=== PATIENT | male | born 1955 | race Caucasian/White ===

== ENCOUNTER 2016-11-18 19:59 | Inpatient (IN) | payer OTHER ==
[~2016-11-18] VITALS: Ht 193 cm; Wt 141.1 kg
--- NOTE | 2016-11-18 20:39 | PHYS DOC ---
Past Medical History Past Medical History: A-Fib, CHF, Diabetes-Type II, Hypertension, Other Additional Past Medical Histor: FUNGAL RASH-ENTIRE BODY Past Surgical History: Tonsillectomy Additional Information: CHEWS TOBACCO Alcohol Use: None Drug Use: None Adult General Chief Complaint Chief Complaint: MULTIPLE COMPLAINTS HPI HPI Patient is a 60 year old male who presents after a fall. Patient reports he was trying to stand up from a recliner when his socks slipped on the wooden floor and he fell. He then tried to stand up and slipped again. He denies hitting his head or LOC. He presents now with c/o pain in R hip and L foot. He has been ambulate since then, albeit with significant difficulty. He has taken some ibuprofen for pain with insufficient relief. In addition, he reports that today (before falling) he noticed some blood in his urine. No dysuria. No prior similar episodes. Review of Systems Review of Systems Constitutional: Denies fever or chills Eyes: Denies change in visual acuity or eye pain HENT: Denies nasal congestion or sore throat Respiratory: Denies cough or shortness of breath Cardiovascular: Denies chest pain GI: Denies abdominal pain, nausea, vomiting, bloody stools or diarrhea : Hematuria. Denies dysuria Musculoskeletal: R hip and L foot pain Integument: Denies rash or skin lesions Neurologic: Denies headache, focal weakness or sensory changes Current Medications Current Medications Current Medications Medications (Trade) Dose Ordered Sig/Fermin Start Time Stop Time Status Last Admin Dose Admin Acetaminophen (Tylenol) 650 mg PRN Q4HRS PRN 11/18/16 22:15 11/19/16 22:14 UNV Acetaminophen/ Hydrocodone Bitart (Lortab 5/325) 2 tab 1X ONCE 11/18/16 21:00 11/18/16 21:01 DC 11/18/16 21:34 2 TAB Ceftriaxone Sodium (Rocephin 1gm Ivpb For Omni) 50 ml @ 100 mls/hr 1X ONCE 11/18/16 22:15 11/18/16 22:44 UNV 11/18/16 22:06 100 MLS/HR Dextrose 12.5 gm PRN Q15MIN PRN 11/18/16 22:15 UNV Furosemide 40 mg 40 mg 1X ONCE 11/18/16 22:00 11/18/16 22:01 DC 11/18/16 22:03 40 MG Insulin Aspart (Novolog) 0-7 UNITS TIDWMEALS 11/19/16 08:00 UNV Morphine Sulfate 4 mg PRN Q2HR PRN 11/18/16 22:15 11/19/16 22:14 UNV Ondansetron HCl (Zofran) 4 mg PRN Q8HRS PRN 11/18/16 22:15 11/19/16 22:14 UNV Allergies Allergies Allergies Coded Allergies Type Severity Reaction Last Updated Verified No Known Drug Allergies 11/18/16 No Physical Exam Physical Exam Constitutional: Well developed, well nourished, no acute distress, non-toxic appearance HENT: Normocephalic, atraumatic, bilateral external ears normal Eyes: EOMI, conjunctiva normal, no discharge Neck: Normal range of motion, no stridor Cardiovascular: Intermittent tachycardia, irregular rhythm, no murmur Lungs & Thorax: Bilateral breath sounds clear to auscultation Abdomen: Bowel sounds normal, soft, non-distended, no TTP Skin: Warm, dry, no erythema, no rash Back: No midline tenderness, no stepoff Extremities: BLE pitting edema. Scattered small scabs over BLE. R hip with mild TTP over lateral aspect, no visible deformity noted. L foot with mild generalized TTP as well, without deformity. Full motor function and sensation to light touch preserved throughout. Distal pulses intact throughout. Neurologic: Alert and oriented X 3, no gross deficits noted Current Patient Data Vital Signs Vital Signs Date Time Temp Pulse Resp B/P Pulse Ox O2 Delivery O2 Flow Rate FiO2 11/18/16 22:08 105 18 175/97 95 Room Air 11/18/16 20:15 98.7 98.7 Lab Values Laboratory Tests Test 11/18/16 20:29 11/18/16 21:40 White Blood Count 18.9x10^3/uL (4.0-11.0) H Red Blood Count 4.03x10^6/uL (4.30-5.70) L Hemoglobin 11.4g/dL (13.0-17.5) L Hematocrit 34.8% (39.0-53.0) L Mean Corpuscular Volume 86fL (79-100) Mean Corpuscular Hemoglobin 28pg (25-35) Mean Corpuscular Hemoglobin Concent 33g/dL (31-37) Red Cell Distribution Width 15.2% (11.5-14.5) H Platelet Count 199x10^3/uL (140-400) Neutrophils (%) (Auto) 82% (31-73) H Lymphocytes (%) (Auto) 7% (24-48) L Monocytes (%) (Auto) 9% (0-9) Eosinophils (%) (Auto) 2% (0-3) Basophils (%) (Auto) 1% (0-3) Neutrophils # (Auto) 15.5x10^3uL (1.8-7.7) H Lymphocytes # (Auto) 1.3x10^3/uL (1.0-4.8) Monocytes # (Auto) 1.7x10^3/uL (0.0-1.1) H Eosinophils # (Auto) 0.4x10^3/uL (0.0-0.7) Basophils # (Auto) 0.1x10^3/uL (0.0-0.2) Segmented Neutrophils % 77% (35-66) H Band Neutrophils % 11% (0-9) H Lymphocytes % 1% (24-48) L Atypical Lymphocytes % (Manual) 3% (0-0) H Monocytes % 7% (0-10) Eosinophils % 1% (0-5) Toxic Granulation Slight Toxic Vacuolation Slight Platelet Estimate Adequate (ADEQUATE) Ovalocytes Few Sodium Level 135mmol/L (136-145) L Potassium Level 3.8mmol/L (3.5-5.1) Chloride Level 98mmol/L (98-107) Carbon Dioxide Level 31mmol/L (21-32) Anion Gap 6 (6-14) Blood Urea Nitrogen 20mg/dL (8-26) Creatinine 1.9mg/dL (0.7-1.3) H Estimated GFR (Cockcroft-Gault) 36.1 Glucose Level 118mg/dL (70-99) H Calcium Level 8.7mg/dL (8.5-10.1) TA-Rfq-[id number]-Type Natriuretic Peptide 4127pg/mL (0-124) H Urine Collection Type Unknown Urine Color Red Urine Clarity Turbid Urine pH 5.5 Urine Specific [place] 1.020 Urine Protein >=300mg/dL (NEG-TRACE) Urine Glucose (UA) Negativemg/dL (NEG) Urine Ketones (Stick) Tracemg/dL (NEG) Urine Blood Large (NEG) Urine Nitrite Positive (NEG) Urine Bilirubin Moderate (NEG) Urine Urobilinogen Dipstick 0.2mg/dL (0.2 mg/dL) Urine Leukocyte Esterase Moderate (NEG) Urine RBC Tntc/HPF (0-2) Urine WBC 11-20/HPF (0-4) Urine Squamous Epithelial Cells Few/LPF Urine Amorphous Sediment Present/HPF Urine Bacteria 0/HPF (0-FEW) Urine Hyaline Casts Few/HPF Urine Granular Casts Occasional/HPF Laboratory Tests 11/18/16 20:29 Laboratory Tests 11/18/16 20:29 EKG EKG EKG (my read): atrial fibrillation, rate 98, LAD, intervals wnl, single PVC noted, no acute ischemic changes Radiology/Procedures Radiology/Procedures CXR (my read): Cardiomegaly, mild pulmonary edema X-ray L foot (my read): No acute bony abnormality X-ray R hip (my read): Degenerative changes, no acute fracture Course & Med Decision Making Course & Med Decision Making Pertinent Labs and Imaging studies reviewed. (See chart for details) Patient is 60 year old male who presents s/p mechanical fall and with hematuria. No obvious serious injury from fall, will obtain x-rays of R hip and L foot for evaluation. Noted to be in Afib (known history), and appears fluid overloaded (h/o CHF, takes lasix at home). Will obtain EKG, CXR, labs. Oral pain medication ordered for relief of pain. Labs notable for leukocytosis, elevated BNP, elevated creatinine, apparent UTI. Dose of IV lasix and rocephin ordered. Discussed results with patient and family. Discussed with Dr. Jiménez , will admit under his care for further evaluation and treatment. Cardiology consult entered. Dragon Disclaimer Dragon Disclaimer This electronic medical record was generated, in whole or in part, using a voice recognition dictation system. Departure Departure Impression: Primary Impression: CHF exacerbation Additional Impression: UTI (urinary tract infection) Disposition: ADMITTED INPATIENT Admitting Physician: Ventura Jiménez Condition: STABLE Problem Qualifiers TASHA BONNER MD Nov 18, 2016 20:39
[2016-11-18] MEDS ORDERED: HYDROCODONE/APAP 5/325MG TABLET. PO ONE (21:00)
[2016-11-18 21:03] LABS: BASO # 0.1 x10^3/uL (0.0-0.2); BASO % 1 % (0-3); EOS % 2 % (0-3); HEMATOCRIT 34.8 % (39.0-53.0); HEMOGLOBIN 11.4 g/dL (13.0-17.5); LYMPH # 1.3 x10^3/uL (1.0-4.8); LYMPH % 7 % (24-48); MEAN CORPUSCULAR HEMOGLOBIN 28 pg (25-35); MEAN CORPUSCULAR HGB CONC 33 g/dL (31-37); MEAN CORPUSCULAR VOLUME 86 fL (79-100); MONO % 9 % (0-9); NEUT % 82 % (31-73); PLATELET COUNT 199 x10^3/uL (140-400); RED BLOOD COUNT 4.03 x10^6/uL (4.30-5.70); RED CELL DISTRIBUTION WIDTH 15.2 % (11.5-14.5); WHITE BLOOD COUNT 18.9 x10^3/uL (4.0-11.0)
[2016-11-18 21:14] LABS: CALCIUM 8.7 mg/dL (8.5-10.1); CREATININE 1.9 mg/dL (0.7-1.3); GFR 36.1; POTASSIUM 3.8 mmol/L (3.5-5.1)
[2016-11-18 21:28] LABS: % EOS 1 % (0-5); OVALOCYTES FEW; PLT ESTIMATE ADEQUATE (ADEQUATE); TOXIC GRANULATION SLIGHT; TOXIC VACUOLATION SLIGHT
[2016-11-18 21:45] LABS: BILIRUBIN,URINE MODERATE (NEG); GLUCOSE,URINE NEGATIVE (NEG); NITRITE,URINE POSITIVE (NEG); PH,URINE 5.5; PROTEIN,URINE >=300 mg/dL (NEG-TRACE); UROBILINOGEN,URINE 0.2 mg/dL (0.2 mg/dL)
[2016-11-18 21:58] LABS: BACTERIA,URINE 0 /HPF (0-FEW); RBC,URINE TNTC /HPF (0-2); SQUAMOUS EPITHELIAL CELL,UR FEW /LPF
[2016-11-18] MEDS ORDERED: FUROSEMIDE 40 MG/4 ML VIAL IVP ONE (22:00)
[2016-11-18] MEDS ORDERED: DEXTROSE 50% 25 GM / 50ML DISP.SYRIN. IV PRN (22:15)
[2016-11-18] MEDS ORDERED: CEFTRIAXONE 1GM IVPB FOR OMNI 50 ML IV ONE (22:15)
[2016-11-18] MEDS ORDERED: ACETAMINOPHEN 325 MG TABLET. PO PRN (22:15)
[2016-11-18] MEDS ORDERED: ONDANSETRON PF 4 MG/2 ML VIAL. IV PRN (22:15)
[2016-11-18 23:03] VITALS: BP 123/97
[2016-11-18] MEDS ORDERED: LOSA100T6 PO (23:15)
[2016-11-18] MEDS ORDERED: CARV25TA2 PO (23:15)
[2016-11-18] MEDS ORDERED: INFLUENZA VAX SCREEN BY RX. MC ONE (23:15)
[2016-11-18] MEDS ORDERED: RIVA20TA2 PO (23:15)
[2016-11-18] MEDS ORDERED: GLIM2TAB2 PO (23:15)
[2016-11-18] MEDS ORDERED: FURO40TA4 PO (23:15)
[2016-11-18] MEDS ORDERED: PNEUMOCOCCAL VAX SCREEN BY RX. MC ONE (23:15)
[2016-11-18] MEDS ORDERED: AMLO10TA2 PO (23:15)
[2016-11-19] MEDS: MORPHINE SULFATE 4 MG/ML DISP.SYRIN. IV PRN ×3 (00:46→14:58)
[2016-11-19 03:30] VITALS: BP 154/89
[2016-11-19 05:31] LABS: BASO % 0 % (0-3); EOS % 3 % (0-3); HEMATOCRIT 34.8 % (39.0-53.0); HEMOGLOBIN 11.4 g/dL (13.0-17.5); LYMPH # 0.6 x10^3/uL (1.0-4.8); LYMPH % 3 % (24-48); MEAN CORPUSCULAR HEMOGLOBIN 28 pg (25-35); MEAN CORPUSCULAR HGB CONC 33 g/dL (31-37); MEAN CORPUSCULAR VOLUME 85 fL (79-100); MONO % 7 % (0-9); NEUT % 87 % (31-73); PLATELET COUNT 198 x10^3/uL (140-400); RED BLOOD COUNT 4.09 x10^6/uL (4.30-5.70); RED CELL DISTRIBUTION WIDTH 15.3 % (11.5-14.5); WHITE BLOOD COUNT 20.3 x10^3/uL (4.0-11.0)
[2016-11-19 06:05] LABS: CALCIUM 8.4 mg/dL (8.5-10.1); CREATININE 2.3 mg/dL (0.7-1.3); POTASSIUM 3.9 mmol/L (3.5-5.1)
[2016-11-19 07:00] VITALS: BP 150/88
[2016-11-19] MEDS ORDERED: INSULIN ASPART 300 UNITS/3 ML INSULN.PEN SQ SCH (08:00)
--- NOTE | 2016-11-19 08:19 | RAD ---
Exam: AP portable chest. History: Hypertension and atrial fibrillation. Comparison: 03/07/2011. Findings: The heart and mediastinal structures are within normal limits for size. Lungs are without infiltrate. No pneumothorax or pleural effusion is appreciated. Impression: 1. No acute cardiopulmonary process.
--- NOTE | 2016-11-19 08:21 | RAD ---
Left foot radiographs History: Diabetic, swelling and discoloration. Comparison: None. Findings: AP, lateral, and oblique views of the left foot. No acute fracture or dislocation is identified. No acute osseous abnormality to suggest radiographic evidence of osteomyelitis is seen, although radiographic evidence of such would be a late finding. First MTP degeneration is seen. No radiopaque foreign body is identified. Large amount of forefoot and midfoot soft tissue swelling is seen.. Plantar calcaneal and Achilles tendon insertional enthesophytes are present. Impression: 1. No radiographic evidence of osteomyelitis. 2. Soft tissue swelling.
--- NOTE | 2016-11-19 08:25 | RAD ---
Pelvis and right hip radiographs History: Pain, fall. Comparison: None. Findings: AP view of pelvis. AP and frog-leg views of the right hip. No acute fracture 4 dislocation is identified. There is moderate degenerative change involving the right hip. There is also over coverage of the femoral head by the acetabulum, and there is thought to be underlying pincer-type femoral acetabular impingement. Mild left hip degeneration is present, and there may be lesser degree of pincer-type left femoral acetabular impingement as well. Impression: No acute osseous abnormality identified.
--- NOTE | 2016-11-19 08:58 | PDOC1 ---
History and Physical Date of Admission Date of Admission DATE: 11/19/16 TIME: 08:56 Identification/Chief Complaint Chief Complaint ankle pain Source Source: Chart review, Patient History of Present Illness History of Present Illness Mr. Greco, is a 60 year old male admitted after a fall. Just slipped on the wooden floor at his sons house, and he fell, then slipped again. Only ER complaint was pain in R hip and L foot. Left foot swollen and painful and difficulty ambulating . He has taken some ibuprofen for pain with insufficient relief. some dyspnea with exertion, he takes Lasix for CHF, he has no known prior renal dysfunction, Past Medical History Cardiovascular: AFIB, CHF, HTN Pulmonary: No pertinent hx GI: No pertinent hx ENT: No pertinent hx Renal/: No pertinent hx Family History Family History soc: chews tobacco Social History Smoke: No ALCOHOL: none Drugs: None Current Problem List Problem List Problems Medical Problems: (1) CHF exacerbation Status: Acute (2) Fall Status: Acute (3) UTI (urinary tract infection) Status: Acute Problems: Current Medications Current Medications Current Medications Acetaminophen/ Hydrocodone Bitart (Lortab 5/325) 2 tab 1X ONCE PO Last administered on 11/18/16 21:34; Start 11/18/16 at 21:00; Stop 11/18/16 at 21:01 ; Status DC Furosemide 40 mg 40 mg 1X ONCE IVP Last administered on 11/18/16 22:03; Start 11/18/16 at 22:00; Stop 11/18/16 at 22:01; Status DC Ceftriaxone Sodium (Rocephin 1gm Ivpb For Omni) 50 ml @ 100 mls/hr 1X ONCE IV Last administered on 11/18/16 22:06; Start 11/18/16 at 22:15; Stop 11/18/16 at 22:44; Status DC Ondansetron HCl (Zofran) 4 mg PRN Q8HRS PRN IV NAUSEA/VOMITING; Start 11/18/16 at 22:15; Stop 11/19/16 at 22:14 Morphine Sulfate 4 mg PRN Q2HR PRN IV PAIN Last administered on 11/19/16 00:46 ; Start 11/18/16 at 22:15; Stop 11/19/16 at 22:14 Acetaminophen (Tylenol) 650 mg PRN Q4HRS PRN PO FEVER; Start 11/18/16 at 22:15 ; Stop 11/19/16 at 22:14 Insulin Aspart (Novolog) 0-7 UNITS TIDWMEALS SQ ; Start 11/19/16 at 08:00 Dextrose 12.5 gm PRN Q15MIN PRN IV SEE COMMENTS; Start 11/18/16 at 22:15 Info (Do NOT chart on this placeholder) 1 each 1X ONCE MC ; Start 11/18/16 at 23:15; Stop 11/18/16 at 23:16; Status UNV Pneumococcal Polyvalent Vaccine (Do NOT chart on this placeholder) 1 each 1X ONCE MC ; Start 11/18/16 at 23:15; Stop 11/18/16 at 23:16; Status UNV Influenza Virus Vaccine Quadrival (Fluarix Quad [id number] Syringe) 0.5 ml ONCE ONCE VAX IM ; Start 11/19/16 at 09:00; Stop 11/19/16 at 09:01 Pneumococcal Polyvalent Vaccine (Pneumovax 23) 0.5 ml ONCE ONCE VAX IM ; Start 11/19/16 at 09:00; Stop 11/19/16 at 09:01 Active Scripts Active Reported Xarelto (Rivaroxaban) 20 Mg Tablet 20 Mg PO DAILY Carvedilol 25 Mg Tablet 1 Tab PO BID Furosemide 40 Mg Tablet 1 Tab PO DAILY Losartan Potassium 100 Mg Tablet 100 Mg PO DAILY Amlodipine Besylate 10 Mg Tablet 10 Mg PO DAILY Glimepiride 2 Mg Tablet 1 Tab PO DAILY Allergies Allergies: Coded Allergies: No Known Drug Allergies (Unverified , 11/18/16) ROS General: No: Appetite, Chills, Fatigue, Malaise, Night Sweats, Other PSYCHOLOGICAL ROS: No: Anxiety, Behavioral Disorder, Concentration difficultie , Decreased libido, Depression, Disorientation, Hallucinations, Hostility, Irritablity, Memory difficulties, Mood Swings, Obsessive thoughts, Other, Physical abuse, Sexual abuse, Sleep disturbances, Suicidal ideation Eyes: No Blurry vision, No Decreased vision, No Double vision, No Dry eyes, No Excessive tearing, No Eye Pain, No Itchy Eyes, No Loss of vision, No Other, No Photophobia, No Scotomata, No Uses contacts, No Uses glasses HEENT: No: Epistaxis, Heacaches, Hearing change, Nasal congestion, Nasal discharge, Oral lesions, Other, Sinus pain, Sneezing, Snoring, Sore Throat, Tinnitus, Vertigo, Visual Changes, Vocal changes Cardiovascular: No Chest Pain, No Edema, No Lt Headedness, No Orthopnea, No Other, No Palpitations, No Paroxysmal Noc. Dyspnea Gastrointestinal: No Abdominal Pain, No Constipation, No Diarrhea, No Hematochezia, No Melena, No Nausea, No Other, No Vomiting Genitourinary: No , No , No , No , No , No , No , No Discharge, No Dysuria, No Flank Pain, No Frequency, No Hematuria, No Incontinence, No Other, No Pain, No Retention, No Urgency Musculoskeletal: Yes Joint Pain, Yes Joint Stiffness Neurological: No Behavorial Changes, No Bowel/Bladder ControlChng, No Confusion , No Dizziness, No Gait Disturbance, No Headaches, No Impaired Coord/balance, No Memory Loss, No Numbness/Tingling, No Other, No Seizures, No Speech Problems , No Tremors, No Visual Changes, No Weakness Skin: Yes Dry Skin, Yes Rash, No Acne, No Eczema, No Hair Changes, No Lumps, No Mole Changes, No Mottling, No Nail Changes, No Other, No Pruritus, No Skin Lesion Changes Physical Exam General: Alert, Oriented X3, Cooperative HEENT: Atraumatic, PERRLA Lungs: Other (end rales, no crackles, mod volume) Heart: no murmurs Abdomen: Normal bowel sounds, Soft (obese) Rectal Exam: not examined Extremities: Other (left foot 3+ edmea, ) Skin: Other (diffuse fungus with scale both ankles and feet, ) Neuro: Normal tone, Sensation intact Psych/Mental Status: Mental status NL, Mood NL Vitals Vitals Vital Signs Date Time Temp Pulse Resp B/P Pulse Ox O2 Delivery O2 Flow Rate FiO2 11/19/16 07:00 98.5 100 18 150/88 94 98.5 11/19/16 03:30 Room Air Labs Labs Laboratory Tests Test 11/18/16 20:29 11/18/16 21:40 11/19/16 04:25 White Blood Count 18.9x10^3/uL (4.0-11.0) 20.3x10^3/uL (4.0-11.0) Red Blood Count 4.03x10^6/uL (4.30-5.70) 4.09x10^6/uL (4.30-5.70) Hemoglobin 11.4g/dL (13.0-17.5) 11.4g/dL (13.0-17.5) Hematocrit 34.8% (39.0-53.0) 34.8% (39.0-53.0) Mean Corpuscular Volume 86fL (79-100) 85fL (79-100) Mean Corpuscular Hemoglobin 28pg (25-35) 28pg (25-35) Mean Corpuscular Hemoglobin Concent 33g/dL (31-37) 33g/dL (31-37) Red Cell Distribution Width 15.2% (11.5-14.5) 15.3% (11.5-14.5) Platelet Count 199x10^3/uL (140-400) 198x10^3/uL (140-400) Neutrophils (%) (Auto) 82% (31-73) 87% (31-73) Lymphocytes (%) (Auto) 7% (24-48) 3% (24-48) Monocytes (%) (Auto) 9% (0-9) 7% (0-9) Eosinophils (%) (Auto) 2% (0-3) 3% (0-3) Basophils (%) (Auto) 1% (0-3) 0% (0-3) Neutrophils # (Auto) 15.5x10^3uL (1.8-7.7) 17.7x10^3uL (1.8-7.7) Lymphocytes # (Auto) 1.3x10^3/uL (1.0-4.8) 0.6x10^3/uL (1.0-4.8) Monocytes # (Auto) 1.7x10^3/uL (0.0-1.1) 1.4x10^3/uL (0.0-1.1) Eosinophils # (Auto) 0.4x10^3/uL (0.0-0.7) 0.5x10^3/uL (0.0-0.7) Basophils # (Auto) 0.1x10^3/uL (0.0-0.2) 0.0x10^3/uL (0.0-0.2) Segmented Neutrophils % 77% (35-66) Band Neutrophils % 11% (0-9) Lymphocytes % 1% (24-48) Atypical Lymphocytes % (Manual) 3% (0-0) Monocytes % 7% (0-10) Eosinophils % 1% (0-5) Toxic Granulation Slight Toxic Vacuolation Slight Platelet Estimate Adequate (ADEQUATE) Ovalocytes Few Sodium Level 135mmol/L (136-145) 138mmol/L (136-145) Potassium Level 3.8mmol/L (3.5-5.1) 3.9mmol/L (3.5-5.1) Chloride Level 98mmol/L (98-107) 99mmol/L (98-107) Carbon Dioxide Level 31mmol/L (21-32) 34mmol/L (21-32) Anion Gap 6 (6-14) 5 (6-14) Blood Urea Nitrogen 20mg/dL (8-26) 22mg/dL (8-26) Creatinine 1.9mg/dL (0.7-1.3) 2.3mg/dL (0.7-1.3) Estimated GFR (Cockcroft-Gault) 36.1 29.0 Glucose Level 118mg/dL (70-99) 106mg/dL (70-99) Calcium Level 8.7mg/dL (8.5-10.1) 8.4mg/dL (8.5-10.1) SM-Kah-B-Type Natriuretic Peptide 4127pg/mL (0-124) Urine Collection Type Unknown Urine Color Red Urine Clarity Turbid Urine pH 5.5 Urine Specific [place] 1.020 Urine Protein >=300mg/dL (NEG-TRACE) Urine Glucose (UA) Negativemg/dL (NEG) Urine Ketones (Stick) Tracemg/dL (NEG) Urine Blood Large (NEG) Urine Nitrite Positive (NEG) Urine Bilirubin Moderate (NEG) Urine Urobilinogen Dipstick 0.2mg/dL (0.2 mg/dL) Urine Leukocyte Esterase Moderate (NEG) Urine RBC Tntc/HPF (0-2) Urine WBC 11-20/HPF (0-4) Urine Squamous Epithelial Cells Few/LPF Urine Amorphous Sediment Present/HPF Urine Bacteria 0/HPF (0-FEW) Urine Hyaline Casts Few/HPF Urine Granular Casts Occasional/HPF Laboratory Tests Test 11/18/16 20:29 11/18/16 21:40 11/19/16 04:25 White Blood Count 18.9x10^3/uL (4.0-11.0) 20.3x10^3/uL (4.0-11.0) Red Blood Count 4.03x10^6/uL (4.30-5.70) 4.09x10^6/uL (4.30-5.70) Hemoglobin 11.4g/dL (13.0-17.5) 11.4g/dL (13.0-17.5) Hematocrit 34.8% (39.0-53.0) 34.8% (39.0-53.0) Mean Corpuscular Volume 86fL (79-100) 85fL (79-100) Mean Corpuscular Hemoglobin 28pg (25-35) 28pg (25-35) Mean Corpuscular Hemoglobin Concent 33g/dL (31-37) 33g/dL (31-37) Red Cell Distribution Width 15.2% (11.5-14.5) 15.3% (11.5-14.5) Platelet Count 199x10^3/uL (140-400) 198x10^3/uL (140-400) Neutrophils (%) (Auto) 82% (31-73) 87% (31-73) Lymphocytes (%) (Auto) 7% (24-48) 3% (24-48) Monocytes (%) (Auto) 9% (0-9) 7% (0-9) Eosinophils (%) (Auto) 2% (0-3) 3% (0-3) Basophils (%) (Auto) 1% (0-3) 0% (0-3) Neutrophils # (Auto) 15.5x10^3uL (1.8-7.7) 17.7x10^3uL (1.8-7.7) Lymphocytes # (Auto) 1.3x10^3/uL (1.0-4.8) 0.6x10^3/uL (1.0-4.8) Monocytes # (Auto) 1.7x10^3/uL (0.0-1.1) 1.4x10^3/uL (0.0-1.1) Eosinophils # (Auto) 0.4x10^3/uL (0.0-0.7) 0.5x10^3/uL (0.0-0.7) Basophils # (Auto) 0.1x10^3/uL (0.0-0.2) 0.0x10^3/uL (0.0-0.2) Segmented Neutrophils % 77% (35-66) Band Neutrophils % 11% (0-9) Lymphocytes % 1% (24-48) Atypical Lymphocytes % (Manual) 3% (0-0) Monocytes % 7% (0-10) Eosinophils % 1% (0-5) Toxic Granulation Slight Toxic Vacuolation Slight Platelet Estimate Adequate (ADEQUATE) Ovalocytes Few Sodium Level 135mmol/L (136-145) 138mmol/L (136-145) Potassium Level 3.8mmol/L (3.5-5.1) 3.9mmol/L (3.5-5.1) Chloride Level 98mmol/L (98-107) 99mmol/L (98-107) Carbon Dioxide Level 31mmol/L (21-32) 34mmol/L (21-32) Anion Gap 6 (6-14) 5 (6-14) Blood Urea Nitrogen 20mg/dL (8-26) 22mg/dL (8-26) Creatinine 1.9mg/dL (0.7-1.3) 2.3mg/dL (0.7-1.3) Estimated GFR (Cockcroft-Gault) 36.1 29.0 Glucose Level 118mg/dL (70-99) 106mg/dL (70-99) Calcium Level 8.7mg/dL (8.5-10.1) 8.4mg/dL (8.5-10.1) VL-Lxl-U-Type Natriuretic Peptide 4127pg/mL (0-124) Urine Collection Type Unknown Urine Color Red Urine Clarity Turbid Urine pH 5.5 Urine Specific [place] 1.020 Urine Protein >=300mg/dL (NEG-TRACE) Urine Glucose (UA) Negativemg/dL (NEG) Urine Ketones (Stick) Tracemg/dL (NEG) Urine Blood Large (NEG) Urine Nitrite Positive (NEG) Urine Bilirubin Moderate (NEG) Urine Urobilinogen Dipstick 0.2mg/dL (0.2 mg/dL) Urine Leukocyte Esterase Moderate (NEG) Urine RBC Tntc/HPF (0-2) Urine WBC 11-20/HPF (0-4) Urine Squamous Epithelial Cells Few/LPF Urine Amorphous Sediment Present/HPF Urine Bacteria 0/HPF (0-FEW) Urine Hyaline Casts Few/HPF Urine Granular Casts Occasional/HPF VTE Prophylaxis Ordered VTE Prophylaxis Devices: No VTE Pharmacological Prophylaxi: Yes Assessment/Plan Assessment/Plan 60 yo male admitted after a fall x2 at home, injured left ankle and right hip pain in hip is improved, left foot and ankle are swollen, difficult to walk consult Dr. De, pt may benefit from cam boot or support CKD3-4, avoid aggressive NSAID for pain, acute renal w/ Ibuprofen use afib, chronic diastolic failure DM2, PO meds, he is unsure of A1c PCP is Marilee Goodrich LE edema admit obs, try to DC soon AIDEN GORDILLO MD Nov 19, 2016 08:58
[2016-11-19] MEDS ORDERED: FUROSEMIDE 40 MG/4 ML VIAL IVP ONE (09:00)
[2016-11-19] MEDS ORDERED: GUAIFENESIN DM 200MG/20MG 10 ML SYRUP. PO PRN (09:00)
[2016-11-19] MEDS ORDERED: FLU VACC QUAD 2016-17 (36MOS+)/PF 0.5 ML SYRINGE. VAX IM ONE (09:00)
[2016-11-19] MEDS ORDERED: NICOTINE 14MG PATCH. TD PRN (09:15)
[2016-11-19] MEDS ORDERED: NICOTINE POLACRILEX 2MG GUM PACKAGE of 12. BC PRN (09:15)
[2016-11-19] MEDS: CARVEDILOL 12.5 MG TABLET PO SCH ×2 (09:39→17:54)
[2016-11-19] MEDS: GLIMEPIRIDE 2 MG TABLET PO SCH (09:39)
[2016-11-19] MEDS: AMLODIPINE BESYLATE 10 MG TABLET PO SCH (09:39)
--- NOTE | 2016-11-19 09:56 | PDOC2 ---
KUNAL SHIPMAN TRANSPORTATION ENGINEER 11/19/16 0956: CARDIAC CONSULT DATE OF CONSULT Date of Consult DATE: 11/19/16 TIME: 09:49 REASON FOR CONSULT Reason for Consult: CHF HISTORY OF PRESENT ILLNESS HISTORY OF PRESENT ILLNESS Mr Greco is a 60 year old male with history of NICM, atrial fibrillation, CHF , diabetes mellitus. He was a patient of Marco A Hopper MD at [facility] but has not seen cardiology since his care home. He presented to the ED after a slip and fall. He was noted to have an elevated BNP and edema so consult was called for CHF. He denies any chest discomfort, dyspnea, orthopnea or PND. He reports bilateral lower extremity edema over the last month. He denies any change in diet or medications and takes diuretics daily. He denies any palpitations, lightheadedness or syncope. He reports his functional capacity at about 50 yards prior to dyspnea. PAST MEDICAL HISTORY Past Medical History AFIB, CHF, HTN, diabetes, NICM and reports his EF about 30% last check, last cardiac cath about 15 years ago. He is unsure if he has ever had an echo. He reports a stress test about 5 years ago. He is currently being treated for a rash he reports is a fungal infection. PAST SURGICAL HISTORY Past Surgical History: Tonsillectomy FAMILY HISTORY Family History diabetes SOCIAL HISTORY Social History chews tobacco, no significant ETOH, no illicit drugs CURRENT MEDICATIONS CURRENT MEDICATIONS Current Medications Medications (Trade) Dose Ordered Sig/Fermin Route PRN Reason Start Time Stop Time Status Last Admin Dose Admin Acetaminophen/ Hydrocodone Bitart (Lortab 5/325) 2 tab 1X ONCE PO 11/18/16 21:00 11/18/16 21:01 DC 11/18/16 21:34 Furosemide 40 mg 40 mg 1X ONCE IVP 11/18/16 22:00 11/18/16 22:01 DC 11/18/16 22:03 Ceftriaxone Sodium (Rocephin 1gm Ivpb For Omni) 50 ml @ 100 mls/hr 1X ONCE IV 11/18/16 22:15 11/18/16 22:44 DC 11/18/16 22:06 Morphine Sulfate 4 mg PRN Q2HR PRN IV PAIN 11/18/16 22:15 11/19/16 22:14 11/19/16 09:38 Amlodipine Besylate (Norvasc) 10 mg DAILY PO 11/19/16 09:30 11/19/16 09:39 Glimepiride (Amaryl) 2 mg DAILYWBKFT PO 11/19/16 09:30 11/19/16 09:39 Carvedilol (Coreg) 25 mg BIDWMEALS PO 11/19/16 09:30 11/19/16 09:39 Furosemide (Lasix) 40 mg 1X ONCE IVP 11/19/16 09:00 11/19/16 09:04 DC 11/19/16 09:40 ALLERGIES ALLERGIES: Coded Allergies: No Known Drug Allergies (Unverified , 11/18/16) ROS Review of System as per HPI with addition of rash, otherwise negative PHYSICAL EXAM General: Alert, Oriented X3, Cooperative, No acute distress HEENT: Atraumatic, EOMI Lungs: Other (coarse without obvious crackles, rhonchi or wheezing) Heart: Other (irregular rate and rhythm, no gallops) Abdomen: Normal bowel sounds, Soft Extremities: Other (++ bilateral lower extremity edema) Skin: Other (+ rash bilateral lower extremities ) Neuro: Normal speech, Strength at 5/5 X4 ext Psych/Mental Status: Mental status NL, Mood NL VITALS VITALS Vital Signs Date Time Temp Pulse Resp B/P Pulse Ox O2 Delivery O2 Flow Rate FiO2 11/19/16 09:39 100 150/88 11/19/16 07:00 98.5 18 94 98.5 11/19/16 03:30 Room Air LABS Lab: Laboratory Tests Test 11/18/16 20:29 11/18/16 21:40 11/19/16 04:25 White Blood Count 18.9x10^3/uL (4.0-11.0) 20.3x10^3/uL (4.0-11.0) Red Blood Count 4.03x10^6/uL (4.30-5.70) 4.09x10^6/uL (4.30-5.70) Hemoglobin 11.4g/dL (13.0-17.5) 11.4g/dL (13.0-17.5) Hematocrit 34.8% (39.0-53.0) 34.8% (39.0-53.0) Mean Corpuscular Volume 86fL (79-100) 85fL (79-100) Mean Corpuscular Hemoglobin 28pg (25-35) 28pg (25-35) Mean Corpuscular Hemoglobin Concent 33g/dL (31-37) 33g/dL (31-37) Red Cell Distribution Width 15.2% (11.5-14.5) 15.3% (11.5-14.5) Platelet Count 199x10^3/uL (140-400) 198x10^3/uL (140-400) Neutrophils (%) (Auto) 82% (31-73) 87% (31-73) Lymphocytes (%) (Auto) 7% (24-48) 3% (24-48) Monocytes (%) (Auto) 9% (0-9) 7% (0-9) Eosinophils (%) (Auto) 2% (0-3) 3% (0-3) Basophils (%) (Auto) 1% (0-3) 0% (0-3) Neutrophils # (Auto) 15.5x10^3uL (1.8-7.7) 17.7x10^3uL (1.8-7.7) Lymphocytes # (Auto) 1.3x10^3/uL (1.0-4.8) 0.6x10^3/uL (1.0-4.8) Monocytes # (Auto) 1.7x10^3/uL (0.0-1.1) 1.4x10^3/uL (0.0-1.1) Eosinophils # (Auto) 0.4x10^3/uL (0.0-0.7) 0.5x10^3/uL (0.0-0.7) Basophils # (Auto) 0.1x10^3/uL (0.0-0.2) 0.0x10^3/uL (0.0-0.2) Segmented Neutrophils % 77% (35-66) Band Neutrophils % 11% (0-9) Lymphocytes % 1% (24-48) Atypical Lymphocytes % (Manual) 3% (0-0) Monocytes % 7% (0-10) Eosinophils % 1% (0-5) Toxic Granulation Slight Toxic Vacuolation Slight Platelet Estimate Adequate (ADEQUATE) Ovalocytes Few Sodium Level 135mmol/L (136-145) 138mmol/L (136-145) Potassium Level 3.8mmol/L (3.5-5.1) 3.9mmol/L (3.5-5.1) Chloride Level 98mmol/L (98-107) 99mmol/L (98-107) Carbon Dioxide Level 31mmol/L (21-32) 34mmol/L (21-32) Anion Gap 6 (6-14) 5 (6-14) Blood Urea Nitrogen 20mg/dL (8-26) 22mg/dL (8-26) Creatinine 1.9mg/dL (0.7-1.3) 2.3mg/dL (0.7-1.3) Estimated GFR (Cockcroft-Gault) 36.1 29.0 Glucose Level 118mg/dL (70-99) 106mg/dL (70-99) Calcium Level 8.7mg/dL (8.5-10.1) 8.4mg/dL (8.5-10.1) SO-Hcu-N-Type Natriuretic Peptide 4127pg/mL (0-124) Urine Collection Type Unknown Urine Color Red Urine Clarity Turbid Urine pH 5.5 Urine Specific Shawmut 1.020 Urine Protein >=300mg/dL (NEG-TRACE) Urine Glucose (UA) Negativemg/dL (NEG) Urine Ketones (Stick) Tracemg/dL (NEG) Urine Blood Large (NEG) Urine Nitrite Positive (NEG) Urine Bilirubin Moderate (NEG) Urine Urobilinogen Dipstick 0.2mg/dL (0.2 mg/dL) Urine Leukocyte Esterase Moderate (NEG) Urine RBC Tntc/HPF (0-2) Urine WBC 11-20/HPF (0-4) Urine Squamous Epithelial Cells Few/LPF Urine Amorphous Sediment Present/HPF Urine Bacteria 0/HPF (0-FEW) Urine Hyaline Casts Few/HPF Urine Granular Casts Occasional/HPF IMAGES IMAGES CXR - Impression: 1. No acute cardiopulmonary process. hip/pelvis Impression: No acute osseous abnormality identified. foot Impression: 1. No radiographic evidence of osteomyelitis. 2. Soft tissue swelling. EKG EKG unavaliable tele - afib ASSESSMENT/PLAN ASSESSMENT/PLAN 1. chronic, likely systolic heart failure - CXR with out pulmonary congestion. Resume home medications and check echo. 2. reported NICM - check echo. 3. atrial fibrillation - rate control and xarelto for stroke prophylaxis 4. CKD - he reports 25% renal function but denies ever seeing nephrology. Request records and consider renal eval. 5. hypertension - add hydralazine 6. lipid status unknown Problems: SAMIA JONES MD 11/19/16 1309: CARDIAC CONSULT ALLERGIES ALLERGIES: Coded Allergies: No Known Drug Allergies (Unverified , 11/18/16) ASSESSMENT/PLAN ASSESSMENT/PLAN Pt. seen and examined. Agree with above ICE HOCKEY COACH note. 60 y.o male with presumed non-ischemic CMP. Presenting with acute on chronic HF. Severe LE edema and chronic venous stasis changes. Will continue diuresis. Monitor renal function tomorrow. may need to be transferred to [facility] for close cardiac monitoring and consider initiation of milrinone etc if renal function gets worse. Problems: KUNAL SHIPMAN APRN Nov 19, 2016 09:56 SAMIA JONES MD Nov 19, 2016 13:09
[2016-11-19 11:00] VITALS: BP 146/86
[2016-11-19] MEDS: INSULIN ASPART 300 UNITS/3 ML INSULN.PEN SQ SCH ×2 (12:00→17:00)
--- NOTE | 2016-11-19 12:02 | EKG ---
[facility] [address] [place] [address] Test Date: 2016-11-18 Test Time: 20:46:47 Pat Name: SILVIA BLAND Department: Room: [facility] Gender: M Clam Dredger: : 1955 Requested By: TASHA BONNER Order Number: [id number] Reading MD: Oswaldo Everett Measurements Intervals Lester Rate: 98 P: CT: QRS: -45 QRSD: 110 T: 54 QT: 346 QTc: 444 Interpretive Statements ATRIAL FIBRILLATION WITH CONTROLLED VENTRICULAR RESPONSE NON-SPECIFIC ST/T CHANGES Electronically Signed On 11-22-2016 9:28:57 PROVIDER SERVICE REPRESENTATIVE by Oswaldo Everett
[2016-11-19] MEDS: IPRATRPIUM/ALBUTEROL 0.5/2.5MG 3 ML NEBU. NEB SCH ×3 (12:05→20:08)
[2016-11-19] MEDS: HYDRALAZINE 25 MG TABLET PO SCH ×2 (13:19→13:23)
[2016-11-19] MEDS: PNEUMOC CONJ VACC 23-VALENT 0.5 ML VIAL. VAX IM ONE (13:22)
[2016-11-19 14:38] VITALS: BP 108/71
[2016-11-19] MEDS ORDERED: RIVAROXABAN 10 MG TABLET. PO SCH (17:00)
[2016-11-19 17:34] LABS: % SAT IRON 7 % (15-34); IRON,SERUM 11 ug/dL (65-175)
[2016-11-19 19:05] VITALS: BP 108/74
[2016-11-19] MEDS: CEFTRIAXONE SODIUM 1 GM in IV NORMAL SALINE 50ML 50 ML IV SCH (21:28)
--- NOTE | 2016-11-19 21:35 | CONS ---
DATE OF CONSULTATION: 11/19/2016 ATTENDING PHYSICIAN: Dr. Jiménez. The patient was seen at the request of Dr. Jiménez for rehab evaluation. 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 He is babysitting with his at his son's house and he tried to stand up from a recliner when his socks slipped on the wooden floor and he fell and he tried to stand up again and he slipped again. He denies hitting his head or loss of consciousness. He complains of pain in his right hip and left foot with associated swelling. He is having difficulty to walk. He had taken some ibuprofen with insufficient pain relief. Before he fell he apparently also had some blood in the urine without any dysuria, no previous episodes like that. The patient with known atrial fibrillation, congestive heart failure, diabetes mellitus type 2, hypertension, fungal skin rash entire body, status post tonsillectomy. He chews tobacco. He is not known allergic to any medication. The patient denies any previous hip pain. He admits some lower back pain on and off while he is up walking long distance. Patient denies any tingling and numbness sensation in the extremities. Patient had radiological studies done of his hip and pelvis which revealed moderate degree of degenerative changes, right hip, mild degenerative changes in his left hip. X-rays of his left foot failed to reveal any acute abnormality, some degenerative changes of metatarsal phalangeal joint. PHYSICAL EXAMINATION: The patient on physical examination today revealed a middle-aged male. He is alert, oriented to place and person, follows commands appropriately, moves all 4 extremities voluntarily where he had 4+/5 grade muscle strength. He had tenderness to palpation over left mid foot and forefoot with significant edema and he had skin rash with scales over both feet and both legs and also over his thighs to a lesser degree. He had a crepitus on range of motion of both knee joints without any obvious knee joint effusion, no pain on range of motion of his left ankle. No tenderness to palpation around left ankle itself or left leg. He had significant limitation of right hip joint rotational movements. No tenderness to palpation around trochanteric bursa or gluteal muscles or over sacroiliac joint area or over lumbar spine. Straight leg raising test is negative bilaterally. I have not tested his transfers or ambulation skills, but he is independent with bed mobility. ASSESSMENT: Sprain, left foot and also right hip superimposed on degenerative joint disease of right hip. He also had absent ankle and knee jerks probably indicating diabetic peripheral neuropathy. He also had obesity. Patient with known atrial fibrillation, congestive heart failure, hypertension and fungal skin lesions all over his body for which he is being followed by a chemical research engineer. RECOMMENDATIONS: To get him a Cam walker both to support his left foot and to proceed with injecting his right hip joint under fluoroscopy to help ease his hip pain. He might need to be considered for total hip arthroplasty if the hip pain persists. To also obtain followup x-rays of his left foot early next week to make sure there is not any occult bony lesion. Dr. Jiménez, I appreciate asking me to participate in the care of this interesting patient. I will be glad to follow him with you as needed for his rehabilitation. YANICK LAI MD DR: JAVED/irasema JOB#: [id number] / [id number]
[2016-11-19 23:00] VITALS: BP 91/65
[2016-11-20] MEDS ORDERED: MORPHINE SULFATE 4 MG/ML DISP.SYRIN. IV PRN (00:15)
[2016-11-20] MEDS: MORPHINE IR 15 MG TABLET PO PRN ×3 (00:20→20:48)
[2016-11-20 03:09] VITALS: BP 100/61
--- NOTE | 2016-11-20 04:47 | ACF ---
Admission Forms Criteria URINARY COMPLICATIONS Clinical Indications for Inpatient Care (Place 'X' for any and all applicable criteria): Ongoing inpatient care may be indicated for urinary complications with ANY ONE of the following: [X]I. Urinary tract infection requiring inpatient care as indicated by ANY ONE of the following(8)(19)(20): [X]a) Severe symptoms (eg, high fever, severe pain) [ ]b) Vomiting or dehydration requiring ongoing inpatient care [ ]c) IV antibiotic needs that cannot be managed at lower level of care [ ]d) Hemodynamic instability [ ]e) Obstruction of collecting system by stone or tumor [ ]II. Urinary retention requiring drainage or surgery (3)(4)(5)(17)(18) [ ]III. Renal failure (Use Renal Failure Criteria for further information.) [ ]IV. Oliguria(30) [ ]V. Post obstructive diuresis requiring close monitoring of urine output and intravenous compensation for excessive fluid losses(33) Extended stay beyond goal length of stay for primary condition may be needed until ALL of the following are present(3)(4)(5)(8): [ ]a) Renal function (creatinine) at baseline, or daily decreases in creatinine consistent with renal function return [ ]b) Voiding adequately or with urinary catheter or percutaneous suprapubic tube and management regimen in place that is performable at lower level of care. [ ]c) Urine output adequate [ ]d) Fever absent or resolving [ ]e) Infection absent or treatable at next level of care The original [employer] content created by [employer] has been revised. The portions of the content which have been revised are identified through the use of italic text or in bold, and [facility] has neither reviewed nor approved the modified material. All other unmodified content is copyright [employer] Please see references footnoted in the original [facility] edition 2016 Admission Criteria Met?: Yes MARY DAVIS Nov 20, 2016 04:47
[2016-11-20 05:19] LABS: BASO # 0.1 x10^3/uL (0.0-0.2); BASO % 1 % (0-3); EOS % 5 % (0-3); HEMATOCRIT 30.5 % (39.0-53.0); HEMOGLOBIN 10.1 g/dL (13.0-17.5); LYMPH # 1.4 x10^3/uL (1.0-4.8); LYMPH % 8 % (24-48); MEAN CORPUSCULAR HEMOGLOBIN 28 pg (25-35); MEAN CORPUSCULAR HGB CONC 33 g/dL (31-37); MEAN CORPUSCULAR VOLUME 85 fL (79-100); MONO % 7 % (0-9); NEUT % 79 % (31-73); PLATELET COUNT 168 x10^3/uL (140-400); RED BLOOD COUNT 3.58 x10^6/uL (4.30-5.70); WHITE BLOOD COUNT 18.4 x10^3/uL (4.0-11.0)
[2016-11-20 05:37] LABS: ALBUMIN/GLOBULIN RATIO 0.4 (1.0-1.7); CALCIUM 7.7 mg/dL (8.5-10.1); CREATININE 4.4 mg/dL (0.7-1.3); GFR 13.7; POTASSIUM 3.6 mmol/L (3.5-5.1); TOTAL BILIRUBIN 0.6 mg/dL (0.2-1.0); TOTAL PROTEIN 7.4 g/dL (6.4-8.2)
[2016-11-20] MEDS: IPRATRPIUM/ALBUTEROL 0.5/2.5MG 3 ML NEBU. NEB SCH ×4 (07:17→20:02)
[2016-11-20 07:23] VITALS: BP 119/68
[2016-11-20] MEDS: INSULIN ASPART 300 UNITS/3 ML INSULN.PEN SQ SCH ×3 (08:00→17:00)
[2016-11-20] MEDS: GLIMEPIRIDE 2 MG TABLET PO SCH (08:08)
[2016-11-20] MEDS: AMLODIPINE BESYLATE 10 MG TABLET PO SCH (08:08)
[2016-11-20] MEDS: HYDRALAZINE 25 MG TABLET PO SCH ×2 (08:08→20:49)
[2016-11-20] MEDS: CARVEDILOL 12.5 MG TABLET PO SCH ×2 (08:09→17:42)
--- NOTE | 2016-11-20 08:41 | RAD ---
Abdominal ultrasound - limited to the kidneys Indication: Acute kidney injury, hematuria. Comparison: CT abdomen pelvis 03/07/2011. Procedure: Transabdominal ultrasound images are obtained of the kidneys and bladder. Findings: Right kidney measures 10.3 cm in length. Right kidney is without evidence of obstruction or stone. Superior pole of right kidney demonstrates 1.6 cm simple appearing cyst. Left kidney measures 12.5 cm in length. Left kidney is without evidence of obstruction or stone. Parenchymal echogenicity of both kidneys appears appropriate. Urinary bladder is collapsed, limiting evaluation. Impression: 1. Right renal cyst. 2. Otherwise, unremarkable renal ultrasound..
--- NOTE | 2016-11-20 08:53 | CARD ---
APPROVED REPORT EXAM: Two-dimensional and M-mode echocardiogram with Doppler and color Doppler. Other Information Quality : Good INDICATION Congestive Heart Failure LEFT VENTRICLE The Left Ventricle is mildly dilated. There is mild concentric left ventricular hypertrophy. Left angela tricle systolic function is mildly reduced. EF 40-45%. Difficult to estimate EF due to atrial fibrill ation. Septal motion consistent with conduction abnormality and dysynchrony. Mild global hypokinesis. Tissue Doppler imaging reveals moderate left ventricular diastolic dysfunction. RIGHT VENTRICLE The right ventricle is normal size. The right ventricular systolic function is normal. ATRIA The left atrium is moderately dilated. The right atrium is mildly dilated. The interatrial septum is intact with no evidence for an atrial septal defect or patent foramen ovale as noted on 2-D or Dopple r imaging. AORTIC VALVE The aortic valve is normal in structure and function. Doppler and Color Flow revealed no significant aortic regurgitation. There is no significant aortic valvular stenosis. MITRAL VALVE The mitral valve is calcified but opens well. Mitral annular calcification is mild. There is no evide nce of mitral valve prolapse. There is no mitral valve stenosis. Doppler and Color-flow revealed trac e to mild mitral regurgitation. TRICUSPID VALVE The tricuspid valve is normal in structure and function. Doppler and Color Flow revealed trace to mil d tricuspid regurgitation. There is mild pulmonary hypertension. The PA pressure was estimated at 39 mmHg. There is no tricuspid valve stenosis. PULMONIC VALVE Doppler and Color Flow revealed mild pulmonic valvular regurgitation. There is no pulmonic valvular s tenosis. GREAT VESSELS The aortic root is normal in size. The ascending aorta is normal in size. The IVC is dilated and angelito apses >50% with inspiration. PERICARDIAL EFFUSION There is no evidence of significant pericardial effusion. Critical Notification Critical Value: No <Conclusion> Left ventricle systolic function is mildly reduced. EF 40-45%. Difficult to estimate EF due to atrial fibrillation. Septal motion consistent with conduction abnormality and dysynchrony. Mild global hypokinesis. Tissue Doppler imaging reveals moderate left ventricular diastolic dysfunction. Doppler and Color Flow revealed trace to mild tricuspid regurgitation. There is mild pulmonary hypert ension. The PA pressure was estimated at 39 mmHg.
[2016-11-20 10:38] VITALS: BP 110/68
[2016-11-20] MEDS: IV NORMAL SALINE 1000ML BAG 1,000 ML IV SCH ×2 (10:59→23:37)
--- NOTE | 2016-11-20 11:09 | PDOC ---
PROGRESS NOTES Chief Complaint Chief Complaint CHF Systolic acute on chronic Afib CHAY Leucocytosis Fall DM HTN Proteinuria Lower extremity edema with cellulitis. Plan Mild iv hydration due to CHF hx IV ZOSYN Blood cx ordered.unclear source of infection, If not get better, consult Nephrology d/w cardiology, start him on Milrinone Renal consult, Pain control with IV morphine Follow cbc and BMP PT/OT oral AC- NO DVT Prophylaxis. History of Present Illness History of Present Illness DOING BETTER NO FEVER NO CHILLS. Vitals Vitals Vital Signs Date Time Temp Pulse Resp B/P Pulse Ox O2 Delivery O2 Flow Rate FiO2 11/20/16 10:38 97.9 83 20 110/68 94 Room Air 97.9 Physical Exam General: Alert, Oriented X3, Cooperative, No acute distress Heart: Other Lungs: Clear Abdomen: Normal bowel sounds, Soft Extremities: Other (rash in LE) Skin: Other Labs LABS Laboratory Tests Test 11/19/16 11:18 11/19/16 11:50 11/19/16 16:35 11/19/16 17:48 Erythrocyte Sedimentation Rate 97 (0-15) Glucose (Fingerstick) 126mg/dL (70-99) 103mg/dL (70-99) Iron Level 11ug/dL (65-175) Total Iron Binding Capacity 151ug/dL (250-450) Iron Saturation 7% (15-34) Ferritin 302ng/mL (26-388) Test 11/19/16 20:49 11/20/16 04:30 11/20/16 07:51 11/20/16 08:26 Glucose (Fingerstick) 113mg/dL (70-99) 64mg/dL (70-99) 76mg/dL (70-99) White Blood Count 18.4x10^3/uL (4.0-11.0) Red Blood Count 3.58x10^6/uL (4.30-5.70) Hemoglobin 10.1g/dL (13.0-17.5) Hematocrit 30.5% (39.0-53.0) Mean Corpuscular Volume 85fL (79-100) Mean Corpuscular Hemoglobin 28pg (25-35) Mean Corpuscular Hemoglobin Concent 33g/dL (31-37) Red Cell Distribution Width 15.0% (11.5-14.5) Platelet Count 168x10^3/uL (140-400) Neutrophils (%) (Auto) 79% (31-73) Lymphocytes (%) (Auto) 8% (24-48) Monocytes (%) (Auto) 7% (0-9) Eosinophils (%) (Auto) 5% (0-3) Basophils (%) (Auto) 1% (0-3) Neutrophils # (Auto) 14.6x10^3uL (1.8-7.7) Lymphocytes # (Auto) 1.4x10^3/uL (1.0-4.8) Monocytes # (Auto) 1.3x10^3/uL (0.0-1.1) Eosinophils # (Auto) 0.9x10^3/uL (0.0-0.7) Basophils # (Auto) 0.1x10^3/uL (0.0-0.2) Sodium Level 131mmol/L (136-145) Potassium Level 3.6mmol/L (3.5-5.1) Chloride Level 93mmol/L (98-107) Carbon Dioxide Level 30mmol/L (21-32) Anion Gap 8 (6-14) Blood Urea Nitrogen 40mg/dL (8-26) Creatinine 4.4mg/dL (0.7-1.3) Estimated GFR (Cockcroft-Gault) 13.7 BUN/Creatinine Ratio 9 (6-20) Glucose Level 69mg/dL (70-99) Calcium Level 7.7mg/dL (8.5-10.1) Total Bilirubin 0.6mg/dL (0.2-1.0) Aspartate Amino Transf (AST/SGOT) 17U/L (15-37) Alanine Aminotransferase (ALT/SGPT) 14U/L (16-63) Alkaline Phosphatase 62U/L (46-116) Total Protein 7.4g/dL (6.4-8.2) Albumin 2.0g/dL (3.4-5.0) Albumin/Globulin Ratio 0.4 (1.0-1.7) Test 11/20/16 10:37 Glucose (Fingerstick) 119mg/dL (70-99) Assessment and Plan Assessmemt and Plan Problems Medical Problems: (1) CHF exacerbation Status: Acute (2) Fall Status: Acute (3) UTI (urinary tract infection) Status: Acute Problems: Comment Review of Relevant I have reviewed the following items maynor (where applicable) has been applied. Labs Laboratory Tests Test 11/18/16 20:29 11/18/16 21:40 11/19/16 04:25 11/19/16 11:18 White Blood Count 18.9x10^3/uL (4.0-11.0) 20.3x10^3/uL (4.0-11.0) Red Blood Count 4.03x10^6/uL (4.30-5.70) 4.09x10^6/uL (4.30-5.70) Hemoglobin 11.4g/dL (13.0-17.5) 11.4g/dL (13.0-17.5) Hematocrit 34.8% (39.0-53.0) 34.8% (39.0-53.0) Mean Corpuscular Volume 86fL (79-100) 85fL (79-100) Mean Corpuscular Hemoglobin 28pg (25-35) 28pg (25-35) Mean Corpuscular Hemoglobin Concent 33g/dL (31-37) 33g/dL (31-37) Red Cell Distribution Width 15.2% (11.5-14.5) 15.3% (11.5-14.5) Platelet Count 199x10^3/uL (140-400) 198x10^3/uL (140-400) Neutrophils (%) (Auto) 82% (31-73) 87% (31-73) Lymphocytes (%) (Auto) 7% (24-48) 3% (24-48) Monocytes (%) (Auto) 9% (0-9) 7% (0-9) Eosinophils (%) (Auto) 2% (0-3) 3% (0-3) Basophils (%) (Auto) 1% (0-3) 0% (0-3) Neutrophils # (Auto) 15.5x10^3uL (1.8-7.7) 17.7x10^3uL (1.8-7.7) Lymphocytes # (Auto) 1.3x10^3/uL (1.0-4.8) 0.6x10^3/uL (1.0-4.8) Monocytes # (Auto) 1.7x10^3/uL (0.0-1.1) 1.4x10^3/uL (0.0-1.1) Eosinophils # (Auto) 0.4x10^3/uL (0.0-0.7) 0.5x10^3/uL (0.0-0.7) Basophils # (Auto) 0.1x10^3/uL (0.0-0.2) 0.0x10^3/uL (0.0-0.2) Segmented Neutrophils % 77% (35-66) Band Neutrophils % 11% (0-9) Lymphocytes % 1% (24-48) Atypical Lymphocytes % (Manual) 3% (0-0) Monocytes % 7% (0-10) Eosinophils % 1% (0-5) Toxic Granulation Slight Toxic Vacuolation Slight Platelet Estimate Adequate (ADEQUATE) Ovalocytes Few Sodium Level 135mmol/L (136-145) 138mmol/L (136-145) Potassium Level 3.8mmol/L (3.5-5.1) 3.9mmol/L (3.5-5.1) Chloride Level 98mmol/L (98-107) 99mmol/L (98-107) Carbon Dioxide Level 31mmol/L (21-32) 34mmol/L (21-32) Anion Gap 6 (6-14) 5 (6-14) Blood Urea Nitrogen 20mg/dL (8-26) 22mg/dL (8-26) Creatinine 1.9mg/dL (0.7-1.3) 2.3mg/dL (0.7-1.3) Estimated GFR (Cockcroft-Gault) 36.1 29.0 Glucose Level 118mg/dL (70-99) 106mg/dL (70-99) Calcium Level 8.7mg/dL (8.5-10.1) 8.4mg/dL (8.5-10.1) AO-Cnt-O-Type Natriuretic Peptide 4127pg/mL (0-124) Urine Collection Type Unknown Urine Color Red Urine Clarity Turbid Urine pH 5.5 Urine Specific [place] 1.020 Urine Protein >=300mg/dL (NEG-TRACE) Urine Glucose (UA) Negativemg/dL (NEG) Urine Ketones (Stick) Tracemg/dL (NEG) Urine Blood Large (NEG) Urine Nitrite Positive (NEG) Urine Bilirubin Moderate (NEG) Urine Urobilinogen Dipstick 0.2mg/dL (0.2 mg/dL) Urine Leukocyte Esterase Moderate (NEG) Urine RBC Tntc/HPF (0-2) Urine WBC 11-20/HPF (0-4) Urine Squamous Epithelial Cells Few/LPF Urine Amorphous Sediment Present/HPF Urine Bacteria 0/HPF (0-FEW) Urine Hyaline Casts Few/HPF Urine Granular Casts Occasional/HPF Erythrocyte Sedimentation Rate 97 (0-15) Test 11/19/16 11:50 11/19/16 16:35 11/19/16 17:48 11/19/16 20:49 Glucose (Fingerstick) 126mg/dL (70-99) 103mg/dL (70-99) 113mg/dL (70-99) Iron Level 11ug/dL (65-175) Total Iron Binding Capacity 151ug/dL (250-450) Iron Saturation 7% (15-34) Ferritin 302ng/mL (26-388) Test 11/20/16 04:30 11/20/16 07:51 11/20/16 08:26 11/20/16 10:37 White Blood Count 18.4x10^3/uL (4.0-11.0) Red Blood Count 3.58x10^6/uL (4.30-5.70) Hemoglobin 10.1g/dL (13.0-17.5) Hematocrit 30.5% (39.0-53.0) Mean Corpuscular Volume 85fL (79-100) Mean Corpuscular Hemoglobin 28pg (25-35) Mean Corpuscular Hemoglobin Concent 33g/dL (31-37) Red Cell Distribution Width 15.0% (11.5-14.5) Platelet Count 168x10^3/uL (140-400) Neutrophils (%) (Auto) 79% (31-73) Lymphocytes (%) (Auto) 8% (24-48) Monocytes (%) (Auto) 7% (0-9) Eosinophils (%) (Auto) 5% (0-3) Basophils (%) (Auto) 1% (0-3) Neutrophils # (Auto) 14.6x10^3uL (1.8-7.7) Lymphocytes # (Auto) 1.4x10^3/uL (1.0-4.8) Monocytes # (Auto) 1.3x10^3/uL (0.0-1.1) Eosinophils # (Auto) 0.9x10^3/uL (0.0-0.7) Basophils # (Auto) 0.1x10^3/uL (0.0-0.2) Sodium Level 131mmol/L (136-145) Potassium Level 3.6mmol/L (3.5-5.1) Chloride Level 93mmol/L (98-107) Carbon Dioxide Level 30mmol/L (21-32) Anion Gap 8 (6-14) Blood Urea Nitrogen 40mg/dL (8-26) Creatinine 4.4mg/dL (0.7-1.3) Estimated GFR (Cockcroft-Gault) 13.7 BUN/Creatinine Ratio 9 (6-20) Glucose Level 69mg/dL (70-99) Calcium Level 7.7mg/dL (8.5-10.1) Total Bilirubin 0.6mg/dL (0.2-1.0) Aspartate Amino Transf (AST/SGOT) 17U/L (15-37) Alanine Aminotransferase (ALT/SGPT) 14U/L (16-63) Alkaline Phosphatase 62U/L (46-116) Total Protein 7.4g/dL (6.4-8.2) Albumin 2.0g/dL (3.4-5.0) Albumin/Globulin Ratio 0.4 (1.0-1.7) Glucose (Fingerstick) 64mg/dL (70-99) 76mg/dL (70-99) 119mg/dL (70-99) Laboratory Tests Test 11/19/16 11:18 11/19/16 11:50 11/19/16 16:35 11/19/16 17:48 Erythrocyte Sedimentation Rate 97 (0-15) Glucose (Fingerstick) 126mg/dL (70-99) 103mg/dL (70-99) Iron Level 11ug/dL (65-175) Total Iron Binding Capacity 151ug/dL (250-450) Iron Saturation 7% (15-34) Ferritin 302ng/mL (26-388) Test 11/19/16 20:49 11/20/16 04:30 11/20/16 07:51 11/20/16 08:26 Glucose (Fingerstick) 113mg/dL (70-99) 64mg/dL (70-99) 76mg/dL (70-99) White Blood Count 18.4x10^3/uL (4.0-11.0) Red Blood Count 3.58x10^6/uL (4.30-5.70) Hemoglobin 10.1g/dL (13.0-17.5) Hematocrit 30.5% (39.0-53.0) Mean Corpuscular Volume 85fL (79-100) Mean Corpuscular Hemoglobin 28pg (25-35) Mean Corpuscular Hemoglobin Concent 33g/dL (31-37) Red Cell Distribution Width 15.0% (11.5-14.5) Platelet Count 168x10^3/uL (140-400) Neutrophils (%) (Auto) 79% (31-73) Lymphocytes (%) (Auto) 8% (24-48) Monocytes (%) (Auto) 7% (0-9) Eosinophils (%) (Auto) 5% (0-3) Basophils (%) (Auto) 1% (0-3) Neutrophils # (Auto) 14.6x10^3uL (1.8-7.7) Lymphocytes # (Auto) 1.4x10^3/uL (1.0-4.8) Monocytes # (Auto) 1.3x10^3/uL (0.0-1.1) Eosinophils # (Auto) 0.9x10^3/uL (0.0-0.7) Basophils # (Auto) 0.1x10^3/uL (0.0-0.2) Sodium Level 131mmol/L (136-145) Potassium Level 3.6mmol/L (3.5-5.1) Chloride Level 93mmol/L (98-107) Carbon Dioxide Level 30mmol/L (21-32) Anion Gap 8 (6-14) Blood Urea Nitrogen 40mg/dL (8-26) Creatinine 4.4mg/dL (0.7-1.3) Estimated GFR (Cockcroft-Gault) 13.7 BUN/Creatinine Ratio 9 (6-20) Glucose Level 69mg/dL (70-99) Calcium Level 7.7mg/dL (8.5-10.1) Total Bilirubin 0.6mg/dL (0.2-1.0) Aspartate Amino Transf (AST/SGOT) 17U/L (15-37) Alanine Aminotransferase (ALT/SGPT) 14U/L (16-63) Alkaline Phosphatase 62U/L (46-116) Total Protein 7.4g/dL (6.4-8.2) Albumin 2.0g/dL (3.4-5.0) Albumin/Globulin Ratio 0.4 (1.0-1.7) Test 11/20/16 10:37 Glucose (Fingerstick) 119mg/dL (70-99) Medications Current Medications Acetaminophen/ Hydrocodone Bitart (Lortab 5/325) 2 tab 1X ONCE PO Last administered on 11/18/16 21:34; Start 11/18/16 at 21:00; Stop 11/18/16 at 21:01 ; Status DC Furosemide 40 mg 40 mg 1X ONCE IVP Last administered on 11/18/16 22:03; Start 11/18/16 at 22:00; Stop 11/18/16 at 22:01; Status DC Ceftriaxone Sodium (Rocephin 1gm Ivpb For Omni) 50 ml @ 100 mls/hr 1X ONCE IV Last administered on 11/18/16 22:06; Start 11/18/16 at 22:15; Stop 11/18/16 at 22:44; Status DC Ondansetron HCl (Zofran) 4 mg PRN Q8HRS PRN IV NAUSEA/VOMITING; Start 11/18/16 at 22:15; Stop 11/19/16 at 22:14; Status DC Morphine Sulfate 4 mg PRN Q2HR PRN IV PAIN Last administered on 11/19/16 14:58 ; Start 11/18/16 at 22:15; Stop 11/19/16 at 22:14; Status DC Acetaminophen (Tylenol) 650 mg PRN Q4HRS PRN PO FEVER; Start 11/18/16 at 22:15 ; Stop 11/19/16 at 22:14; Status DC Insulin Aspart (Novolog) 0-7 UNITS TIDWMEALS SQ ; Start 11/19/16 at 08:00; Stop 11/19/16 at 09:04; Status DC Dextrose 12.5 gm PRN Q15MIN PRN IV SEE COMMENTS; Start 11/18/16 at 22:15; Stop 11/19/16 at 10:19; Status DC Info (Do NOT chart on this placeholder) 1 each 1X ONCE MC ; Start 11/18/16 at 23:15; Stop 11/18/16 at 23:16; Status UNV Pneumococcal Polyvalent Vaccine (Do NOT chart on this placeholder) 1 each 1X ONCE MC ; Start 11/18/16 at 23:15; Stop 11/18/16 at 23:16; Status UNV Influenza Virus Vaccine Quadrival (Fluarix Quad 6515-3572 Syringe) 0.5 ml ONCE ONCE VAX IM ; Start 11/19/16 at 09:00; Stop 11/19/16 at 09:01; Status DC Pneumococcal Polyvalent Vaccine 0.5 ml 0.5 ml ONCE ONCE VAX IM ; Start 11/19/16 at 09:00; Stop 11/19/16 at 09:01; Status DC Ceftriaxone Sodium/Sodium Chloride (Rocephin/Iv Sodium Chloride 0.9% 50ml) 50 ml @ 100 mls/hr Q24H IV Last administered on 11/19/16 21:28; Start 11/19/16 at 21:00 Amlodipine Besylate (Norvasc) 10 mg DAILY PO Last administered on 11/20/16 08: 08; Start 11/19/16 at 09:30 Glimepiride (Amaryl) 2 mg DAILYWBKFT PO Last administered on 11/20/16 08:08; Start 11/19/16 at 09:30 Carvedilol (Coreg) 25 mg BIDWMEALS PO Last administered on 11/20/16 08:09; Start 11/19/16 at 09:30 Rivaroxaban (Xarelto) 20 mg DAILYWSUP PO Last administered on 11/19/16 17:53; Start 11/19/16 at 17:00; Stop 11/20/16 at 08:53; Status DC Furosemide (Lasix) 40 mg 1X ONCE IVP Last administered on 11/19/16 09:40; Start 11/19/16 at 09:00; Stop 11/19/16 at 09:04; Status DC Insulin Aspart (Novolog) 0-7 UNITS TIDWMEALS SQ ; Start 11/19/16 at 12:00 Dextrose 12.5 gm PRN Q15MIN PRN IV SEE COMMENTS; Start 11/19/16 at 09:00 Guaifenesin (Robitussin Dm) 10 ml PRN Q6HRS PRN PO COUGH; Start 11/19/16 at 09: 00 Nicotine (Nicoderm Cq 14mg) 1 patch PRN DAILY PRN TD SMOKING CESSATION; Start 11/19/16 at 09:15 Nicotine Polacrilex (Nicorette Gum) 1 each PRN Q1HR PRN BC SMOKING CESSATION; Start 11/19/16 at 09:15 Albuterol/ Ipratropium (Duoneb) 3 ml RTQID NEB Last administered on 11/20/16 07:17; Start 11/19/16 at 09:30 Enoxaparin Sodium (Lovenox Per Pharmacy Prophylaxis Dosing) 1 each PRN DAILY PRN MC SEE COMMENTS; Start 11/19/16 at 09:30; Stop 11/19/16 at 09:30; Status DC Hydralazine HCl (Apresoline) 25 mg BID PO Last administered on 11/20/16 08:08 ; Start 11/19/16 at 10:30 Morphine Sulfate (Morphine Ir) 15 mg PRN Q4HRS PRN PO PAIN Last administered on 11/20/16 00:20; Start 11/20/16 at 00:15 Morphine Sulfate 4 mg PRN Q2HR PRN IV PAIN; Start 11/20/16 at 00:15 Rivaroxaban 15 mg 15 mg DAILYWSUP PO ; Start 11/20/16 at 17:00 Sodium Chloride (Iv Sodium Chloride 0.9% 1000ml Bag) 1,000 ml @ 75 mls/hr [id number] IV Last administered on 11/20/16 10:59; Start 11/20/16 at 10:45 Active Scripts Active Reported Xarelto (Rivaroxaban) 20 Mg Tablet 20 Mg PO DAILY Carvedilol 25 Mg Tablet 1 Tab PO BID Furosemide 40 Mg Tablet 1 Tab PO DAILY Losartan Potassium 100 Mg Tablet 100 Mg PO DAILY Amlodipine Besylate 10 Mg Tablet 10 Mg PO DAILY Glimepiride 2 Mg Tablet 1 Tab PO DAILY Vitals/I & O Vital Sign - Last 24 Hours 11/19/16 11/19/16 11/19/16 11/19/16 12:07 13:19 13:23 14:38 Temp 98.9 98.9 Pulse 92 92 94 Resp 20 B/P 146/86 146/86 108/71 Pulse Ox 94 93 O2 Delivery Room Air Room Air 11/19/16 11/19/16 11/19/16 11/19/16 14:58 15:30 16:10 17:54 Pulse 94 Resp 18 B/P 108/71 O2 Delivery Room Air Room Air Room Air 11/19/16 11/19/16 11/19/16 11/19/16 19:05 19:40 20:09 23:00 Temp 99.0 99.0 99.0 99.0 Pulse 88 72 Resp 17 18 B/P 108/74 91/65 Pulse Ox 90 92 93 O2 Delivery Room Air Room Air Room Air Room Air 11/20/16 11/20/16 11/20/16 11/20/16 00:20 01:20 03:09 07:18 Temp 98.1 98.1 Pulse 77 Resp 18 18 18 B/P 100/61 Pulse Ox 93 92 95 93 O2 Delivery Room Air Nasal Cannula Room Air Room Air 11/20/16 11/20/16 11/20/16 11/20/16 07:23 08:00 08:08 08:08 Temp 98.2 98.2 Pulse 85 85 85 Resp 20 B/P 119/68 119/68 119/68 Pulse Ox 98 O2 Delivery Room Air Room Air 11/20/16 11/20/16 08:09 10:38 Temp 97.9 97.9 Pulse 85 83 Resp 20 B/P 119/68 110/68 Pulse Ox 94 O2 Delivery Room Air Intake and Output 11/19/16 11/19/16 11/20/16 15:00 23:00 07:00 Intake Total 240 ml 1200 ml Output Total 400 ml 25 ml Balance -160 ml 1175 ml CHAD GARCIA MD Nov 20, 2016 11:09
--- NOTE | 2016-11-20 11:19 | PDOC ---
CARDIOLOGY PROGRESS NOTE SUBJECTIVE: No acute events overnight. Denies any significant changes. OBJECTIVE: Vital SIgns: Vital Signs Date Time Temp Pulse Resp B/P Pulse Ox O2 Delivery O2 Flow Rate FiO2 11/20/16 10:38 97.9 83 20 110/68 94 Room Air 97.9 I & O Intake and Output 11/20/16 07:00 Intake Total 1440 ml Output Total 425 ml Balance 1015 ml Intake Oral 1440 ml Output Urine Total 425 ml Objective: Gen: A/O x 3. NAD CVS: Irr irr. No m/r/g PULM: Bilateral decreased breath sounds at the bases. ABd: Protrubent, obese, NT/ND EXT: Bilateral chronic venous stasis changes. NEURO: non-focal exam. CURRENT MEDICATIONS: Current Medications Medications (Trade) Dose Ordered Sig/Fermin Start Time Stop Time Status Last Admin Dose Admin Acetaminophen (Tylenol) 650 mg PRN Q4HRS PRN 11/18/16 22:15 11/19/16 22:14 DC Acetaminophen/ Hydrocodone Bitart (Lortab 5/325) 2 tab 1X ONCE 11/18/16 21:00 11/18/16 21:01 DC 11/18/16 21:34 2 TAB Albuterol/ Ipratropium (Duoneb) 3 ml RTQID 11/19/16 09:30 11/20/16 07:17 3 ML Amlodipine Besylate (Norvasc) 10 mg DAILY 11/19/16 09:30 11/20/16 08:08 10 MG Carvedilol (Coreg) 25 mg BIDWMEALS 11/19/16 09:30 11/20/16 08:09 25 MG Ceftriaxone Sodium/Sodium Chloride (Rocephin/Iv Sodium Chloride 0.9% 50ml) 50 ml @ 100 mls/hr Q24H 11/19/16 21:00 11/19/16 21:28 100 MLS/HR Ceftriaxone Sodium (Rocephin 1gm Ivpb For Omni) 50 ml @ 100 mls/hr 1X ONCE 11/18/16 22:15 11/18/16 22:44 DC 11/18/16 22:06 100 MLS/HR Dextrose 12.5 gm PRN Q15MIN PRN 11/19/16 09:00 Enoxaparin Sodium (Lovenox Per Pharmacy Prophylaxis Dosing) 1 each PRN DAILY PRN 11/19/16 09:30 11/19/16 09:30 DC Furosemide (Lasix) 40 mg 1X ONCE 11/19/16 09:00 11/19/16 09:04 DC 11/19/16 09:40 40 MG Furosemide 40 mg 40 mg 1X ONCE 11/18/16 22:00 11/18/16 22:01 DC 11/18/16 22:03 40 MG Glimepiride (Amaryl) 2 mg DAILYWBKFT 11/19/16 09:30 11/20/16 08:08 2 MG Guaifenesin (Robitussin Dm) 10 ml PRN Q6HRS PRN 11/19/16 09:00 Hydralazine HCl (Apresoline) 25 mg BID 11/19/16 10:30 11/20/16 08:08 25 MG Influenza Virus Vaccine Quadrival (Fluarix Quad [id number] Syringe) 0.5 ml ONCE ONCE 11/19/16 09:00 11/19/16 09:01 DC Info (Do NOT chart on this placeholder) 1 each 1X ONCE 11/18/16 23:15 11/18/16 23:16 UNV Insulin Aspart (Novolog) 0-7 UNITS TIDWMEALS 11/19/16 12:00 Morphine Sulfate 4 mg PRN Q2HR PRN 11/20/16 00:15 Morphine Sulfate (Morphine Ir) 15 mg PRN Q4HRS PRN 11/20/16 00:15 11/20/16 00:20 15 MG Nicotine (Nicoderm Cq 14mg) 1 patch PRN DAILY PRN 11/19/16 09:15 Nicotine Polacrilex (Nicorette Gum) 1 each PRN Q1HR PRN 11/19/16 09:15 Ondansetron HCl (Zofran) 4 mg PRN Q8HRS PRN 11/18/16 22:15 11/19/16 22:14 DC Pneumococcal Polyvalent Vaccine 0.5 ml 0.5 ml ONCE ONCE 11/19/16 09:00 11/19/16 09:01 DC Pneumococcal Polyvalent Vaccine (Do NOT chart on this placeholder) 1 each 1X ONCE 11/18/16 23:15 11/18/16 23:16 UNV Rivaroxaban (Xarelto) 20 mg DAILYWSUP 11/19/16 17:00 11/20/16 08:53 DC 11/19/16 17:53 20 MG Rivaroxaban 15 mg 15 mg DAILYWSUP 11/20/16 17:00 Sodium Chloride (Iv Sodium Chloride 0.9% 1000ml Bag) 1,000 ml @ 75 mls/hr [id number] 11/20/16 10:45 11/20/16 10:59 75 MLS/HR DIAGNOSTIC TESTING: Echo with EF 40-45% ASSESSMENT: 1. Acute on chronic systolic and diastolic HF 2. Acute Kidney Injury Problems: PLAN: 1. Despite positive fluid balance, renal function acutely worsened while on lasix. 2. Await nephrology input. 3. Will start low dose milrinone therapy. Plan tenatively for RHC tomorrow. 4. Will hold Xarelto for tomorrow. SAMIA JONES MD Nov 20, 2016 11:19
[2016-11-20] MEDS ORDERED: MAGNESIUM SULFATE 2GM 50 ML IV PRN (11:30)
--- NOTE | 2016-11-20 11:32 | PDOC ---
PROGRESS NOTES Subjective Subjective Unable to see pt due to weather condition. Discussed care with Dr Everett. reviewed e-chart and testing ordered. Unable to setup Kidney Bx despite ^ed ESR and nephritic Urine since pt has been on Xarelto. Serologies have been ordered. Trial of IVF/ ? Albumin and RHC as planned. Anticipate need for HD in am Objective Objective Vital Signs Date Time Temp Pulse Resp B/P Pulse Ox O2 Delivery O2 Flow Rate FiO2 11/20/16 10:38 97.9 83 20 110/68 94 Room Air 97.9 Intake and Output 11/20/16 07:00 Intake Total 1440 ml Output Total 425 ml Balance 1015 ml Intake Oral 1440 ml Output Urine Total 425 ml Assessment Assessment Problems Medical Problems: (1) CHF exacerbation Status: Acute (2) Fall Status: Acute (3) UTI (urinary tract infection) Status: Acute Comment Review of Relevant I have reviewed the following items maynor (where applicable) has been applied. Labs Laboratory Tests Test 11/18/16 20:29 11/18/16 21:40 11/19/16 04:25 11/19/16 11:18 White Blood Count 18.9x10^3/uL (4.0-11.0) 20.3x10^3/uL (4.0-11.0) Red Blood Count 4.03x10^6/uL (4.30-5.70) 4.09x10^6/uL (4.30-5.70) Hemoglobin 11.4g/dL (13.0-17.5) 11.4g/dL (13.0-17.5) Hematocrit 34.8% (39.0-53.0) 34.8% (39.0-53.0) Mean Corpuscular Volume 86fL (79-100) 85fL (79-100) Mean Corpuscular Hemoglobin 28pg (25-35) 28pg (25-35) Mean Corpuscular Hemoglobin Concent 33g/dL (31-37) 33g/dL (31-37) Red Cell Distribution Width 15.2% (11.5-14.5) 15.3% (11.5-14.5) Platelet Count 199x10^3/uL (140-400) 198x10^3/uL (140-400) Neutrophils (%) (Auto) 82% (31-73) 87% (31-73) Lymphocytes (%) (Auto) 7% (24-48) 3% (24-48) Monocytes (%) (Auto) 9% (0-9) 7% (0-9) Eosinophils (%) (Auto) 2% (0-3) 3% (0-3) Basophils (%) (Auto) 1% (0-3) 0% (0-3) Neutrophils # (Auto) 15.5x10^3uL (1.8-7.7) 17.7x10^3uL (1.8-7.7) Lymphocytes # (Auto) 1.3x10^3/uL (1.0-4.8) 0.6x10^3/uL (1.0-4.8) Monocytes # (Auto) 1.7x10^3/uL (0.0-1.1) 1.4x10^3/uL (0.0-1.1) Eosinophils # (Auto) 0.4x10^3/uL (0.0-0.7) 0.5x10^3/uL (0.0-0.7) Basophils # (Auto) 0.1x10^3/uL (0.0-0.2) 0.0x10^3/uL (0.0-0.2) Segmented Neutrophils % 77% (35-66) Band Neutrophils % 11% (0-9) Lymphocytes % 1% (24-48) Atypical Lymphocytes % (Manual) 3% (0-0) Monocytes % 7% (0-10) Eosinophils % 1% (0-5) Toxic Granulation Slight Toxic Vacuolation Slight Platelet Estimate Adequate (ADEQUATE) Ovalocytes Few Sodium Level 135mmol/L (136-145) 138mmol/L (136-145) Potassium Level 3.8mmol/L (3.5-5.1) 3.9mmol/L (3.5-5.1) Chloride Level 98mmol/L (98-107) 99mmol/L (98-107) Carbon Dioxide Level 31mmol/L (21-32) 34mmol/L (21-32) Anion Gap 6 (6-14) 5 (6-14) Blood Urea Nitrogen 20mg/dL (8-26) 22mg/dL (8-26) Creatinine 1.9mg/dL (0.7-1.3) 2.3mg/dL (0.7-1.3) Estimated GFR (Cockcroft-Gault) 36.1 29.0 Glucose Level 118mg/dL (70-99) 106mg/dL (70-99) Calcium Level 8.7mg/dL (8.5-10.1) 8.4mg/dL (8.5-10.1) LB-Kpd-F-Type Natriuretic Peptide 4127pg/mL (0-124) Urine Collection Type Unknown Urine Color Red Urine Clarity Turbid Urine pH 5.5 Urine Specific [place] 1.020 Urine Protein >=300mg/dL (NEG-TRACE) Urine Glucose (UA) Negativemg/dL (NEG) Urine Ketones (Stick) Tracemg/dL (NEG) Urine Blood Large (NEG) Urine Nitrite Positive (NEG) Urine Bilirubin Moderate (NEG) Urine Urobilinogen Dipstick 0.2mg/dL (0.2 mg/dL) Urine Leukocyte Esterase Moderate (NEG) Urine RBC Tntc/HPF (0-2) Urine WBC 11-20/HPF (0-4) Urine Squamous Epithelial Cells Few/LPF Urine Amorphous Sediment Present/HPF Urine Bacteria 0/HPF (0-FEW) Urine Hyaline Casts Few/HPF Urine Granular Casts Occasional/HPF Erythrocyte Sedimentation Rate 97 (0-15) Test 11/19/16 11:50 11/19/16 16:35 11/19/16 17:48 11/19/16 20:49 Glucose (Fingerstick) 126mg/dL (70-99) 103mg/dL (70-99) 113mg/dL (70-99) Iron Level 11ug/dL (65-175) Total Iron Binding Capacity 151ug/dL (250-450) Iron Saturation 7% (15-34) Ferritin 302ng/mL (26-388) Test 11/20/16 04:30 11/20/16 07:51 11/20/16 08:26 11/20/16 10:37 White Blood Count 18.4x10^3/uL (4.0-11.0) Red Blood Count 3.58x10^6/uL (4.30-5.70) Hemoglobin 10.1g/dL (13.0-17.5) Hematocrit 30.5% (39.0-53.0) Mean Corpuscular Volume 85fL (79-100) Mean Corpuscular Hemoglobin 28pg (25-35) Mean Corpuscular Hemoglobin Concent 33g/dL (31-37) Red Cell Distribution Width 15.0% (11.5-14.5) Platelet Count 168x10^3/uL (140-400) Neutrophils (%) (Auto) 79% (31-73) Lymphocytes (%) (Auto) 8% (24-48) Monocytes (%) (Auto) 7% (0-9) Eosinophils (%) (Auto) 5% (0-3) Basophils (%) (Auto) 1% (0-3) Neutrophils # (Auto) 14.6x10^3uL (1.8-7.7) Lymphocytes # (Auto) 1.4x10^3/uL (1.0-4.8) Monocytes # (Auto) 1.3x10^3/uL (0.0-1.1) Eosinophils # (Auto) 0.9x10^3/uL (0.0-0.7) Basophils # (Auto) 0.1x10^3/uL (0.0-0.2) Sodium Level 131mmol/L (136-145) Potassium Level 3.6mmol/L (3.5-5.1) Chloride Level 93mmol/L (98-107) Carbon Dioxide Level 30mmol/L (21-32) Anion Gap 8 (6-14) Blood Urea Nitrogen 40mg/dL (8-26) Creatinine 4.4mg/dL (0.7-1.3) Estimated GFR (Cockcroft-Gault) 13.7 BUN/Creatinine Ratio 9 (6-20) Glucose Level 69mg/dL (70-99) Calcium Level 7.7mg/dL (8.5-10.1) Total Bilirubin 0.6mg/dL (0.2-1.0) Aspartate Amino Transf (AST/SGOT) 17U/L (15-37) Alanine Aminotransferase (ALT/SGPT) 14U/L (16-63) Alkaline Phosphatase 62U/L (46-116) Total Protein 7.4g/dL (6.4-8.2) Albumin 2.0g/dL (3.4-5.0) Albumin/Globulin Ratio 0.4 (1.0-1.7) Glucose (Fingerstick) 64mg/dL (70-99) 76mg/dL (70-99) 119mg/dL (70-99) Laboratory Tests Test 11/19/16 11:50 11/19/16 16:35 11/19/16 17:48 11/19/16 20:49 Glucose (Fingerstick) 126mg/dL (70-99) 103mg/dL (70-99) 113mg/dL (70-99) Iron Level 11ug/dL (65-175) Total Iron Binding Capacity 151ug/dL (250-450) Iron Saturation 7% (15-34) Ferritin 302ng/mL (26-388) Test 11/20/16 04:30 11/20/16 07:51 11/20/16 08:26 11/20/16 10:37 White Blood Count 18.4x10^3/uL (4.0-11.0) Red Blood Count 3.58x10^6/uL (4.30-5.70) Hemoglobin 10.1g/dL (13.0-17.5) Hematocrit 30.5% (39.0-53.0) Mean Corpuscular Volume 85fL (79-100) Mean Corpuscular Hemoglobin 28pg (25-35) Mean Corpuscular Hemoglobin Concent 33g/dL (31-37) Red Cell Distribution Width 15.0% (11.5-14.5) Platelet Count 168x10^3/uL (140-400) Neutrophils (%) (Auto) 79% (31-73) Lymphocytes (%) (Auto) 8% (24-48) Monocytes (%) (Auto) 7% (0-9) Eosinophils (%) (Auto) 5% (0-3) Basophils (%) (Auto) 1% (0-3) Neutrophils # (Auto) 14.6x10^3uL (1.8-7.7) Lymphocytes # (Auto) 1.4x10^3/uL (1.0-4.8) Monocytes # (Auto) 1.3x10^3/uL (0.0-1.1) Eosinophils # (Auto) 0.9x10^3/uL (0.0-0.7) Basophils # (Auto) 0.1x10^3/uL (0.0-0.2) Sodium Level 131mmol/L (136-145) Potassium Level 3.6mmol/L (3.5-5.1) Chloride Level 93mmol/L (98-107) Carbon Dioxide Level 30mmol/L (21-32) Anion Gap 8 (6-14) Blood Urea Nitrogen 40mg/dL (8-26) Creatinine 4.4mg/dL (0.7-1.3) Estimated GFR (Cockcroft-Gault) 13.7 BUN/Creatinine Ratio 9 (6-20) Glucose Level 69mg/dL (70-99) Calcium Level 7.7mg/dL (8.5-10.1) Total Bilirubin 0.6mg/dL (0.2-1.0) Aspartate Amino Transf (AST/SGOT) 17U/L (15-37) Alanine Aminotransferase (ALT/SGPT) 14U/L (16-63) Alkaline Phosphatase 62U/L (46-116) Total Protein 7.4g/dL (6.4-8.2) Albumin 2.0g/dL (3.4-5.0) Albumin/Globulin Ratio 0.4 (1.0-1.7) Glucose (Fingerstick) 64mg/dL (70-99) 76mg/dL (70-99) 119mg/dL (70-99) Medications Current Medications Acetaminophen/ Hydrocodone Bitart (Lortab 5/325) 2 tab 1X ONCE PO Last administered on 11/18/16 21:34; Start 11/18/16 at 21:00; Stop 11/18/16 at 21:01 ; Status DC Furosemide 40 mg 40 mg 1X ONCE IVP Last administered on 11/18/16 22:03; Start 11/18/16 at 22:00; Stop 11/18/16 at 22:01; Status DC Ceftriaxone Sodium (Rocephin 1gm Ivpb For Omni) 50 ml @ 100 mls/hr 1X ONCE IV Last administered on 11/18/16 22:06; Start 11/18/16 at 22:15; Stop 11/18/16 at 22:44; Status DC Ondansetron HCl (Zofran) 4 mg PRN Q8HRS PRN IV NAUSEA/VOMITING; Start 11/18/16 at 22:15; Stop 11/19/16 at 22:14; Status DC Morphine Sulfate 4 mg PRN Q2HR PRN IV PAIN Last administered on 11/19/16 14:58 ; Start 11/18/16 at 22:15; Stop 11/19/16 at 22:14; Status DC Acetaminophen (Tylenol) 650 mg PRN Q4HRS PRN PO FEVER; Start 11/18/16 at 22:15 ; Stop 11/19/16 at 22:14; Status DC Insulin Aspart (Novolog) 0-7 UNITS TIDWMEALS SQ ; Start 11/19/16 at 08:00; Stop 11/19/16 at 09:04; Status DC Dextrose 12.5 gm PRN Q15MIN PRN IV SEE COMMENTS; Start 11/18/16 at 22:15; Stop 11/19/16 at 10:19; Status DC Info (Do NOT chart on this placeholder) 1 each 1X ONCE MC ; Start 11/18/16 at 23:15; Stop 11/18/16 at 23:16; Status UNV Pneumococcal Polyvalent Vaccine (Do NOT chart on this placeholder) 1 each 1X ONCE MC ; Start 11/18/16 at 23:15; Stop 11/18/16 at 23:16; Status UNV Influenza Virus Vaccine Quadrival (Fluarix Quad 3255-2410 Syringe) 0.5 ml ONCE ONCE VAX IM ; Start 11/19/16 at 09:00; Stop 11/19/16 at 09:01; Status DC Pneumococcal Polyvalent Vaccine 0.5 ml 0.5 ml ONCE ONCE VAX IM ; Start 11/19/16 at 09:00; Stop 11/19/16 at 09:01; Status DC Ceftriaxone Sodium/Sodium Chloride (Rocephin/Iv Sodium Chloride 0.9% 50ml) 50 ml @ 100 mls/hr Q24H IV Last administered on 11/19/16 21:28; Start 11/19/16 at 21:00 Amlodipine Besylate (Norvasc) 10 mg DAILY PO Last administered on 11/20/16 08: 08; Start 11/19/16 at 09:30 Glimepiride (Amaryl) 2 mg DAILYWBKFT PO Last administered on 11/20/16 08:08; Start 11/19/16 at 09:30 Carvedilol (Coreg) 25 mg BIDWMEALS PO Last administered on 11/20/16 08:09; Start 11/19/16 at 09:30 Rivaroxaban (Xarelto) 20 mg DAILYWSUP PO Last administered on 11/19/16 17:53; Start 11/19/16 at 17:00; Stop 11/20/16 at 08:53; Status DC Furosemide (Lasix) 40 mg 1X ONCE IVP Last administered on 11/19/16 09:40; Start 11/19/16 at 09:00; Stop 11/19/16 at 09:04; Status DC Insulin Aspart (Novolog) 0-7 UNITS TIDWMEALS SQ ; Start 11/19/16 at 12:00 Dextrose 12.5 gm PRN Q15MIN PRN IV SEE COMMENTS; Start 11/19/16 at 09:00 Guaifenesin (Robitussin Dm) 10 ml PRN Q6HRS PRN PO COUGH; Start 11/19/16 at 09: 00 Nicotine (Nicoderm Cq 14mg) 1 patch PRN DAILY PRN TD SMOKING CESSATION; Start 11/19/16 at 09:15 Nicotine Polacrilex (Nicorette Gum) 1 each PRN Q1HR PRN BC SMOKING CESSATION; Start 11/19/16 at 09:15 Albuterol/ Ipratropium (Duoneb) 3 ml RTQID NEB Last administered on 11/20/16 07:17; Start 11/19/16 at 09:30 Enoxaparin Sodium (Lovenox Per Pharmacy Prophylaxis Dosing) 1 each PRN DAILY PRN MC SEE COMMENTS; Start 11/19/16 at 09:30; Stop 11/19/16 at 09:30; Status DC Hydralazine HCl (Apresoline) 25 mg BID PO Last administered on 11/20/16 08:08 ; Start 11/19/16 at 10:30 Morphine Sulfate (Morphine Ir) 15 mg PRN Q4HRS PRN PO PAIN Last administered on 11/20/16 00:20; Start 11/20/16 at 00:15 Morphine Sulfate 4 mg PRN Q2HR PRN IV PAIN; Start 11/20/16 at 00:15 Rivaroxaban 15 mg 15 mg DAILYWSUP PO ; Start 11/20/16 at 17:00 Sodium Chloride 1,000 ml @ 75 mls/hr [id number] IV Last administered on t 10:59; Start 11/20/16 at 10:45 Milrinone Lactate/ Dextrose 100 ml @ 0 mls/hr CONT PRN IV SEE I/O RECORD; Start 11/20/16 at 11:30 Magnesium Sulfate/ Dextrose (Magnesium Sulfate PREMIX 2GM) 50 ml @ 25 mls/hr PRN DAILY PRN IV for Mag < 1.7 on am labs; Start 11/20/16 at 11:30; Status UNV Active Scripts Active Reported Xarelto (Rivaroxaban) 20 Mg Tablet 20 Mg PO DAILY Carvedilol 25 Mg Tablet 1 Tab PO BID Furosemide 40 Mg Tablet 1 Tab PO DAILY Losartan Potassium 100 Mg Tablet 100 Mg PO DAILY Amlodipine Besylate 10 Mg Tablet 10 Mg PO DAILY Glimepiride 2 Mg Tablet 1 Tab PO DAILY Vitals/I & O Vital Sign - Last 24 Hours 11/19/16 11/19/16 11/19/16 11/19/16 12:07 13:19 13:23 14:38 Temp 98.9 98.9 Pulse 92 92 94 Resp 20 B/P 146/86 146/86 108/71 Pulse Ox 94 93 O2 Delivery Room Air Room Air 11/19/16 11/19/16 11/19/16 11/19/16 14:58 15:30 16:10 17:54 Pulse 94 Resp 18 B/P 108/71 O2 Delivery Room Air Room Air Room Air 11/19/16 11/19/16 11/19/16 11/19/16 19:05 19:40 20:09 23:00 Temp 99.0 99.0 99.0 99.0 Pulse 88 72 Resp 17 18 B/P 108/74 91/65 Pulse Ox 90 92 93 O2 Delivery Room Air Room Air Room Air Room Air 11/20/16 11/20/16 11/20/16 11/20/16 00:20 01:20 03:09 07:18 Temp 98.1 98.1 Pulse 77 Resp 18 18 18 B/P 100/61 Pulse Ox 93 92 95 93 O2 Delivery Room Air Nasal Cannula Room Air Room Air 11/20/16 11/20/16 11/20/16 11/20/16 07:23 08:00 08:08 08:08 Temp 98.2 98.2 Pulse 85 85 85 Resp 20 B/P 119/68 119/68 119/68 Pulse Ox 98 O2 Delivery Room Air Room Air 11/20/16 11/20/16 08:09 10:38 Temp 97.9 97.9 Pulse 85 83 Resp 20 B/P 119/68 110/68 Pulse Ox 94 O2 Delivery Room Air Intake and Output 11/19/16 11/19/16 11/20/16 15:00 23:00 07:00 Intake Total 240 ml 1200 ml Output Total 400 ml 25 ml Balance -160 ml 1175 ml DONNA RICE MD Nov 20, 2016 11:32
[2016-11-20] MEDS: MILRINONE 20MG/100ML PREMIX 100 ML IV PRN (11:59)
[2016-11-20] MEDS: PIPERACILLIN/TAZOBACTAM 3.375 GM in IV NORMAL SALINE 50ML 50 ML IV SCH ×3 (12:18→23:26)
[2016-11-20 14:10] LABS: PTH INTACT 55 pg/mL (15-65)
[2016-11-20 14:30] VITALS: BP 96/57
[2016-11-20] MEDS: RIVAROXABAN 15 MG TABLET. PO SCH (17:00)
[2016-11-20 19:25] VITALS: BP 101/60
[2016-11-20] MEDS: CEFTRIAXONE SODIUM 1 GM in IV NORMAL SALINE 50ML 50 ML IV SCH (20:49)
[2016-11-20 22:09] LABS: PTH INTACT 95 pg/mL (15-65)
[2016-11-20 22:55] VITALS: BP 135/58
[2016-11-21] VITALS (19 sets, daily range): BP systolic 78–133; BP diastolic 41–113
[2016-11-21] MEDS: DEXTROSE 50% 25 GM / 50ML DISP.SYRIN. IV PRN ×5 (03:07→23:32)
[2016-11-21] MEDS: MILRINONE 20MG/100ML PREMIX 100 ML IV PRN ×2 (03:07→22:19)
[2016-11-21 04:08] LABS: ALBUMIN 1.8 g/dL (3.4-5.0); CALCIUM 7.7 mg/dL (8.5-10.1); GFR 9.6; MAGNESIUM 2.4 mg/dL (1.8-2.4); PHOSPHORUS 7.1 mg/dL (2.6-4.7); POTASSIUM 3.7 mmol/L (3.5-5.1)
[2016-11-21] MEDS: PIPERACILLIN/TAZOBACTAM 3.375 GM in IV NORMAL SALINE 50ML 50 ML IV SCH ×4 (06:02→23:32)
[2016-11-21] MEDS: INSULIN ASPART 300 UNITS/3 ML INSULN.PEN SQ SCH ×3 (08:00→17:00)
[2016-11-21] MEDS: GLIMEPIRIDE 2 MG TABLET PO SCH (08:00)
[2016-11-21] MEDS ORDERED: ANTI-COAG MONITOR BY PHARMACY. MC PRN (08:15)
[2016-11-21] MEDS: IPRATRPIUM/ALBUTEROL 0.5/2.5MG 3 ML NEBU. NEB SCH ×4 (08:29→20:07)
--- NOTE | 2016-11-21 09:34 | PDOC2 ---
CONSULT Date of Consult Date of Consult DATE: 11/21/16 TIME: 09:00 Reason for Consult Reason for Consult: CHAY Referring Physician Referring Physician: Dr Butler Identification/Chief Complaint Chief Complaint Fall Problems: Source Source: Chart review, Patient History of Present Illness Reason for Visit: CHAY Past Medical History Cardiovascular: AFIB, CHF, HTN Pulmonary: No pertinent hx GI: No pertinent hx Musculoskeletal: Osteoarthritis ENT: No pertinent hx Renal/: No pertinent hx Endocrine: Diabetes Past Surgical History Past Surgical History: Tonsillectomy Family History Family History: Kidney Disease Social History No ALCOHOL: none Drugs: None Current Problem List Problem List Problems Medical Problems: (1) CHF exacerbation Status: Acute (2) Fall Status: Acute (3) UTI (urinary tract infection) Status: Acute Current Medications Current Medications Current Medications Acetaminophen/ Hydrocodone Bitart (Lortab 5/325) 2 tab 1X ONCE PO Last administered on 11/18/16 21:34; Start 11/18/16 at 21:00; Stop 11/18/16 at 21:01 ; Status DC Furosemide 40 mg 40 mg 1X ONCE IVP Last administered on 11/18/16 22:03; Start 11/18/16 at 22:00; Stop 11/18/16 at 22:01; Status DC Ceftriaxone Sodium (Rocephin 1gm Ivpb For Omni) 50 ml @ 100 mls/hr 1X ONCE IV Last administered on 11/18/16 22:06; Start 11/18/16 at 22:15; Stop 11/18/16 at 22:44; Status DC Ondansetron HCl (Zofran) 4 mg PRN Q8HRS PRN IV NAUSEA/VOMITING; Start 11/18/16 at 22:15; Stop 11/19/16 at 22:14; Status DC Morphine Sulfate 4 mg PRN Q2HR PRN IV PAIN Last administered on 11/19/16 14:58 ; Start 11/18/16 at 22:15; Stop 11/19/16 at 22:14; Status DC Acetaminophen (Tylenol) 650 mg PRN Q4HRS PRN PO FEVER; Start 11/18/16 at 22:15 ; Stop 11/19/16 at 22:14; Status DC Insulin Aspart (Novolog) 0-7 UNITS TIDWMEALS SQ ; Start 11/19/16 at 08:00; Stop 11/19/16 at 09:04; Status DC Dextrose 12.5 gm PRN Q15MIN PRN IV SEE COMMENTS; Start 11/18/16 at 22:15; Stop 11/19/16 at 10:19; Status DC Info (Do NOT chart on this placeholder) 1 each 1X ONCE MC ; Start 11/18/16 at 23:15; Stop 11/18/16 at 23:16; Status UNV Pneumococcal Polyvalent Vaccine (Do NOT chart on this placeholder) 1 each 1X ONCE MC ; Start 11/18/16 at 23:15; Stop 11/18/16 at 23:16; Status UNV Influenza Virus Vaccine Quadrival (Fluarix Quad [id number] Syringe) 0.5 ml ONCE ONCE VAX IM ; Start 11/19/16 at 09:00; Stop 11/19/16 at 09:01; Status DC Pneumococcal Polyvalent Vaccine 0.5 ml 0.5 ml ONCE ONCE VAX IM ; Start 11/19/16 at 09:00; Stop 11/19/16 at 09:01; Status DC Ceftriaxone Sodium/Sodium Chloride (Rocephin/Iv Sodium Chloride 0.9% 50ml) 50 ml @ 100 mls/hr Q24H IV Last administered on 11/20/16 20:49; Start 11/19/16 at 21:00 Amlodipine Besylate (Norvasc) 10 mg DAILY PO Last administered on 11/20/16 08: 08; Start 11/19/16 at 09:30 Glimepiride (Amaryl) 2 mg DAILYWBKFT PO Last administered on 11/20/16 08:08; Start 11/19/16 at 09:30 Carvedilol (Coreg) 25 mg BIDWMEALS PO Last administered on 11/20/16 17:42; Start 11/19/16 at 09:30 Rivaroxaban (Xarelto) 20 mg DAILYWSUP PO Last administered on 11/19/16 17:53; Start 11/19/16 at 17:00; Stop 11/20/16 at 08:53; Status DC Furosemide (Lasix) 40 mg 1X ONCE IVP Last administered on 11/19/16 09:40; Start 11/19/16 at 09:00; Stop 11/19/16 at 09:04; Status DC Insulin Aspart (Novolog) 0-7 UNITS TIDWMEALS SQ ; Start 11/19/16 at 12:00 Dextrose 12.5 gm PRN Q15MIN PRN IV SEE COMMENTS Last administered on 11/21/16 07:44; Start 11/19/16 at 09:00 Guaifenesin (Robitussin Dm) 10 ml PRN Q6HRS PRN PO COUGH; Start 11/19/16 at 09: 00 Nicotine (Nicoderm Cq 14mg) 1 patch PRN DAILY PRN TD SMOKING CESSATION; Start 11/19/16 at 09:15 Nicotine Polacrilex (Nicorette Gum) 1 each PRN Q1HR PRN BC SMOKING CESSATION; Start 11/19/16 at 09:15 Albuterol/ Ipratropium (Duoneb) 3 ml RTQID NEB Last administered on 11/21/16 08:29; Start 11/19/16 at 09:30 Enoxaparin Sodium (Lovenox Per Pharmacy Prophylaxis Dosing) 1 each PRN DAILY PRN MC SEE COMMENTS; Start 11/19/16 at 09:30; Stop 11/19/16 at 09:30; Status DC Hydralazine HCl (Apresoline) 25 mg BID PO Last administered on 11/20/16 20:49 ; Start 11/19/16 at 10:30 Morphine Sulfate (Morphine Ir) 15 mg PRN Q4HRS PRN PO PAIN Last administered on 11/20/16 20:48; Start 11/20/16 at 00:15 Morphine Sulfate 4 mg PRN Q2HR PRN IV PAIN; Start 11/20/16 at 00:15 Rivaroxaban 15 mg 15 mg DAILYWSUP PO ; Start 11/20/16 at 17:00 Sodium Chloride 1,000 ml @ 75 mls/hr [id number] IV Last administered on 23:37; Start 11/20/16 at 10:45 Milrinone Lactate/ Dextrose 100 ml @ 0 mls/hr CONT PRN IV SEE I/O RECORD Last administered on 11/21/16 03:07; Start 11/20/16 at 11:30 Magnesium Sulfate/ Dextrose 50 ml @ 25 mls/hr PRN DAILY PRN IV for Mag < 1.7 on am labs; Start 11/20/16 at 11:30 Piperacillin Sod/ Tazobactam Sod/ Sodium Chloride (Zosyn/Iv Sodium Chloride 0.9 % 50ml) 50 ml @ 100 mls/hr Q6HRS IV Last administered on 11/21/16t 06:02; Start 11/20/16 at 12:00 Info (Anti-Coagulation Monitoring By Pharmacy) 1 each PRN DAILY PRN MC SEE COMMENTS; Start 11/21/16 at 08:15 Active Scripts Active Reported Xarelto (Rivaroxaban) 20 Mg Tablet 20 Mg PO DAILY Carvedilol 25 Mg Tablet 1 Tab PO BID Furosemide 40 Mg Tablet 1 Tab PO DAILY Losartan Potassium 100 Mg Tablet 100 Mg PO DAILY Amlodipine Besylate 10 Mg Tablet 10 Mg PO DAILY Glimepiride 2 Mg Tablet 1 Tab PO DAILY Allergies Allergies: Coded Allergies: No Known Drug Allergies (Unverified , 11/18/16) ROS Review of System GEN: no Fevers no Chills EYES: no new Visual Complaints ENT: no EN Drainage no Hearing deficiets CVS: no Orthopnea no CP RESP: no SOB no GARCIA GI: no Nausea no Vomiting : no Dysuria no Urgency HEME: no easy bruising no Palp Ly Nodes NEURO no Focal Weakness no Sz PSYCH: no Suicidal Ideation no Depression SKIN: no Rashes ENDO: no Polyuria or Polydipsia no Hot/Cold Intolerance MU SK: occ Arthraigia no Myalgia Physical Exam Physical Exam General Appearance: Awake Alert Oriented x 3 In no Distress Eyes: VIsion Unchanged Conjunctiva Normal EN: No EN Drainage Mucous Memb. moist Neck: no JVD min JVP Supple no Thyromegaly; thick neck CVS: S1 S2 sys Murmur No Gallop No Rub +2-3 Edema Resp: no Rales no Rhonchi no Acc. Muscle use GI: BAS +ve NO Bruit Non Tender Non Distended; obese : no CVA tenderness; no Suprapubic Tenderness SKIN: no obvious Rashes Breast Exam deferred Mu.Sk: Adequate ROM no Muscle Atrophy Heme: Unable to palpate Obvious LAD no Splenomegaly NEURO: Good Strength and Tone Cranial Nerves II - XII grossly intact Psych: not Depressed no Active hallucination Vital Signs Vital Signs Date Time Temp Pulse Resp B/P Pulse Ox O2 Delivery O2 Flow Rate FiO2 11/21/16 08:31 95 Room Air 11/21/16 07:00 98.0 99 18 114/74 98.0 Assessment & Plan CHAY - precise etio unclear. Suspect ATn. Cannot R/o Pre-Renal state from Cardiac issues. Ac. GN is a possiblity given ^^ ESR but unable to proceed with Bx due to Xarelto use. NO obvious emergent need for Dialysis. Pt denies s/s of Uremia perse and is hesitant to commit to dialysis (his mom was on dialysis) Will re-evaluate for Dialysis in am - await RHC findings Oliguria - Gentle IVF for now (due to Cmyopahty) - would like to use IV Albumin but will wait for RHC findings (LVEDP etc) Edema - plans as above Nephritic Urine - cannot r/o ATN vs Ac. GN - serologies as ordered Anemia: Fe Def currently so IV Fe. start Epogen Transfuse as needed. HTN: Current BP meds reviewed. See orders for changes. ^ Phos - Start Phoslo Discussed Plan of Care and prognosis etc. at length with family () Labs Labs Laboratory Tests Test 11/19/16 11:18 11/19/16 11:50 11/19/16 16:35 11/19/16 17:48 Erythrocyte Sedimentation Rate 97 (0-15) Glucose (Fingerstick) 126mg/dL (70-99) 103mg/dL (70-99) Estimated GFR (Non- 21 (>59) Iron Level 11ug/dL (65-175) Total Iron Binding Capacity 151ug/dL (250-450) Iron Saturation 7% (15-34) Ferritin 302ng/mL (26-388) EGFR 24 (>59) Vitamin B12 Level 599pg/mL (211-946) PTH (Intact) Specimen Description Comment (.) Parathyroid Hormone (Intact) 55pg/mL (15-65) Calcium (PTH Intact) 7.7mg/dL (8.6-10.2) Creatinine (PTH Intact) 3.07mg/dL (0.76-1.27) Phosphorus (PTH Intact) 4.3mg/dL (2.5-4.5) Test 11/19/16 20:49 11/20/16 04:30 11/20/16 07:51 11/20/16 08:26 Glucose (Fingerstick) 113mg/dL (70-99) 64mg/dL (70-99) 76mg/dL (70-99) White Blood Count 18.4x10^3/uL (4.0-11.0) Red Blood Count 3.58x10^6/uL (4.30-5.70) Hemoglobin 10.1g/dL (13.0-17.5) Hematocrit 30.5% (39.0-53.0) Mean Corpuscular Volume 85fL (79-100) Mean Corpuscular Hemoglobin 28pg (25-35) Mean Corpuscular Hemoglobin Concent 33g/dL (31-37) Red Cell Distribution Width 15.0% (11.5-14.5) Platelet Count 168x10^3/uL (140-400) Neutrophils (%) (Auto) 79% (31-73) Lymphocytes (%) (Auto) 8% (24-48) Monocytes (%) (Auto) 7% (0-9) Eosinophils (%) (Auto) 5% (0-3) Basophils (%) (Auto) 1% (0-3) Neutrophils # (Auto) 14.6x10^3uL (1.8-7.7) Lymphocytes # (Auto) 1.4x10^3/uL (1.0-4.8) Monocytes # (Auto) 1.3x10^3/uL (0.0-1.1) Eosinophils # (Auto) 0.9x10^3/uL (0.0-0.7) Basophils # (Auto) 0.1x10^3/uL (0.0-0.2) Sodium Level 131mmol/L (136-145) Potassium Level 3.6mmol/L (3.5-5.1) Chloride Level 93mmol/L (98-107) Carbon Dioxide Level 30mmol/L (21-32) Anion Gap 8 (6-14) Blood Urea Nitrogen 40mg/dL (8-26) Creatinine 4.4mg/dL (0.7-1.3) Estimated GFR (Cockcroft-Gault) 13.7 BUN/Creatinine Ratio 9 (6-20) Glucose Level 69mg/dL (70-99) Calcium Level 7.7mg/dL (8.5-10.1) Total Bilirubin 0.6mg/dL (0.2-1.0) Aspartate Amino Transf (AST/SGOT) 17U/L (15-37) Alanine Aminotransferase (ALT/SGPT) 14U/L (16-63) Alkaline Phosphatase 62U/L (46-116) Creatine Kinase 50U/L (39-308) Total Protein 7.4g/dL (6.4-8.2) Albumin 2.0g/dL (3.4-5.0) Albumin/Globulin Ratio 0.4 (1.0-1.7) Test 11/20/16 10:37 11/20/16 12:03 11/20/16 17:39 11/20/16 20:45 Glucose (Fingerstick) 119mg/dL (70-99) 73mg/dL (70-99) 77mg/dL (70-99) Estimated GFR (Non- 13 (>59) EGFR 15 (>59) PTH (Intact) Specimen Description Comment (.) Parathyroid Hormone (Intact) 95pg/mL (15-65) Calcium (PTH Intact) 7.3mg/dL (8.6-10.2) Creatinine (PTH Intact) 4.49mg/dL (0.76-1.27) Phosphorus (PTH Intact) 5.5mg/dL (2.5-4.5) Test 11/21/16 02:55 11/21/16 03:05 11/21/16 03:40 11/21/16 07:36 Hemoglobin 9.4g/dL (13.0-17.5) Sodium Level 132mmol/L (136-145) Potassium Level 3.7mmol/L (3.5-5.1) Chloride Level 93mmol/L (98-107) Carbon Dioxide Level 27mmol/L (21-32) Anion Gap 12 (6-14) Blood Urea Nitrogen 54mg/dL (8-26) Creatinine 6.0mg/dL (0.7-1.3) Estimated GFR (Cockcroft-Gault) 9.6 Glucose Level 51mg/dL (70-99) Calcium Level 7.7mg/dL (8.5-10.1) Phosphorus Level 7.0mg/dL (2.6-4.7) Magnesium Level 2.4mg/dL (1.8-2.4) Albumin 1.8g/dL (3.4-5.0) Glucose (Fingerstick) 54mg/dL (70-99) 96mg/dL (70-99) 57mg/dL (70-99) Test 11/21/16 08:05 Glucose (Fingerstick) 84mg/dL (70-99) Laboratory Tests Test 11/20/16 10:37 11/20/16 12:03 11/20/16 17:39 11/20/16 20:45 Glucose (Fingerstick) 119mg/dL (70-99) 73mg/dL (70-99) 77mg/dL (70-99) Estimated GFR (Non- 13 (>59) EGFR 15 (>59) PTH (Intact) Specimen Description Comment (.) Parathyroid Hormone (Intact) 95pg/mL (15-65) Calcium (PTH Intact) 7.3mg/dL (8.6-10.2) Creatinine (PTH Intact) 4.49mg/dL (0.76-1.27) Phosphorus (PTH Intact) 5.5mg/dL (2.5-4.5) Test 11/21/16 02:55 11/21/16 03:05 11/21/16 03:40 11/21/16 07:36 Hemoglobin 9.4g/dL (13.0-17.5) Sodium Level 132mmol/L (136-145) Potassium Level 3.7mmol/L (3.5-5.1) Chloride Level 93mmol/L (98-107) Carbon Dioxide Level 27mmol/L (21-32) Anion Gap 12 (6-14) Blood Urea Nitrogen 54mg/dL (8-26) Creatinine 6.0mg/dL (0.7-1.3) Estimated GFR (Cockcroft-Gault) 9.6 Glucose Level 51mg/dL (70-99) Calcium Level 7.7mg/dL (8.5-10.1) Phosphorus Level 7.0mg/dL (2.6-4.7) Magnesium Level 2.4mg/dL (1.8-2.4) Albumin 1.8g/dL (3.4-5.0) Glucose (Fingerstick) 54mg/dL (70-99) 96mg/dL (70-99) 57mg/dL (70-99) Test 11/21/16 08:05 Glucose (Fingerstick) 84mg/dL (70-99) Images Images Findings: Right kidney measures 10.3 cm in length. Right kidney is without evidence of obstruction or stone. Superior pole of right kidney demonstrates 1.6 cm simple appearing cyst. Left kidney measures 12.5 cm in length. Left kidney is without evidence of obstruction or stone. Parenchymal echogenicity of both kidneys appears appropriate. Urinary bladder is collapsed, limiting evaluation. Impression: 1. Right renal cyst. 2. Otherwise, unremarkable renal ultrasound.. DONNA RICE MD Nov 21, 2016 09:34
[2016-11-21] MEDS: AMLODIPINE BESYLATE 10 MG TABLET PO SCH (10:01)
[2016-11-21] MEDS: CARVEDILOL 12.5 MG TABLET PO SCH ×2 (10:02→18:15)
[2016-11-21] MEDS: HYDRALAZINE 25 MG TABLET PO SCH ×2 (10:02→21:00)
--- NOTE | 2016-11-21 10:04 | RAD ---
Left foot, 3 views, 11/21/2016: History: Foot pain, possible occult fracture There is extensive diffuse soft tissue swelling about the foot. No acute fracture or dislocation is identified. There is a deformity of the proximal phalanx of the great toe compatible with an old healed fracture. There is moderate degenerative change at the first MTP joint. There are other mild scattered degenerative changes. IMPRESSION: No acute bony abnormality is detected.
--- NOTE | 2016-11-21 10:06 | PDOC ---
PROGRESS NOTES Subjective Subjective He still admits pain left foot. Objective Objective Vital Signs Date Time Temp Pulse Resp B/P Pulse Ox O2 Delivery O2 Flow Rate FiO2 11/21/16 08:31 95 Room Air 11/21/16 07:00 98.0 99 18 114/74 98.0 Intake and Output 11/21/16 07:00 Intake Total 700 ml Output Total 0 ml Balance 700 ml Intake Oral 650 ml IV Total 50 ml Output Urine Total 0 ml Physical Exam Physical Exam Patient was trasferred for further evaluation of his atrial fibrillation and he had less edema of left foot and repeat x-ray does not reveal any occult fracture. Assessment Assessment Problems Medical Problems: (1) CHF exacerbation Status: Acute (2) Fall Status: Acute (3) UTI (urinary tract infection) Status: Acute Plan Plan of Care To get him up as tolerated with camwalker boot left to help ease his pain from sprain left foot. Comment Review of Relevant I have reviewed the following items maynor (where applicable) has been applied. Labs Laboratory Tests Test 11/19/16 11:18 11/19/16 11:50 11/19/16 16:35 11/19/16 17:48 Erythrocyte Sedimentation Rate 97 (0-15) Glucose (Fingerstick) 126mg/dL (70-99) 103mg/dL (70-99) Estimated GFR (Non- 21 (>59) Iron Level 11ug/dL (65-175) Total Iron Binding Capacity 151ug/dL (250-450) Iron Saturation 7% (15-34) Ferritin 302ng/mL (26-388) EGFR 24 (>59) Vitamin B12 Level 599pg/mL (211-946) PTH (Intact) Specimen Description Comment (.) Parathyroid Hormone (Intact) 55pg/mL (15-65) Calcium (PTH Intact) 7.7mg/dL (8.6-10.2) Creatinine (PTH Intact) 3.07mg/dL (0.76-1.27) Phosphorus (PTH Intact) 4.3mg/dL (2.5-4.5) Test 11/19/16 20:49 11/20/16 04:30 11/20/16 07:51 11/20/16 08:26 Glucose (Fingerstick) 113mg/dL (70-99) 64mg/dL (70-99) 76mg/dL (70-99) White Blood Count 18.4x10^3/uL (4.0-11.0) Red Blood Count 3.58x10^6/uL (4.30-5.70) Hemoglobin 10.1g/dL (13.0-17.5) Hematocrit 30.5% (39.0-53.0) Mean Corpuscular Volume 85fL (79-100) Mean Corpuscular Hemoglobin 28pg (25-35) Mean Corpuscular Hemoglobin Concent 33g/dL (31-37) Red Cell Distribution Width 15.0% (11.5-14.5) Platelet Count 168x10^3/uL (140-400) Neutrophils (%) (Auto) 79% (31-73) Lymphocytes (%) (Auto) 8% (24-48) Monocytes (%) (Auto) 7% (0-9) Eosinophils (%) (Auto) 5% (0-3) Basophils (%) (Auto) 1% (0-3) Neutrophils # (Auto) 14.6x10^3uL (1.8-7.7) Lymphocytes # (Auto) 1.4x10^3/uL (1.0-4.8) Monocytes # (Auto) 1.3x10^3/uL (0.0-1.1) Eosinophils # (Auto) 0.9x10^3/uL (0.0-0.7) Basophils # (Auto) 0.1x10^3/uL (0.0-0.2) Sodium Level 131mmol/L (136-145) Potassium Level 3.6mmol/L (3.5-5.1) Chloride Level 93mmol/L (98-107) Carbon Dioxide Level 30mmol/L (21-32) Anion Gap 8 (6-14) Blood Urea Nitrogen 40mg/dL (8-26) Creatinine 4.4mg/dL (0.7-1.3) Estimated GFR (Cockcroft-Gault) 13.7 BUN/Creatinine Ratio 9 (6-20) Glucose Level 69mg/dL (70-99) Calcium Level 7.7mg/dL (8.5-10.1) Total Bilirubin 0.6mg/dL (0.2-1.0) Aspartate Amino Transf (AST/SGOT) 17U/L (15-37) Alanine Aminotransferase (ALT/SGPT) 14U/L (16-63) Alkaline Phosphatase 62U/L (46-116) Creatine Kinase 50U/L (39-308) Total Protein 7.4g/dL (6.4-8.2) Albumin 2.0g/dL (3.4-5.0) Albumin/Globulin Ratio 0.4 (1.0-1.7) Test 11/20/16 10:37 11/20/16 11:55 11/20/16 12:03 11/20/16 17:39 Glucose (Fingerstick) 119mg/dL (70-99) 73mg/dL (70-99) 25-Hydroxy Vitamin D Total 15.3ng/mL (30.0-100.0) Estimated GFR (Non- 13 (>59) EGFR 15 (>59) PTH (Intact) Specimen Description Comment (.) Parathyroid Hormone (Intact) 95pg/mL (15-65) Calcium (PTH Intact) 7.3mg/dL (8.6-10.2) Creatinine (PTH Intact) 4.49mg/dL (0.76-1.27) Phosphorus (PTH Intact) 5.5mg/dL (2.5-4.5) Test 11/20/16 20:45 11/21/16 02:55 11/21/16 03:05 11/21/16 03:40 Glucose (Fingerstick) 77mg/dL (70-99) 54mg/dL (70-99) 96mg/dL (70-99) Hemoglobin 9.4g/dL (13.0-17.5) Sodium Level 132mmol/L (136-145) Potassium Level 3.7mmol/L (3.5-5.1) Chloride Level 93mmol/L (98-107) Carbon Dioxide Level 27mmol/L (21-32) Anion Gap 12 (6-14) Blood Urea Nitrogen 54mg/dL (8-26) Creatinine 6.0mg/dL (0.7-1.3) Estimated GFR (Cockcroft-Gault) 9.6 Glucose Level 51mg/dL (70-99) Calcium Level 7.7mg/dL (8.5-10.1) Phosphorus Level 7.0mg/dL (2.6-4.7) Magnesium Level 2.4mg/dL (1.8-2.4) Albumin 1.8g/dL (3.4-5.0) Test 11/21/16 07:36 11/21/16 08:05 Glucose (Fingerstick) 57mg/dL (70-99) 84mg/dL (70-99) Laboratory Tests Test 11/20/16 10:37 11/20/16 11:55 11/20/16 12:03 11/20/16 17:39 Glucose (Fingerstick) 119mg/dL (70-99) 73mg/dL (70-99) 25-Hydroxy Vitamin D Total 15.3ng/mL (30.0-100.0) Estimated GFR (Non- 13 (>59) EGFR 15 (>59) PTH (Intact) Specimen Description Comment (.) Parathyroid Hormone (Intact) 95pg/mL (15-65) Calcium (PTH Intact) 7.3mg/dL (8.6-10.2) Creatinine (PTH Intact) 4.49mg/dL (0.76-1.27) Phosphorus (PTH Intact) 5.5mg/dL (2.5-4.5) Test 11/20/16 20:45 11/21/16 02:55 11/21/16 03:05 11/21/16 03:40 Glucose (Fingerstick) 77mg/dL (70-99) 54mg/dL (70-99) 96mg/dL (70-99) Hemoglobin 9.4g/dL (13.0-17.5) Sodium Level 132mmol/L (136-145) Potassium Level 3.7mmol/L (3.5-5.1) Chloride Level 93mmol/L (98-107) Carbon Dioxide Level 27mmol/L (21-32) Anion Gap 12 (6-14) Blood Urea Nitrogen 54mg/dL (8-26) Creatinine 6.0mg/dL (0.7-1.3) Estimated GFR (Cockcroft-Gault) 9.6 Glucose Level 51mg/dL (70-99) Calcium Level 7.7mg/dL (8.5-10.1) Phosphorus Level 7.0mg/dL (2.6-4.7) Magnesium Level 2.4mg/dL (1.8-2.4) Albumin 1.8g/dL (3.4-5.0) Test 11/21/16 07:36 11/21/16 08:05 Glucose (Fingerstick) 57mg/dL (70-99) 84mg/dL (70-99) Medications Current Medications Acetaminophen/ Hydrocodone Bitart (Lortab 5/325) 2 tab 1X ONCE PO Last administered on 11/18/16 21:34; Start 11/18/16 at 21:00; Stop 11/18/16 at 21:01 ; Status DC Furosemide 40 mg 40 mg 1X ONCE IVP Last administered on 11/18/16 22:03; Start 11/18/16 at 22:00; Stop 11/18/16 at 22:01; Status DC Ceftriaxone Sodium (Rocephin 1gm Ivpb For Omni) 50 ml @ 100 mls/hr 1X ONCE IV Last administered on 11/18/16 22:06; Start 11/18/16 at 22:15; Stop 11/18/16 at 22:44; Status DC Ondansetron HCl (Zofran) 4 mg PRN Q8HRS PRN IV NAUSEA/VOMITING; Start 11/18/16 at 22:15; Stop 11/19/16 at 22:14; Status DC Morphine Sulfate 4 mg PRN Q2HR PRN IV PAIN Last administered on 11/19/16 14:58 ; Start 11/18/16 at 22:15; Stop 11/19/16 at 22:14; Status DC Acetaminophen (Tylenol) 650 mg PRN Q4HRS PRN PO FEVER; Start 11/18/16 at 22:15 ; Stop 11/19/16 at 22:14; Status DC Insulin Aspart (Novolog) 0-7 UNITS TIDWMEALS SQ ; Start 11/19/16 at 08:00; Stop 11/19/16 at 09:04; Status DC Dextrose 12.5 gm PRN Q15MIN PRN IV SEE COMMENTS; Start 11/18/16 at 22:15; Stop 11/19/16 at 10:19; Status DC Info (Do NOT chart on this placeholder) 1 each 1X ONCE MC ; Start 11/18/16 at 23:15; Stop 1/13/17 at 23:16; Status UNV Pneumococcal Polyvalent Vaccine (Do NOT chart on this placeholder) 1 each 1X ONCE MC ; Start 11/18/16 at 23:15; Stop 11/18/16 at 23:16; Status UNV Influenza Virus Vaccine Quadrival (Fluarix Quad [id number] Syringe) 0.5 ml ONCE ONCE VAX IM ; Start 11/19/16 at 09:00; Stop 11/19/16 at 09:01; Status DC Pneumococcal Polyvalent Vaccine 0.5 ml 0.5 ml ONCE ONCE VAX IM ; Start 11/19/16 at 09:00; Stop 11/19/16 at 09:01; Status DC Ceftriaxone Sodium/Sodium Chloride (Rocephin/Iv Sodium Chloride 0.9% 50ml) 50 ml @ 100 mls/hr Q24H IV Last administered on 11/20/16 20:49; Start 11/19/16 at 21:00; Stop 11/21/16 at 09:56; Status DC Amlodipine Besylate (Norvasc) 10 mg DAILY PO Last administered on 11/20/16 08: 08; Start 11/19/16 at 09:30 Glimepiride (Amaryl) 2 mg DAILYWBKFT PO Last administered on 11/20/16 08:08; Start 11/19/16 at 09:30 Carvedilol (Coreg) 25 mg BIDWMEALS PO Last administered on 11/20/16 17:42; Start 11/19/16 at 09:30 Rivaroxaban (Xarelto) 20 mg DAILYWSUP PO Last administered on 11/19/16 17:53; Start 11/19/16 at 17:00; Stop 11/20/16 at 08:53; Status DC Furosemide (Lasix) 40 mg 1X ONCE IVP Last administered on 11/19/16 09:40; Start 11/19/16 at 09:00; Stop 11/19/16 at 09:04; Status DC Insulin Aspart (Novolog) 0-7 UNITS TIDWMEALS SQ ; Start 11/19/16 at 12:00 Dextrose 12.5 gm PRN Q15MIN PRN IV SEE COMMENTS Last administered on 11/21/16 07:44; Start 11/19/16 at 09:00 Guaifenesin (Robitussin Dm) 10 ml PRN Q6HRS PRN PO COUGH; Start 11/19/16 at 09: 00 Nicotine (Nicoderm Cq 14mg) 1 patch PRN DAILY PRN TD SMOKING CESSATION; Start 11/19/16 at 09:15 Nicotine Polacrilex (Nicorette Gum) 1 each PRN Q1HR PRN BC SMOKING CESSATION; Start 11/19/16 at 09:15 Albuterol/ Ipratropium (Duoneb) 3 ml RTQID NEB Last administered on 11/21/16 08:29; Start 11/19/16 at 09:30 Enoxaparin Sodium (Lovenox Per Pharmacy Prophylaxis Dosing) 1 each PRN DAILY PRN MC SEE COMMENTS; Start 11/19/16 at 09:30; Stop 11/19/16 at 09:30; Status DC Hydralazine HCl (Apresoline) 25 mg BID PO Last administered on 11/20/16 20:49 ; Start 11/19/16 at 10:30 Morphine Sulfate (Morphine Ir) 15 mg PRN Q4HRS PRN PO PAIN Last administered on 11/20/16 20:48; Start 11/20/16 at 00:15 Morphine Sulfate 4 mg PRN Q2HR PRN IV PAIN; Start 11/20/16 at 00:15 Rivaroxaban 15 mg 15 mg DAILYWSUP PO ; Start 11/20/16 at 17:00 Sodium Chloride 1,000 ml @ 75 mls/hr [id number] IV Last administered on 23:37; Start 11/20/16 at 10:45 Milrinone Lactate/ Dextrose 100 ml @ 0 mls/hr CONT PRN IV SEE I/O RECORD Last administered on 11/21/16 03:07; Start 11/20/16 at 11:30 Magnesium Sulfate/ Dextrose 50 ml @ 25 mls/hr PRN DAILY PRN IV for Mag < 1.7 on am labs; Start 11/20/16 at 11:30 Piperacillin Sod/ Tazobactam Sod/ Sodium Chloride (Zosyn/Iv Sodium Chloride 0.9 % 50ml) 50 ml @ 100 mls/hr Q6HRS IV Last administered on 11/21/16 06:02; Start 11/20/16 at 12:00 Info 1 each 1 each PRN DAILY PRN MC SEE COMMENTS Last administered on t 09:52; Start 11/21/16 at 08:15 Iron Sucrose/ Sodium Chloride (Venofer/Iv Sodium Chloride 0.9% 100ml) 110 ml @ 55 mls/hr 3X/WEEK IV ; Start 11/21/16 at 10:00; Stop 11/30/16 at 10:59 Darbepoetin Guillermo (Aranesp) 100 mcg WEEKLYHS SQ ; Start 11/21/16 at 21:00 Calcium Acetate (Phoslo) 1,334 mg TIDWMEALS PO ; Start 11/21/16 at 12:00 Active Scripts Active Reported Xarelto (Rivaroxaban) 20 Mg Tablet 20 Mg PO DAILY Carvedilol 25 Mg Tablet 1 Tab PO BID Furosemide 40 Mg Tablet 1 Tab PO DAILY Losartan Potassium 100 Mg Tablet 100 Mg PO DAILY Amlodipine Besylate 10 Mg Tablet 10 Mg PO DAILY Glimepiride 2 Mg Tablet 1 Tab PO DAILY Vitals/I & O Vital Sign - Last 24 Hours 11/20/16 11/20/16 11/20/16 11/20/16 10:38 11:39 14:30 15:44 Temp 97.9 98.2 97.9 98.2 Pulse 83 85 Resp 20 18 B/P 110/68 96/57 Pulse Ox 94 94 O2 Delivery Room Air Room Air Room Air Room Air 11/20/16 11/20/16 11/20/16 11/20/16 15:53 17:42 19:10 19:25 Temp 98.1 98.1 Pulse 75 94 Resp 18 20 B/P 117/65 101/60 Pulse Ox 95 O2 Delivery Room Air Room Air 11/20/16 11/20/16 11/20/16 11/20/16 20:03 20:48 20:49 21:48 Pulse 98 Resp 18 18 B/P 104/54 Pulse Ox 94 93 O2 Delivery Room Air Room Air Room Air 11/20/16 11/21/16 11/21/16 11/21/16 22:55 03:01 07:00 08:31 Temp 98.1 98.4 98.0 98.1 98.4 98.0 Pulse 105 93 99 Resp 18 18 18 B/P 135/58 133/66 114/74 Pulse Ox 92 93 88 95 O2 Delivery Room Air Room Air Room Air Room Air Intake and Output 11/20/16 11/20/16 11/21/16 15:00 23:00 07:00 Intake Total 50 ml 400 ml 250 ml Output Total 0 ml Balance 50 ml 400 ml 250 ml YANICK LAI MD Nov 21, 2016 10:06
[2016-11-21] MEDS ORDERED: LIDOCAINE 2% 20 ML VIAL. ONE (10:13)
[2016-11-21 10:18] LABS: PROTEIN 24 HR UR 196.7 mg/24 hr (30.0-150.0)
[2016-11-21 10:18] LABS: UR PROTEIN RD 602.3 mg/dL (Not Estab.)
[2016-11-21] MEDS ORDERED: FENTANYL PF 100 MCG/2 ML VIAL. ONE (10:52)
[2016-11-21] MEDS ORDERED: MIDAZOLAM HCL 2 MG/2 ML VIAL. ONE (10:52)
[2016-11-21] MEDS ORDERED: MIDAZOLAM HCL 2 MG/2 ML VIAL. IV ONE (11:30)
[2016-11-21] MEDS ORDERED: FENTANYL PF 100 MCG/2 ML VIAL. IV ONE (11:30)
--- NOTE | 2016-11-21 11:58 | PDOC ---
PROGRESS NOTES Chief Complaint Chief Complaint CHF Systolic acute on chronic Afib CHAY Leukocytosis Hyperphosphatemia DM HTN Anemia Proteinuria Lower extremity edema with cellulitis Fungal rash, total body Fall History of Present Illness History of Present Illness 60 year old male seen immediately following right heart cath while still in lab. Patient was drowsy and fell back to sleep in the middle of responding to questions. Discussed case with cardiology, who will also discuss case with nephrology regarding consideration of dialysis. Vitals Vitals Vital Signs Date Time Temp Pulse Resp B/P Pulse Ox O2 Delivery O2 Flow Rate FiO2 11/21/16 11:22 95 14 94 Nasal Cannula 2.0 11/21/16 10:02 134/64 11/21/16 07:00 98.0 98.0 Physical Exam General: Alert, Oriented X3, Cooperative, No acute distress Heart: Other (Mild tachycardia, No rubs) Lungs: Clear Abdomen: Normal bowel sounds, Soft Extremities: No clubbing, No cyanosis, Other (LE edema) Skin: Other (Fungal rash over whole body) Labs LABS Laboratory Tests Test 11/20/16 11:55 11/20/16 12:03 11/20/16 17:39 11/20/16 18:00 25-Hydroxy Vitamin D Total 15.3ng/mL (30.0-100.0) Estimated GFR (Non- 13 (>59) EGFR 15 (>59) PTH (Intact) Specimen Description Comment (.) Parathyroid Hormone (Intact) 95pg/mL (15-65) Calcium (PTH Intact) 7.3mg/dL (8.6-10.2) Creatinine (PTH Intact) 4.49mg/dL (0.76-1.27) Phosphorus (PTH Intact) 5.5mg/dL (2.5-4.5) Glucose (Fingerstick) 73mg/dL (70-99) Urine Protein 245.9mg/dL (Not Estab.) Urine Protein 24 Hr Calculated 196.7mg/24 hr (30.0-150.0) Test 11/20/16 20:45 11/21/16 02:55 11/21/16 03:05 11/21/16 03:40 Glucose (Fingerstick) 77mg/dL (70-99) 54mg/dL (70-99) 96mg/dL (70-99) Hemoglobin 9.4g/dL (13.0-17.5) Sodium Level 132mmol/L (136-145) Potassium Level 3.7mmol/L (3.5-5.1) Chloride Level 93mmol/L (98-107) Carbon Dioxide Level 27mmol/L (21-32) Anion Gap 12 (6-14) Blood Urea Nitrogen 54mg/dL (8-26) Creatinine 6.0mg/dL (0.7-1.3) Estimated GFR (Cockcroft-Gault) 9.6 Glucose Level 51mg/dL (70-99) Calcium Level 7.7mg/dL (8.5-10.1) Phosphorus Level 7.0mg/dL (2.6-4.7) Magnesium Level 2.4mg/dL (1.8-2.4) Albumin 1.8g/dL (3.4-5.0) Test 11/21/16 07:36 11/21/16 08:05 Glucose (Fingerstick) 57mg/dL (70-99) 84mg/dL (70-99) Review of Systems Review of Systems Lower extremity swelling Left foot pain Assessment and Plan Assessmemt and Plan Assessment: - CHF Systolic acute on chronic - Afib - CHAY - Leukocytosis - Hyperphosphatemia - DM - HTN - Anemia - Proteinuria - Lower extremity edema with cellulitis - Fungal rash, total body - Fall Plan: - Discontinued Glimipride due to hypoglycemia, discussed with pharmacy, will continue sliding scale - Discussed case with cardiology. Awaiting further cardiology and nephrology input regarding dialysis consideration - Defer to nephrology regarding hyperphosphatemia, edema, elevated ESR - Continue Zosyn, await blood cultures. WBC 18.4 today - Await further serologies and cultures - Control pain with IV morphine. - Recheck labs - PT/OT as tolerated - Appreciate subspecialty input Problems: Comment Review of Relevant I have reviewed the following items maynor (where applicable) has been applied. Labs Laboratory Tests Test 11/19/16 11:50 11/19/16 16:35 11/19/16 17:48 11/19/16 20:49 Glucose (Fingerstick) 126mg/dL (70-99) 103mg/dL (70-99) 113mg/dL (70-99) Estimated GFR (Non- 21 (>59) Iron Level 11ug/dL (65-175) Total Iron Binding Capacity 151ug/dL (250-450) Iron Saturation 7% (15-34) Ferritin 302ng/mL (26-388) EGFR 24 (>59) Vitamin B12 Level 599pg/mL (211-946) PTH (Intact) Specimen Description Comment (.) Parathyroid Hormone (Intact) 55pg/mL (15-65) Calcium (PTH Intact) 7.7mg/dL (8.6-10.2) Creatinine (PTH Intact) 3.07mg/dL (0.76-1.27) Phosphorus (PTH Intact) 4.3mg/dL (2.5-4.5) Test 11/20/16 04:30 11/20/16 07:51 11/20/16 08:26 11/20/16 10:37 White Blood Count 18.4x10^3/uL (4.0-11.0) Red Blood Count 3.58x10^6/uL (4.30-5.70) Hemoglobin 10.1g/dL (13.0-17.5) Hematocrit 30.5% (39.0-53.0) Mean Corpuscular Volume 85fL (79-100) Mean Corpuscular Hemoglobin 28pg (25-35) Mean Corpuscular Hemoglobin Concent 33g/dL (31-37) Red Cell Distribution Width 15.0% (11.5-14.5) Platelet Count 168x10^3/uL (140-400) Neutrophils (%) (Auto) 79% (31-73) Lymphocytes (%) (Auto) 8% (24-48) Monocytes (%) (Auto) 7% (0-9) Eosinophils (%) (Auto) 5% (0-3) Basophils (%) (Auto) 1% (0-3) Neutrophils # (Auto) 14.6x10^3uL (1.8-7.7) Lymphocytes # (Auto) 1.4x10^3/uL (1.0-4.8) Monocytes # (Auto) 1.3x10^3/uL (0.0-1.1) Eosinophils # (Auto) 0.9x10^3/uL (0.0-0.7) Basophils # (Auto) 0.1x10^3/uL (0.0-0.2) Sodium Level 131mmol/L (136-145) Potassium Level 3.6mmol/L (3.5-5.1) Chloride Level 93mmol/L (98-107) Carbon Dioxide Level 30mmol/L (21-32) Anion Gap 8 (6-14) Blood Urea Nitrogen 40mg/dL (8-26) Creatinine 4.4mg/dL (0.7-1.3) Estimated GFR (Cockcroft-Gault) 13.7 BUN/Creatinine Ratio 9 (6-20) Glucose Level 69mg/dL (70-99) Calcium Level 7.7mg/dL (8.5-10.1) Total Bilirubin 0.6mg/dL (0.2-1.0) Aspartate Amino Transf (AST/SGOT) 17U/L (15-37) Alanine Aminotransferase (ALT/SGPT) 14U/L (16-63) Alkaline Phosphatase 62U/L (46-116) Creatine Kinase 50U/L (39-308) Total Protein 7.4g/dL (6.4-8.2) Albumin 2.0g/dL (3.4-5.0) Albumin/Globulin Ratio 0.4 (1.0-1.7) Glucose (Fingerstick) 64mg/dL (70-99) 76mg/dL (70-99) 119mg/dL (70-99) Test 11/20/16 11:55 11/20/16 12:03 11/20/16 17:39 11/20/16 18:00 25-Hydroxy Vitamin D Total 15.3ng/mL (30.0-100.0) Estimated GFR (Non- 13 (>59) EGFR 15 (>59) PTH (Intact) Specimen Description Comment (.) Parathyroid Hormone (Intact) 95pg/mL (15-65) Calcium (PTH Intact) 7.3mg/dL (8.6-10.2) Creatinine (PTH Intact) 4.49mg/dL (0.76-1.27) Phosphorus (PTH Intact) 5.5mg/dL (2.5-4.5) Glucose (Fingerstick) 73mg/dL (70-99) Urine Protein 245.9mg/dL (Not Estab.) Urine Protein 24 Hr Calculated 196.7mg/24 hr (30.0-150.0) Test 11/20/16 20:45 11/21/16 02:55 11/21/16 03:05 11/21/16 03:40 Glucose (Fingerstick) 77mg/dL (70-99) 54mg/dL (70-99) 96mg/dL (70-99) Hemoglobin 9.4g/dL (13.0-17.5) Sodium Level 132mmol/L (136-145) Potassium Level 3.7mmol/L (3.5-5.1) Chloride Level 93mmol/L (98-107) Carbon Dioxide Level 27mmol/L (21-32) Anion Gap 12 (6-14) Blood Urea Nitrogen 54mg/dL (8-26) Creatinine 6.0mg/dL (0.7-1.3) Estimated GFR (Cockcroft-Gault) 9.6 Glucose Level 51mg/dL (70-99) Calcium Level 7.7mg/dL (8.5-10.1) Phosphorus Level 7.0mg/dL (2.6-4.7) Magnesium Level 2.4mg/dL (1.8-2.4) Albumin 1.8g/dL (3.4-5.0) Test 11/21/16 07:36 11/21/16 08:05 Glucose (Fingerstick) 57mg/dL (70-99) 84mg/dL (70-99) Laboratory Tests Test 11/20/16 11:55 11/20/16 12:03 11/20/16 17:39 11/20/16 18:00 25-Hydroxy Vitamin D Total 15.3ng/mL (30.0-100.0) Estimated GFR (Non- 13 (>59) EGFR 15 (>59) PTH (Intact) Specimen Description Comment (.) Parathyroid Hormone (Intact) 95pg/mL (15-65) Calcium (PTH Intact) 7.3mg/dL (8.6-10.2) Creatinine (PTH Intact) 4.49mg/dL (0.76-1.27) Phosphorus (PTH Intact) 5.5mg/dL (2.5-4.5) Glucose (Fingerstick) 73mg/dL (70-99) Urine Protein 245.9mg/dL (Not Estab.) Urine Protein 24 Hr Calculated 196.7mg/24 hr (30.0-150.0) Test 11/20/16 20:45 11/21/16 02:55 11/21/16 03:05 11/21/16 03:40 Glucose (Fingerstick) 77mg/dL (70-99) 54mg/dL (70-99) 96mg/dL (70-99) Hemoglobin 9.4g/dL (13.0-17.5) Sodium Level 132mmol/L (136-145) Potassium Level 3.7mmol/L (3.5-5.1) Chloride Level 93mmol/L (98-107) Carbon Dioxide Level 27mmol/L (21-32) Anion Gap 12 (6-14) Blood Urea Nitrogen 54mg/dL (8-26) Creatinine 6.0mg/dL (0.7-1.3) Estimated GFR (Cockcroft-Gault) 9.6 Glucose Level 51mg/dL (70-99) Calcium Level 7.7mg/dL (8.5-10.1) Phosphorus Level 7.0mg/dL (2.6-4.7) Magnesium Level 2.4mg/dL (1.8-2.4) Albumin 1.8g/dL (3.4-5.0) Test 11/21/16 07:36 11/21/16 08:05 Glucose (Fingerstick) 57mg/dL (70-99) 84mg/dL (70-99) Microbiology 11/18/16 Urine Culture - Final, Complete 11/18/16 Urine Culture Result 1 (SHILPA) - Final, Complete Medications Current Medications Acetaminophen/ Hydrocodone Bitart (Lortab 5/325) 2 tab 1X ONCE PO Last administered on 11/18/16 21:34; Start 11/18/16 at 21:00; Stop 11/18/16 at 21:01 ; Status DC Furosemide 40 mg 40 mg 1X ONCE IVP Last administered on 11/18/16 22:03; Start 11/18/16 at 22:00; Stop 11/18/16 at 22:01; Status DC Ceftriaxone Sodium (Rocephin 1gm Ivpb For Omni) 50 ml @ 100 mls/hr 1X ONCE IV Last administered on 11/18/16 22:06; Start 11/18/16 at 22:15; Stop 11/18/16 at 22:44; Status DC Ondansetron HCl (Zofran) 4 mg PRN Q8HRS PRN IV NAUSEA/VOMITING; Start 11/18/16 at 22:15; Stop 11/19/16 at 22:14; Status DC Morphine Sulfate 4 mg PRN Q2HR PRN IV PAIN Last administered on 11/19/16 14:58 ; Start 11/18/16 at 22:15; Stop 11/19/16 at 22:14; Status DC Acetaminophen (Tylenol) 650 mg PRN Q4HRS PRN PO FEVER; Start 11/18/16 at 22:15 ; Stop 11/19/16 at 22:14; Status DC Insulin Aspart (Novolog) 0-7 UNITS TIDWMEALS SQ ; Start 11/19/16 at 08:00; Stop 11/19/16 at 09:04; Status DC Dextrose 12.5 gm PRN Q15MIN PRN IV SEE COMMENTS; Start 11/18/16 at 22:15; Stop 11/19/16 at 10:19; Status DC Info (Do NOT chart on this placeholder) 1 each 1X ONCE MC ; Start 11/18/16 at 23:15; Stop 11/18/16 at 23:16; Status UNV Pneumococcal Polyvalent Vaccine (Do NOT chart on this placeholder) 1 each 1X ONCE MC ; Start 11/18/16 at 23:15; Stop 11/18/16 at 23:16; Status UNV Influenza Virus Vaccine Quadrival (Fluarix Quad [id number] Syringe) 0.5 ml ONCE ONCE VAX IM ; Start 11/19/16 at 09:00; Stop 11/19/16 at 09:01; Status DC Pneumococcal Polyvalent Vaccine 0.5 ml 0.5 ml ONCE ONCE VAX IM ; Start 11/19/16 at 09:00; Stop 11/19/16 at 09:01; Status DC Ceftriaxone Sodium/Sodium Chloride (Rocephin/Iv Sodium Chloride 0.9% 50ml) 50 ml @ 100 mls/hr Q24H IV Last administered on 11/20/16 20:49; Start 11/19/16 at 21:00; Stop 11/21/16 at 09:56; Status DC Amlodipine Besylate (Norvasc) 10 mg DAILY PO Last administered on 11/21/16 10: 01; Start 11/19/16 at 09:30 Glimepiride (Amaryl) 2 mg DAILYWBKFT PO Last administered on 11/20/16 08:08; Start 11/19/16 at 09:30; Stop 11/21/16 at 10:20; Status DC Carvedilol (Coreg) 25 mg BIDWMEALS PO Last administered on 11/21/16 10:02; Start 11/19/16 at 09:30 Rivaroxaban (Xarelto) 20 mg DAILYWSUP PO Last administered on 11/19/16 17:53; Start 11/19/16 at 17:00; Stop 11/20/16 at 08:53; Status DC Furosemide (Lasix) 40 mg 1X ONCE IVP Last administered on 11/19/16 09:40; Start 11/19/16 at 09:00; Stop 11/19/16 at 09:04; Status DC Insulin Aspart (Novolog) 0-7 UNITS TIDWMEALS SQ ; Start 11/19/16 at 12:00 Dextrose 12.5 gm PRN Q15MIN PRN IV SEE COMMENTS Last administered on 11/21/16 07:44; Start 11/19/16 at 09:00 Guaifenesin (Robitussin Dm) 10 ml PRN Q6HRS PRN PO COUGH; Start 11/19/16 at 09: 00 Nicotine (Nicoderm Cq 14mg) 1 patch PRN DAILY PRN TD SMOKING CESSATION; Start 11/19/16 at 09:15 Nicotine Polacrilex (Nicorette Gum) 1 each PRN Q1HR PRN BC SMOKING CESSATION; Start 11/19/16 at 09:15 Albuterol/ Ipratropium (Duoneb) 3 ml RTQID NEB Last administered on 11/21/16 08:29; Start 11/19/16 at 09:30 Enoxaparin Sodium (Lovenox Per Pharmacy Prophylaxis Dosing) 1 each PRN DAILY PRN MC SEE COMMENTS; Start 11/19/16 at 09:30; Stop 11/19/16 at 09:30; Status DC Hydralazine HCl (Apresoline) 25 mg BID PO Last administered on 11/21/16 10:02 ; Start 11/19/16 at 10:30 Morphine Sulfate (Morphine Ir) 15 mg PRN Q4HRS PRN PO PAIN Last administered on 11/20/16 20:48; Start 11/20/16 at 00:15 Morphine Sulfate 4 mg PRN Q2HR PRN IV PAIN; Start 11/20/16 at 00:15 Rivaroxaban 15 mg 15 mg DAILYWSUP PO ; Start 11/20/16 at 17:00 Sodium Chloride 1,000 ml @ 75 mls/hr [id number] IV Last administered on 23:37; Start 11/20/16 at 10:45 Milrinone Lactate/ Dextrose 100 ml @ 0 mls/hr CONT PRN IV SEE I/O RECORD Last administered on 11/21/16 03:07; Start 11/20/16 at 11:30 Magnesium Sulfate/ Dextrose 50 ml @ 25 mls/hr PRN DAILY PRN IV for Mag < 1.7 on am labs; Start 11/20/16 at 11:30 Piperacillin Sod/ Tazobactam Sod/ Sodium Chloride (Zosyn/Iv Sodium Chloride 0.9 % 50ml) 50 ml @ 100 mls/hr Q6HRS IV Last administered on 11/21/16 06:02; Start 11/20/16 at 12:00 Info 1 each 1 each PRN DAILY PRN MC SEE COMMENTS Last administered on 09:52; Start 11/21/16 at 08:15 Iron Sucrose/ Sodium Chloride (Venofer/Iv Sodium Chloride 0.9% 100ml) 110 ml @ 55 mls/hr 3X/WEEK IV ; Start 11/21/16 at 10:00; Stop 11/30/16 at 10:59 Darbepoetin Guillermo (Aranesp) 100 mcg WEEKLYHS SQ ; Start 11/21/16 at 21:00 Calcium Acetate 1334 mg 1,334 mg TIDWMEALS PO ; Start 11/21/16 at 12:00 Heparin Sodium/ Sodium Chloride 500 ml @ As Directed STK-MED ONCE .ROUTE ; Start 11/21/16 at 10:13; Stop 11/21/16 at 10:14; Status DC Lidocaine HCl 20 ml STK-MED ONCE .ROUTE ; Start 11/21/16 at 10:13; Stop at 10:14; Status DC Fentanyl Citrate (Fentanyl 2ml Vial) 100 mcg STK-MED ONCE .ROUTE ; Start at 10:52; Stop 11/21/16 at 10:53; Status DC Midazolam HCl (Versed) 2 mg STK-MED ONCE .ROUTE ; Start 11/21/16 at 10:52; Stop 11/21/16 at 10:53; Status DC Midazolam HCl (Versed) 1 mg 1X ONCE IV Last administered on 11/21/16t 11:04; Start 11/21/16 at 11:30; Stop 11/21/16 at 11:31; Status DC Fentanyl Citrate (Fentanyl 2ml Vial) 25 mcg 1X ONCE IV Last administered on t 11:02; Start 11/21/16 at 11:30; Stop 11/21/16 at 11:31; Status DC Active Scripts Active Reported Xarelto (Rivaroxaban) 20 Mg Tablet 20 Mg PO DAILY Carvedilol 25 Mg Tablet 1 Tab PO BID Furosemide 40 Mg Tablet 1 Tab PO DAILY Losartan Potassium 100 Mg Tablet 100 Mg PO DAILY Amlodipine Besylate 10 Mg Tablet 10 Mg PO DAILY Glimepiride 2 Mg Tablet 1 Tab PO DAILY Vitals/I & O Vital Sign - Last 24 Hours 11/20/16 11/20/16 11/20/16 11/20/16 14:30 15:44 15:53 17:42 Temp 98.2 98.2 Pulse 85 75 Resp 18 18 B/P 96/57 117/65 Pulse Ox 94 O2 Delivery Room Air Room Air 11/20/16 11/20/16 11/20/16 11/20/16 19:10 19:25 20:03 20:48 Temp 98.1 98.1 Pulse 94 Resp 20 18 B/P 101/60 Pulse Ox 95 94 O2 Delivery Room Air Room Air Room Air Room Air 11/20/16 11/20/16 11/20/16 11/21/16 20:49 21:48 22:55 03:01 Temp 98.1 98.4 98.1 98.4 Pulse 98 105 93 Resp 18 18 18 B/P 104/54 135/58 133/66 Pulse Ox 93 92 93 O2 Delivery Room Air Room Air Room Air 11/21/16 11/21/16 11/21/16 11/21/16 07:00 08:31 10:01 10:02 Temp 98.0 98.0 Pulse 99 88 88 Resp 18 B/P 114/74 134/64 134/64 Pulse Ox 88 95 O2 Delivery Room Air Room Air 11/21/16 11/21/16 11/21/16 10:02 11:02 11:22 Pulse 88 95 Resp 14 14 B/P 134/64 Pulse Ox 94 94 O2 Delivery Nasal Cannula Nasal Cannula O2 Flow Rate 2.0 2.0 Intake and Output 11/20/16 11/20/16 11/21/16 15:00 23:00 07:00 Intake Total 50 ml 400 ml 250 ml Output Total 0 ml Balance 50 ml 400 ml 250 ml ELIGIO MCKENNA III DO Nov 21, 2016 11:58
[2016-11-21] MEDS: CALCIUM ACETATE 667 MG CAPSULE PO SCH ×2 (12:06→18:14)
[2016-11-21] MEDS: MORPHINE IR 15 MG TABLET PO PRN (12:09)
[2016-11-21 12:12] LABS: C3 COMPLEMENT 49 mg/dL (82-167); C4 COMPLEMENT 21 mg/dL (14-44)
--- NOTE | 2016-11-21 13:21 | CARD ---
APPROVED REPORT Procedure(s) performed: Right heart catheterization. HISTORY The patient is a 60 year-old male with a history of : renal failure without dialysis, previous CHF. INDICATION The indication(s) include : dyspnea. PROCEDURE NARRATIVE After completion of the risks and benefits and informed consent the patient was brought to the cathet erization laboratory for a right heart catheterization. Given the patient's renal failure and signif icant lower extremity edema a right heart catheterization was performed to assess for filling pressur es. After timeout was performed identifying the current patient and procedure the right antecubital fossa was prepped and draped in usual sterile fashion. The previously placed IV was then used to adv ance a micropuncture wire through the antecubital vein to the basilic vein. Next, serial dilation wa s used and then subsequently a J-tipped guidewire was advanced over a short 4 Malian dilator. Next, the dilator was removed and a 5 Malian sheath was inserted. This sheath a 5 Malian pulmonary artery catheter was used to measure the right heart pressures and saturations. Kirt cardiac output was perf ormed. Subsequently, the right heart catheter was removed and the sheath was removed and hemostasis was achieved with manual compression. Hemodynamics: Right Atrium: 21 mmHg Right ventricle 53/30 Pulmonary artery 52/31 Wedge pressure 31 mmHg. Wedge saturation 87% Pulmonary artery saturation 60% Kirt cardiac output estimated to be 9 L/m. Hemoglobin 9.4 Conclusion 1. High cardiac output 2. Severely elevated biventricular filling pressures Recommendations Aggressive Medical Therapy Consideration of hemodialysis.
[2016-11-21] MEDS: IV NORMAL SALINE 1000ML BAG 1,000 ML IV SCH (13:25)
[2016-11-21] MEDS: IRON SUCROSE COMPLEX 200 MG in IV NORMAL SALINE 100ML 100 ML IV SCH (13:37)
[2016-11-21 14:22] LABS: KAPPA LAMBDA RATIO 3.15 (0.26-1.65)
[2016-11-21] MEDS ORDERED: LIDOCAINE 1% / SOD BICARB 8.4% 20 ML VIAL. IJ ONE ×2 (14:59→15:15)
[2016-11-21] MEDS ORDERED: HEPARIN for IV BOLUS 10,000 UNIT/10 ML VIAL. ONE (14:59)
[2016-11-21] MEDS ORDERED: HEPARIN for IV BOLUS 10,000 UNIT/10 ML VIAL. IV ONE (15:15)
[2016-11-21] MEDS: RIVAROXABAN 15 MG TABLET. PO SCH (17:00)
[2016-11-21] MEDS: DARBEPOETIN ALFA 100 MCG/0.5 ML DISP.SYRIN. SQ SCH (21:21)
--- NOTE | 2016-11-21 22:35 | CONS ---
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 He sustained a fall because of wet floor. He presented to the ER for further evaluation. In the ER, his complaints were of his right hip and his left foot. His feet are swollen and have been that way for about 3 weeks. By his reports, he has been taking some ibuprofen for a day occasionally, not on a daily basis. At presentation here, his white count was 18.9 thousand and a creatinine of 1.9. His creatinine has gone up to 6 today. His proBNP was elevated. He is known to have a cardiomyopathy. He is followed by his primary care physician. His CPK on the was only 50. He did have minimal hematuria at presentation per the . He denies the same. His urine did appear significantly nephritic besides greater than 300 protein, large amount of blood. Renal sonogram was reviewed, is negative for kidney stones or hydronephrosis. He denies flank pain and difficulty urinating. Urine output has been minimal, yesterday he only had 425 mL. IV fluids were hence started despite his edema. Chest x-ray shows no acute cardiopulmonary process. In this setting, we were asked to see him for worsening renal failure. It is noted that the patient has been on Xarelto, hence kidney biopsy as discussed with the patient is unable to be performed unless his Xarelto is held for a while currently ____ given his edema and anasarca, right heart cath is being contemplated. We will await assessment of hemodynamics from that standpoint prior to proceeding with further management. The patient has been diabetic for only 1 year by his reports and he takes medications only as needed. I had an extensive discussion with the patient and his regarding the severity of his renal dysfunction and the inability to absolutely figure out what is going on in the absence of a kidney biopsy as well as awaiting serologies at this time. The need for dialysis mostly for solutes was also discussed. The patient denies any uremic symptoms at this time and is hesitant to proceed with dialysis since he has seen his mom go on dialysis. He will, however, discuss this with his in further detail and inform us about his decision. DONNA RICE MD DR: KEVIN/irasema JOB#: [id number] / [id number]
[2016-11-22 03:05] VITALS: BP 118/57
[2016-11-22] MEDS: DEXTROSE 50% 25 GM / 50ML DISP.SYRIN. IV PRN ×4 (03:17→21:18)
[2016-11-22 03:48] LABS: BASO % 0 % (0-3); EOS % 3 % (0-3); HEMATOCRIT 27.8 % (39.0-53.0); LYMPH # 0.9 x10^3/uL (1.0-4.8); LYMPH % 7 % (24-48); MEAN CORPUSCULAR HEMOGLOBIN 28 pg (25-35); MEAN CORPUSCULAR HGB CONC 32 g/dL (31-37); MEAN CORPUSCULAR VOLUME 86 fL (79-100); MONO % 12 % (0-9); NEUT % 78 % (31-73); PLATELET COUNT 170 x10^3/uL (140-400); RED BLOOD COUNT 3.23 x10^6/uL (4.30-5.70); RED CELL DISTRIBUTION WIDTH 14.7 % (11.5-14.5); WHITE BLOOD COUNT 12.1 x10^3/uL (4.0-11.0)
[2016-11-22 04:08] LABS: MAGNESIUM 2.5 mg/dL (1.8-2.4); PHOSPHORUS 8.5 mg/dL (2.6-4.7)
[2016-11-22 04:10] LABS: ALBUMIN 1.7 g/dL (3.4-5.0); CALCIUM 7.4 mg/dL (8.5-10.1); PHOSPHORUS 8.5 mg/dL (2.6-4.7); POTASSIUM 4.2 mmol/L (3.5-5.1)
[2016-11-22] MEDS: MORPHINE IR 15 MG TABLET PO PRN (05:41)
[2016-11-22] MEDS: PIPERACILLIN/TAZOBACTAM 3.375 GM in IV NORMAL SALINE 50ML 50 ML IV SCH (05:41)
[2016-11-22] MEDS: IPRATRPIUM/ALBUTEROL 0.5/2.5MG 3 ML NEBU. NEB SCH ×4 (07:29→19:17)
[2016-11-22] MEDS ORDERED: IV NORMAL SALINE 1000ML BAG 1,000 ML IV PRN ×2 (07:31)
[2016-11-22] MEDS ORDERED: DIALYSIS PATIENT. MC PRN ×2 (07:45)
[2016-11-22] MEDS ORDERED: ALBUMIN HUMAN 25% 200 ML IV PRN (07:45)
--- NOTE | 2016-11-22 07:47 | RAD ---
Bilateral lower extremity venous ultrasound, 11/22/2016: History: Bilateral leg swelling and edema Duplex evaluation of the major deep veins in both lower extremities was attempted including grayscale, color-flow and spectral Doppler analysis. The exam was limited by the patient's large body habitus and leg swelling. The femoral and popliteal veins are patent bilaterally. Patent posterior tibial and peroneal veins are present in both calves. There is subcutaneous edema in both lower legs. Mildly enlarged lymph nodes are present both groin levels. The largest of these lies on the right and measures 5.4 x 2.1 cm. IMPRESSION: 1. No sonographic evidence of deep vein thrombosis in either lower extremity. 2. Mild bilateral inguinal adenopathy.
[2016-11-22] MEDS ORDERED: DIPHENHYDRAMINE 50 MG/ML VIAL IV PRN ×2 (08:45)
--- NOTE | 2016-11-22 09:09 | PDOC ---
Dialysis Progress Note Dialysis Note Dialysis Note Seen on Hemodialysis, tolerating treatment Well Vitals on Hemodialysis: 144/60 98 Afeb General Appearance: Awake: Alert Oriented x 3 Neck: No JVD or JVP Chest: CTA [place] Heart: S1 S2 Abdomen - Soft NTND Extremities - No Edema ARF/ ATN : Dialysis as below F 180 NR 3.0 Hrs 3 K 2.5 Ca 140 Na 35 HC03 Qb 350 + Qd 500+ Heparin 0 Units Uf 2 Kgs or to dry weight as tolerated May give 25-50 gms of 25% Albumin if needed to maintain Hemodynamic stability Treatment plan reviewed and discussed with flame burner Vitals Vital Signs Vital Signs Date Time Temp Pulse Resp B/P Pulse Ox O2 Delivery O2 Flow Rate FiO2 11/22/16 07:29 93 Room Air 11/22/16 06:41 20 2.0 11/22/16 03:05 98.1 97 118/57 98.1 Labs Last Labs Laboratory Tests Test 11/20/16 10:37 11/20/16 11:55 11/20/16 12:03 11/20/16 17:39 Glucose (Fingerstick) 119mg/dL (70-99) 73mg/dL (70-99) 25-Hydroxy Vitamin D Total 15.3ng/mL (30.0-100.0) Estimated GFR (Non- 13 (>59) EGFR 15 (>59) PTH (Intact) Specimen Description Comment (.) Parathyroid Hormone (Intact) 95pg/mL (15-65) Calcium (PTH Intact) 7.3mg/dL (8.6-10.2) Creatinine (PTH Intact) 4.49mg/dL (0.76-1.27) Phosphorus (PTH Intact) 5.5mg/dL (2.5-4.5) Immunoglobulin [place]/Lambda Ratio 3.15 (0.26-1.65) Free [place] Light Chains 463.51mg/L (3.30-19.40) Free [place] Light Chains 147.10mg/L (5.71-26.30) Test 11/20/16 18:00 11/20/16 20:45 11/21/16 02:55 11/21/16 03:05 Urine Protein 245.9mg/dL (Not Estab.) Urine Protein 24 Hr Calculated 196.7mg/24 hr (30.0-150.0) Glucose (Fingerstick) 77mg/dL (70-99) 54mg/dL (70-99) Hemoglobin 9.4g/dL (13.0-17.5) Sodium Level 132mmol/L (136-145) Potassium Level 3.7mmol/L (3.5-5.1) Chloride Level 93mmol/L (98-107) Carbon Dioxide Level 27mmol/L (21-32) Anion Gap 12 (6-14) Blood Urea Nitrogen 54mg/dL (8-26) Creatinine 6.0mg/dL (0.7-1.3) Estimated GFR (Cockcroft-Gault) 9.6 Glucose Level 51mg/dL (70-99) Calcium Level 7.7mg/dL (8.5-10.1) Phosphorus Level 7.0mg/dL (2.6-4.7) Magnesium Level 2.4mg/dL (1.8-2.4) Albumin 1.8g/dL (3.4-5.0) Test 11/21/16 03:40 11/21/16 07:36 11/21/16 08:05 11/21/16 12:10 Glucose (Fingerstick) 96mg/dL (70-99) 57mg/dL (70-99) 84mg/dL (70-99) 50mg/dL (70-99) Test 11/21/16 12:41 11/21/16 14:09 11/21/16 16:18 11/21/16 18:10 Glucose (Fingerstick) 73mg/dL (70-99) 81mg/dL (70-99) 60mg/dL (70-99) 57mg/dL (70-99) Test 11/21/16 18:45 11/21/16 20:42 11/21/16 21:22 11/21/16 23:27 Glucose (Fingerstick) 90mg/dL (70-99) 54mg/dL (70-99) 124mg/dL (70-99) 62mg/dL (70-99) Test 11/22/16 00:05 11/22/16 03:09 11/22/16 03:27 11/22/16 03:45 Glucose (Fingerstick) 129mg/dL (70-99) 39mg/dL (70-99) 117mg/dL (70-99) White Blood Count 12.1x10^3/uL (4.0-11.0) Red Blood Count 3.23x10^6/uL (4.30-5.70) Hemoglobin 9.0g/dL (13.0-17.5) Hematocrit 27.8% (39.0-53.0) Mean Corpuscular Volume 86fL (79-100) Mean Corpuscular Hemoglobin 28pg (25-35) Mean Corpuscular Hemoglobin Concent 32g/dL (31-37) Red Cell Distribution Width 14.7% (11.5-14.5) Platelet Count 170x10^3/uL (140-400) Neutrophils (%) (Auto) 78% (31-73) Lymphocytes (%) (Auto) 7% (24-48) Monocytes (%) (Auto) 12% (0-9) Eosinophils (%) (Auto) 3% (0-3) Basophils (%) (Auto) 0% (0-3) Neutrophils # (Auto) 9.4x10^3uL (1.8-7.7) Lymphocytes # (Auto) 0.9x10^3/uL (1.0-4.8) Monocytes # (Auto) 1.4x10^3/uL (0.0-1.1) Eosinophils # (Auto) 0.4x10^3/uL (0.0-0.7) Basophils # (Auto) 0.0x10^3/uL (0.0-0.2) Sodium Level 132mmol/L (136-145) Potassium Level 4.2mmol/L (3.5-5.1) Chloride Level 93mmol/L (98-107) Carbon Dioxide Level 28mmol/L (21-32) Anion Gap 11 (6-14) Blood Urea Nitrogen 63mg/dL (8-26) Creatinine 7.0mg/dL (0.7-1.3) Estimated GFR (Cockcroft-Gault) 8.0 Glucose Level 125mg/dL (70-99) Calcium Level 7.4mg/dL (8.5-10.1) Phosphorus Level 8.5mg/dL (2.6-4.7) Magnesium Level 2.5mg/dL (1.8-2.4) Albumin 1.7g/dL (3.4-5.0) Laboratory Tests Test 11/21/16 12:10 11/21/16 12:41 11/21/16 14:09 11/21/16 16:18 Glucose (Fingerstick) 50mg/dL (70-99) 73mg/dL (70-99) 81mg/dL (70-99) 60mg/dL (70-99) Test 11/21/16 18:10 11/21/16 18:45 11/21/16 20:42 11/21/16 21:22 Glucose (Fingerstick) 57mg/dL (70-99) 90mg/dL (70-99) 54mg/dL (70-99) 124mg/dL (70-99) Test 11/21/16 23:27 11/22/16 00:05 11/22/16 03:09 11/22/16 03:27 Glucose (Fingerstick) 62mg/dL (70-99) 129mg/dL (70-99) 39mg/dL (70-99) White Blood Count 12.1x10^3/uL (4.0-11.0) Red Blood Count 3.23x10^6/uL (4.30-5.70) Hemoglobin 9.0g/dL (13.0-17.5) Hematocrit 27.8% (39.0-53.0) Mean Corpuscular Volume 86fL (79-100) Mean Corpuscular Hemoglobin 28pg (25-35) Mean Corpuscular Hemoglobin Concent 32g/dL (31-37) Red Cell Distribution Width 14.7% (11.5-14.5) Platelet Count 170x10^3/uL (140-400) Neutrophils (%) (Auto) 78% (31-73) Lymphocytes (%) (Auto) 7% (24-48) Monocytes (%) (Auto) 12% (0-9) Eosinophils (%) (Auto) 3% (0-3) Basophils (%) (Auto) 0% (0-3) Neutrophils # (Auto) 9.4x10^3uL (1.8-7.7) Lymphocytes # (Auto) 0.9x10^3/uL (1.0-4.8) Monocytes # (Auto) 1.4x10^3/uL (0.0-1.1) Eosinophils # (Auto) 0.4x10^3/uL (0.0-0.7) Basophils # (Auto) 0.0x10^3/uL (0.0-0.2) Sodium Level 132mmol/L (136-145) Potassium Level 4.2mmol/L (3.5-5.1) Chloride Level 93mmol/L (98-107) Carbon Dioxide Level 28mmol/L (21-32) Anion Gap 11 (6-14) Blood Urea Nitrogen 63mg/dL (8-26) Creatinine 7.0mg/dL (0.7-1.3) Estimated GFR (Cockcroft-Gault) 8.0 Glucose Level 125mg/dL (70-99) Calcium Level 7.4mg/dL (8.5-10.1) Phosphorus Level 8.5mg/dL (2.6-4.7) Magnesium Level 2.5mg/dL (1.8-2.4) Albumin 1.7g/dL (3.4-5.0) Test 11/22/16 03:45 Glucose (Fingerstick) 117mg/dL (70-99) Assessment Assessment Problems Medical Problems: (1) CHF exacerbation Status: Acute (2) Fall Status: Acute (3) UTI (urinary tract infection) Status: Acute Problems: Plan Plan of Care Problems Medical Problems: (1) CHF exacerbation Status: Acute (2) Fall Status: Acute (3) UTI (urinary tract infection) Status: Acute DONNA RICE MD Nov 22, 2016 09:09
--- NOTE | 2016-11-22 10:08 | PDOC ---
PROGRESS NOTES Subjective Subjective He continues with left foot swelling and pain. Objective Objective Vital Signs Date Time Temp Pulse Resp B/P Pulse Ox O2 Delivery O2 Flow Rate FiO2 11/22/16 07:29 93 Room Air 11/22/16 06:41 20 2.0 11/22/16 03:05 98.1 97 118/57 98.1 Intake and Output 11/22/16 07:00 Intake Total 600 ml Output Total 425 ml Balance 175 ml Intake Oral 600 ml Output Urine Total 425 ml Physical Exam Physical Exam He is supine on dialysis bed. Assessment Assessment Problems Medical Problems: (1) CHF exacerbation Status: Acute (2) Fall Status: Acute (3) UTI (urinary tract infection) Status: Acute Plan Plan of Care To get him up when medically ready. Comment Review of Relevant I have reviewed the following items maynor (where applicable) has been applied. Labs Laboratory Tests Test 11/20/16 10:37 11/20/16 11:55 11/20/16 12:03 11/20/16 17:39 Glucose (Fingerstick) 119mg/dL (70-99) 73mg/dL (70-99) 25-Hydroxy Vitamin D Total 15.3ng/mL (30.0-100.0) Estimated GFR (Non- 13 (>59) EGFR 15 (>59) PTH (Intact) Specimen Description Comment (.) Parathyroid Hormone (Intact) 95pg/mL (15-65) Calcium (PTH Intact) 7.3mg/dL (8.6-10.2) Creatinine (PTH Intact) 4.49mg/dL (0.76-1.27) Phosphorus (PTH Intact) 5.5mg/dL (2.5-4.5) Immunoglobulin [place]/Lambda Ratio 3.15 (0.26-1.65) Free [place] Light Chains 463.51mg/L (3.30-19.40) Free [place] Light Chains 147.10mg/L (5.71-26.30) Test 11/20/16 18:00 11/20/16 20:45 11/21/16 02:55 11/21/16 03:05 Urine Protein 245.9mg/dL (Not Estab.) Urine Protein 24 Hr Calculated 196.7mg/24 hr (30.0-150.0) Glucose (Fingerstick) 77mg/dL (70-99) 54mg/dL (70-99) Hemoglobin 9.4g/dL (13.0-17.5) Sodium Level 132mmol/L (136-145) Potassium Level 3.7mmol/L (3.5-5.1) Chloride Level 93mmol/L (98-107) Carbon Dioxide Level 27mmol/L (21-32) Anion Gap 12 (6-14) Blood Urea Nitrogen 54mg/dL (8-26) Creatinine 6.0mg/dL (0.7-1.3) Estimated GFR (Cockcroft-Gault) 9.6 Glucose Level 51mg/dL (70-99) Calcium Level 7.7mg/dL (8.5-10.1) Phosphorus Level 7.0mg/dL (2.6-4.7) Magnesium Level 2.4mg/dL (1.8-2.4) Albumin 1.8g/dL (3.4-5.0) Test 11/21/16 03:40 11/21/16 07:36 11/21/16 08:05 11/21/16 12:10 Glucose (Fingerstick) 96mg/dL (70-99) 57mg/dL (70-99) 84mg/dL (70-99) 50mg/dL (70-99) Test 11/21/16 12:41 11/21/16 14:09 11/21/16 16:18 11/21/16 18:10 Glucose (Fingerstick) 73mg/dL (70-99) 81mg/dL (70-99) 60mg/dL (70-99) 57mg/dL (70-99) Test 11/21/16 18:45 11/21/16 20:42 11/21/16 21:22 11/21/16 23:27 Glucose (Fingerstick) 90mg/dL (70-99) 54mg/dL (70-99) 124mg/dL (70-99) 62mg/dL (70-99) Test 11/22/16 00:05 11/22/16 03:09 11/22/16 03:27 11/22/16 03:45 Glucose (Fingerstick) 129mg/dL (70-99) 39mg/dL (70-99) 117mg/dL (70-99) White Blood Count 12.1x10^3/uL (4.0-11.0) Red Blood Count 3.23x10^6/uL (4.30-5.70) Hemoglobin 9.0g/dL (13.0-17.5) Hematocrit 27.8% (39.0-53.0) Mean Corpuscular Volume 86fL (79-100) Mean Corpuscular Hemoglobin 28pg (25-35) Mean Corpuscular Hemoglobin Concent 32g/dL (31-37) Red Cell Distribution Width 14.7% (11.5-14.5) Platelet Count 170x10^3/uL (140-400) Neutrophils (%) (Auto) 78% (31-73) Lymphocytes (%) (Auto) 7% (24-48) Monocytes (%) (Auto) 12% (0-9) Eosinophils (%) (Auto) 3% (0-3) Basophils (%) (Auto) 0% (0-3) Neutrophils # (Auto) 9.4x10^3uL (1.8-7.7) Lymphocytes # (Auto) 0.9x10^3/uL (1.0-4.8) Monocytes # (Auto) 1.4x10^3/uL (0.0-1.1) Eosinophils # (Auto) 0.4x10^3/uL (0.0-0.7) Basophils # (Auto) 0.0x10^3/uL (0.0-0.2) Sodium Level 132mmol/L (136-145) Potassium Level 4.2mmol/L (3.5-5.1) Chloride Level 93mmol/L (98-107) Carbon Dioxide Level 28mmol/L (21-32) Anion Gap 11 (6-14) Blood Urea Nitrogen 63mg/dL (8-26) Creatinine 7.0mg/dL (0.7-1.3) Estimated GFR (Cockcroft-Gault) 8.0 Glucose Level 125mg/dL (70-99) Calcium Level 7.4mg/dL (8.5-10.1) Phosphorus Level 8.5mg/dL (2.6-4.7) Magnesium Level 2.5mg/dL (1.8-2.4) Albumin 1.7g/dL (3.4-5.0) Laboratory Tests Test 11/21/16 12:10 11/21/16 12:41 11/21/16 14:09 11/21/16 16:18 Glucose (Fingerstick) 50mg/dL (70-99) 73mg/dL (70-99) 81mg/dL (70-99) 60mg/dL (70-99) Test 11/21/16 18:10 11/21/16 18:45 11/21/16 20:42 11/21/16 21:22 Glucose (Fingerstick) 57mg/dL (70-99) 90mg/dL (70-99) 54mg/dL (70-99) 124mg/dL (70-99) Test 11/21/16 23:27 11/22/16 00:05 11/22/16 03:09 11/22/16 03:27 Glucose (Fingerstick) 62mg/dL (70-99) 129mg/dL (70-99) 39mg/dL (70-99) White Blood Count 12.1x10^3/uL (4.0-11.0) Red Blood Count 3.23x10^6/uL (4.30-5.70) Hemoglobin 9.0g/dL (13.0-17.5) Hematocrit 27.8% (39.0-53.0) Mean Corpuscular Volume 86fL (79-100) Mean Corpuscular Hemoglobin 28pg (25-35) Mean Corpuscular Hemoglobin Concent 32g/dL (31-37) Red Cell Distribution Width 14.7% (11.5-14.5) Platelet Count 170x10^3/uL (140-400) Neutrophils (%) (Auto) 78% (31-73) Lymphocytes (%) (Auto) 7% (24-48) Monocytes (%) (Auto) 12% (0-9) Eosinophils (%) (Auto) 3% (0-3) Basophils (%) (Auto) 0% (0-3) Neutrophils # (Auto) 9.4x10^3uL (1.8-7.7) Lymphocytes # (Auto) 0.9x10^3/uL (1.0-4.8) Monocytes # (Auto) 1.4x10^3/uL (0.0-1.1) Eosinophils # (Auto) 0.4x10^3/uL (0.0-0.7) Basophils # (Auto) 0.0x10^3/uL (0.0-0.2) Sodium Level 132mmol/L (136-145) Potassium Level 4.2mmol/L (3.5-5.1) Chloride Level 93mmol/L (98-107) Carbon Dioxide Level 28mmol/L (21-32) Anion Gap 11 (6-14) Blood Urea Nitrogen 63mg/dL (8-26) Creatinine 7.0mg/dL (0.7-1.3) Estimated GFR (Cockcroft-Gault) 8.0 Glucose Level 125mg/dL (70-99) Calcium Level 7.4mg/dL (8.5-10.1) Phosphorus Level 8.5mg/dL (2.6-4.7) Magnesium Level 2.5mg/dL (1.8-2.4) Albumin 1.7g/dL (3.4-5.0) Test 11/22/16 03:45 Glucose (Fingerstick) 117mg/dL (70-99) Microbiology 11/20/16 Blood Culture - Preliminary, Resulted NO GROWTH AFTER 1 DAY 11/18/16 Urine Culture - Final, Complete 11/18/16 Urine Culture Result 1 (SHILPA) - Final, Complete Medications Current Medications Acetaminophen/ Hydrocodone Bitart (Lortab 5/325) 2 tab 1X ONCE PO Last administered on 11/18/16 21:34; Start 11/18/16 at 21:00; Stop 11/18/16 at 21:01 ; Status DC Furosemide 40 mg 40 mg 1X ONCE IVP Last administered on 11/18/16 22:03; Start 11/18/16 at 22:00; Stop 11/18/16 at 22:01; Status DC Ceftriaxone Sodium (Rocephin 1gm Ivpb For Omni) 50 ml @ 100 mls/hr 1X ONCE IV Last administered on 11/18/16 22:06; Start 11/18/16 at 22:15; Stop 11/18/16 at 22:44; Status DC Ondansetron HCl (Zofran) 4 mg PRN Q8HRS PRN IV NAUSEA/VOMITING; Start 11/18/16 at 22:15; Stop 11/19/16 at 22:14; Status DC Morphine Sulfate 4 mg PRN Q2HR PRN IV PAIN Last administered on 11/19/16 14:58 ; Start 11/18/16 at 22:15; Stop 11/19/16 at 22:14; Status DC Acetaminophen (Tylenol) 650 mg PRN Q4HRS PRN PO FEVER; Start 11/18/16 at 22:15 ; Stop 11/19/16 at 22:14; Status DC Insulin Aspart (Novolog) 0-7 UNITS TIDWMEALS SQ ; Start 11/19/16 at 08:00; Stop 11/19/16 at 09:04; Status DC Dextrose 12.5 gm PRN Q15MIN PRN IV SEE COMMENTS; Start 11/18/16 at 22:15; Stop 11/19/16 at 10:19; Status DC Info (Do NOT chart on this placeholder) 1 each 1X ONCE MC ; Start 11/18/16 at 23:15; Stop 11/18/16 at 23:16; Status UNV Pneumococcal Polyvalent Vaccine (Do NOT chart on this placeholder) 1 each 1X ONCE MC ; Start 11/18/16 at 23:15; Stop 11/18/16 at 23:16; Status UNV Influenza Virus Vaccine Quadrival (Fluarix Quad [id number] Syringe) 0.5 ml ONCE ONCE VAX IM ; Start 11/19/16 at 09:00; Stop 11/19/16 at 09:01; Status DC Pneumococcal Polyvalent Vaccine 0.5 ml 0.5 ml ONCE ONCE VAX IM ; Start 11/19/16 at 09:00; Stop 11/19/16 at 09:01; Status DC Ceftriaxone Sodium/Sodium Chloride (Rocephin/Iv Sodium Chloride 0.9% 50ml) 50 ml @ 100 mls/hr Q24H IV Last administered on 11/20/16 20:49; Start 11/19/16 at 21:00; Stop 11/21/16 at 09:56; Status DC Amlodipine Besylate (Norvasc) 10 mg DAILY PO Last administered on 11/21/16 10: 01; Start 11/19/16 at 09:30 Glimepiride (Amaryl) 2 mg DAILYWBKFT PO Last administered on 11/20/16 08:08; Start 11/19/16 at 09:30; Stop 11/21/16 at 10:20; Status DC Carvedilol (Coreg) 25 mg BIDWMEALS PO Last administered on 11/21/16 18:15; Start 11/19/16 at 09:30 Rivaroxaban (Xarelto) 20 mg DAILYWSUP PO Last administered on 11/19/16 17:53; Start 11/19/16 at 17:00; Stop 11/20/16 at 08:53; Status DC Furosemide (Lasix) 40 mg 1X ONCE IVP Last administered on 11/19/16 09:40; Start 11/19/16 at 09:00; Stop 11/19/16 at 09:04; Status DC Insulin Aspart (Novolog) 0-7 UNITS TIDWMEALS SQ ; Start 11/19/16 at 12:00; Stop 11/21/16 at 21:16; Status DC Dextrose 12.5 gm PRN Q15MIN PRN IV SEE COMMENTS Last administered on 11/22/16 08:24; Start 11/19/16 at 09:00 Guaifenesin (Robitussin Dm) 10 ml PRN Q6HRS PRN PO COUGH; Start 11/19/16 at 09: 00 Nicotine (Nicoderm Cq 14mg) 1 patch PRN DAILY PRN TD SMOKING CESSATION; Start 11/19/16 at 09:15 Nicotine Polacrilex (Nicorette Gum) 1 each PRN Q1HR PRN BC SMOKING CESSATION; Start 11/19/16 at 09:15 Albuterol/ Ipratropium (Duoneb) 3 ml RTQID NEB Last administered on 11/22/16 07:29; Start 11/19/16 at 09:30 Enoxaparin Sodium (Lovenox Per Pharmacy Prophylaxis Dosing) 1 each PRN DAILY PRN MC SEE COMMENTS; Start 11/19/16 at 09:30; Stop 11/19/16 at 09:30; Status DC Hydralazine HCl (Apresoline) 25 mg BID PO Last administered on 11/21/16 10:02 ; Start 11/19/16 at 10:30 Morphine Sulfate (Morphine Ir) 15 mg PRN Q4HRS PRN PO PAIN Last administered on 11/22/16 05:41; Start 11/20/16 at 00:15 Morphine Sulfate 4 mg PRN Q2HR PRN IV PAIN Last administered on 11/21/16 13:36 ; Start 11/20/16 at 00:15 Rivaroxaban 15 mg 15 mg DAILYWSUP PO ; Start 11/20/16 at 17:00 Sodium Chloride 1,000 ml @ 75 mls/hr [id number] IV Last administered on 23:37; Start 11/20/16 at 10:45; Stop 11/21/16 at 14:42; Status DC Milrinone Lactate/ Dextrose 100 ml @ 0 mls/hr CONT PRN IV SEE I/O RECORD Last administered on 11/21/16 22:19; Start 11/20/16 at 11:30 Magnesium Sulfate/ Dextrose 50 ml @ 25 mls/hr PRN DAILY PRN IV for Mag < 1.7 on am labs; Start 11/20/16 at 11:30 Piperacillin Sod/ Tazobactam Sod/ Sodium Chloride (Zosyn/Iv Sodium Chloride 0.9 % 50ml) 50 ml @ 100 mls/hr Q6HRS IV Last administered on 11/22/16 05:41; Start 11/20/16 at 12:00 Info 1 each 1 each PRN DAILY PRN MC SEE COMMENTS Last administered on 09:52; Start 11/21/16 at 08:15 Iron Sucrose/ Sodium Chloride (Venofer/Iv Sodium Chloride 0.9% 100ml) 110 ml @ 55 mls/hr 3X/WEEK IV Last administered on 11/21/16 13:37; Start 11/21/16 at 10 :00; Stop 11/30/16 at 10:59 Darbepoetin [place] (Aranesp) 100 mcg WEEKLYHS SQ Last administered on 11/21/16 21:21; Start 11/21/16 at 21:00 Calcium Acetate 1334 mg 1,334 mg TIDWMEALS PO Last administered on 11/21/16 18 :14; Start 11/21/16 at 12:00 Heparin Sodium/ Sodium Chloride 500 ml @ As Directed STK-MED ONCE .ROUTE ; Start 11/21/16 at 10:13; Stop 11/21/16 at 10:14; Status DC Lidocaine HCl 20 ml STK-MED ONCE .ROUTE ; Start 11/21/16 at 10:13; Stop at 10:14; Status DC Fentanyl Citrate (Fentanyl 2ml Vial) 100 mcg STK-MED ONCE .ROUTE ; Start at 10:52; Stop 11/21/16 at 10:53; Status DC Midazolam HCl (Versed) 2 mg STK-MED ONCE .ROUTE ; Start 11/21/16 at 10:52; Stop 11/21/16 at 10:53; Status DC Midazolam HCl (Versed) 1 mg 1X ONCE IV Last administered on 11/21/16 11:04; Start 11/21/16 at 11:30; Stop 11/21/16 at 11:31; Status DC Fentanyl Citrate (Fentanyl 2ml Vial) 25 mcg 1X ONCE IV Last administered on 11:02; Start 11/21/16 at 11:30; Stop 11/21/16 at 11:31; Status DC Lidocaine/Sodium Bicarbonate (Buffered Lidocaine 1%) 20 ml STK-MED ONCE IJ ; Start 11/21/16 at 14:59; Stop 11/21/16 at 15:00; Status DC Heparin Sodium (Porcine) 09572 unit 10,000 unit STK-MED ONCE .ROUTE ; Start at 14:59; Stop 11/21/16 at 15:00; Status DC Heparin Sodium/ Sodium Chloride 500 ml @ As Directed STK-MED ONCE .ROUTE ; Start 11/21/16 at 14:59; Stop 11/21/16 at 15:00; Status DC Heparin Sodium/ Sodium Chloride 1,000 unit 1X ONCE IART Last administered on 15:18; Start 11/21/16 at 15:15; Stop 11/21/16 at 15:26; Status DC Lidocaine/Sodium Bicarbonate (Buffered Lidocaine 1%) 20 ml 1X ONCE IJ Last administered on 11/21/16 15:17; Start 11/21/16 at 15:15; Stop 11/21/16 at 15:26 ; Status DC Heparin Sodium (Porcine) 4300 unit 4,300 unit 1X ONCE IV Last administered on 11/21/16 15:17; Start 11/21/16 at 15:15; Stop 11/21/16 at 15:26; Status DC Sodium Chloride 1,000 ml @ 1,000 mls/hr Q1H PRN IV hypotension; Start 11/22/16 at 07:31; Stop 11/22/16 at 13:30 Albumin Human 200 ml @ 200 mls/hr 1X PRN PRN IV Hypotension; Start 11/22/16 at 07:45; Stop 11/22/16 at 13:44 Sodium Chloride (Iv Sodium Chloride 0.9% 1000ml Bag) 1,000 ml @ 400 mls/hr Q2H30M PRN IV PATENCY; Start 11/22/16 at 07:31; Stop 11/22/16 at 19:30 Info (PHARMACY MONITORING -- do not chart) 1 each PRN DAILY PRN MC SEE COMMENTS ; Start 11/22/16 at 07:45 Info (PHARMACY MONITORING -- do not chart) 1 each PRN DAILY PRN MC SEE COMMENTS ; Start 11/22/16 at 07:45; Status UNV Diphenhydramine HCl (Benadryl) 25 mg 1X PRN PRN IV ITCHING Last administered on 11/22/16t 08:53; Start 11/22/16 at 08:45; Stop 11/23/16 at 08:44 Diphenhydramine HCl (Benadryl) 25 mg 1X PRN PRN IV ITCHING; Start 11/22/16 at 08:45; Stop 11/23/16 at 08:44 Ergocalciferol (Vitamin D2) 50,000 unit WEEKLY PO ; Start 11/22/16 at 10:00 Active Scripts Active Reported Xarelto (Rivaroxaban) 20 Mg Tablet 20 Mg PO DAILY Carvedilol 25 Mg Tablet 1 Tab PO BID Furosemide 40 Mg Tablet 1 Tab PO DAILY Losartan Potassium 100 Mg Tablet 100 Mg PO DAILY Amlodipine Besylate 10 Mg Tablet 10 Mg PO DAILY Glimepiride 2 Mg Tablet 1 Tab PO DAILY Vitals/I & O Vital Sign - Last 24 Hours 11/21/16 11/21/16 11/21/16 11/21/16 11:00 11:02 11:22 11:30 Temp 98.0 98.0 Pulse 88 95 104 Resp 18 14 14 B/P 111/62 104/66 Pulse Ox 94 94 94 O2 Delivery Room Air Nasal Cannula Nasal Cannula O2 Flow Rate 2.0 2.0 11/21/16 11/21/16 11/21/16 11/21/16 11:45 11:56 12:00 12:09 Pulse 96 96 B/P 121/65 119/62 Pulse Ox 93 100 O2 Delivery Room Air Nasal Cannula O2 Flow Rate 2.0 11/21/16 11/21/16 11/21/16 11/21/16 12:15 12:30 12:45 13:00 Pulse 92 86 98 96 B/P 111/62 128/113 104/51 96/41 Pulse Ox 96 94 95 92 11/21/16 11/21/16 11/21/16 11/21/16 13:15 13:30 13:36 13:45 Pulse 92 94 94 B/P 78/55 109/53 104/54 Pulse Ox 95 95 93 O2 Delivery Nasal Cannula 11/21/16 11/21/16 11/21/16 11/21/16 14:00 14:06 14:15 14:30 Pulse 92 88 96 B/P 101/64 101/57 92/61 Pulse Ox 94 88 93 O2 Delivery Room Air 11/21/16 11/21/16 11/21/16 11/21/16 16:21 18:15 19:30 19:35 Temp 98.0 98.0 Pulse 104 104 Resp 22 B/P 110/58 Pulse Ox 96 O2 Delivery Room Air Nasal Cannula Room Air O2 Flow Rate 2.0 11/21/16 11/21/16 11/21/16 11/22/16 20:07 21:00 23:00 03:05 Temp 97.3 98.1 97.3 98.1 Pulse 104 93 97 Resp 22 22 B/P 110/58 96/61 118/57 Pulse Ox 93 96 91 O2 Delivery Room Air Nasal Cannula Room Air O2 Flow Rate 2.0 11/22/16 11/22/16 11/22/16 05:41 06:41 07:29 Resp 20 20 Pulse Ox 96 93 O2 Delivery Nasal Cannula Nasal Cannula Room Air O2 Flow Rate 2.0 2.0 Intake and Output 11/21/16 11/21/16 11/22/16 15:00 23:00 07:00 Intake Total 600 ml Output Total 50 ml 250 ml 125 ml Balance -50 ml -250 ml 475 ml YANICK LAI MD Nov 22, 2016 10:08
--- NOTE | 2016-11-22 11:41 | PDOC ---
PROGRESS NOTES Chief Complaint Chief Complaint CHF Systolic acute on chronic Afib CHAY Leukocytosis Hyperphosphatemia DM HTN Anemia Proteinuria Lower extremity edema with cellulitis Fungal rash, total body Fall History of Present Illness History of Present Illness Patient evaluated while sitting up in dialysis bed. Pt aware of process for getting set up for continued dialysis. Tolerating dialysis well so far. Discussed case with family in pt's room earlier this AM. (?) informed us that outpatient dialysis arrangements are in progress. Pt continues to complain of L foot swelling and pain. Vitals Vitals Vital Signs Date Time Temp Pulse Resp B/P Pulse Ox O2 Delivery O2 Flow Rate FiO2 11/22/16 08:00 Room Air 11/22/16 07:29 93 11/22/16 06:41 20 2.0 11/22/16 03:05 98.1 97 118/57 98.1 Physical Exam General: Alert, Oriented X3, Cooperative, No acute distress Heart: Other (Mild tachycardia, No rubs) Lungs: Clear Abdomen: Normal bowel sounds, Soft Extremities: No clubbing, No cyanosis, Other (LE edema) Skin: Other (Fungal rash over whole body) Labs LABS Laboratory Tests Test 11/21/16 12:10 11/21/16 12:41 11/21/16 14:09 11/21/16 16:18 Glucose (Fingerstick) 50mg/dL (70-99) 73mg/dL (70-99) 81mg/dL (70-99) 60mg/dL (70-99) Test 11/21/16 18:10 11/21/16 18:45 11/21/16 20:42 11/21/16 21:22 Glucose (Fingerstick) 57mg/dL (70-99) 90mg/dL (70-99) 54mg/dL (70-99) 124mg/dL (70-99) Test 11/21/16 23:27 11/22/16 00:05 11/22/16 03:09 11/22/16 03:27 Glucose (Fingerstick) 62mg/dL (70-99) 129mg/dL (70-99) 39mg/dL (70-99) White Blood Count 12.1x10^3/uL (4.0-11.0) Red Blood Count 3.23x10^6/uL (4.30-5.70) Hemoglobin 9.0g/dL (13.0-17.5) Hematocrit 27.8% (39.0-53.0) Mean Corpuscular Volume 86fL (79-100) Mean Corpuscular Hemoglobin 28pg (25-35) Mean Corpuscular Hemoglobin Concent 32g/dL (31-37) Red Cell Distribution Width 14.7% (11.5-14.5) Platelet Count 170x10^3/uL (140-400) Neutrophils (%) (Auto) 78% (31-73) Lymphocytes (%) (Auto) 7% (24-48) Monocytes (%) (Auto) 12% (0-9) Eosinophils (%) (Auto) 3% (0-3) Basophils (%) (Auto) 0% (0-3) Neutrophils # (Auto) 9.4x10^3uL (1.8-7.7) Lymphocytes # (Auto) 0.9x10^3/uL (1.0-4.8) Monocytes # (Auto) 1.4x10^3/uL (0.0-1.1) Eosinophils # (Auto) 0.4x10^3/uL (0.0-0.7) Basophils # (Auto) 0.0x10^3/uL (0.0-0.2) Sodium Level 132mmol/L (136-145) Potassium Level 4.2mmol/L (3.5-5.1) Chloride Level 93mmol/L (98-107) Carbon Dioxide Level 28mmol/L (21-32) Anion Gap 11 (6-14) Blood Urea Nitrogen 63mg/dL (8-26) Creatinine 7.0mg/dL (0.7-1.3) Estimated GFR (Cockcroft-Gault) 8.0 Glucose Level 125mg/dL (70-99) Calcium Level 7.4mg/dL (8.5-10.1) Phosphorus Level 8.5mg/dL (2.6-4.7) Magnesium Level 2.5mg/dL (1.8-2.4) Albumin 1.7g/dL (3.4-5.0) Test 11/22/16 03:45 11/22/16 08:08 11/22/16 08:43 Glucose (Fingerstick) 117mg/dL (70-99) 40mg/dL (70-99) 82mg/dL (70-99) Review of Systems Review of Systems + L foot swelling and pain denies fever/chills denies SOA, chest pain Assessment and Plan Assessmemt and Plan Assessment: - CHF Systolic acute on chronic - Afib - CHAY - Leukocytosis - Hyperphosphatemia - DM - HTN - Anemia - Proteinuria - Lower extremity edema with cellulitis - Fungal rash, total body - Fall Plan: - dialysis initiated; outpatient arrangements in progress. - discussed case with (?) - will continue to monitor blood glucose - appreciate any further cardiology and nephrology input - defer to nephrology regarding hyperphosphatemia, edema, elevated ESR - Continue Zosyn, await blood cultures. WBC improved to 12.2 today - Await further serologies and cultures - Cont IV morphine for pain. - Recheck labs - PT/OT as tolerated Problems: Comment Review of Relevant I have reviewed the following items maynor (where applicable) has been applied. Labs Laboratory Tests Test 11/20/16 11:55 11/20/16 12:03 11/20/16 17:39 11/20/16 18:00 25-Hydroxy Vitamin D Total 15.3ng/mL (30.0-100.0) Estimated GFR (Non- 13 (>59) EGFR 15 (>59) PTH (Intact) Specimen Description Comment (.) Parathyroid Hormone (Intact) 95pg/mL (15-65) Calcium (PTH Intact) 7.3mg/dL (8.6-10.2) Creatinine (PTH Intact) 4.49mg/dL (0.76-1.27) Phosphorus (PTH Intact) 5.5mg/dL (2.5-4.5) Immunoglobulin Garwood/Lambda Ratio 3.15 (0.26-1.65) Free Garwood Light Chains 463.51mg/L (3.30-19.40) Free Lambda Light Chains 147.10mg/L (5.71-26.30) Glucose (Fingerstick) 73mg/dL (70-99) Urine Protein 245.9mg/dL (Not Estab.) Urine Protein 24 Hr Calculated 196.7mg/24 hr (30.0-150.0) Test 11/20/16 20:45 11/21/16 02:55 11/21/16 03:05 11/21/16 03:40 Glucose (Fingerstick) 77mg/dL (70-99) 54mg/dL (70-99) 96mg/dL (70-99) Hemoglobin 9.4g/dL (13.0-17.5) Sodium Level 132mmol/L (136-145) Potassium Level 3.7mmol/L (3.5-5.1) Chloride Level 93mmol/L (98-107) Carbon Dioxide Level 27mmol/L (21-32) Anion Gap 12 (6-14) Blood Urea Nitrogen 54mg/dL (8-26) Creatinine 6.0mg/dL (0.7-1.3) Estimated GFR (Cockcroft-Gault) 9.6 Glucose Level 51mg/dL (70-99) Calcium Level 7.7mg/dL (8.5-10.1) Phosphorus Level 7.0mg/dL (2.6-4.7) Magnesium Level 2.4mg/dL (1.8-2.4) Albumin 1.8g/dL (3.4-5.0) Test 11/21/16 07:36 11/21/16 08:05 11/21/16 12:10 11/21/16 12:41 Glucose (Fingerstick) 57mg/dL (70-99) 84mg/dL (70-99) 50mg/dL (70-99) 73mg/dL (70-99) Test 11/21/16 14:09 11/21/16 16:18 11/21/16 18:10 11/21/16 18:45 Glucose (Fingerstick) 81mg/dL (70-99) 60mg/dL (70-99) 57mg/dL (70-99) 90mg/dL (70-99) Test 11/21/16 20:42 11/21/16 21:22 11/21/16 23:27 11/22/16 00:05 Glucose (Fingerstick) 54mg/dL (70-99) 124mg/dL (70-99) 62mg/dL (70-99) 129mg/dL (70-99) Test 11/22/16 03:09 11/22/16 03:27 11/22/16 03:45 11/22/16 08:08 Glucose (Fingerstick) 39mg/dL (70-99) 117mg/dL (70-99) 40mg/dL (70-99) White Blood Count 12.1x10^3/uL (4.0-11.0) Red Blood Count 3.23x10^6/uL (4.30-5.70) Hemoglobin 9.0g/dL (13.0-17.5) Hematocrit 27.8% (39.0-53.0) Mean Corpuscular Volume 86fL (79-100) Mean Corpuscular Hemoglobin 28pg (25-35) Mean Corpuscular Hemoglobin Concent 32g/dL (31-37) Red Cell Distribution Width 14.7% (11.5-14.5) Platelet Count 170x10^3/uL (140-400) Neutrophils (%) (Auto) 78% (31-73) Lymphocytes (%) (Auto) 7% (24-48) Monocytes (%) (Auto) 12% (0-9) Eosinophils (%) (Auto) 3% (0-3) Basophils (%) (Auto) 0% (0-3) Neutrophils # (Auto) 9.4x10^3uL (1.8-7.7) Lymphocytes # (Auto) 0.9x10^3/uL (1.0-4.8) Monocytes # (Auto) 1.4x10^3/uL (0.0-1.1) Eosinophils # (Auto) 0.4x10^3/uL (0.0-0.7) Basophils # (Auto) 0.0x10^3/uL (0.0-0.2) Sodium Level 132mmol/L (136-145) Potassium Level 4.2mmol/L (3.5-5.1) Chloride Level 93mmol/L (98-107) Carbon Dioxide Level 28mmol/L (21-32) Anion Gap 11 (6-14) Blood Urea Nitrogen 63mg/dL (8-26) Creatinine 7.0mg/dL (0.7-1.3) Estimated GFR (Cockcroft-Gault) 8.0 Glucose Level 125mg/dL (70-99) Calcium Level 7.4mg/dL (8.5-10.1) Phosphorus Level 8.5mg/dL (2.6-4.7) Magnesium Level 2.5mg/dL (1.8-2.4) Albumin 1.7g/dL (3.4-5.0) Test 11/22/16 08:43 Glucose (Fingerstick) 82mg/dL (70-99) Laboratory Tests Test 11/21/16 12:10 11/21/16 12:41 11/21/16 14:09 11/21/16 16:18 Glucose (Fingerstick) 50mg/dL (70-99) 73mg/dL (70-99) 81mg/dL (70-99) 60mg/dL (70-99) Test 11/21/16 18:10 11/21/16 18:45 11/21/16 20:42 11/21/16 21:22 Glucose (Fingerstick) 57mg/dL (70-99) 90mg/dL (70-99) 54mg/dL (70-99) 124mg/dL (70-99) Test 11/21/16 23:27 11/22/16 00:05 11/22/16 03:09 11/22/16 03:27 Glucose (Fingerstick) 62mg/dL (70-99) 129mg/dL (70-99) 39mg/dL (70-99) White Blood Count 12.1x10^3/uL (4.0-11.0) Red Blood Count 3.23x10^6/uL (4.30-5.70) Hemoglobin 9.0g/dL (13.0-17.5) Hematocrit 27.8% (39.0-53.0) Mean Corpuscular Volume 86fL (79-100) Mean Corpuscular Hemoglobin 28pg (25-35) Mean Corpuscular Hemoglobin Concent 32g/dL (31-37) Red Cell Distribution Width 14.7% (11.5-14.5) Platelet Count 170x10^3/uL (140-400) Neutrophils (%) (Auto) 78% (31-73) Lymphocytes (%) (Auto) 7% (24-48) Monocytes (%) (Auto) 12% (0-9) Eosinophils (%) (Auto) 3% (0-3) Basophils (%) (Auto) 0% (0-3) Neutrophils # (Auto) 9.4x10^3uL (1.8-7.7) Lymphocytes # (Auto) 0.9x10^3/uL (1.0-4.8) Monocytes # (Auto) 1.4x10^3/uL (0.0-1.1) Eosinophils # (Auto) 0.4x10^3/uL (0.0-0.7) Basophils # (Auto) 0.0x10^3/uL (0.0-0.2) Sodium Level 132mmol/L (136-145) Potassium Level 4.2mmol/L (3.5-5.1) Chloride Level 93mmol/L (98-107) Carbon Dioxide Level 28mmol/L (21-32) Anion Gap 11 (6-14) Blood Urea Nitrogen 63mg/dL (8-26) Creatinine 7.0mg/dL (0.7-1.3) Estimated GFR (Cockcroft-Gault) 8.0 Glucose Level 125mg/dL (70-99) Calcium Level 7.4mg/dL (8.5-10.1) Phosphorus Level 8.5mg/dL (2.6-4.7) Magnesium Level 2.5mg/dL (1.8-2.4) Albumin 1.7g/dL (3.4-5.0) Test 11/22/16 03:45 11/22/16 08:08 11/22/16 08:43 Glucose (Fingerstick) 117mg/dL (70-99) 40mg/dL (70-99) 82mg/dL (70-99) Microbiology 11/20/16 Blood Culture - Preliminary, Resulted NO GROWTH AFTER 1 DAY 11/18/16 Urine Culture - Final, Complete 11/18/16 Urine Culture Result 1 (SHILPA) - Final, Complete Medications Current Medications Acetaminophen/ Hydrocodone Bitart (Lortab 5/325) 2 tab 1X ONCE PO Last administered on 11/18/16 21:34; Start 11/18/16 at 21:00; Stop 11/18/16 at 21:01 ; Status DC Furosemide 40 mg 40 mg 1X ONCE IVP Last administered on 11/18/16 22:03; Start 11/18/16 at 22:00; Stop 11/18/16 at 22:01; Status DC Ceftriaxone Sodium (Rocephin 1gm Ivpb For Omni) 50 ml @ 100 mls/hr 1X ONCE IV Last administered on 11/18/16t 22:06; Start 11/18/16 at 22:15; Stop 11/18/16 at 22:44; Status DC Ondansetron HCl (Zofran) 4 mg PRN Q8HRS PRN IV NAUSEA/VOMITING; Start 11/18/16 at 22:15; Stop 11/19/16 at 22:14; Status DC Morphine Sulfate 4 mg PRN Q2HR PRN IV PAIN Last administered on 11/19/16t 14:58 ; Start 11/18/16 at 22:15; Stop 11/19/16 at 22:14; Status DC Acetaminophen (Tylenol) 650 mg PRN Q4HRS PRN PO FEVER; Start 11/18/16 at 22:15 ; Stop 11/19/16 at 22:14; Status DC Insulin Aspart (Novolog) 0-7 UNITS TIDWMEALS SQ ; Start 11/19/16 at 08:00; Stop 11/19/16 at 09:04; Status DC Dextrose 12.5 gm PRN Q15MIN PRN IV SEE COMMENTS; Start 11/18/16 at 22:15; Stop 11/19/16 at 10:19; Status DC Info (Do NOT chart on this placeholder) 1 each 1X ONCE MC ; Start 11/18/16 at 23:15; Stop 11/18/16 at 23:16; Status UNV Pneumococcal Polyvalent Vaccine (Do NOT chart on this placeholder) 1 each 1X ONCE MC ; Start 11/18/16 at 23:15; Stop 11/18/16 at 23:16; Status UNV Influenza Virus Vaccine Quadrival (Fluarix Quad [id number] Syringe) 0.5 ml ONCE ONCE VAX IM ; Start 11/19/16 at 09:00; Stop 11/19/16 at 09:01; Status DC Pneumococcal Polyvalent Vaccine 0.5 ml 0.5 ml ONCE ONCE VAX IM ; Start 11/19/16 at 09:00; Stop 11/19/16 at 09:01; Status DC Ceftriaxone Sodium/Sodium Chloride (Rocephin/Iv Sodium Chloride 0.9% 50ml) 50 ml @ 100 mls/hr Q24H IV Last administered on 11/20/16 20:49; Start 11/19/16 at 21:00; Stop 11/21/16 at 09:56; Status DC Amlodipine Besylate (Norvasc) 10 mg DAILY PO Last administered on 11/21/16 10: 01; Start 11/19/16 at 09:30 Glimepiride (Amaryl) 2 mg DAILYWBKFT PO Last administered on 11/20/16 08:08; Start 11/19/16 at 09:30; Stop 11/21/16 at 10:20; Status DC Carvedilol (Coreg) 25 mg BIDWMEALS PO Last administered on 11/21/16 18:15; Start 11/19/16 at 09:30 Rivaroxaban (Xarelto) 20 mg DAILYWSUP PO Last administered on 11/19/16 17:53; Start 11/19/16 at 17:00; Stop 11/20/16 at 08:53; Status DC Furosemide (Lasix) 40 mg 1X ONCE IVP Last administered on 11/19/16 09:40; Start 11/19/16 at 09:00; Stop 11/19/16 at 09:04; Status DC Insulin Aspart (Novolog) 0-7 UNITS TIDWMEALS SQ ; Start 11/19/16 at 12:00; Stop 11/21/16 at 21:16; Status DC Dextrose 12.5 gm PRN Q15MIN PRN IV SEE COMMENTS Last administered on 11/22/16 08:24; Start 11/19/16 at 09:00 Guaifenesin (Robitussin Dm) 10 ml PRN Q6HRS PRN PO COUGH; Start 11/19/16 at 09: 00 Nicotine (Nicoderm Cq 14mg) 1 patch PRN DAILY PRN TD SMOKING CESSATION; Start 11/19/16 at 09:15 Nicotine Polacrilex (Nicorette Gum) 1 each PRN Q1HR PRN BC SMOKING CESSATION; Start 11/19/16 at 09:15 Albuterol/ Ipratropium (Duoneb) 3 ml RTQID NEB Last administered on 11/22/16 07:29; Start 11/19/16 at 09:30 Enoxaparin Sodium (Lovenox Per Pharmacy Prophylaxis Dosing) 1 each PRN DAILY PRN MC SEE COMMENTS; Start 11/19/16 at 09:30; Stop 11/19/16 at 09:30; Status DC Hydralazine HCl (Apresoline) 25 mg BID PO Last administered on 11/21/16 10:02 ; Start 11/19/16 at 10:30 Morphine Sulfate (Morphine Ir) 15 mg PRN Q4HRS PRN PO PAIN Last administered on 11/22/16 05:41; Start 11/20/16 at 00:15 Morphine Sulfate 4 mg PRN Q2HR PRN IV PAIN Last administered on 11/21/16 13:36 ; Start 11/20/16 at 00:15 Rivaroxaban 15 mg 15 mg DAILYWSUP PO ; Start 11/20/16 at 17:00 Sodium Chloride 1,000 ml @ 75 mls/hr [id number] IV Last administered on 23:37; Start 11/20/16 at 10:45; Stop 11/21/16 at 14:42; Status DC Milrinone Lactate/ Dextrose 100 ml @ 0 mls/hr CONT PRN IV SEE I/O RECORD Last administered on 11/21/16 22:19; Start 11/20/16 at 11:30 Magnesium Sulfate/ Dextrose 50 ml @ 25 mls/hr PRN DAILY PRN IV for Mag < 1.7 on am labs; Start 11/20/16 at 11:30 Piperacillin Sod/ Tazobactam Sod/ Sodium Chloride (Zosyn/Iv Sodium Chloride 0.9 % 50ml) 50 ml @ 100 mls/hr Q6HRS IV Last administered on 11/22/16 05:41; Start 11/20/16 at 12:00; Stop 11/22/16 at 10:39; Status DC Info 1 each 1 each PRN DAILY PRN MC SEE COMMENTS Last administered on 09:52; Start 11/21/16 at 08:15 Iron Sucrose/ Sodium Chloride (Venofer/Iv Sodium Chloride 0.9% 100ml) 110 ml @ 55 mls/hr 3X/WEEK IV Last administered on 11/21/16 13:37; Start 11/21/16 at 10 :00; Stop 11/30/16 at 10:59 Darbepoetin Guillermo (Aranesp) 100 mcg WEEKLYHS SQ Last administered on 11/21/16 21:21; Start 11/21/16 at 21:00 Calcium Acetate 1334 mg 1,334 mg TIDWMEALS PO Last administered on 11/21/16 18 :14; Start 11/21/16 at 12:00 Heparin Sodium/ Sodium Chloride 500 ml @ As Directed STK-MED ONCE .ROUTE ; Start 11/21/16 at 10:13; Stop 11/21/16 at 10:14; Status DC Lidocaine HCl 20 ml STK-MED ONCE .ROUTE ; Start 11/21/16 at 10:13; Stop at 10:14; Status DC Fentanyl Citrate (Fentanyl 2ml Vial) 100 mcg STK-MED ONCE .ROUTE ; Start at 10:52; Stop 11/21/16 at 10:53; Status DC Midazolam HCl (Versed) 2 mg STK-MED ONCE .ROUTE ; Start 11/21/16 at 10:52; Stop 11/21/16 at 10:53; Status DC Midazolam HCl (Versed) 1 mg 1X ONCE IV Last administered on 11/21/16 11:04; Start 11/21/16 at 11:30; Stop 11/21/16 at 11:31; Status DC Fentanyl Citrate (Fentanyl 2ml Vial) 25 mcg 1X ONCE IV Last administered on 11:02; Start 11/21/16 at 11:30; Stop 11/21/16 at 11:31; Status DC Lidocaine/Sodium Bicarbonate (Buffered Lidocaine 1%) 20 ml STK-MED ONCE IJ ; Start 11/21/16 at 14:59; Stop 11/21/16 at 15:00; Status DC Heparin Sodium (Porcine) 05220 unit 10,000 unit STK-MED ONCE .ROUTE ; Start at 14:59; Stop 11/21/16 at 15:00; Status DC Heparin Sodium/ Sodium Chloride 500 ml @ As Directed STK-MED ONCE .ROUTE ; Start 11/21/16 at 14:59; Stop 11/21/16 at 15:00; Status DC Heparin Sodium/ Sodium Chloride 1,000 unit 1X ONCE IART Last administered on 15:18; Start 11/21/16 at 15:15; Stop 11/21/16 at 15:26; Status DC Lidocaine/Sodium Bicarbonate (Buffered Lidocaine 1%) 20 ml 1X ONCE IJ Last administered on 11/21/16t 15:17; Start 11/21/16 at 15:15; Stop 11/21/16 at 15:26 ; Status DC Heparin Sodium (Porcine) 4300 unit 4,300 unit 1X ONCE IV Last administered on 11/21/16t 15:17; Start 11/21/16 at 15:15; Stop 11/21/16 at 15:26; Status DC Sodium Chloride 1,000 ml @ 1,000 mls/hr Q1H PRN IV hypotension; Start 11/22/16 at 07:31; Stop 11/22/16 at 13:30 Albumin Human 200 ml @ 200 mls/hr 1X PRN PRN IV Hypotension; Start 11/22/16 at 07:45; Stop 11/22/16 at 13:44 Sodium Chloride (Iv Sodium Chloride 0.9% 1000ml Bag) 1,000 ml @ 400 mls/hr Q2H30M PRN IV PATENCY; Start 11/22/16 at 07:31; Stop 11/22/16 at 19:30 Info (PHARMACY MONITORING -- do not chart) 1 each PRN DAILY PRN MC SEE COMMENTS ; Start 11/22/16 at 07:45 Info (PHARMACY MONITORING -- do not chart) 1 each PRN DAILY PRN MC SEE COMMENTS ; Start 11/22/16 at 07:45; Status UNV Diphenhydramine HCl (Benadryl) 25 mg 1X PRN PRN IV ITCHING Last administered on 11/22/16t 08:53; Start 11/22/16 at 08:45; Stop 11/23/16 at 08:44 Diphenhydramine HCl (Benadryl) 25 mg 1X PRN PRN IV ITCHING; Start 11/22/16 at 08:45; Stop 11/23/16 at 08:44 Ergocalciferol 28448 unit 50,000 unit WEEKLY PO ; Start 11/22/16 at 10:00 Piperacillin Sod/ Tazobactam Sod/ Sodium Chloride (Zosyn/Iv Sodium Chloride 0.9 % 50ml) 50 ml @ 100 mls/hr Q6HRS IV ; Start 11/22/16 at 12:00 Active Scripts Active Reported Xarelto (Rivaroxaban) 20 Mg Tablet 20 Mg PO DAILY Carvedilol 25 Mg Tablet 1 Tab PO BID Furosemide 40 Mg Tablet 1 Tab PO DAILY Losartan Potassium 100 Mg Tablet 100 Mg PO DAILY Amlodipine Besylate 10 Mg Tablet 10 Mg PO DAILY Glimepiride 2 Mg Tablet 1 Tab PO DAILY Vitals/I & O Vital Sign - Last 24 Hours 11/21/16 11/21/16 11/21/16 11/21/16 11:45 11:56 12:00 12:09 Pulse 96 96 B/P 121/65 119/62 Pulse Ox 93 100 O2 Delivery Room Air Nasal Cannula O2 Flow Rate 2.0 11/21/16 11/21/16 11/21/16 11/21/16 12:15 12:30 12:45 13:00 Pulse 92 86 98 96 B/P 111/62 128/113 104/51 96/41 Pulse Ox 96 94 95 92 11/21/16 11/21/16 11/21/16 11/21/16 13:15 13:30 13:36 13:45 Pulse 92 94 94 B/P 78/55 109/53 104/54 Pulse Ox 95 95 93 O2 Delivery Nasal Cannula 11/21/16 11/21/16 11/21/16 11/21/16 14:00 14:06 14:15 14:30 Pulse 92 88 96 B/P 101/64 101/57 92/61 Pulse Ox 94 88 93 O2 Delivery Room Air 11/21/16 11/21/16 11/21/16 11/21/16 16:21 18:15 19:30 19:35 Temp 98.0 98.0 Pulse 104 104 Resp 22 B/P 110/58 Pulse Ox 96 O2 Delivery Room Air Nasal Cannula Room Air O2 Flow Rate 2.0 11/21/16 11/21/16 11/21/16 11/22/16 20:07 21:00 23:00 03:05 Temp 97.3 98.1 97.3 98.1 Pulse 104 93 97 Resp 22 22 B/P 110/58 96/61 118/57 Pulse Ox 93 96 91 O2 Delivery Room Air Nasal Cannula Room Air O2 Flow Rate 2.0 11/22/16 11/22/16 11/22/16 11/22/16 05:41 06:41 07:29 08:00 Resp 20 20 Pulse Ox 96 93 O2 Delivery Nasal Cannula Nasal Cannula Room Air Room Air O2 Flow Rate 2.0 2.0 Intake and Output 11/21/16 11/21/16 11/22/16 15:00 23:00 07:00 Intake Total 600 ml Output Total 50 ml 250 ml 125 ml Balance -50 ml -250 ml 475 ml ELIGIO MCKENNA III DO Nov 22, 2016 11:41
[2016-11-22] MEDS: CALCIUM ACETATE 667 MG CAPSULE PO SCH ×3 (11:48→17:33)
[2016-11-22] MEDS: CARVEDILOL 12.5 MG TABLET PO SCH ×2 (11:48→17:34)
[2016-11-22] MEDS: AMLODIPINE BESYLATE 10 MG TABLET PO SCH (11:49)
[2016-11-22] MEDS: HYDRALAZINE 25 MG TABLET PO SCH ×2 (11:49→21:15)
--- NOTE | 2016-11-22 11:53 | PDOC ---
RISHABH J[facility]MAN [employer] 11/22/16 1153: CARDIO Progress Notes Date and Time Date of Service 11/22/16 Time of Evaluation 1145 Subjective Subjective: No Chest Pain, Other (no acute event overnight. c/o right hip pain) Vitals Vitals Vital Signs Date Time Temp Pulse Resp B/P Pulse Ox O2 Delivery O2 Flow Rate FiO2 11/22/16 08:00 Room Air 11/22/16 07:29 93 11/22/16 06:41 20 2.0 11/22/16 03:05 98.1 97 118/57 98.1 Weight Weight [ ] Input and Output Intake and Output Intake and Output 11/22/16 07:00 Intake Total 600 ml Output Total 425 ml Balance 175 ml Intake Oral 600 ml Output Urine Total 425 ml Laboratory Labs Laboratory Tests Test 11/21/16 12:10 11/21/16 12:41 11/21/16 14:09 11/21/16 16:18 Glucose (Fingerstick) 50mg/dL (70-99) 73mg/dL (70-99) 81mg/dL (70-99) 60mg/dL (70-99) Test 11/21/16 18:10 11/21/16 18:45 11/21/16 20:42 11/21/16 21:22 Glucose (Fingerstick) 57mg/dL (70-99) 90mg/dL (70-99) 54mg/dL (70-99) 124mg/dL (70-99) Test 11/21/16 23:27 11/22/16 00:05 11/22/16 03:09 11/22/16 03:27 Glucose (Fingerstick) 62mg/dL (70-99) 129mg/dL (70-99) 39mg/dL (70-99) White Blood Count 12.1x10^3/uL (4.0-11.0) Red Blood Count 3.23x10^6/uL (4.30-5.70) Hemoglobin 9.0g/dL (13.0-17.5) Hematocrit 27.8% (39.0-53.0) Mean Corpuscular Volume 86fL (79-100) Mean Corpuscular Hemoglobin 28pg (25-35) Mean Corpuscular Hemoglobin Concent 32g/dL (31-37) Red Cell Distribution Width 14.7% (11.5-14.5) Platelet Count 170x10^3/uL (140-400) Neutrophils (%) (Auto) 78% (31-73) Lymphocytes (%) (Auto) 7% (24-48) Monocytes (%) (Auto) 12% (0-9) Eosinophils (%) (Auto) 3% (0-3) Basophils (%) (Auto) 0% (0-3) Neutrophils # (Auto) 9.4x10^3uL (1.8-7.7) Lymphocytes # (Auto) 0.9x10^3/uL (1.0-4.8) Monocytes # (Auto) 1.4x10^3/uL (0.0-1.1) Eosinophils # (Auto) 0.4x10^3/uL (0.0-0.7) Basophils # (Auto) 0.0x10^3/uL (0.0-0.2) Sodium Level 132mmol/L (136-145) Potassium Level 4.2mmol/L (3.5-5.1) Chloride Level 93mmol/L (98-107) Carbon Dioxide Level 28mmol/L (21-32) Anion Gap 11 (6-14) Blood Urea Nitrogen 63mg/dL (8-26) Creatinine 7.0mg/dL (0.7-1.3) Estimated GFR (Cockcroft-Gault) 8.0 Glucose Level 125mg/dL (70-99) Calcium Level 7.4mg/dL (8.5-10.1) Phosphorus Level 8.5mg/dL (2.6-4.7) Magnesium Level 2.5mg/dL (1.8-2.4) Albumin 1.7g/dL (3.4-5.0) Test 11/22/16 03:45 11/22/16 08:08 11/22/16 08:43 Glucose (Fingerstick) 117mg/dL (70-99) 40mg/dL (70-99) 82mg/dL (70-99) Microbiology Micro Microbiology 11/20/16 Blood Culture - Preliminary, Resulted NO GROWTH AFTER 1 DAY 11/18/16 Urine Culture - Final, Complete 11/18/16 Urine Culture Result 1 (SHILPA) - Final, Complete Physical Exam HEENT: Neck Supple W Full Motion Chest: Symmetric LUNGS: Other (diminished bases ) Heart: S1S2, no murmurs, irregularly irregular (tele AFIB) Abdomen: Soft N/T Extremities: Other (2-3+ LE edema with erythema. Chronic venous stasis changes bi LE) Neurology: alert, oriented, follow commands Assessment Assessment 1. Acute on chronic systolic and diastolic HF 2. NICM 3. chronic AFIB 4. CHAY with CKD; HD initiated 5. HTN Recommendations Discontinue Milrinone therapy Hold Xarelto for renal biopsy. No bridge therapy necessary Fluid offloading in HD per nephrology Continue optimization therapy Initiate ANDREA/ARB if deemed ESRD with ongoing HD. Will follow. SAMIA JONES MD 11/22/16 6419: CARDIO Progress Notes Plan Plan Pt. seen and examined after returning from HD. Agree with above [employer] note. Denies any chest pain. Having hypoglycemic episodes. On exam he has rales. Persistent 3+ pitting edema. Morbidly obese with s/s consistent with sleep apnea. Will likely need overnight oximetry study while inpt. Less likely to be cardiac etiology for the renal failure given good cardiac output on RHC. Await renal biopsy. Supportive care for now. Will avoid further nephrotoxic agents for now such as adnrea-inh until stabilized. Will follow. RISHABH JACKMAN APRN Nov 22, 2016 11:53 SAMIA JONES MD Nov 22, 2016 22:49
[2016-11-22] MEDS: PIPERACILLIN/TAZOBACTAM 2.25 GM in IV NORMAL SALINE 50ML 50 ML IV SCH ×3 (12:12→23:55)
[2016-11-22] MEDS: ERGOCALCIFEROL (VITAMIN D2) 50,000 UNIT CAPSULE PO SCH (12:12)
[2016-11-22 13:22] LABS: HEP A IGM ABDY Negative (Negative); HEP B SURFACE ABDY Non Reactive (.)
[2016-11-22] MEDS ORDERED: ENOXAPARIN ** NOTE DOSE ** SYRINGE SQ SCH (14:00)
[2016-11-22 15:23] VITALS: BP 97/66
[2016-11-22 15:23] LABS: TOTAL SERUM CREATININE 5.61 mg/dL (0.76-1.27); TOTAL URINE CREATININE 480.7 mg/dL (Not Estab.)
[2016-11-22 15:23] LABS: ALPHA 1 0.4 g/dL (0.0-0.4); ALPHA 2 0.8 g/dL (0.4-1.0); BETA 1.1 g/dL (0.7-1.3); GAMMA 2.1 g/dL (0.4-1.8); M-SPIKE Not Observed g/dL (Not Observed); PROTEIN TOTAL 6.8 g/dL (6.0-8.5)
[2016-11-22 16:18] LABS: IMMUNOGLOBULIN A 930 mg/dL (61-437); IMMUNOGLOBULIN G 2060 mg/dL (700-1600); IMMUNOGLOBULIN M 52 mg/dL (20-172)
[2016-11-22 16:18] LABS: C ANCA <1:20 titer (Neg:<1:20)
[2016-11-22] MEDS: IV DEXTROSE 10% 1,000 ML IV SCH (16:19)
[2016-11-22 19:40] VITALS: BP 140/68
[2016-11-22 21:14] VITALS: BP 127/58
[2016-11-22 22:53] VITALS: BP 121/60
[2016-11-23] MEDS: DEXTROSE 50% 25 GM / 50ML DISP.SYRIN. IV PRN ×2 (00:59→04:10)
[2016-11-23 03:00] VITALS: BP 125/69
[2016-11-23] MEDS: MORPHINE IR 15 MG TABLET PO PRN ×2 (04:18→12:59)
[2016-11-23 04:41] LABS: BASO # 0.1 x10^3/uL (0.0-0.2); BASO % 1 % (0-3); EOS % 4 % (0-3); HEMATOCRIT 26.3 % (39.0-53.0); HEMOGLOBIN 8.8 g/dL (13.0-17.5); LYMPH # 1.1 x10^3/uL (1.0-4.8); LYMPH % 10 % (24-48); MEAN CORPUSCULAR HEMOGLOBIN 28 pg (25-35); MEAN CORPUSCULAR HGB CONC 33 g/dL (31-37); MEAN CORPUSCULAR VOLUME 85 fL (79-100); MONO % 13 % (0-9); NEUT % 73 % (31-73); PLATELET COUNT 182 x10^3/uL (140-400); RED BLOOD COUNT 3.11 x10^6/uL (4.30-5.70); RED CELL DISTRIBUTION WIDTH 14.9 % (11.5-14.5); WHITE BLOOD COUNT 11.8 x10^3/uL (4.0-11.0)
[2016-11-23 05:00] LABS: ALBUMIN 1.7 g/dL (3.4-5.0); CALCIUM 7.8 mg/dL (8.5-10.1); CREATININE 6.3 mg/dL (0.7-1.3); GFR 9.1; PHOSPHORUS 7.5 mg/dL (2.6-4.7); POTASSIUM 4.6 mmol/L (3.5-5.1)
[2016-11-23 05:01] LABS: MAGNESIUM 2.2 mg/dL (1.8-2.4); PHOSPHORUS 7.6 mg/dL (2.6-4.7)
[2016-11-23] MEDS: PIPERACILLIN/TAZOBACTAM 2.25 GM in IV NORMAL SALINE 50ML 50 ML IV SCH ×3 (05:32→19:17)
[2016-11-23 07:10] VITALS: BP 132/68
[2016-11-23] MEDS: IPRATRPIUM/ALBUTEROL 0.5/2.5MG 3 ML NEBU. NEB SCH ×4 (07:50→19:25)
--- NOTE | 2016-11-23 07:54 | PDOC ---
PROGRESS NOTES Chief Complaint Chief Complaint CHF Systolic acute on chronic Afib CHAY Leukocytosis Hyperphosphatemia DM HTN Anemia Proteinuria Lower extremity edema with cellulitis Fungal rash, total body Fall History of Present Illness History of Present Illness Patient evaluated while sitting up in bed this AM. Nursing has conveyed a difficulty in keeping the pt's glucose levels up. Presumably from the lingering action of pt's home diabetes medications. Pt continues to complain of L foot swelling and pain. Otherwise pt reports feeling relatively well. Pt agreeable to plan, expecting renal biopsy on Monday. Vitals Vitals Vital Signs Date Time Temp Pulse Resp B/P Pulse Ox O2 Delivery O2 Flow Rate FiO2 11/23/16 07:10 98.0 84 20 132/68 97 Room Air 98.0 11/23/16 04:18 2.0 Physical Exam General: Alert, Oriented X3, Cooperative, No acute distress Heart: Other (Mild tachycardia, No rubs) Lungs: Clear Abdomen: Normal bowel sounds, Soft Extremities: No clubbing, No cyanosis, Other (LE edema) Skin: Other (Fungal rash over whole body; dry and flaking LE) Labs LABS Laboratory Tests Test 11/22/16 08:08 11/22/16 08:43 11/22/16 11:29 11/22/16 11:54 Glucose (Fingerstick) 40mg/dL (70-99) 82mg/dL (70-99) 41mg/dL (70-99) 125mg/dL (70-99) Test 11/22/16 14:08 11/22/16 15:04 11/22/16 15:58 11/22/16 17:29 Glucose (Fingerstick) 68mg/dL (70-99) 55mg/dL (70-99) 47mg/dL (70-99) 57mg/dL (70-99) Test 11/22/16 18:40 11/22/16 19:43 11/22/16 21:13 11/22/16 22:36 Glucose (Fingerstick) 66mg/dL (70-99) 64mg/dL (70-99) 52mg/dL (70-99) 69mg/dL (70-99) Test 11/23/16 00:48 11/23/16 01:38 11/23/16 03:05 11/23/16 04:02 Glucose (Fingerstick) 54mg/dL (70-99) 107mg/dL (70-99) 50mg/dL (70-99) White Blood Count 11.8x10^3/uL (4.0-11.0) Red Blood Count 3.11x10^6/uL (4.30-5.70) Hemoglobin 8.8g/dL (13.0-17.5) Hematocrit 26.3% (39.0-53.0) Mean Corpuscular Volume 85fL (79-100) Mean Corpuscular Hemoglobin 28pg (25-35) Mean Corpuscular Hemoglobin Concent 33g/dL (31-37) Red Cell Distribution Width 14.9% (11.5-14.5) Platelet Count 182x10^3/uL (140-400) Neutrophils (%) (Auto) 73% (31-73) Lymphocytes (%) (Auto) 10% (24-48) Monocytes (%) (Auto) 13% (0-9) Eosinophils (%) (Auto) 4% (0-3) Basophils (%) (Auto) 1% (0-3) Neutrophils # (Auto) 8.6x10^3uL (1.8-7.7) Lymphocytes # (Auto) 1.1x10^3/uL (1.0-4.8) Monocytes # (Auto) 1.6x10^3/uL (0.0-1.1) Eosinophils # (Auto) 0.4x10^3/uL (0.0-0.7) Basophils # (Auto) 0.1x10^3/uL (0.0-0.2) Sodium Level 134mmol/L (136-145) Potassium Level 4.6mmol/L (3.5-5.1) Chloride Level 96mmol/L (98-107) Carbon Dioxide Level 28mmol/L (21-32) Anion Gap 10 (6-14) Blood Urea Nitrogen 45mg/dL (8-26) Creatinine 6.3mg/dL (0.7-1.3) Estimated GFR (Cockcroft-Gault) 9.1 Glucose Level 61mg/dL (70-99) Calcium Level 7.8mg/dL (8.5-10.1) Phosphorus Level 7.5mg/dL (2.6-4.7) Magnesium Level 2.2mg/dL (1.8-2.4) Albumin 1.7g/dL (3.4-5.0) Test 11/23/16 05:33 Glucose (Fingerstick) 81mg/dL (70-99) Review of Systems Review of Systems + L foot swelling/pain denies fever/chills denies chest pain, SOA Assessment and Plan Assessmemt and Plan Assessment: - CHF Systolic acute on chronic - CHAY - Afib - Leukocytosis - Hyperphosphatemia - DM - HTN - Anemia - Proteinuria - Lower extremity edema with cellulitis - Fungal rash, total body - Fall Plan: - persistent hypoglycemia - cont D10 drip to until blood glucose normalized; will continue to monitor - renal biopsy scheduled for Monday; xarelto held per cardiology - dialysis initiated; outpatient arrangements in progress. - appreciate any further cardiology and nephrology input - defer to nephrology regarding hyperphosphatemia, edema, elevated ESR - Continue Zosyn, await blood cultures. WBC improved to 11.8 today - Await further serologies and cultures - Cont IV morphine for pain. - Recheck labs - PT/OT as tolerated Problems: Comment Review of Relevant I have reviewed the following items maynor (where applicable) has been applied. Labs Laboratory Tests Test 11/21/16 08:05 11/21/16 12:10 11/21/16 12:41 11/21/16 14:09 Glucose (Fingerstick) 84mg/dL (70-99) 50mg/dL (70-99) 73mg/dL (70-99) 81mg/dL (70-99) Test 11/21/16 16:18 11/21/16 18:10 11/21/16 18:45 11/21/16 20:42 Glucose (Fingerstick) 60mg/dL (70-99) 57mg/dL (70-99) 90mg/dL (70-99) 54mg/dL (70-99) Test 11/21/16 21:22 11/21/16 23:27 11/22/16 00:05 11/22/16 03:09 Glucose (Fingerstick) 124mg/dL (70-99) 62mg/dL (70-99) 129mg/dL (70-99) 39mg/dL (70-99) Test 11/22/16 03:27 11/22/16 03:45 11/22/16 08:08 11/22/16 08:43 White Blood Count 12.1x10^3/uL (4.0-11.0) Red Blood Count 3.23x10^6/uL (4.30-5.70) Hemoglobin 9.0g/dL (13.0-17.5) Hematocrit 27.8% (39.0-53.0) Mean Corpuscular Volume 86fL (79-100) Mean Corpuscular Hemoglobin 28pg (25-35) Mean Corpuscular Hemoglobin Concent 32g/dL (31-37) Red Cell Distribution Width 14.7% (11.5-14.5) Platelet Count 170x10^3/uL (140-400) Neutrophils (%) (Auto) 78% (31-73) Lymphocytes (%) (Auto) 7% (24-48) Monocytes (%) (Auto) 12% (0-9) Eosinophils (%) (Auto) 3% (0-3) Basophils (%) (Auto) 0% (0-3) Neutrophils # (Auto) 9.4x10^3uL (1.8-7.7) Lymphocytes # (Auto) 0.9x10^3/uL (1.0-4.8) Monocytes # (Auto) 1.4x10^3/uL (0.0-1.1) Eosinophils # (Auto) 0.4x10^3/uL (0.0-0.7) Basophils # (Auto) 0.0x10^3/uL (0.0-0.2) Sodium Level 132mmol/L (136-145) Potassium Level 4.2mmol/L (3.5-5.1) Chloride Level 93mmol/L (98-107) Carbon Dioxide Level 28mmol/L (21-32) Anion Gap 11 (6-14) Blood Urea Nitrogen 63mg/dL (8-26) Creatinine 7.0mg/dL (0.7-1.3) Estimated GFR (Cockcroft-Gault) 8.0 Glucose Level 125mg/dL (70-99) Calcium Level 7.4mg/dL (8.5-10.1) Phosphorus Level 8.5mg/dL (2.6-4.7) Magnesium Level 2.5mg/dL (1.8-2.4) Albumin 1.7g/dL (3.4-5.0) Glucose (Fingerstick) 117mg/dL (70-99) 40mg/dL (70-99) 82mg/dL (70-99) Test 11/22/16 11:29 11/22/16 11:54 11/22/16 14:08 11/22/16 15:04 Glucose (Fingerstick) 41mg/dL (70-99) 125mg/dL (70-99) 68mg/dL (70-99) 55mg/dL (70-99) Test 11/22/16 15:58 11/22/16 17:29 11/22/16 18:40 11/22/16 19:43 Glucose (Fingerstick) 47mg/dL (70-99) 57mg/dL (70-99) 66mg/dL (70-99) 64mg/dL (70-99) Test 11/22/16 21:13 11/22/16 22:36 11/23/16 00:48 11/23/16 01:38 Glucose (Fingerstick) 52mg/dL (70-99) 69mg/dL (70-99) 54mg/dL (70-99) 107mg/dL (70-99) Test 11/23/16 03:05 11/23/16 04:02 11/23/16 05:33 White Blood Count 11.8x10^3/uL (4.0-11.0) Red Blood Count 3.11x10^6/uL (4.30-5.70) Hemoglobin 8.8g/dL (13.0-17.5) Hematocrit 26.3% (39.0-53.0) Mean Corpuscular Volume 85fL (79-100) Mean Corpuscular Hemoglobin 28pg (25-35) Mean Corpuscular Hemoglobin Concent 33g/dL (31-37) Red Cell Distribution Width 14.9% (11.5-14.5) Platelet Count 182x10^3/uL (140-400) Neutrophils (%) (Auto) 73% (31-73) Lymphocytes (%) (Auto) 10% (24-48) Monocytes (%) (Auto) 13% (0-9) Eosinophils (%) (Auto) 4% (0-3) Basophils (%) (Auto) 1% (0-3) Neutrophils # (Auto) 8.6x10^3uL (1.8-7.7) Lymphocytes # (Auto) 1.1x10^3/uL (1.0-4.8) Monocytes # (Auto) 1.6x10^3/uL (0.0-1.1) Eosinophils # (Auto) 0.4x10^3/uL (0.0-0.7) Basophils # (Auto) 0.1x10^3/uL (0.0-0.2) Sodium Level 134mmol/L (136-145) Potassium Level 4.6mmol/L (3.5-5.1) Chloride Level 96mmol/L (98-107) Carbon Dioxide Level 28mmol/L (21-32) Anion Gap 10 (6-14) Blood Urea Nitrogen 45mg/dL (8-26) Creatinine 6.3mg/dL (0.7-1.3) Estimated GFR (Cockcroft-Gault) 9.1 Glucose Level 61mg/dL (70-99) Calcium Level 7.8mg/dL (8.5-10.1) Phosphorus Level 7.5mg/dL (2.6-4.7) Magnesium Level 2.2mg/dL (1.8-2.4) Albumin 1.7g/dL (3.4-5.0) Glucose (Fingerstick) 50mg/dL (70-99) 81mg/dL (70-99) Laboratory Tests Test 11/22/16 08:08 11/22/16 08:43 11/22/16 11:29 11/22/16 11:54 Glucose (Fingerstick) 40mg/dL (70-99) 82mg/dL (70-99) 41mg/dL (70-99) 125mg/dL (70-99) Test 11/22/16 14:08 11/22/16 15:04 11/22/16 15:58 11/22/16 17:29 Glucose (Fingerstick) 68mg/dL (70-99) 55mg/dL (70-99) 47mg/dL (70-99) 57mg/dL (70-99) Test 11/22/16 18:40 11/22/16 19:43 11/22/16 21:13 11/22/16 22:36 Glucose (Fingerstick) 66mg/dL (70-99) 64mg/dL (70-99) 52mg/dL (70-99) 69mg/dL (70-99) Test 11/23/16 00:48 11/23/16 01:38 11/23/16 03:05 11/23/16 04:02 Glucose (Fingerstick) 54mg/dL (70-99) 107mg/dL (70-99) 50mg/dL (70-99) White Blood Count 11.8x10^3/uL (4.0-11.0) Red Blood Count 3.11x10^6/uL (4.30-5.70) Hemoglobin 8.8g/dL (13.0-17.5) Hematocrit 26.3% (39.0-53.0) Mean Corpuscular Volume 85fL (79-100) Mean Corpuscular Hemoglobin 28pg (25-35) Mean Corpuscular Hemoglobin Concent 33g/dL (31-37) Red Cell Distribution Width 14.9% (11.5-14.5) Platelet Count 182x10^3/uL (140-400) Neutrophils (%) (Auto) 73% (31-73) Lymphocytes (%) (Auto) 10% (24-48) Monocytes (%) (Auto) 13% (0-9) Eosinophils (%) (Auto) 4% (0-3) Basophils (%) (Auto) 1% (0-3) Neutrophils # (Auto) 8.6x10^3uL (1.8-7.7) Lymphocytes # (Auto) 1.1x10^3/uL (1.0-4.8) Monocytes # (Auto) 1.6x10^3/uL (0.0-1.1) Eosinophils # (Auto) 0.4x10^3/uL (0.0-0.7) Basophils # (Auto) 0.1x10^3/uL (0.0-0.2) Sodium Level 134mmol/L (136-145) Potassium Level 4.6mmol/L (3.5-5.1) Chloride Level 96mmol/L (98-107) Carbon Dioxide Level 28mmol/L (21-32) Anion Gap 10 (6-14) Blood Urea Nitrogen 45mg/dL (8-26) Creatinine 6.3mg/dL (0.7-1.3) Estimated GFR (Cockcroft-Gault) 9.1 Glucose Level 61mg/dL (70-99) Calcium Level 7.8mg/dL (8.5-10.1) Phosphorus Level 7.5mg/dL (2.6-4.7) Magnesium Level 2.2mg/dL (1.8-2.4) Albumin 1.7g/dL (3.4-5.0) Test 11/23/16 05:33 Glucose (Fingerstick) 81mg/dL (70-99) Microbiology 11/20/16 Blood Culture - Preliminary, Resulted NO GROWTH AFTER 2 DAYS 11/18/16 Urine Culture - Final, Complete 11/18/16 Urine Culture Result 1 (SHILPA) - Final, Complete Medications Current Medications Acetaminophen/ Hydrocodone Bitart (Lortab 5/325) 2 tab 1X ONCE PO Last administered on 11/18/16 21:34; Start 11/18/16 at 21:00; Stop 11/18/16 at 21:01 ; Status DC Furosemide 40 mg 40 mg 1X ONCE IVP Last administered on 11/18/16 22:03; Start 11/18/16 at 22:00; Stop 11/18/16 at 22:01; Status DC Ceftriaxone Sodium (Rocephin 1gm Ivpb For Omni) 50 ml @ 100 mls/hr 1X ONCE IV Last administered on 11/18/16 22:06; Start 11/18/16 at 22:15; Stop 11/18/16 at 22:44; Status DC Ondansetron HCl (Zofran) 4 mg PRN Q8HRS PRN IV NAUSEA/VOMITING; Start 11/18/16 at 22:15; Stop 11/19/16 at 22:14; Status DC Morphine Sulfate 4 mg PRN Q2HR PRN IV PAIN Last administered on 11/19/16 14:58 ; Start 11/18/16 at 22:15; Stop 11/19/16 at 22:14; Status DC Acetaminophen (Tylenol) 650 mg PRN Q4HRS PRN PO FEVER; Start 11/18/16 at 22:15 ; Stop 11/19/16 at 22:14; Status DC Insulin Aspart (Novolog) 0-7 UNITS TIDWMEALS SQ ; Start 11/19/16 at 08:00; Stop 11/19/16 at 09:04; Status DC Dextrose 12.5 gm PRN Q15MIN PRN IV SEE COMMENTS; Start 11/18/16 at 22:15; Stop 11/19/16 at 10:19; Status DC Info (Do NOT chart on this placeholder) 1 each 1X ONCE MC ; Start 11/18/16 at 23:15; Stop 11/18/16 at 23:16; Status UNV Pneumococcal Polyvalent Vaccine (Do NOT chart on this placeholder) 1 each 1X ONCE MC ; Start 11/18/16 at 23:15; Stop 11/18/16 at 23:16; Status UNV Influenza Virus Vaccine Quadrival (Fluarix Quad 8546-1315 Syringe) 0.5 ml ONCE ONCE VAX IM ; Start 11/19/16 at 09:00; Stop 11/19/16 at 09:01; Status DC Pneumococcal Polyvalent Vaccine 0.5 ml 0.5 ml ONCE ONCE VAX IM ; Start 11/19/16 at 09:00; Stop 11/19/16 at 09:01; Status DC Ceftriaxone Sodium/Sodium Chloride (Rocephin/Iv Sodium Chloride 0.9% 50ml) 50 ml @ 100 mls/hr Q24H IV Last administered on 11/20/16 20:49; Start 11/19/16 at 21:00; Stop 11/21/16 at 09:56; Status DC Amlodipine Besylate (Norvasc) 10 mg DAILY PO Last administered on 11/22/16 11: 49; Start 11/19/16 at 09:30 Glimepiride (Amaryl) 2 mg DAILYWBKFT PO Last administered on 11/20/16 08:08; Start 11/19/16 at 09:30; Stop 11/21/16 at 10:20; Status DC Carvedilol (Coreg) 25 mg BIDWMEALS PO Last administered on 11/22/16 17:34; Start 11/19/16 at 09:30 Rivaroxaban (Xarelto) 20 mg DAILYWSUP PO Last administered on 11/19/16 17:53; Start 11/19/16 at 17:00; Stop 11/20/16 at 08:53; Status DC Furosemide (Lasix) 40 mg 1X ONCE IVP Last administered on 11/19/16 09:40; Start 11/19/16 at 09:00; Stop 11/19/16 at 09:04; Status DC Insulin Aspart (Novolog) 0-7 UNITS TIDWMEALS SQ ; Start 11/19/16 at 12:00; Stop 11/21/16 at 21:16; Status DC Dextrose 12.5 gm PRN Q15MIN PRN IV SEE COMMENTS Last administered on 11/23/16 04:10; Start 11/19/16 at 09:00 Guaifenesin (Robitussin Dm) 10 ml PRN Q6HRS PRN PO COUGH; Start 11/19/16 at 09: 00 Nicotine (Nicoderm Cq 14mg) 1 patch PRN DAILY PRN TD SMOKING CESSATION; Start 11/19/16 at 09:15 Nicotine Polacrilex (Nicorette Gum) 1 each PRN Q1HR PRN BC SMOKING CESSATION; Start 11/19/16 at 09:15 Albuterol/ Ipratropium (Duoneb) 3 ml RTQID NEB Last administered on 11/22/16 19:17; Start 11/19/16 at 09:30 Enoxaparin Sodium (Lovenox Per Pharmacy Prophylaxis Dosing) 1 each PRN DAILY PRN MC SEE COMMENTS; Start 11/19/16 at 09:30; Stop 11/19/16 at 09:30; Status DC Hydralazine HCl (Apresoline) 25 mg BID PO Last administered on 11/22/16 21:15 ; Start 11/19/16 at 10:30 Morphine Sulfate (Morphine Ir) 15 mg PRN Q4HRS PRN PO PAIN Last administered on 11/23/16 04:18; Start 11/20/16 at 00:15 Morphine Sulfate 4 mg PRN Q2HR PRN IV PAIN Last administered on 11/21/16 13:36 ; Start 11/20/16 at 00:15 Rivaroxaban 15 mg 15 mg DAILYWSUP PO ; Start 11/20/16 at 17:00; Stop 11/22/16 at 12:56; Status DC Sodium Chloride 1,000 ml @ 75 mls/hr [id number] IV Last administered on 23:37; Start 11/20/16 at 10:45; Stop 11/21/16 at 14:42; Status DC Milrinone Lactate/ Dextrose 100 ml @ 0 mls/hr CONT PRN IV SEE I/O RECORD Last administered on 11/21/16 22:19; Start 11/20/16 at 11:30; Stop 11/22/16 at 14:17 ; Status DC Magnesium Sulfate/ Dextrose 50 ml @ 25 mls/hr PRN DAILY PRN IV for Mag < 1.7 on am labs; Start 11/20/16 at 11:30 Piperacillin Sod/ Tazobactam Sod/ Sodium Chloride (Zosyn/Iv Sodium Chloride 0.9 % 50ml) 50 ml @ 100 mls/hr Q6HRS IV Last administered on 11/22/16 05:41; Start 11/20/16 at 12:00; Stop 11/22/16 at 10:39; Status DC Info 1 each 1 each PRN DAILY PRN MC SEE COMMENTS Last administered on 09:52; Start 11/21/16 at 08:15; Stop 11/22/16 at 14:15; Status DC Iron Sucrose/ Sodium Chloride (Venofer/Iv Sodium Chloride 0.9% 100ml) 110 ml @ 55 mls/hr 3X/WEEK IV Last administered on 11/21/16 13:37; Start 11/21/16 at 10 :00; Stop 11/30/16 at 10:59 Darbepoetin Guillermo (Aranesp) 100 mcg WEEKLYHS SQ Last administered on 11/21/16 21:21; Start 11/21/16 at 21:00 Calcium Acetate 1334 mg 1,334 mg TIDWMEALS PO Last administered on 11/22/16 17 :33; Start 11/21/16 at 12:00 Heparin Sodium/ Sodium Chloride 500 ml @ As Directed STK-MED ONCE .ROUTE ; Start 11/21/16 at 10:13; Stop 11/21/16 at 10:14; Status DC Lidocaine HCl 20 ml STK-MED ONCE .ROUTE ; Start 11/21/16 at 10:13; Stop at 10:14; Status DC Fentanyl Citrate (Fentanyl 2ml Vial) 100 mcg STK-MED ONCE .ROUTE ; Start at 10:52; Stop 11/21/16 at 10:53; Status DC Midazolam HCl (Versed) 2 mg STK-MED ONCE .ROUTE ; Start 11/21/16 at 10:52; Stop 11/21/16 at 10:53; Status DC Midazolam HCl (Versed) 1 mg 1X ONCE IV Last administered on 11/21/16 11:04; Start 11/21/16 at 11:30; Stop 11/21/16 at 11:31; Status DC Fentanyl Citrate (Fentanyl 2ml Vial) 25 mcg 1X ONCE IV Last administered on 11:02; Start 11/21/16 at 11:30; Stop 11/21/16 at 11:31; Status DC Lidocaine/Sodium Bicarbonate (Buffered Lidocaine 1%) 20 ml STK-MED ONCE IJ ; Start 11/21/16 at 14:59; Stop 11/21/16 at 15:00; Status DC Heparin Sodium (Porcine) 96243 unit 10,000 unit STK-MED ONCE .ROUTE ; Start at 14:59; Stop 11/21/16 at 15:00; Status DC Heparin Sodium/ Sodium Chloride 500 ml @ As Directed STK-MED ONCE .ROUTE ; Start 11/21/16 at 14:59; Stop 11/21/16 at 15:00; Status DC Heparin Sodium/ Sodium Chloride 1,000 unit 1X ONCE IART Last administered on 15:18; Start 11/21/16 at 15:15; Stop 11/21/16 at 15:26; Status DC Lidocaine/Sodium Bicarbonate (Buffered Lidocaine 1%) 20 ml 1X ONCE IJ Last administered on 11/21/16 15:17; Start 11/21/16 at 15:15; Stop 11/21/16 at 15:26 ; Status DC Heparin Sodium (Porcine) 4300 unit 4,300 unit 1X ONCE IV Last administered on 11/21/16 15:17; Start 11/21/16 at 15:15; Stop 11/21/16 at 15:26; Status DC Sodium Chloride 1,000 ml @ 1,000 mls/hr Q1H PRN IV hypotension; Start 11/22/16 at 07:31; Stop 11/22/16 at 13:30; Status DC Albumin Human 200 ml @ 200 mls/hr 1X PRN PRN IV Hypotension; Start 11/22/16 at 07:45; Stop 11/22/16 at 13:44; Status DC Sodium Chloride (Iv Sodium Chloride 0.9% 1000ml Bag) 1,000 ml @ 400 mls/hr Q2H30M PRN IV PATENCY; Start 11/22/16 at 07:31; Stop 11/22/16 at 19:30; Status DC Info (PHARMACY MONITORING -- do not chart) 1 each PRN DAILY PRN MC SEE COMMENTS ; Start 11/22/16 at 07:45 Info (PHARMACY MONITORING -- do not chart) 1 each PRN DAILY PRN MC SEE COMMENTS ; Start 11/22/16 at 07:45; Status UNV Diphenhydramine HCl (Benadryl) 25 mg 1X PRN PRN IV ITCHING Last administered on 11/22/16 08:53; Start 11/22/16 at 08:45; Stop 11/23/16 at 08:44 Diphenhydramine HCl (Benadryl) 25 mg 1X PRN PRN IV ITCHING; Start 11/22/16 at 08:45; Stop 11/23/16 at 08:44 Ergocalciferol 82454 unit 50,000 unit WEEKLY PO Last administered on 11/22/16t 12:12; Start 11/22/16 at 10:00 Piperacillin Sod/ Tazobactam Sod/ Sodium Chloride (Zosyn/Iv Sodium Chloride 0.9 % 50ml) 50 ml @ 100 mls/hr Q6HRS IV Last administered on 11/23/16 05:32; Start 11/22/16 at 12:00 Enoxaparin Sodium (Lovenox Per Pharmacy Treatment Dosing) 1 each PRN DAILY PRN MC SEE COMMENTS; Start 11/22/16 at 13:00; Stop 11/22/16 at 14:15; Status DC Enoxaparin Sodium 150 mg 150 mg Q24H SQ ; Start 11/22/16 at 14:00; Stop at 14:15; Status DC Dextrose 1,000 ml @ 50 mls/hr Q20H IV Last administered on 11/22/16t 16:19; Start 11/22/16 at 16:15 Active Scripts Active Reported Xarelto (Rivaroxaban) 20 Mg Tablet 20 Mg PO DAILY Carvedilol 25 Mg Tablet 1 Tab PO BID Furosemide 40 Mg Tablet 1 Tab PO DAILY Losartan Potassium 100 Mg Tablet 100 Mg PO DAILY Amlodipine Besylate 10 Mg Tablet 10 Mg PO DAILY Glimepiride 2 Mg Tablet 1 Tab PO DAILY Vitals/I & O Vital Sign - Last 24 Hours 11/22/16 11/22/16 11/22/16 11/22/16 08:00 11:48 11:49 11:49 Pulse 85 B/P 133/67 133/67 O2 Delivery Room Air 11/22/16 11/22/16 11/22/16 11/22/16 12:09 15:12 15:23 17:34 Temp 98.6 98.6 Pulse 103 93 Resp 18 B/P 97/66 115/66 Pulse Ox 96 96 93 O2 Delivery Nasal Cannula Nasal Cannula Room Air O2 Flow Rate 2.0 2.0 11/22/16 11/22/16 11/22/16 11/22/16 19:19 19:40 19:40 21:14 Temp 99.0 99.0 Pulse 94 92 Resp 18 B/P 140/68 127/58 Pulse Ox 94 95 O2 Delivery Room Air Nasal Cannula Room Air O2 Flow Rate 2.0 11/22/16 11/22/16 11/23/16 11/23/16 21:15 22:53 03:00 04:18 Temp 98.5 97.3 98.5 97.3 Pulse 92 89 94 Resp 18 18 18 B/P 127/58 121/60 125/69 Pulse Ox 95 93 94 O2 Delivery Nasal Cannula Room Air Nasal Cannula O2 Flow Rate 2.0 2.0 11/23/16 11/23/16 05:20 07:10 Temp 98.0 98.0 Pulse 84 Resp 18 20 B/P 132/68 Pulse Ox 94 97 O2 Delivery Nasal Cannula Room Air Intake and Output 11/22/16 11/22/16 11/23/16 15:00 23:00 07:00 Intake Total 240 ml 240 ml Output Total 200 ml Balance 240 ml 40 ml BALANIAL K III DO Nov 23, 2016 07:54
[2016-11-23] MEDS ORDERED: IV NORMAL SALINE 1000ML BAG 1,000 ML IV PRN ×2 (07:58)
[2016-11-23] MEDS: CALCIUM ACETATE 667 MG CAPSULE PO SCH ×3 (08:00→18:24)
[2016-11-23] MEDS ORDERED: DIPHENHYDRAMINE 50 MG/ML VIAL IV PRN (08:00)
[2016-11-23] MEDS ORDERED: DIALYSIS PATIENT. MC PRN (08:00)
[2016-11-23] MEDS ORDERED: ALBUMIN HUMAN 25% 200 ML IV PRN (08:00)
[2016-11-23] MEDS ORDERED: 0.9 % SODIUM CHLORIDE 10 ML DISP.SYRIN. IV PRN ×2 (08:00)
--- NOTE | 2016-11-23 08:52 | RAD ---
Procedure: Temporary hemodialysis catheter placement under fluoroscopy Clinical Indication: 60-year-old requiring hemodialysis Sedation: Local anesthesia only Antibiotics: None Fluoro Time: 0.2 minutes. Images: 1 Contrast: None Sterility: All elements of maximal sterile barrier technique including the use of a cap, mask, sterile gown, sterile gloves, large sterile sheet, appropriate hand hygiene, and 2% chlorhexidine for cutaneous antisepsis (or acceptable alternative antiseptic per current guidelines) were followed for this procedure. Consent: The procedure was explained in its entirety to the patient or the patients designated public service representative by a member of the treatment team, including a discussion of the risks, benefits and commonly accepted alternatives to the procedure, as well as the expected consequences of no therapy whatsoever. Discussion of the risks included, but was not limited to, those that are most frequent and those that are rare but possibly severe or life-threatening, as well as the possibility of unforeseen complications. Technique and Findings: Following informed consent, the patient was prepped and draped in the usual sterile fashion. Ultrasound interrogation of the right neck revealed patency and compressibility of the right internal jugular vein. A 21-gauge micropuncture needle was used to gain access to this vein after 1% Lidocaine was used to achieve local anesthesia. A hardcopy ultrasound image was recorded. The needle was exchanged over a wire for serial dilators followed by a 20 cm Schon temporary hemodialysis catheter which was deployed under fluoroscopic guidance such that the distal tip resided in the mid right atrium. The catheter flow rates were assessed manually and found to be excellent. The catheter was then flushed, packed with Heparin, capped, and sutured to the skin. Complications: No immediate Impression: 1. Ultrasound and fluoroscopic guided placement of a temporary hemodialysis catheter which exhibits excellent manual flow rates as described.
--- NOTE | 2016-11-23 09:13 | PDOC ---
Dialysis Progress Note Dialysis Note Dialysis Note Seen on Hemodialysis, tolerating treatment Well Vitals on Hemodialysis: 119/61 88 Afeb General Appearance: Awake: Alert Oriented x 3 Neck: No JVD or JVP Chest: CTA Guille Heart: S1 S2 Abdomen - Soft NTND Extremities - + Edema ARF/ ATN : Dialysis as below F 180 NR 3.5 Hrs 3 K 2.5 Ca 140 Na 35 HC03 Qb 350 + Qd 500+ Heparin 0 Units Uf 2-3 Kgs or to dry weight as tolerated May give 25-50 gms of 25% Albumin if needed to maintain Hemodynamic stability Treatment plan reviewed and discussed with sap ppm consultant Vitals Vital Signs Vital Signs Date Time Temp Pulse Resp B/P Pulse Ox O2 Delivery O2 Flow Rate FiO2 11/23/16 08:00 Nasal Cannula 2.0 11/23/16 07:10 98.0 84 20 132/68 97 98.0 Labs Last Labs Laboratory Tests Test 11/21/16 12:10 11/21/16 12:41 11/21/16 14:09 11/21/16 16:18 Glucose (Fingerstick) 50mg/dL (70-99) 73mg/dL (70-99) 81mg/dL (70-99) 60mg/dL (70-99) Test 11/21/16 18:10 11/21/16 18:45 11/21/16 20:42 11/21/16 21:22 Glucose (Fingerstick) 57mg/dL (70-99) 90mg/dL (70-99) 54mg/dL (70-99) 124mg/dL (70-99) Test 11/21/16 23:27 11/22/16 00:05 11/22/16 03:09 11/22/16 03:27 Glucose (Fingerstick) 62mg/dL (70-99) 129mg/dL (70-99) 39mg/dL (70-99) White Blood Count 12.1x10^3/uL (4.0-11.0) Red Blood Count 3.23x10^6/uL (4.30-5.70) Hemoglobin 9.0g/dL (13.0-17.5) Hematocrit 27.8% (39.0-53.0) Mean Corpuscular Volume 86fL (79-100) Mean Corpuscular Hemoglobin 28pg (25-35) Mean Corpuscular Hemoglobin Concent 32g/dL (31-37) Red Cell Distribution Width 14.7% (11.5-14.5) Platelet Count 170x10^3/uL (140-400) Neutrophils (%) (Auto) 78% (31-73) Lymphocytes (%) (Auto) 7% (24-48) Monocytes (%) (Auto) 12% (0-9) Eosinophils (%) (Auto) 3% (0-3) Basophils (%) (Auto) 0% (0-3) Neutrophils # (Auto) 9.4x10^3uL (1.8-7.7) Lymphocytes # (Auto) 0.9x10^3/uL (1.0-4.8) Monocytes # (Auto) 1.4x10^3/uL (0.0-1.1) Eosinophils # (Auto) 0.4x10^3/uL (0.0-0.7) Basophils # (Auto) 0.0x10^3/uL (0.0-0.2) Sodium Level 132mmol/L (136-145) Potassium Level 4.2mmol/L (3.5-5.1) Chloride Level 93mmol/L (98-107) Carbon Dioxide Level 28mmol/L (21-32) Anion Gap 11 (6-14) Blood Urea Nitrogen 63mg/dL (8-26) Creatinine 7.0mg/dL (0.7-1.3) Estimated GFR (Cockcroft-Gault) 8.0 Glucose Level 125mg/dL (70-99) Calcium Level 7.4mg/dL (8.5-10.1) Phosphorus Level 8.5mg/dL (2.6-4.7) Magnesium Level 2.5mg/dL (1.8-2.4) Albumin 1.7g/dL (3.4-5.0) Test 11/22/16 03:45 11/22/16 08:08 11/22/16 08:43 11/22/16 11:29 Glucose (Fingerstick) 117mg/dL (70-99) 40mg/dL (70-99) 82mg/dL (70-99) 41mg/dL (70-99) Test 11/22/16 11:54 11/22/16 14:08 11/22/16 15:04 11/22/16 15:58 Glucose (Fingerstick) 125mg/dL (70-99) 68mg/dL (70-99) 55mg/dL (70-99) 47mg/dL (70-99) Test 11/22/16 17:29 11/22/16 18:40 11/22/16 19:43 11/22/16 21:13 Glucose (Fingerstick) 57mg/dL (70-99) 66mg/dL (70-99) 64mg/dL (70-99) 52mg/dL (70-99) Test 11/22/16 22:36 11/23/16 00:48 11/23/16 01:38 11/23/16 03:05 Glucose (Fingerstick) 69mg/dL (70-99) 54mg/dL (70-99) 107mg/dL (70-99) White Blood Count 11.8x10^3/uL (4.0-11.0) Red Blood Count 3.11x10^6/uL (4.30-5.70) Hemoglobin 8.8g/dL (13.0-17.5) Hematocrit 26.3% (39.0-53.0) Mean Corpuscular Volume 85fL (79-100) Mean Corpuscular Hemoglobin 28pg (25-35) Mean Corpuscular Hemoglobin Concent 33g/dL (31-37) Red Cell Distribution Width 14.9% (11.5-14.5) Platelet Count 182x10^3/uL (140-400) Neutrophils (%) (Auto) 73% (31-73) Lymphocytes (%) (Auto) 10% (24-48) Monocytes (%) (Auto) 13% (0-9) Eosinophils (%) (Auto) 4% (0-3) Basophils (%) (Auto) 1% (0-3) Neutrophils # (Auto) 8.6x10^3uL (1.8-7.7) Lymphocytes # (Auto) 1.1x10^3/uL (1.0-4.8) Monocytes # (Auto) 1.6x10^3/uL (0.0-1.1) Eosinophils # (Auto) 0.4x10^3/uL (0.0-0.7) Basophils # (Auto) 0.1x10^3/uL (0.0-0.2) Sodium Level 134mmol/L (136-145) Potassium Level 4.6mmol/L (3.5-5.1) Chloride Level 96mmol/L (98-107) Carbon Dioxide Level 28mmol/L (21-32) Anion Gap 10 (6-14) Blood Urea Nitrogen 45mg/dL (8-26) Creatinine 6.3mg/dL (0.7-1.3) Estimated GFR (Cockcroft-Gault) 9.1 Glucose Level 61mg/dL (70-99) Calcium Level 7.8mg/dL (8.5-10.1) Phosphorus Level 7.5mg/dL (2.6-4.7) Magnesium Level 2.2mg/dL (1.8-2.4) Albumin 1.7g/dL (3.4-5.0) Test 11/23/16 04:02 11/23/16 05:33 11/23/16 07:03 Glucose (Fingerstick) 50mg/dL (70-99) 81mg/dL (70-99) 80mg/dL (70-99) Laboratory Tests Test 11/22/16 11:29 11/22/16 11:54 11/22/16 14:08 11/22/16 15:04 Glucose (Fingerstick) 41mg/dL (70-99) 125mg/dL (70-99) 68mg/dL (70-99) 55mg/dL (70-99) Test 11/22/16 15:58 11/22/16 17:29 11/22/16 18:40 11/22/16 19:43 Glucose (Fingerstick) 47mg/dL (70-99) 57mg/dL (70-99) 66mg/dL (70-99) 64mg/dL (70-99) Test 11/22/16 21:13 11/22/16 22:36 11/23/16 00:48 11/23/16 01:38 Glucose (Fingerstick) 52mg/dL (70-99) 69mg/dL (70-99) 54mg/dL (70-99) 107mg/dL (70-99) Test 11/23/16 03:05 11/23/16 04:02 11/23/16 05:33 11/23/16 07:03 White Blood Count 11.8x10^3/uL (4.0-11.0) Red Blood Count 3.11x10^6/uL (4.30-5.70) Hemoglobin 8.8g/dL (13.0-17.5) Hematocrit 26.3% (39.0-53.0) Mean Corpuscular Volume 85fL (79-100) Mean Corpuscular Hemoglobin 28pg (25-35) Mean Corpuscular Hemoglobin Concent 33g/dL (31-37) Red Cell Distribution Width 14.9% (11.5-14.5) Platelet Count 182x10^3/uL (140-400) Neutrophils (%) (Auto) 73% (31-73) Lymphocytes (%) (Auto) 10% (24-48) Monocytes (%) (Auto) 13% (0-9) Eosinophils (%) (Auto) 4% (0-3) Basophils (%) (Auto) 1% (0-3) Neutrophils # (Auto) 8.6x10^3uL (1.8-7.7) Lymphocytes # (Auto) 1.1x10^3/uL (1.0-4.8) Monocytes # (Auto) 1.6x10^3/uL (0.0-1.1) Eosinophils # (Auto) 0.4x10^3/uL (0.0-0.7) Basophils # (Auto) 0.1x10^3/uL (0.0-0.2) Sodium Level 134mmol/L (136-145) Potassium Level 4.6mmol/L (3.5-5.1) Chloride Level 96mmol/L (98-107) Carbon Dioxide Level 28mmol/L (21-32) Anion Gap 10 (6-14) Blood Urea Nitrogen 45mg/dL (8-26) Creatinine 6.3mg/dL (0.7-1.3) Estimated GFR (Cockcroft-Gault) 9.1 Glucose Level 61mg/dL (70-99) Calcium Level 7.8mg/dL (8.5-10.1) Phosphorus Level 7.5mg/dL (2.6-4.7) Magnesium Level 2.2mg/dL (1.8-2.4) Albumin 1.7g/dL (3.4-5.0) Glucose (Fingerstick) 50mg/dL (70-99) 81mg/dL (70-99) 80mg/dL (70-99) Assessment Assessment Problems Medical Problems: (1) CHF exacerbation Status: Acute (2) Fall Status: Acute (3) UTI (urinary tract infection) Status: Acute Problems: Plan Plan of Care Problems Medical Problems: (1) CHF exacerbation Status: Acute (2) Fall Status: Acute (3) UTI (urinary tract infection) Status: Acute DONNA RICE MD Nov 23, 2016 09:13
--- NOTE | 2016-11-23 09:46 | PDOC ---
PROGRESS NOTES Subjective Subjective He c/o itching left foot. Objective Objective Vital Signs Date Time Temp Pulse Resp B/P Pulse Ox O2 Delivery O2 Flow Rate FiO2 11/23/16 08:00 Nasal Cannula 2.0 11/23/16 07:10 98.0 84 20 132/68 97 98.0 Intake and Output 11/23/16 07:00 Intake Total 480 ml Output Total 200 ml Balance 280 ml Intake Oral 480 ml Output Urine Total 200 ml Physical Exam Physical Exam He is receiving hemodialysis and he continues with edema of left foot. Assessment Assessment Problems Medical Problems: (1) CHF exacerbation Status: Acute (2) Fall Status: Acute (3) UTI (urinary tract infection) Status: Acute Plan Plan of Care To get him up as tolerated with cam walker boot left foot. Comment Review of Relevant I have reviewed the following items maynor (where applicable) has been applied. Labs Laboratory Tests Test 11/21/16 12:10 11/21/16 12:41 11/21/16 14:09 11/21/16 16:18 Glucose (Fingerstick) 50mg/dL (70-99) 73mg/dL (70-99) 81mg/dL (70-99) 60mg/dL (70-99) Test 11/21/16 18:10 11/21/16 18:45 11/21/16 20:42 11/21/16 21:22 Glucose (Fingerstick) 57mg/dL (70-99) 90mg/dL (70-99) 54mg/dL (70-99) 124mg/dL (70-99) Test 11/21/16 23:27 11/22/16 00:05 11/22/16 03:09 11/22/16 03:27 Glucose (Fingerstick) 62mg/dL (70-99) 129mg/dL (70-99) 39mg/dL (70-99) White Blood Count 12.1x10^3/uL (4.0-11.0) Red Blood Count 3.23x10^6/uL (4.30-5.70) Hemoglobin 9.0g/dL (13.0-17.5) Hematocrit 27.8% (39.0-53.0) Mean Corpuscular Volume 86fL (79-100) Mean Corpuscular Hemoglobin 28pg (25-35) Mean Corpuscular Hemoglobin Concent 32g/dL (31-37) Red Cell Distribution Width 14.7% (11.5-14.5) Platelet Count 170x10^3/uL (140-400) Neutrophils (%) (Auto) 78% (31-73) Lymphocytes (%) (Auto) 7% (24-48) Monocytes (%) (Auto) 12% (0-9) Eosinophils (%) (Auto) 3% (0-3) Basophils (%) (Auto) 0% (0-3) Neutrophils # (Auto) 9.4x10^3uL (1.8-7.7) Lymphocytes # (Auto) 0.9x10^3/uL (1.0-4.8) Monocytes # (Auto) 1.4x10^3/uL (0.0-1.1) Eosinophils # (Auto) 0.4x10^3/uL (0.0-0.7) Basophils # (Auto) 0.0x10^3/uL (0.0-0.2) Sodium Level 132mmol/L (136-145) Potassium Level 4.2mmol/L (3.5-5.1) Chloride Level 93mmol/L (98-107) Carbon Dioxide Level 28mmol/L (21-32) Anion Gap 11 (6-14) Blood Urea Nitrogen 63mg/dL (8-26) Creatinine 7.0mg/dL (0.7-1.3) Estimated GFR (Cockcroft-Gault) 8.0 Glucose Level 125mg/dL (70-99) Calcium Level 7.4mg/dL (8.5-10.1) Phosphorus Level 8.5mg/dL (2.6-4.7) Magnesium Level 2.5mg/dL (1.8-2.4) Albumin 1.7g/dL (3.4-5.0) Test 11/22/16 03:45 11/22/16 08:08 11/22/16 08:43 11/22/16 11:29 Glucose (Fingerstick) 117mg/dL (70-99) 40mg/dL (70-99) 82mg/dL (70-99) 41mg/dL (70-99) Test 11/22/16 11:54 11/22/16 14:08 11/22/16 15:04 11/22/16 15:58 Glucose (Fingerstick) 125mg/dL (70-99) 68mg/dL (70-99) 55mg/dL (70-99) 47mg/dL (70-99) Test 11/22/16 17:29 11/22/16 18:40 11/22/16 19:43 11/22/16 21:13 Glucose (Fingerstick) 57mg/dL (70-99) 66mg/dL (70-99) 64mg/dL (70-99) 52mg/dL (70-99) Test 11/22/16 22:36 11/23/16 00:48 11/23/16 01:38 11/23/16 03:05 Glucose (Fingerstick) 69mg/dL (70-99) 54mg/dL (70-99) 107mg/dL (70-99) White Blood Count 11.8x10^3/uL (4.0-11.0) Red Blood Count 3.11x10^6/uL (4.30-5.70) Hemoglobin 8.8g/dL (13.0-17.5) Hematocrit 26.3% (39.0-53.0) Mean Corpuscular Volume 85fL (79-100) Mean Corpuscular Hemoglobin 28pg (25-35) Mean Corpuscular Hemoglobin Concent 33g/dL (31-37) Red Cell Distribution Width 14.9% (11.5-14.5) Platelet Count 182x10^3/uL (140-400) Neutrophils (%) (Auto) 73% (31-73) Lymphocytes (%) (Auto) 10% (24-48) Monocytes (%) (Auto) 13% (0-9) Eosinophils (%) (Auto) 4% (0-3) Basophils (%) (Auto) 1% (0-3) Neutrophils # (Auto) 8.6x10^3uL (1.8-7.7) Lymphocytes # (Auto) 1.1x10^3/uL (1.0-4.8) Monocytes # (Auto) 1.6x10^3/uL (0.0-1.1) Eosinophils # (Auto) 0.4x10^3/uL (0.0-0.7) Basophils # (Auto) 0.1x10^3/uL (0.0-0.2) Sodium Level 134mmol/L (136-145) Potassium Level 4.6mmol/L (3.5-5.1) Chloride Level 96mmol/L (98-107) Carbon Dioxide Level 28mmol/L (21-32) Anion Gap 10 (6-14) Blood Urea Nitrogen 45mg/dL (8-26) Creatinine 6.3mg/dL (0.7-1.3) Estimated GFR (Cockcroft-Gault) 9.1 Glucose Level 61mg/dL (70-99) Calcium Level 7.8mg/dL (8.5-10.1) Phosphorus Level 7.5mg/dL (2.6-4.7) Magnesium Level 2.2mg/dL (1.8-2.4) Albumin 1.7g/dL (3.4-5.0) Test 11/23/16 04:02 11/23/16 05:33 11/23/16 07:03 Glucose (Fingerstick) 50mg/dL (70-99) 81mg/dL (70-99) 80mg/dL (70-99) Laboratory Tests Test 11/22/16 11:29 11/22/16 11:54 11/22/16 14:08 11/22/16 15:04 Glucose (Fingerstick) 41mg/dL (70-99) 125mg/dL (70-99) 68mg/dL (70-99) 55mg/dL (70-99) Test 11/22/16 15:58 11/22/16 17:29 11/22/16 18:40 11/22/16 19:43 Glucose (Fingerstick) 47mg/dL (70-99) 57mg/dL (70-99) 66mg/dL (70-99) 64mg/dL (70-99) Test 11/22/16 21:13 11/22/16 22:36 11/23/16 00:48 11/23/16 01:38 Glucose (Fingerstick) 52mg/dL (70-99) 69mg/dL (70-99) 54mg/dL (70-99) 107mg/dL (70-99) Test 11/23/16 03:05 11/23/16 04:02 11/23/16 05:33 11/23/16 07:03 White Blood Count 11.8x10^3/uL (4.0-11.0) Red Blood Count 3.11x10^6/uL (4.30-5.70) Hemoglobin 8.8g/dL (13.0-17.5) Hematocrit 26.3% (39.0-53.0) Mean Corpuscular Volume 85fL (79-100) Mean Corpuscular Hemoglobin 28pg (25-35) Mean Corpuscular Hemoglobin Concent 33g/dL (31-37) Red Cell Distribution Width 14.9% (11.5-14.5) Platelet Count 182x10^3/uL (140-400) Neutrophils (%) (Auto) 73% (31-73) Lymphocytes (%) (Auto) 10% (24-48) Monocytes (%) (Auto) 13% (0-9) Eosinophils (%) (Auto) 4% (0-3) Basophils (%) (Auto) 1% (0-3) Neutrophils # (Auto) 8.6x10^3uL (1.8-7.7) Lymphocytes # (Auto) 1.1x10^3/uL (1.0-4.8) Monocytes # (Auto) 1.6x10^3/uL (0.0-1.1) Eosinophils # (Auto) 0.4x10^3/uL (0.0-0.7) Basophils # (Auto) 0.1x10^3/uL (0.0-0.2) Sodium Level 134mmol/L (136-145) Potassium Level 4.6mmol/L (3.5-5.1) Chloride Level 96mmol/L (98-107) Carbon Dioxide Level 28mmol/L (21-32) Anion Gap 10 (6-14) Blood Urea Nitrogen 45mg/dL (8-26) Creatinine 6.3mg/dL (0.7-1.3) Estimated GFR (Cockcroft-Gault) 9.1 Glucose Level 61mg/dL (70-99) Calcium Level 7.8mg/dL (8.5-10.1) Phosphorus Level 7.5mg/dL (2.6-4.7) Magnesium Level 2.2mg/dL (1.8-2.4) Albumin 1.7g/dL (3.4-5.0) Glucose (Fingerstick) 50mg/dL (70-99) 81mg/dL (70-99) 80mg/dL (70-99) Microbiology 11/20/16 Blood Culture - Preliminary, Resulted NO GROWTH AFTER 2 DAYS 11/18/16 Urine Culture - Final, Complete 11/18/16 Urine Culture Result 1 (SHILPA) - Final, Complete Medications Current Medications Acetaminophen/ Hydrocodone Bitart (Lortab 5/325) 2 tab 1X ONCE PO Last administered on 11/18/16 21:34; Start 11/18/16 at 21:00; Stop 11/18/16 at 21:01 ; Status DC Furosemide 40 mg 40 mg 1X ONCE IVP Last administered on 11/18/16 22:03; Start 11/18/16 at 22:00; Stop 11/18/16 at 22:01; Status DC Ceftriaxone Sodium (Rocephin 1gm Ivpb For Omni) 50 ml @ 100 mls/hr 1X ONCE IV Last administered on 11/18/16 22:06; Start 11/18/16 at 22:15; Stop 11/18/16 at 22:44; Status DC Ondansetron HCl (Zofran) 4 mg PRN Q8HRS PRN IV NAUSEA/VOMITING; Start 11/18/16 at 22:15; Stop 11/19/16 at 22:14; Status DC Morphine Sulfate 4 mg PRN Q2HR PRN IV PAIN Last administered on 11/19/16 14:58 ; Start 11/18/16 at 22:15; Stop 11/19/16 at 22:14; Status DC Acetaminophen (Tylenol) 650 mg PRN Q4HRS PRN PO FEVER; Start 11/18/16 at 22:15 ; Stop 11/19/16 at 22:14; Status DC Insulin Aspart (Novolog) 0-7 UNITS TIDWMEALS SQ ; Start 11/19/16 at 08:00; Stop 11/19/16 at 09:04; Status DC Dextrose 12.5 gm PRN Q15MIN PRN IV SEE COMMENTS; Start 11/18/16 at 22:15; Stop 11/19/16 at 10:19; Status DC Info (Do NOT chart on this placeholder) 1 each 1X ONCE MC ; Start 11/18/16 at 23:15; Stop 11/18/16 at 23:16; Status UNV Pneumococcal Polyvalent Vaccine (Do NOT chart on this placeholder) 1 each 1X ONCE MC ; Start 11/18/16 at 23:15; Stop 11/18/16 at 23:16; Status UNV Influenza Virus Vaccine Quadrival (Fluarix Quad [id number] Syringe) 0.5 ml ONCE ONCE VAX IM ; Start 11/19/16 at 09:00; Stop 11/19/16 at 09:01; Status DC Pneumococcal Polyvalent Vaccine 0.5 ml 0.5 ml ONCE ONCE VAX IM ; Start 11/19/16 at 09:00; Stop 11/19/16 at 09:01; Status DC Ceftriaxone Sodium/Sodium Chloride (Rocephin/Iv Sodium Chloride 0.9% 50ml) 50 ml @ 100 mls/hr Q24H IV Last administered on 11/20/16 20:49; Start 11/19/16 at 21:00; Stop 11/21/16 at 09:56; Status DC Amlodipine Besylate (Norvasc) 10 mg DAILY PO Last administered on 11/22/16 11: 49; Start 11/19/16 at 09:30 Glimepiride (Amaryl) 2 mg DAILYWBKFT PO Last administered on 11/20/16 08:08; Start 11/19/16 at 09:30; Stop 11/21/16 at 10:20; Status DC Carvedilol (Coreg) 25 mg BIDWMEALS PO Last administered on 11/22/16 17:34; Start 11/19/16 at 09:30 Rivaroxaban (Xarelto) 20 mg DAILYWSUP PO Last administered on 11/19/16 17:53; Start 11/19/16 at 17:00; Stop 11/20/16 at 08:53; Status DC Furosemide (Lasix) 40 mg 1X ONCE IVP Last administered on 11/19/16 09:40; Start 11/19/16 at 09:00; Stop 11/19/16 at 09:04; Status DC Insulin Aspart (Novolog) 0-7 UNITS TIDWMEALS SQ ; Start 11/19/16 at 12:00; Stop 11/21/16 at 21:16; Status DC Dextrose 12.5 gm PRN Q15MIN PRN IV SEE COMMENTS Last administered on 11/23/16 04:10; Start 11/19/16 at 09:00 Guaifenesin (Robitussin Dm) 10 ml PRN Q6HRS PRN PO COUGH; Start 11/19/16 at 09: 00 Nicotine (Nicoderm Cq 14mg) 1 patch PRN DAILY PRN TD SMOKING CESSATION; Start 11/19/16 at 09:15 Nicotine Polacrilex (Nicorette Gum) 1 each PRN Q1HR PRN BC SMOKING CESSATION; Start 11/19/16 at 09:15 Albuterol/ Ipratropium (Duoneb) 3 ml RTQID NEB Last administered on 11/22/16 19:17; Start 11/19/16 at 09:30 Enoxaparin Sodium (Lovenox Per Pharmacy Prophylaxis Dosing) 1 each PRN DAILY PRN MC SEE COMMENTS; Start 11/19/16 at 09:30; Stop 11/19/16 at 09:30; Status DC Hydralazine HCl (Apresoline) 25 mg BID PO Last administered on 11/22/16 21:15 ; Start 11/19/16 at 10:30 Morphine Sulfate (Morphine Ir) 15 mg PRN Q4HRS PRN PO PAIN Last administered on 11/23/16 04:18; Start 11/20/16 at 00:15 Morphine Sulfate 4 mg PRN Q2HR PRN IV PAIN Last administered on 11/21/16 13:36 ; Start 11/20/16 at 00:15 Rivaroxaban 15 mg 15 mg DAILYWSUP PO ; Start 11/20/16 at 17:00; Stop 11/22/16 at 12:56; Status DC Sodium Chloride 1,000 ml @ 75 mls/hr [id number] IV Last administered on 23:37; Start 11/20/16 at 10:45; Stop 11/21/16 at 14:42; Status DC Milrinone Lactate/ Dextrose 100 ml @ 0 mls/hr CONT PRN IV SEE I/O RECORD Last administered on 11/21/16 22:19; Start 11/20/16 at 11:30; Stop 11/22/16 at 14:17 ; Status DC Magnesium Sulfate/ Dextrose 50 ml @ 25 mls/hr PRN DAILY PRN IV for Mag < 1.7 on am labs; Start 11/20/16 at 11:30 Piperacillin Sod/ Tazobactam Sod/ Sodium Chloride (Zosyn/Iv Sodium Chloride 0.9 % 50ml) 50 ml @ 100 mls/hr Q6HRS IV Last administered on 11/22/16 05:41; Start 11/20/16 at 12:00; Stop 11/22/16 at 10:39; Status DC Info 1 each 1 each PRN DAILY PRN MC SEE COMMENTS Last administered on 09:52; Start 11/21/16 at 08:15; Stop 11/22/16 at 14:15; Status DC Iron Sucrose/ Sodium Chloride (Venofer/Iv Sodium Chloride 0.9% 100ml) 110 ml @ 55 mls/hr 3X/WEEK IV Last administered on 11/21/16 13:37; Start 11/21/16 at 10 :00; Stop 11/30/16 at 10:59 Darbepoetin Guillermo (Aranesp) 100 mcg WEEKLYHS SQ Last administered on 11/21/16 21:21; Start 11/21/16 at 21:00 Calcium Acetate 1334 mg 1,334 mg TIDWMEALS PO Last administered on 11/22/16 17 :33; Start 11/21/16 at 12:00 Heparin Sodium/ Sodium Chloride 500 ml @ As Directed STK-MED ONCE .ROUTE ; Start 11/21/16 at 10:13; Stop 11/21/16 at 10:14; Status DC Lidocaine HCl 20 ml STK-MED ONCE .ROUTE ; Start 11/21/16 at 10:13; Stop at 10:14; Status DC Fentanyl Citrate (Fentanyl 2ml Vial) 100 mcg STK-MED ONCE .ROUTE ; Start at 10:52; Stop 11/21/16 at 10:53; Status DC Midazolam HCl (Versed) 2 mg STK-MED ONCE .ROUTE ; Start 11/21/16 at 10:52; Stop 11/21/16 at 10:53; Status DC Midazolam HCl (Versed) 1 mg 1X ONCE IV Last administered on 11/21/16 11:04; Start 11/21/16 at 11:30; Stop 11/21/16 at 11:31; Status DC Fentanyl Citrate (Fentanyl 2ml Vial) 25 mcg 1X ONCE IV Last administered on t 11:02; Start 11/21/16 at 11:30; Stop 11/21/16 at 11:31; Status DC Lidocaine/Sodium Bicarbonate (Buffered Lidocaine 1%) 20 ml STK-MED ONCE IJ ; Start 11/21/16 at 14:59; Stop 11/21/16 at 15:00; Status DC Heparin Sodium (Porcine) 06189 unit 10,000 unit STK-MED ONCE .ROUTE ; Start at 14:59; Stop 11/21/16 at 15:00; Status DC Heparin Sodium/ Sodium Chloride 500 ml @ As Directed STK-MED ONCE .ROUTE ; Start 11/21/16 at 14:59; Stop 11/21/16 at 15:00; Status DC Heparin Sodium/ Sodium Chloride 1,000 unit 1X ONCE IART Last administered on 15:18; Start 11/21/16 at 15:15; Stop 11/21/16 at 15:26; Status DC Lidocaine/Sodium Bicarbonate (Buffered Lidocaine 1%) 20 ml 1X ONCE IJ Last administered on 11/21/16 15:17; Start 11/21/16 at 15:15; Stop 11/21/16 at 15:26 ; Status DC Heparin Sodium (Porcine) 4300 unit 4,300 unit 1X ONCE IV Last administered on 11/21/16 15:17; Start 11/21/16 at 15:15; Stop 11/21/16 at 15:26; Status DC Sodium Chloride 1,000 ml @ 1,000 mls/hr Q1H PRN IV hypotension; Start 11/22/16 at 07:31; Stop 11/22/16 at 13:30; Status DC Albumin Human 200 ml @ 200 mls/hr 1X PRN PRN IV Hypotension; Start 11/22/16 at 07:45; Stop 11/22/16 at 13:44; Status DC Sodium Chloride (Iv Sodium Chloride 0.9% 1000ml Bag) 1,000 ml @ 400 mls/hr Q2H30M PRN IV PATENCY; Start 11/22/16 at 07:31; Stop 11/22/16 at 19:30; Status DC Info (PHARMACY MONITORING -- do not chart) 1 each PRN DAILY PRN MC SEE COMMENTS ; Start 11/22/16 at 07:45 Info (PHARMACY MONITORING -- do not chart) 1 each PRN DAILY PRN MC SEE COMMENTS ; Start 11/22/16 at 07:45; Status UNV Diphenhydramine HCl (Benadryl) 25 mg 1X PRN PRN IV ITCHING Last administered on 11/22/16 08:53; Start 11/22/16 at 08:45; Stop 11/23/16 at 08:44; Status DC Diphenhydramine HCl (Benadryl) 25 mg 1X PRN PRN IV ITCHING; Start 11/22/16 at 08:45; Stop 11/23/16 at 08:44; Status DC Ergocalciferol 73864 unit 50,000 unit WEEKLY PO Last administered on 11/22/16 12:12; Start 11/22/16 at 10:00 Piperacillin Sod/ Tazobactam Sod/ Sodium Chloride (Zosyn/Iv Sodium Chloride 0.9 % 50ml) 50 ml @ 100 mls/hr Q6HRS IV Last administered on 11/23/16 05:32; Start 11/22/16 at 12:00 Enoxaparin Sodium (Lovenox Per Pharmacy Treatment Dosing) 1 each PRN DAILY PRN MC SEE COMMENTS; Start 11/22/16 at 13:00; Stop 11/22/16 at 14:15; Status DC Enoxaparin Sodium 150 mg 150 mg Q24H SQ ; Start 11/22/16 at 14:00; Stop at 14:15; Status DC Dextrose 1,000 ml @ 50 mls/hr Q20H IV Last administered on 11/22/16t 16:19; Start 11/22/16 at 16:15 Sodium Chloride 1,000 ml @ 1,000 mls/hr Q1H PRN IV hypotension; Start 11/23/16 at 07:58; Stop 11/23/16 at 13:57 Albumin Human (Albuminar) 200 ml @ 200 mls/hr 1X PRN PRN IV Hypotension; Start 11/23/16 at 08:00; Stop 11/23/16 at 13:59 Diphenhydramine HCl (Benadryl) 25 mg 1X PRN PRN IV ITCHING; Start 11/23/16 at 08:00; Stop 11/24/16 at 07:59 Sodium Chloride (Normal Saline Flush) 10 ml 1X PRN PRN IV AP 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; Start 11/23/16 at 08:00; Stop 11/24/16 at 07:59 Sodium Chloride 10 ml 10 ml 1X PRN PRN IV LOCK TECHNICIAN 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; Start 11/23/16 at 08:00; Stop 11/24/16 at 07:59 Sodium Chloride (Iv Sodium Chloride 0.9% 1000ml Bag) 1,000 ml @ 400 mls/hr Q2H30M PRN IV PATENCY; Start 11/23/16 at 07:58; Stop 11/23/16 at 19:57 Info (PHARMACY MONITORING -- do not chart) 1 each PRN DAILY PRN MC SEE COMMENTS ; Start 11/23/16 at 08:00; Status UNV Active Scripts Active Reported Xarelto (Rivaroxaban) 20 Mg Tablet 20 Mg PO DAILY Carvedilol 25 Mg Tablet 1 Tab PO BID Furosemide 40 Mg Tablet 1 Tab PO DAILY Losartan Potassium 100 Mg Tablet 100 Mg PO DAILY Amlodipine Besylate 10 Mg Tablet 10 Mg PO DAILY Glimepiride 2 Mg Tablet 1 Tab PO DAILY Vitals/I & O Vital Sign - Last 24 Hours 11/22/16 11/22/16 11/22/16 11/22/16 11:48 11:49 11:49 12:09 Pulse 85 B/P 133/67 133/67 Pulse Ox 96 O2 Delivery Nasal Cannula O2 Flow Rate 2.0 11/22/16 11/22/16 11/22/16 11/22/16 15:12 15:23 17:34 19:19 Temp 98.6 98.6 Pulse 103 93 Resp 18 B/P 97/66 115/66 Pulse Ox 96 93 94 O2 Delivery Nasal Cannula Room Air Room Air O2 Flow Rate 2.0 11/22/16 11/22/16 11/22/16 11/22/16 19:40 19:40 21:14 21:15 Temp 99.0 99.0 Pulse 94 92 92 Resp 18 B/P 140/68 127/58 127/58 Pulse Ox 95 O2 Delivery Nasal Cannula Room Air O2 Flow Rate 2.0 11/22/16 11/23/16 11/23/16 11/23/16 22:53 03:00 04:18 05:20 Temp 98.5 97.3 98.5 97.3 Pulse 89 94 Resp 18 B/P 121/60 125/69 Pulse Ox 95 93 94 94 O2 Delivery Nasal Cannula Room Air Nasal Cannula Nasal Cannula O2 Flow Rate 2.0 2.0 11/23/16 11/23/16 07:10 08:00 Temp 98.0 98.0 Pulse 84 Resp 20 B/P 132/68 Pulse Ox 97 O2 Delivery Room Air Nasal Cannula O2 Flow Rate 2.0 Intake and Output 11/22/16 11/22/16 11/23/16 15:00 23:00 07:00 Intake Total 240 ml 240 ml Output Total 200 ml Balance 240 ml 40 ml YANICK LAI MD Nov 23, 2016 09:46
[2016-11-23] MEDS: IRON SUCROSE COMPLEX 200 MG in IV NORMAL SALINE 100ML 100 ML IV SCH (10:08)
[2016-11-23 10:21] LABS: GLOMERULAR BASEMENT ABDY 8 units (0-20)
--- NOTE | 2016-11-23 11:28 | PDOC ---
CARDIO Progress Notes Date and Time Date of Service 11/23/16 Time of Evaluation 1130 Subjective Subjective: No Chest Pain, Other (no acute event overnight. no complaints ) Vitals Vitals Vital Signs Date Time Temp Pulse Resp B/P Pulse Ox O2 Delivery O2 Flow Rate FiO2 11/23/16 08:00 Nasal Cannula 2.0 11/23/16 07:10 98.0 84 20 132/68 97 98.0 Weight Weight [ ] Input and Output Intake and Output Intake and Output 11/23/16 07:00 Intake Total 480 ml Output Total 200 ml Balance 280 ml Intake Oral 480 ml Output Urine Total 200 ml Laboratory Labs Laboratory Tests Test 11/22/16 11:29 11/22/16 11:54 11/22/16 14:08 11/22/16 15:04 Glucose (Fingerstick) 41mg/dL (70-99) 125mg/dL (70-99) 68mg/dL (70-99) 55mg/dL (70-99) Test 11/22/16 15:58 11/22/16 17:29 11/22/16 18:40 11/22/16 19:43 Glucose (Fingerstick) 47mg/dL (70-99) 57mg/dL (70-99) 66mg/dL (70-99) 64mg/dL (70-99) Test 11/22/16 21:13 11/22/16 22:36 11/23/16 00:48 11/23/16 01:38 Glucose (Fingerstick) 52mg/dL (70-99) 69mg/dL (70-99) 54mg/dL (70-99) 107mg/dL (70-99) Test 11/23/16 03:05 11/23/16 04:02 11/23/16 05:33 11/23/16 07:03 White Blood Count 11.8x10^3/uL (4.0-11.0) Red Blood Count 3.11x10^6/uL (4.30-5.70) Hemoglobin 8.8g/dL (13.0-17.5) Hematocrit 26.3% (39.0-53.0) Mean Corpuscular Volume 85fL (79-100) Mean Corpuscular Hemoglobin 28pg (25-35) Mean Corpuscular Hemoglobin Concent 33g/dL (31-37) Red Cell Distribution Width 14.9% (11.5-14.5) Platelet Count 182x10^3/uL (140-400) Neutrophils (%) (Auto) 73% (31-73) Lymphocytes (%) (Auto) 10% (24-48) Monocytes (%) (Auto) 13% (0-9) Eosinophils (%) (Auto) 4% (0-3) Basophils (%) (Auto) 1% (0-3) Neutrophils # (Auto) 8.6x10^3uL (1.8-7.7) Lymphocytes # (Auto) 1.1x10^3/uL (1.0-4.8) Monocytes # (Auto) 1.6x10^3/uL (0.0-1.1) Eosinophils # (Auto) 0.4x10^3/uL (0.0-0.7) Basophils # (Auto) 0.1x10^3/uL (0.0-0.2) Sodium Level 134mmol/L (136-145) Potassium Level 4.6mmol/L (3.5-5.1) Chloride Level 96mmol/L (98-107) Carbon Dioxide Level 28mmol/L (21-32) Anion Gap 10 (6-14) Blood Urea Nitrogen 45mg/dL (8-26) Creatinine 6.3mg/dL (0.7-1.3) Estimated GFR (Cockcroft-Gault) 9.1 Glucose Level 61mg/dL (70-99) Calcium Level 7.8mg/dL (8.5-10.1) Phosphorus Level 7.5mg/dL (2.6-4.7) Magnesium Level 2.2mg/dL (1.8-2.4) Albumin 1.7g/dL (3.4-5.0) Glucose (Fingerstick) 50mg/dL (70-99) 81mg/dL (70-99) 80mg/dL (70-99) Microbiology Micro Microbiology 11/20/16 Blood Culture - Preliminary, Resulted NO GROWTH AFTER 2 DAYS 11/18/16 Urine Culture - Final, Complete 11/18/16 Urine Culture Result 1 (SHILPA) - Final, Complete Physical Exam HEENT: Neck Supple W Full Motion Chest: Symmetric LUNGS: Other (diminished bases ) Heart: S1S2, no murmurs, irregularly irregular (tele AFIB) Abdomen: Soft N/T Extremities: Other (3+ LE edema with erythema. Chronic venous stasis changes to bi LE) Neurology: alert, oriented, follow commands Assessment Assessment 1. Acute on chronic systolic and diastolic HF 2. NICM 3. chronic AFIB 4. CHAY with CKD; HD initiated 5. HTN 6. Diabetes with episodes of hypoglycemia 7. DORA? Recommendations Renal Bx planned for Monday; resume Xarelto following Fluid offloading in HD per nephrology Continue optimization therapy; no ANDREA with CHAY. Supportive care Management of hypoglycemia per PCP RISHABH JACKMAN APRN Nov 23, 2016 11:28
[2016-11-23] MEDS: CARVEDILOL 12.5 MG TABLET PO SCH ×2 (13:00→18:25)
[2016-11-23] MEDS: AMLODIPINE BESYLATE 10 MG TABLET PO SCH (14:56)
[2016-11-23] MEDS: HYDRALAZINE 25 MG TABLET PO SCH ×2 (14:57→20:45)
[2016-11-23 15:00] VITALS: BP 136/69
[2016-11-23] MEDS: IV DEXTROSE 10% 1,000 ML IV SCH (17:00)
[2016-11-23 19:17] VITALS: BP 115/85
[2016-11-23 22:43] VITALS: BP 117/71
[2016-11-24] MEDS: PIPERACILLIN/TAZOBACTAM 2.25 GM in IV NORMAL SALINE 50ML 50 ML IV SCH ×4 (00:37→20:20)
[2016-11-24 03:06] VITALS: BP 120/68
[2016-11-24] MEDS: IPRATRPIUM/ALBUTEROL 0.5/2.5MG 3 ML NEBU. NEB SCH ×4 (06:51→20:58)
[2016-11-24 07:00] VITALS: BP 144/78
[2016-11-24 07:19] LABS: BASO # 0.1 x10^3/uL (0.0-0.2); BASO % 1 % (0-3); EOS % 5 % (0-3); HEMATOCRIT 26.2 % (39.0-53.0); HEMOGLOBIN 8.5 g/dL (13.0-17.5); LYMPH % 8 % (24-48); MEAN CORPUSCULAR HEMOGLOBIN 28 pg (25-35); MEAN CORPUSCULAR HGB CONC 33 g/dL (31-37); MEAN CORPUSCULAR VOLUME 86 fL (79-100); MONO % 10 % (0-9); NEUT % 77 % (31-73); PLATELET COUNT 179 x10^3/uL (140-400); RED BLOOD COUNT 3.04 x10^6/uL (4.30-5.70); RED CELL DISTRIBUTION WIDTH 14.8 % (11.5-14.5); WHITE BLOOD COUNT 12.7 x10^3/uL (4.0-11.0)
[2016-11-24 07:29] LABS: ALBUMIN 1.7 g/dL (3.4-5.0); CALCIUM 8.2 mg/dL (8.5-10.1); CREATININE 5.9 mg/dL (0.7-1.3); GFR 9.8; PHOSPHORUS 6.2 mg/dL (2.6-4.7)
[2016-11-24] MEDS: MORPHINE IR 15 MG TABLET PO PRN ×2 (07:39→20:21)
[2016-11-24] MEDS: CALCIUM ACETATE 667 MG CAPSULE PO SCH ×3 (08:37→17:00)
[2016-11-24] MEDS: AMLODIPINE BESYLATE 10 MG TABLET PO SCH (08:38)
[2016-11-24] MEDS: HYDRALAZINE 25 MG TABLET PO SCH ×2 (08:39→20:21)
[2016-11-24] MEDS: CARVEDILOL 12.5 MG TABLET PO SCH ×2 (08:40→17:44)
[2016-11-24] MEDS ORDERED: IV NORMAL SALINE 1000ML BAG 1,000 ML IV PRN (09:00)
[2016-11-24] MEDS ORDERED: 0.9 % SODIUM CHLORIDE 10 ML DISP.SYRIN. IV PRN ×2 (09:00)
--- NOTE | 2016-11-24 09:42 | PDOC ---
Dialysis Progress Note Dialysis Note Dialysis Note Seen on Hemodialysis, tolerating treatment Well Vitals on Hemodialysis: 156/86 89 Afeb General Appearance: Awake: Alert Oriented x 3 Neck: No JVD or JVP Chest: CTA Guille Heart: S1 S2 Abdomen - Soft NTND Extremities - + Edema ARF/ ATN : Dialysis as below F 180 NR 3.5 Hrs 2 K 2.5 Ca 140 Na 35 HC03 Qb 350 + Qd 500+ Heparin 0 Units Uf 2-3 Kgs or to dry weight as tolerated May give 25-50 gms of 25% Albumin if needed to maintain Hemodynamic stability Treatment plan reviewed and discussed with service parts driver Vitals Vital Signs Vital Signs Date Time Temp Pulse Resp B/P Pulse Ox O2 Delivery O2 Flow Rate FiO2 11/24/16 08:50 Room Air 11/24/16 08:40 91 144/78 11/24/16 08:00 2.0 11/24/16 07:00 97.6 20 97.6 11/24/16 03:06 94 Labs Last Labs Laboratory Tests Test 11/22/16 11:29 11/22/16 11:54 11/22/16 14:08 11/22/16 15:04 Glucose (Fingerstick) 41mg/dL (70-99) 125mg/dL (70-99) 68mg/dL (70-99) 55mg/dL (70-99) Test 11/22/16 15:58 11/22/16 17:29 11/22/16 18:40 11/22/16 19:43 Glucose (Fingerstick) 47mg/dL (70-99) 57mg/dL (70-99) 66mg/dL (70-99) 64mg/dL (70-99) Test 11/22/16 21:13 11/22/16 22:36 11/23/16 00:48 11/23/16 01:38 Glucose (Fingerstick) 52mg/dL (70-99) 69mg/dL (70-99) 54mg/dL (70-99) 107mg/dL (70-99) Test 11/23/16 03:05 11/23/16 04:02 11/23/16 05:33 11/23/16 07:03 White Blood Count 11.8x10^3/uL (4.0-11.0) Red Blood Count 3.11x10^6/uL (4.30-5.70) Hemoglobin 8.8g/dL (13.0-17.5) Hematocrit 26.3% (39.0-53.0) Mean Corpuscular Volume 85fL (79-100) Mean Corpuscular Hemoglobin 28pg (25-35) Mean Corpuscular Hemoglobin Concent 33g/dL (31-37) Red Cell Distribution Width 14.9% (11.5-14.5) Platelet Count 182x10^3/uL (140-400) Neutrophils (%) (Auto) 73% (31-73) Lymphocytes (%) (Auto) 10% (24-48) Monocytes (%) (Auto) 13% (0-9) Eosinophils (%) (Auto) 4% (0-3) Basophils (%) (Auto) 1% (0-3) Neutrophils # (Auto) 8.6x10^3uL (1.8-7.7) Lymphocytes # (Auto) 1.1x10^3/uL (1.0-4.8) Monocytes # (Auto) 1.6x10^3/uL (0.0-1.1) Eosinophils # (Auto) 0.4x10^3/uL (0.0-0.7) Basophils # (Auto) 0.1x10^3/uL (0.0-0.2) Sodium Level 134mmol/L (136-145) Potassium Level 4.6mmol/L (3.5-5.1) Chloride Level 96mmol/L (98-107) Carbon Dioxide Level 28mmol/L (21-32) Anion Gap 10 (6-14) Blood Urea Nitrogen 45mg/dL (8-26) Creatinine 6.3mg/dL (0.7-1.3) Estimated GFR (Cockcroft-Gault) 9.1 Glucose Level 61mg/dL (70-99) Calcium Level 7.8mg/dL (8.5-10.1) Phosphorus Level 7.5mg/dL (2.6-4.7) Magnesium Level 2.2mg/dL (1.8-2.4) Albumin 1.7g/dL (3.4-5.0) Glucose (Fingerstick) 50mg/dL (70-99) 81mg/dL (70-99) 80mg/dL (70-99) Test 11/23/16 11:24 11/23/16 11:44 11/23/16 12:17 11/23/16 14:16 Glucose (Fingerstick) 58mg/dL (70-99) 68mg/dL (70-99) 91mg/dL (70-99) 80mg/dL (70-99) Test 11/23/16 17:32 11/23/16 20:45 11/24/16 03:10 11/24/16 06:17 Glucose (Fingerstick) 95mg/dL (70-99) 104mg/dL (70-99) 84mg/dL (70-99) White Blood Count 12.7x10^3/uL (4.0-11.0) Red Blood Count 3.04x10^6/uL (4.30-5.70) Hemoglobin 8.5g/dL (13.0-17.5) Hematocrit 26.2% (39.0-53.0) Mean Corpuscular Volume 86fL (79-100) Mean Corpuscular Hemoglobin 28pg (25-35) Mean Corpuscular Hemoglobin Concent 33g/dL (31-37) Red Cell Distribution Width 14.8% (11.5-14.5) Platelet Count 179x10^3/uL (140-400) Neutrophils (%) (Auto) 77% (31-73) Lymphocytes (%) (Auto) 8% (24-48) Monocytes (%) (Auto) 10% (0-9) Eosinophils (%) (Auto) 5% (0-3) Basophils (%) (Auto) 1% (0-3) Neutrophils # (Auto) 9.7x10^3uL (1.8-7.7) Lymphocytes # (Auto) 1.0x10^3/uL (1.0-4.8) Monocytes # (Auto) 1.2x10^3/uL (0.0-1.1) Eosinophils # (Auto) 0.6x10^3/uL (0.0-0.7) Basophils # (Auto) 0.1x10^3/uL (0.0-0.2) Sodium Level 133mmol/L (136-145) Potassium Level 5.0mmol/L (3.5-5.1) Chloride Level 96mmol/L (98-107) Carbon Dioxide Level 29mmol/L (21-32) Anion Gap 8 (6-14) Blood Urea Nitrogen 33mg/dL (8-26) Creatinine 5.9mg/dL (0.7-1.3) Estimated GFR (Cockcroft-Gault) 9.8 Glucose Level 95mg/dL (70-99) Calcium Level 8.2mg/dL (8.5-10.1) Phosphorus Level 6.2mg/dL (2.6-4.7) Magnesium Level 1.9mg/dL (1.8-2.4) Albumin 1.7g/dL (3.4-5.0) Test 11/24/16 07:16 Glucose (Fingerstick) 83mg/dL (70-99) Laboratory Tests Test 11/23/16 11:24 11/23/16 11:44 11/23/16 12:17 11/23/16 14:16 Glucose (Fingerstick) 58mg/dL (70-99) 68mg/dL (70-99) 91mg/dL (70-99) 80mg/dL (70-99) Test 11/23/16 17:32 11/23/16 20:45 11/24/16 03:10 11/24/16 06:17 Glucose (Fingerstick) 95mg/dL (70-99) 104mg/dL (70-99) 84mg/dL (70-99) White Blood Count 12.7x10^3/uL (4.0-11.0) Red Blood Count 3.04x10^6/uL (4.30-5.70) Hemoglobin 8.5g/dL (13.0-17.5) Hematocrit 26.2% (39.0-53.0) Mean Corpuscular Volume 86fL (79-100) Mean Corpuscular Hemoglobin 28pg (25-35) Mean Corpuscular Hemoglobin Concent 33g/dL (31-37) Red Cell Distribution Width 14.8% (11.5-14.5) Platelet Count 179x10^3/uL (140-400) Neutrophils (%) (Auto) 77% (31-73) Lymphocytes (%) (Auto) 8% (24-48) Monocytes (%) (Auto) 10% (0-9) Eosinophils (%) (Auto) 5% (0-3) Basophils (%) (Auto) 1% (0-3) Neutrophils # (Auto) 9.7x10^3uL (1.8-7.7) Lymphocytes # (Auto) 1.0x10^3/uL (1.0-4.8) Monocytes # (Auto) 1.2x10^3/uL (0.0-1.1) Eosinophils # (Auto) 0.6x10^3/uL (0.0-0.7) Basophils # (Auto) 0.1x10^3/uL (0.0-0.2) Sodium Level 133mmol/L (136-145) Potassium Level 5.0mmol/L (3.5-5.1) Chloride Level 96mmol/L (98-107) Carbon Dioxide Level 29mmol/L (21-32) Anion Gap 8 (6-14) Blood Urea Nitrogen 33mg/dL (8-26) Creatinine 5.9mg/dL (0.7-1.3) Estimated GFR (Cockcroft-Gault) 9.8 Glucose Level 95mg/dL (70-99) Calcium Level 8.2mg/dL (8.5-10.1) Phosphorus Level 6.2mg/dL (2.6-4.7) Magnesium Level 1.9mg/dL (1.8-2.4) Albumin 1.7g/dL (3.4-5.0) Test 11/24/16 07:16 Glucose (Fingerstick) 83mg/dL (70-99) Assessment Assessment Problems Medical Problems: (1) CHF exacerbation Status: Acute (2) Fall Status: Acute (3) UTI (urinary tract infection) Status: Acute Problems: Plan Plan of Care Problems Medical Problems: (1) CHF exacerbation Status: Acute (2) Fall Status: Acute (3) UTI (urinary tract infection) Status: Acute DONNA RICE MD Nov 24, 2016 09:42
--- NOTE | 2016-11-24 11:50 | PDOC ---
CARDIO Progress Notes Date and Time Date of Service 11/24/16 Time of Evaluation 1145 Subjective Subjective: No Chest Pain, No shortness of breath, No Palpitations, Other ( doing well; no acute events overnight. Seen on HD) Vitals Vitals Vital Signs Date Time Temp Pulse Resp B/P Pulse Ox O2 Delivery O2 Flow Rate FiO2 11/24/16 08:50 Room Air 11/24/16 08:40 91 144/78 11/24/16 08:00 2.0 11/24/16 07:00 97.6 20 97.6 11/24/16 03:06 94 Weight Weight [ ] Input and Output Intake and Output Intake and Output 11/24/16 07:00 Intake Total 1100 ml Balance 1100 ml Intake Oral 1100 ml # Voids 1 Laboratory Labs Laboratory Tests Test 11/23/16 11:44 11/23/16 12:17 11/23/16 14:16 11/23/16 17:32 Glucose (Fingerstick) 68mg/dL (70-99) 91mg/dL (70-99) 80mg/dL (70-99) 95mg/dL (70-99) Test 11/23/16 20:45 11/24/16 03:10 11/24/16 06:17 11/24/16 07:16 Glucose (Fingerstick) 104mg/dL (70-99) 84mg/dL (70-99) 83mg/dL (70-99) White Blood Count 12.7x10^3/uL (4.0-11.0) Red Blood Count 3.04x10^6/uL (4.30-5.70) Hemoglobin 8.5g/dL (13.0-17.5) Hematocrit 26.2% (39.0-53.0) Mean Corpuscular Volume 86fL (79-100) Mean Corpuscular Hemoglobin 28pg (25-35) Mean Corpuscular Hemoglobin Concent 33g/dL (31-37) Red Cell Distribution Width 14.8% (11.5-14.5) Platelet Count 179x10^3/uL (140-400) Neutrophils (%) (Auto) 77% (31-73) Lymphocytes (%) (Auto) 8% (24-48) Monocytes (%) (Auto) 10% (0-9) Eosinophils (%) (Auto) 5% (0-3) Basophils (%) (Auto) 1% (0-3) Neutrophils # (Auto) 9.7x10^3uL (1.8-7.7) Lymphocytes # (Auto) 1.0x10^3/uL (1.0-4.8) Monocytes # (Auto) 1.2x10^3/uL (0.0-1.1) Eosinophils # (Auto) 0.6x10^3/uL (0.0-0.7) Basophils # (Auto) 0.1x10^3/uL (0.0-0.2) Sodium Level 133mmol/L (136-145) Potassium Level 5.0mmol/L (3.5-5.1) Chloride Level 96mmol/L (98-107) Carbon Dioxide Level 29mmol/L (21-32) Anion Gap 8 (6-14) Blood Urea Nitrogen 33mg/dL (8-26) Creatinine 5.9mg/dL (0.7-1.3) Estimated GFR (Cockcroft-Gault) 9.8 Glucose Level 95mg/dL (70-99) Calcium Level 8.2mg/dL (8.5-10.1) Phosphorus Level 6.2mg/dL (2.6-4.7) Magnesium Level 1.9mg/dL (1.8-2.4) Albumin 1.7g/dL (3.4-5.0) Test 11/24/16 11:13 Glucose (Fingerstick) 92mg/dL (70-99) Microbiology Micro Microbiology 11/20/16 Blood Culture - Preliminary, Resulted NO GROWTH AFTER 3 DAYS 11/18/16 Urine Culture - Final, Complete 11/18/16 Urine Culture Result 1 (SHILPA) - Final, Complete Physical Exam HEENT: Neck Supple W Full Motion Chest: Symmetric LUNGS: Other (diminished bases ) Heart: S1S2, no murmurs, irregularly irregular (tele AFIB) Abdomen: Soft N/T Extremities: Other (3+ LE edema with erythema. Chronic venous stasis changes to bi LE) Neurology: alert, oriented, follow commands Assessment Assessment 1. Acute on chronic systolic and diastolic HF 2. NICM 3. chronic AFIB 4. CHAY with CKD; HD initiated 5. HTN 6. Diabetes 7. DORA? 8. Anemia Recommendations Renal Bx tomorrow. Fluid offloading in HD ongoing. Tunneled HD catheter to be placed. Continue supportive care/optimization therapy. Increase activity as tolerated Consider converting OAC to Eliquis for stroke prophylaxis given CHAY/ ?ATN on RISHABH Delatorre APRN Nov 24, 2016 11:50
[2016-11-24] MEDS ORDERED: DIALYSIS PATIENT. MC PRN ×2 (12:45)
--- NOTE | 2016-11-24 13:04 | PDOC ---
PROGRESS NOTES Chief Complaint Chief Complaint - CHF Systolic acute on chronic - Afib - CHAY - Leukocytosis - Hyperphosphatemia - DM - HTN - Anemia - Proteinuria - Lower extremity edema with cellulitis - Fungal rash, total body - Fall History of Present Illness History of Present Illness 60 year old male examined while receiving hemodialysis this morning. Discussed upcoming expected renal biopsy. Patient complains of left foot swelling and pain persisting today. Vitals Vitals Vital Signs Date Time Temp Pulse Resp B/P Pulse Ox O2 Delivery O2 Flow Rate FiO2 11/24/16 08:50 Room Air 11/24/16 08:40 91 144/78 11/24/16 08:00 2.0 11/24/16 07:00 97.6 20 97.6 11/24/16 03:06 94 Physical Exam General: Alert, Oriented X3, Cooperative, No acute distress Heart: Other (Mild tachycardia, No rubs) Lungs: Clear, Other (No wheezes/crackles) Abdomen: Normal bowel sounds, Soft Extremities: No clubbing, No cyanosis, Other (LE edema) Skin: Other (Fungal rash over whole body; dry and flaking LE; chronic venous stasis) Labs LABS Laboratory Tests Test 11/23/16 14:16 11/23/16 17:32 11/23/16 20:45 11/24/16 03:10 Glucose (Fingerstick) 80mg/dL (70-99) 95mg/dL (70-99) 104mg/dL (70-99) 84mg/dL (70-99) Test 11/24/16 06:17 11/24/16 07:16 11/24/16 11:13 White Blood Count 12.7x10^3/uL (4.0-11.0) Red Blood Count 3.04x10^6/uL (4.30-5.70) Hemoglobin 8.5g/dL (13.0-17.5) Hematocrit 26.2% (39.0-53.0) Mean Corpuscular Volume 86fL (79-100) Mean Corpuscular Hemoglobin 28pg (25-35) Mean Corpuscular Hemoglobin Concent 33g/dL (31-37) Red Cell Distribution Width 14.8% (11.5-14.5) Platelet Count 179x10^3/uL (140-400) Neutrophils (%) (Auto) 77% (31-73) Lymphocytes (%) (Auto) 8% (24-48) Monocytes (%) (Auto) 10% (0-9) Eosinophils (%) (Auto) 5% (0-3) Basophils (%) (Auto) 1% (0-3) Neutrophils # (Auto) 9.7x10^3uL (1.8-7.7) Lymphocytes # (Auto) 1.0x10^3/uL (1.0-4.8) Monocytes # (Auto) 1.2x10^3/uL (0.0-1.1) Eosinophils # (Auto) 0.6x10^3/uL (0.0-0.7) Basophils # (Auto) 0.1x10^3/uL (0.0-0.2) Sodium Level 133mmol/L (136-145) Potassium Level 5.0mmol/L (3.5-5.1) Chloride Level 96mmol/L (98-107) Carbon Dioxide Level 29mmol/L (21-32) Anion Gap 8 (6-14) Blood Urea Nitrogen 33mg/dL (8-26) Creatinine 5.9mg/dL (0.7-1.3) Estimated GFR (Cockcroft-Gault) 9.8 Glucose Level 95mg/dL (70-99) Calcium Level 8.2mg/dL (8.5-10.1) Phosphorus Level 6.2mg/dL (2.6-4.7) Magnesium Level 1.9mg/dL (1.8-2.4) Albumin 1.7g/dL (3.4-5.0) Glucose (Fingerstick) 83mg/dL (70-99) 92mg/dL (70-99) Review of Systems Review of Systems Left foot pain and swelling Denies SOA or chest pain Denies dysuria Tolerating dialysis well Assessment and Plan Assessmemt and Plan Assessment: - CHF Systolic acute on chronic - CHAY - Afib - Urinary tract infection - Leukocytosis - Hyperphosphatemia - DM - HTN - Anemia - Proteinuria - Lower extremity edema with cellulitis - Fungal rash, total body - Fall Plan: - Continue monitoring for hypoglycemia closely. - Renal biopsy scheduled for Monday; xaphillto held per cardiology - Dialysis initiated, patient tolerating well; outpatient arrangements in progress. - Appreciate cardiology and nephrology input - Defer to nephrology regarding hyperphosphatemia, edema, elevated ESR - Continue Zosyn, await blood cultures. - Await further serologies and cultures. Cultures negative to date. - Cont IV morphine for pain. - Recheck labs in a.m. - PT/OT as tolerated Problems: Comment Review of Relevant I have reviewed the following items maynor (where applicable) has been applied. Labs Laboratory Tests Test 11/22/16 14:08 11/22/16 15:04 11/22/16 15:58 11/22/16 17:29 Glucose (Fingerstick) 68mg/dL (70-99) 55mg/dL (70-99) 47mg/dL (70-99) 57mg/dL (70-99) Test 11/22/16 18:40 11/22/16 19:43 11/22/16 21:13 11/22/16 22:36 Glucose (Fingerstick) 66mg/dL (70-99) 64mg/dL (70-99) 52mg/dL (70-99) 69mg/dL (70-99) Test 11/23/16 00:48 11/23/16 01:38 11/23/16 03:05 11/23/16 04:02 Glucose (Fingerstick) 54mg/dL (70-99) 107mg/dL (70-99) 50mg/dL (70-99) White Blood Count 11.8x10^3/uL (4.0-11.0) Red Blood Count 3.11x10^6/uL (4.30-5.70) Hemoglobin 8.8g/dL (13.0-17.5) Hematocrit 26.3% (39.0-53.0) Mean Corpuscular Volume 85fL (79-100) Mean Corpuscular Hemoglobin 28pg (25-35) Mean Corpuscular Hemoglobin Concent 33g/dL (31-37) Red Cell Distribution Width 14.9% (11.5-14.5) Platelet Count 182x10^3/uL (140-400) Neutrophils (%) (Auto) 73% (31-73) Lymphocytes (%) (Auto) 10% (24-48) Monocytes (%) (Auto) 13% (0-9) Eosinophils (%) (Auto) 4% (0-3) Basophils (%) (Auto) 1% (0-3) Neutrophils # (Auto) 8.6x10^3uL (1.8-7.7) Lymphocytes # (Auto) 1.1x10^3/uL (1.0-4.8) Monocytes # (Auto) 1.6x10^3/uL (0.0-1.1) Eosinophils # (Auto) 0.4x10^3/uL (0.0-0.7) Basophils # (Auto) 0.1x10^3/uL (0.0-0.2) Sodium Level 134mmol/L (136-145) Potassium Level 4.6mmol/L (3.5-5.1) Chloride Level 96mmol/L (98-107) Carbon Dioxide Level 28mmol/L (21-32) Anion Gap 10 (6-14) Blood Urea Nitrogen 45mg/dL (8-26) Creatinine 6.3mg/dL (0.7-1.3) Estimated GFR (Cockcroft-Gault) 9.1 Glucose Level 61mg/dL (70-99) Calcium Level 7.8mg/dL (8.5-10.1) Phosphorus Level 7.5mg/dL (2.6-4.7) Magnesium Level 2.2mg/dL (1.8-2.4) Albumin 1.7g/dL (3.4-5.0) Test 11/23/16 05:33 11/23/16 07:03 11/23/16 11:24 11/23/16 11:44 Glucose (Fingerstick) 81mg/dL (70-99) 80mg/dL (70-99) 58mg/dL (70-99) 68mg/dL (70-99) Test 11/23/16 12:17 11/23/16 14:16 11/23/16 17:32 11/23/16 20:45 Glucose (Fingerstick) 91mg/dL (70-99) 80mg/dL (70-99) 95mg/dL (70-99) 104mg/dL (70-99) Test 11/24/16 03:10 11/24/16 06:17 11/24/16 07:16 11/24/16 11:13 Glucose (Fingerstick) 84mg/dL (70-99) 83mg/dL (70-99) 92mg/dL (70-99) White Blood Count 12.7x10^3/uL (4.0-11.0) Red Blood Count 3.04x10^6/uL (4.30-5.70) Hemoglobin 8.5g/dL (13.0-17.5) Hematocrit 26.2% (39.0-53.0) Mean Corpuscular Volume 86fL (79-100) Mean Corpuscular Hemoglobin 28pg (25-35) Mean Corpuscular Hemoglobin Concent 33g/dL (31-37) Red Cell Distribution Width 14.8% (11.5-14.5) Platelet Count 179x10^3/uL (140-400) Neutrophils (%) (Auto) 77% (31-73) Lymphocytes (%) (Auto) 8% (24-48) Monocytes (%) (Auto) 10% (0-9) Eosinophils (%) (Auto) 5% (0-3) Basophils (%) (Auto) 1% (0-3) Neutrophils # (Auto) 9.7x10^3uL (1.8-7.7) Lymphocytes # (Auto) 1.0x10^3/uL (1.0-4.8) Monocytes # (Auto) 1.2x10^3/uL (0.0-1.1) Eosinophils # (Auto) 0.6x10^3/uL (0.0-0.7) Basophils # (Auto) 0.1x10^3/uL (0.0-0.2) Sodium Level 133mmol/L (136-145) Potassium Level 5.0mmol/L (3.5-5.1) Chloride Level 96mmol/L (98-107) Carbon Dioxide Level 29mmol/L (21-32) Anion Gap 8 (6-14) Blood Urea Nitrogen 33mg/dL (8-26) Creatinine 5.9mg/dL (0.7-1.3) Estimated GFR (Cockcroft-Gault) 9.8 Glucose Level 95mg/dL (70-99) Calcium Level 8.2mg/dL (8.5-10.1) Phosphorus Level 6.2mg/dL (2.6-4.7) Magnesium Level 1.9mg/dL (1.8-2.4) Albumin 1.7g/dL (3.4-5.0) Laboratory Tests Test 11/23/16 14:16 11/23/16 17:32 11/23/16 20:45 11/24/16 03:10 Glucose (Fingerstick) 80mg/dL (70-99) 95mg/dL (70-99) 104mg/dL (70-99) 84mg/dL (70-99) Test 11/24/16 06:17 11/24/16 07:16 11/24/16 11:13 White Blood Count 12.7x10^3/uL (4.0-11.0) Red Blood Count 3.04x10^6/uL (4.30-5.70) Hemoglobin 8.5g/dL (13.0-17.5) Hematocrit 26.2% (39.0-53.0) Mean Corpuscular Volume 86fL (79-100) Mean Corpuscular Hemoglobin 28pg (25-35) Mean Corpuscular Hemoglobin Concent 33g/dL (31-37) Red Cell Distribution Width 14.8% (11.5-14.5) Platelet Count 179x10^3/uL (140-400) Neutrophils (%) (Auto) 77% (31-73) Lymphocytes (%) (Auto) 8% (24-48) Monocytes (%) (Auto) 10% (0-9) Eosinophils (%) (Auto) 5% (0-3) Basophils (%) (Auto) 1% (0-3) Neutrophils # (Auto) 9.7x10^3uL (1.8-7.7) Lymphocytes # (Auto) 1.0x10^3/uL (1.0-4.8) Monocytes # (Auto) 1.2x10^3/uL (0.0-1.1) Eosinophils # (Auto) 0.6x10^3/uL (0.0-0.7) Basophils # (Auto) 0.1x10^3/uL (0.0-0.2) Sodium Level 133mmol/L (136-145) Potassium Level 5.0mmol/L (3.5-5.1) Chloride Level 96mmol/L (98-107) Carbon Dioxide Level 29mmol/L (21-32) Anion Gap 8 (6-14) Blood Urea Nitrogen 33mg/dL (8-26) Creatinine 5.9mg/dL (0.7-1.3) Estimated GFR (Cockcroft-Gault) 9.8 Glucose Level 95mg/dL (70-99) Calcium Level 8.2mg/dL (8.5-10.1) Phosphorus Level 6.2mg/dL (2.6-4.7) Magnesium Level 1.9mg/dL (1.8-2.4) Albumin 1.7g/dL (3.4-5.0) Glucose (Fingerstick) 83mg/dL (70-99) 92mg/dL (70-99) Microbiology 11/20/16 Blood Culture - Preliminary, Resulted NO GROWTH AFTER 4 DAYS 11/18/16 Urine Culture - Final, Complete 11/18/16 Urine Culture Result 1 (SHILPA) - Final, Complete Medications Current Medications Acetaminophen/ Hydrocodone Bitart (Lortab 5/325) 2 tab 1X ONCE PO Last administered on 11/18/16 21:34; Start 11/18/16 at 21:00; Stop 11/18/16 at 21:01 ; Status DC Furosemide 40 mg 40 mg 1X ONCE IVP Last administered on 11/18/16 22:03; Start 11/18/16 at 22:00; Stop 11/18/16 at 22:01; Status DC Ceftriaxone Sodium (Rocephin 1gm Ivpb For Omni) 50 ml @ 100 mls/hr 1X ONCE IV Last administered on 11/18/16 22:06; Start 11/18/16 at 22:15; Stop 11/18/16 at 22:44; Status DC Ondansetron HCl (Zofran) 4 mg PRN Q8HRS PRN IV NAUSEA/VOMITING; Start 11/18/16 at 22:15; Stop 11/19/16 at 22:14; Status DC Morphine Sulfate 4 mg PRN Q2HR PRN IV PAIN Last administered on 11/19/16 14:58 ; Start 11/18/16 at 22:15; Stop 11/19/16 at 22:14; Status DC Acetaminophen (Tylenol) 650 mg PRN Q4HRS PRN PO FEVER; Start 11/18/16 at 22:15 ; Stop 11/19/16 at 22:14; Status DC Insulin Aspart (Novolog) 0-7 UNITS TIDWMEALS SQ ; Start 11/19/16 at 08:00; Stop 11/19/16 at 09:04; Status DC Dextrose 12.5 gm PRN Q15MIN PRN IV SEE COMMENTS; Start 11/18/16 at 22:15; Stop 11/19/16 at 10:19; Status DC Info (Do NOT chart on this placeholder) 1 each 1X ONCE MC ; Start 11/18/16 at 23:15; Stop 11/18/16 at 23:16; Status UNV Pneumococcal Polyvalent Vaccine (Do NOT chart on this placeholder) 1 each 1X ONCE MC ; Start 11/18/16 at 23:15; Stop 11/18/16 at 23:16; Status UNV Influenza Virus Vaccine Quadrival (Fluarix Quad 6897-3030 Syringe) 0.5 ml ONCE ONCE VAX IM ; Start 11/19/16 at 09:00; Stop 11/19/16 at 09:01; Status DC Pneumococcal Polyvalent Vaccine 0.5 ml 0.5 ml ONCE ONCE VAX IM ; Start 11/19/16 at 09:00; Stop 11/19/16 at 09:01; Status DC Ceftriaxone Sodium/Sodium Chloride (Rocephin/Iv Sodium Chloride 0.9% 50ml) 50 ml @ 100 mls/hr Q24H IV Last administered on 11/20/16 20:49; Start 11/19/16 at 21:00; Stop 11/21/16 at 09:56; Status DC Amlodipine Besylate (Norvasc) 10 mg DAILY PO Last administered on 11/24/16 08: 38; Start 11/19/16 at 09:30 Glimepiride (Amaryl) 2 mg DAILYWBKFT PO Last administered on 11/20/16 08:08; Start 11/19/16 at 09:30; Stop 11/21/16 at 10:20; Status DC Carvedilol (Coreg) 25 mg BIDWMEALS PO Last administered on 11/24/16 08:40; Start 11/19/16 at 09:30 Rivaroxaban (Xarelto) 20 mg DAILYWSUP PO Last administered on 11/19/16 17:53; Start 11/19/16 at 17:00; Stop 11/20/16 at 08:53; Status DC Furosemide (Lasix) 40 mg 1X ONCE IVP Last administered on 11/19/16 09:40; Start 11/19/16 at 09:00; Stop 11/19/16 at 09:04; Status DC Insulin Aspart (Novolog) 0-7 UNITS TIDWMEALS SQ ; Start 11/19/16 at 12:00; Stop 11/21/16 at 21:16; Status DC Dextrose 12.5 gm PRN Q15MIN PRN IV SEE COMMENTS Last administered on 11/23/16 04:10; Start 11/19/16 at 09:00 Guaifenesin (Robitussin Dm) 10 ml PRN Q6HRS PRN PO COUGH; Start 11/19/16 at 09: 00 Nicotine (Nicoderm Cq 14mg) 1 patch PRN DAILY PRN TD SMOKING CESSATION; Start 11/19/16 at 09:15 Nicotine Polacrilex (Nicorette Gum) 1 each PRN Q1HR PRN BC BREAKTHROUGH CRAVINGS; Start 11/19/16 at 09:15 Albuterol/ Ipratropium (Duoneb) 3 ml RTQID NEB Last administered on 11/24/16 06:51; Start 11/19/16 at 09:30 Enoxaparin Sodium (Lovenox Per Pharmacy Prophylaxis Dosing) 1 each PRN DAILY PRN MC SEE COMMENTS; Start 11/19/16 at 09:30; Stop 11/19/16 at 09:30; Status DC Hydralazine HCl (Apresoline) 25 mg BID PO Last administered on 11/24/16 08:39 ; Start 11/19/16 at 10:30 Morphine Sulfate (Morphine Ir) 15 mg PRN Q4HRS PRN PO PAIN Last administered on 11/24/16 07:39; Start 11/20/16 at 00:15 Morphine Sulfate 4 mg PRN Q2HR PRN IV PAIN Last administered on 11/21/16 13:36 ; Start 11/20/16 at 00:15 Rivaroxaban 15 mg 15 mg DAILYWSUP PO ; Start 11/20/16 at 17:00; Stop 11/22/16 at 12:56; Status DC Sodium Chloride 1,000 ml @ 75 mls/hr [id number] IV Last administered on 23:37; Start 11/20/16 at 10:45; Stop 11/21/16 at 14:42; Status DC Milrinone Lactate/ Dextrose 100 ml @ 0 mls/hr CONT PRN IV SEE I/O RECORD Last administered on 11/21/16 22:19; Start 11/20/16 at 11:30; Stop 11/22/16 at 14:17 ; Status DC Magnesium Sulfate/ Dextrose 50 ml @ 25 mls/hr PRN DAILY PRN IV for Mag < 1.7 on am labs; Start 11/20/16 at 11:30 Piperacillin Sod/ Tazobactam Sod/ Sodium Chloride (Zosyn/Iv Sodium Chloride 0.9 % 50ml) 50 ml @ 100 mls/hr Q6HRS IV Last administered on 11/22/16 05:41; Start 11/20/16 at 12:00; Stop 11/22/16 at 10:39; Status DC Info 1 each 1 each PRN DAILY PRN MC SEE COMMENTS Last administered on 09:52; Start 11/21/16 at 08:15; Stop 11/22/16 at 14:15; Status DC Iron Sucrose/ Sodium Chloride (Venofer/Iv Sodium Chloride 0.9% 100ml) 110 ml @ 55 mls/hr 3X/WEEK IV Last administered on 11/23/16 10:08; Start 11/21/16 at 10 :00; Stop 11/30/16 at 10:59 Darbepoetin Guillermo (Aranesp) 100 mcg WEEKLYHS SQ Last administered on 11/21/16 21:21; Start 11/21/16 at 21:00 Calcium Acetate 1334 mg 1,334 mg TIDWMEALS PO Last administered on 11/24/16 08 :37; Start 11/21/16 at 12:00 Heparin Sodium/ Sodium Chloride 500 ml @ As Directed STK-MED ONCE .ROUTE ; Start 11/21/16 at 10:13; Stop 11/21/16 at 10:14; Status DC Lidocaine HCl 20 ml STK-MED ONCE .ROUTE ; Start 11/21/16 at 10:13; Stop at 10:14; Status DC Fentanyl Citrate (Fentanyl 2ml Vial) 100 mcg STK-MED ONCE .ROUTE ; Start at 10:52; Stop 11/21/16 at 10:53; Status DC Midazolam HCl (Versed) 2 mg STK-MED ONCE .ROUTE ; Start 11/21/16 at 10:52; Stop 11/21/16 at 10:53; Status DC Midazolam HCl (Versed) 1 mg 1X ONCE IV Last administered on 11/21/16 11:04; Start 11/21/16 at 11:30; Stop 11/21/16 at 11:31; Status DC Fentanyl Citrate (Fentanyl 2ml Vial) 25 mcg 1X ONCE IV Last administered on 11:02; Start 11/21/16 at 11:30; Stop 11/21/16 at 11:31; Status DC Lidocaine/Sodium Bicarbonate (Buffered Lidocaine 1%) 20 ml STK-MED ONCE IJ ; Start 11/21/16 at 14:59; Stop 11/21/16 at 15:00; Status DC Heparin Sodium (Porcine) 30186 unit 10,000 unit STK-MED ONCE .ROUTE ; Start at 14:59; Stop 11/21/16 at 15:00; Status DC Heparin Sodium/ Sodium Chloride 500 ml @ As Directed STK-MED ONCE .ROUTE ; Start 11/21/16 at 14:59; Stop 11/21/16 at 15:00; Status DC Heparin Sodium/ Sodium Chloride 1,000 unit 1X ONCE IART Last administered on 15:18; Start 11/21/16 at 15:15; Stop 11/21/16 at 15:26; Status DC Lidocaine/Sodium Bicarbonate (Buffered Lidocaine 1%) 20 ml 1X ONCE IJ Last administered on 11/21/16 15:17; Start 11/21/16 at 15:15; Stop 11/21/16 at 15:26 ; Status DC Heparin Sodium (Porcine) 4300 unit 4,300 unit 1X ONCE IV Last administered on 11/21/16 15:17; Start 11/21/16 at 15:15; Stop 11/21/16 at 15:26; Status DC Sodium Chloride 1,000 ml @ 1,000 mls/hr Q1H PRN IV hypotension; Start 11/22/16 at 07:31; Stop 11/22/16 at 13:30; Status DC Albumin Human 200 ml @ 200 mls/hr 1X PRN PRN IV Hypotension; Start 11/22/16 at 07:45; Stop 11/22/16 at 13:44; Status DC Sodium Chloride (Iv Sodium Chloride 0.9% 1000ml Bag) 1,000 ml @ 400 mls/hr Q2H30M PRN IV PATENCY; Start 11/22/16 at 07:31; Stop 11/22/16 at 19:30; Status DC Info (PHARMACY MONITORING -- do not chart) 1 each PRN DAILY PRN MC SEE COMMENTS ; Start 11/22/16 at 07:45 Info (PHARMACY MONITORING -- do not chart) 1 each PRN DAILY PRN MC SEE COMMENTS ; Start 11/22/16 at 07:45; Status UNV Diphenhydramine HCl (Benadryl) 25 mg 1X PRN PRN IV ITCHING Last administered on 11/22/16 08:53; Start 11/22/16 at 08:45; Stop 11/23/16 at 08:44; Status DC Diphenhydramine HCl (Benadryl) 25 mg 1X PRN PRN IV ITCHING; Start 11/22/16 at 08:45; Stop 11/23/16 at 08:44; Status DC Ergocalciferol 90026 unit 50,000 unit WEEKLY PO Last administered on 11/22/16 12:12; Start 11/22/16 at 10:00 Piperacillin Sod/ Tazobactam Sod/ Sodium Chloride (Zosyn/Iv Sodium Chloride 0.9 % 50ml) 50 ml @ 100 mls/hr Q6HRS IV Last administered on 11/24/16 06:06; Start 11/22/16 at 12:00; Stop 11/24/16 at 08:05; Status DC Enoxaparin Sodium (Lovenox Per Pharmacy Treatment Dosing) 1 each PRN DAILY PRN MC SEE COMMENTS; Start 11/22/16 at 13:00; Stop 11/22/16 at 14:15; Status DC Enoxaparin Sodium 150 mg 150 mg Q24H SQ ; Start 11/22/16 at 14:00; Stop at 14:15; Status DC Dextrose 1,000 ml @ 50 mls/hr Q20H IV Last administered on 11/22/16t 16:19; Start 11/22/16 at 16:15; Stop 11/23/16 at 20:48; Status DC Sodium Chloride 1,000 ml @ 1,000 mls/hr Q1H PRN IV hypotension; Start 11/23/16 at 07:58; Stop 11/23/16 at 13:57; Status DC Albumin Human (Albuminar) 200 ml @ 200 mls/hr 1X PRN PRN IV Hypotension; Start 11/23/16 at 08:00; Stop 11/23/16 at 13:59; Status DC Diphenhydramine HCl (Benadryl) 25 mg 1X PRN PRN IV ITCHING; Start 11/23/16 at 08:00; Stop 11/24/16 at 07:59; Status DC Sodium Chloride (Normal Saline Flush) 10 ml 1X PRN PRN IV AP 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; Start 11/23/16 at 08:00; Stop 11/24/16 at 07:59; Status DC Sodium Chloride 10 ml 10 ml 1X PRN PRN IV PROBATE JUDGE 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; Start 11/23/16 at 08:00; Stop 11/24/16 at 07:59; Status DC Sodium Chloride (Iv Sodium Chloride 0.9% 1000ml Bag) 1,000 ml @ 400 mls/hr Q2H30M PRN IV PATENCY; Start 11/23/16 at 07:58; Stop 11/23/16 at 19:57; Status DC Info 1 each 1 each PRN DAILY PRN MC SEE COMMENTS; Start 11/23/16 at 08:00; Status UNV Piperacillin Sod/ Tazobactam Sod 2.25 gm/Sodium Chloride 50 ml @ 100 mls/hr Q8HRS IV ; Start 11/24/16 at 14:00 Sodium Chloride (Iv Sodium Chloride 0.9% 1000ml Bag) 1,000 ml @ 1,000 mls/hr Q1H PRN IV hypotension; Start 11/24/16 at 09:00; Stop 11/24/16 at 14:59 Sodium Chloride (Normal Saline Flush) 10 ml 1X PRN PRN IV AP 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; Start 11/24/16 at 09:00; Stop 11/24/16 at 18:00 Sodium Chloride (Normal Saline Flush) 10 ml 1X PRN PRN IV PROBATE JUDGE 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; Start 11/24/16 at 09:00; Stop 11/24/16 at 18:00 Info (PHARMACY MONITORING -- do not chart) 1 each PRN DAILY PRN MC SEE COMMENTS ; Start 11/24/16 at 12:45; Status UNV Info (PHARMACY MONITORING -- do not chart) 1 each PRN DAILY PRN MC SEE COMMENTS ; Start 11/24/16 at 12:45; Status UNV Active Scripts Active Reported Xarelto (Rivaroxaban) 20 Mg Tablet 20 Mg PO DAILY Carvedilol 25 Mg Tablet 1 Tab PO BID Furosemide 40 Mg Tablet 1 Tab PO DAILY Losartan Potassium 100 Mg Tablet 100 Mg PO DAILY Amlodipine Besylate 10 Mg Tablet 10 Mg PO DAILY Glimepiride 2 Mg Tablet 1 Tab PO DAILY Vitals/I & O Vital Sign - Last 24 Hours 11/23/16 11/23/16 11/23/16 11/23/16 12:59 13:00 13:14 13:59 Pulse 91 Resp 22 20 B/P 118/65 Pulse Ox 94 O2 Delivery Nasal Cannula Nasal Cannula O2 Flow Rate 2.0 2.0 11/23/16 11/23/16 11/23/16 11/23/16 14:56 14:57 15:00 16:40 Temp 98.0 98.0 Pulse 91 91 80 Resp 20 B/P 136/69 136/69 136/69 Pulse Ox 93 90 O2 Delivery Room Air Room Air 11/23/16 11/23/16 11/23/16 11/23/16 18:25 19:15 19:17 19:26 Temp 98.2 98.2 Pulse 90 85 Resp 18 B/P 119/68 115/85 Pulse Ox 96 90 O2 Delivery Nasal Cannula Room Air Room Air O2 Flow Rate 2.0 11/23/16 11/23/16 11/24/16 11/24/16 20:45 22:43 03:06 06:53 Temp 98.2 98.9 98.2 98.9 Pulse 85 83 89 Resp 18 18 B/P 115/85 117/71 120/68 Pulse Ox 94 94 O2 Delivery Room Air Nasal Cannula Nasal Cannula O2 Flow Rate 2.0 2.0 11/24/16 11/24/16 11/24/16 11/24/16 07:00 07:39 08:00 08:38 Temp 97.6 97.6 Pulse 91 91 Resp 20 B/P 144/78 144/78 O2 Delivery Room Air Room Air Nasal Cannula O2 Flow Rate 2.0 11/24/16 11/24/16 11/24/16 08:39 08:40 08:50 Pulse 91 91 B/P 144/78 144/78 O2 Delivery Room Air Intake and Output 11/23/16 11/23/16 11/24/16 15:00 23:00 07:00 Intake Total 700 ml 400 ml Balance 700 ml 400 ml ELIGIO MCKENNA III DO Nov 24, 2016 13:03
[2016-11-24 15:00] VITALS: BP 122/94
--- NOTE | 2016-11-24 16:50 | PDOC ---
PROGRESS NOTES Subjective Subjective He admits less pain and swelling in his left foot but continues with itching in his feet. Objective Objective Vital Signs Date Time Temp Pulse Resp B/P Pulse Ox O2 Delivery O2 Flow Rate FiO2 11/24/16 15:59 96 Room Air 11/24/16 15:00 98.3 100 12 122/94 98.3 11/24/16 08:00 2.0 Intake and Output 11/24/16 07:00 Intake Total 1100 ml Balance 1100 ml Intake Oral 1100 ml # Voids 1 Physical Exam Physical Exam He is alert and comfortable,sitting up in chair and less edema of his left foot. Assessment Assessment Problems Medical Problems: (1) CHF exacerbation Status: Acute (2) Fall Status: Acute (3) UTI (urinary tract infection) Status: Acute Plan Plan of Care To ask PT and OT to see him. Comment Review of Relevant I have reviewed the following items maynor (where applicable) has been applied. Labs Laboratory Tests Test 11/22/16 17:29 11/22/16 18:40 11/22/16 19:43 11/22/16 21:13 Glucose (Fingerstick) 57mg/dL (70-99) 66mg/dL (70-99) 64mg/dL (70-99) 52mg/dL (70-99) Test 11/22/16 22:36 11/23/16 00:48 11/23/16 01:38 11/23/16 03:05 Glucose (Fingerstick) 69mg/dL (70-99) 54mg/dL (70-99) 107mg/dL (70-99) White Blood Count 11.8x10^3/uL (4.0-11.0) Red Blood Count 3.11x10^6/uL (4.30-5.70) Hemoglobin 8.8g/dL (13.0-17.5) Hematocrit 26.3% (39.0-53.0) Mean Corpuscular Volume 85fL (79-100) Mean Corpuscular Hemoglobin 28pg (25-35) Mean Corpuscular Hemoglobin Concent 33g/dL (31-37) Red Cell Distribution Width 14.9% (11.5-14.5) Platelet Count 182x10^3/uL (140-400) Neutrophils (%) (Auto) 73% (31-73) Lymphocytes (%) (Auto) 10% (24-48) Monocytes (%) (Auto) 13% (0-9) Eosinophils (%) (Auto) 4% (0-3) Basophils (%) (Auto) 1% (0-3) Neutrophils # (Auto) 8.6x10^3uL (1.8-7.7) Lymphocytes # (Auto) 1.1x10^3/uL (1.0-4.8) Monocytes # (Auto) 1.6x10^3/uL (0.0-1.1) Eosinophils # (Auto) 0.4x10^3/uL (0.0-0.7) Basophils # (Auto) 0.1x10^3/uL (0.0-0.2) Sodium Level 134mmol/L (136-145) Potassium Level 4.6mmol/L (3.5-5.1) Chloride Level 96mmol/L (98-107) Carbon Dioxide Level 28mmol/L (21-32) Anion Gap 10 (6-14) Blood Urea Nitrogen 45mg/dL (8-26) Creatinine 6.3mg/dL (0.7-1.3) Estimated GFR (Cockcroft-Gault) 9.1 Glucose Level 61mg/dL (70-99) Calcium Level 7.8mg/dL (8.5-10.1) Phosphorus Level 7.5mg/dL (2.6-4.7) Magnesium Level 2.2mg/dL (1.8-2.4) Albumin 1.7g/dL (3.4-5.0) Test 11/23/16 04:02 11/23/16 05:33 11/23/16 07:03 11/23/16 11:24 Glucose (Fingerstick) 50mg/dL (70-99) 81mg/dL (70-99) 80mg/dL (70-99) 58mg/dL (70-99) Test 11/23/16 11:44 11/23/16 12:17 11/23/16 14:16 11/23/16 17:32 Glucose (Fingerstick) 68mg/dL (70-99) 91mg/dL (70-99) 80mg/dL (70-99) 95mg/dL (70-99) Test 11/23/16 20:45 11/24/16 03:10 11/24/16 06:17 11/24/16 07:16 Glucose (Fingerstick) 104mg/dL (70-99) 84mg/dL (70-99) 83mg/dL (70-99) White Blood Count 12.7x10^3/uL (4.0-11.0) Red Blood Count 3.04x10^6/uL (4.30-5.70) Hemoglobin 8.5g/dL (13.0-17.5) Hematocrit 26.2% (39.0-53.0) Mean Corpuscular Volume 86fL (79-100) Mean Corpuscular Hemoglobin 28pg (25-35) Mean Corpuscular Hemoglobin Concent 33g/dL (31-37) Red Cell Distribution Width 14.8% (11.5-14.5) Platelet Count 179x10^3/uL (140-400) Neutrophils (%) (Auto) 77% (31-73) Lymphocytes (%) (Auto) 8% (24-48) Monocytes (%) (Auto) 10% (0-9) Eosinophils (%) (Auto) 5% (0-3) Basophils (%) (Auto) 1% (0-3) Neutrophils # (Auto) 9.7x10^3uL (1.8-7.7) Lymphocytes # (Auto) 1.0x10^3/uL (1.0-4.8) Monocytes # (Auto) 1.2x10^3/uL (0.0-1.1) Eosinophils # (Auto) 0.6x10^3/uL (0.0-0.7) Basophils # (Auto) 0.1x10^3/uL (0.0-0.2) Sodium Level 133mmol/L (136-145) Potassium Level 5.0mmol/L (3.5-5.1) Chloride Level 96mmol/L (98-107) Carbon Dioxide Level 29mmol/L (21-32) Anion Gap 8 (6-14) Blood Urea Nitrogen 33mg/dL (8-26) Creatinine 5.9mg/dL (0.7-1.3) Estimated GFR (Cockcroft-Gault) 9.8 Glucose Level 95mg/dL (70-99) Calcium Level 8.2mg/dL (8.5-10.1) Phosphorus Level 6.2mg/dL (2.6-4.7) Magnesium Level 1.9mg/dL (1.8-2.4) Albumin 1.7g/dL (3.4-5.0) Test 11/24/16 11:13 Glucose (Fingerstick) 92mg/dL (70-99) Laboratory Tests Test 11/23/16 17:32 11/23/16 20:45 11/24/16 03:10 11/24/16 06:17 Glucose (Fingerstick) 95mg/dL (70-99) 104mg/dL (70-99) 84mg/dL (70-99) White Blood Count 12.7x10^3/uL (4.0-11.0) Red Blood Count 3.04x10^6/uL (4.30-5.70) Hemoglobin 8.5g/dL (13.0-17.5) Hematocrit 26.2% (39.0-53.0) Mean Corpuscular Volume 86fL (79-100) Mean Corpuscular Hemoglobin 28pg (25-35) Mean Corpuscular Hemoglobin Concent 33g/dL (31-37) Red Cell Distribution Width 14.8% (11.5-14.5) Platelet Count 179x10^3/uL (140-400) Neutrophils (%) (Auto) 77% (31-73) Lymphocytes (%) (Auto) 8% (24-48) Monocytes (%) (Auto) 10% (0-9) Eosinophils (%) (Auto) 5% (0-3) Basophils (%) (Auto) 1% (0-3) Neutrophils # (Auto) 9.7x10^3uL (1.8-7.7) Lymphocytes # (Auto) 1.0x10^3/uL (1.0-4.8) Monocytes # (Auto) 1.2x10^3/uL (0.0-1.1) Eosinophils # (Auto) 0.6x10^3/uL (0.0-0.7) Basophils # (Auto) 0.1x10^3/uL (0.0-0.2) Sodium Level 133mmol/L (136-145) Potassium Level 5.0mmol/L (3.5-5.1) Chloride Level 96mmol/L (98-107) Carbon Dioxide Level 29mmol/L (21-32) Anion Gap 8 (6-14) Blood Urea Nitrogen 33mg/dL (8-26) Creatinine 5.9mg/dL (0.7-1.3) Estimated GFR (Cockcroft-Gault) 9.8 Glucose Level 95mg/dL (70-99) Calcium Level 8.2mg/dL (8.5-10.1) Phosphorus Level 6.2mg/dL (2.6-4.7) Magnesium Level 1.9mg/dL (1.8-2.4) Albumin 1.7g/dL (3.4-5.0) Test 11/24/16 07:16 11/24/16 11:13 Glucose (Fingerstick) 83mg/dL (70-99) 92mg/dL (70-99) Microbiology 11/20/16 Blood Culture - Preliminary, Resulted NO GROWTH AFTER 4 DAYS 11/18/16 Urine Culture - Final, Complete 11/18/16 Urine Culture Result 1 (SHILPA) - Final, Complete Medications Current Medications Acetaminophen/ Hydrocodone Bitart (Lortab 5/325) 2 tab 1X ONCE PO Last administered on 11/18/16 21:34; Start 11/18/16 at 21:00; Stop 11/18/16 at 21:01 ; Status DC Furosemide 40 mg 40 mg 1X ONCE IVP Last administered on 11/18/16 22:03; Start 11/18/16 at 22:00; Stop 11/18/16 at 22:01; Status DC Ceftriaxone Sodium (Rocephin 1gm Ivpb For Omni) 50 ml @ 100 mls/hr 1X ONCE IV Last administered on 11/18/16 22:06; Start 11/18/16 at 22:15; Stop 11/18/16 at 22:44; Status DC Ondansetron HCl (Zofran) 4 mg PRN Q8HRS PRN IV NAUSEA/VOMITING; Start 11/18/16 at 22:15; Stop 11/19/16 at 22:14; Status DC Morphine Sulfate 4 mg PRN Q2HR PRN IV PAIN Last administered on 11/19/16 14:58 ; Start 11/18/16 at 22:15; Stop 11/19/16 at 22:14; Status DC Acetaminophen (Tylenol) 650 mg PRN Q4HRS PRN PO FEVER; Start 11/18/16 at 22:15 ; Stop 11/19/16 at 22:14; Status DC Insulin Aspart (Novolog) 0-7 UNITS TIDWMEALS SQ ; Start 11/19/16 at 08:00; Stop 11/19/16 at 09:04; Status DC Dextrose 12.5 gm PRN Q15MIN PRN IV SEE COMMENTS; Start 11/18/16 at 22:15; Stop 11/19/16 at 10:19; Status DC Info (Do NOT chart on this placeholder) 1 each 1X ONCE MC ; Start 11/18/16 at 23:15; Stop 11/18/16 at 23:16; Status UNV Pneumococcal Polyvalent Vaccine (Do NOT chart on this placeholder) 1 each 1X ONCE MC ; Start 11/18/16 at 23:15; Stop 11/18/16 at 23:16; Status UNV Influenza Virus Vaccine Quadrival (Fluarix Quad [id number] Syringe) 0.5 ml ONCE ONCE VAX IM ; Start 11/19/16 at 09:00; Stop 11/19/16 at 09:01; Status DC Pneumococcal Polyvalent Vaccine 0.5 ml 0.5 ml ONCE ONCE VAX IM ; Start 11/19/16 at 09:00; Stop 11/19/16 at 09:01; Status DC Ceftriaxone Sodium/Sodium Chloride (Rocephin/Iv Sodium Chloride 0.9% 50ml) 50 ml @ 100 mls/hr Q24H IV Last administered on 11/20/16 20:49; Start 11/19/16 at 21:00; Stop 11/21/16 at 09:56; Status DC Amlodipine Besylate (Norvasc) 10 mg DAILY PO Last administered on 11/24/16 08: 38; Start 11/19/16 at 09:30 Glimepiride (Amaryl) 2 mg DAILYWBKFT PO Last administered on 11/20/16 08:08; Start 11/19/16 at 09:30; Stop 11/21/16 at 10:20; Status DC Carvedilol (Coreg) 25 mg BIDWMEALS PO Last administered on 11/24/16 08:40; Start 11/19/16 at 09:30 Rivaroxaban (Xarelto) 20 mg DAILYWSUP PO Last administered on 11/19/16 17:53; Start 11/19/16 at 17:00; Stop 11/20/16 at 08:53; Status DC Furosemide (Lasix) 40 mg 1X ONCE IVP Last administered on 11/19/16 09:40; Start 11/19/16 at 09:00; Stop 11/19/16 at 09:04; Status DC Insulin Aspart (Novolog) 0-7 UNITS TIDWMEALS SQ ; Start 11/19/16 at 12:00; Stop 11/21/16 at 21:16; Status DC Dextrose 12.5 gm PRN Q15MIN PRN IV SEE COMMENTS Last administered on 11/23/16 04:10; Start 11/19/16 at 09:00 Guaifenesin (Robitussin Dm) 10 ml PRN Q6HRS PRN PO COUGH; Start 11/19/16 at 09: 00 Nicotine (Nicoderm Cq 14mg) 1 patch PRN DAILY PRN TD SMOKING CESSATION; Start 11/19/16 at 09:15 Nicotine Polacrilex (Nicorette Gum) 1 each PRN Q1HR PRN BC BREAKTHROUGH CRAVINGS; Start 11/19/16 at 09:15 Albuterol/ Ipratropium (Duoneb) 3 ml RTQID NEB Last administered on 11/24/16 15:58; Start 11/19/16 at 09:30 Enoxaparin Sodium (Lovenox Per Pharmacy Prophylaxis Dosing) 1 each PRN DAILY PRN MC SEE COMMENTS; Start 11/19/16 at 09:30; Stop 11/19/16 at 09:30; Status DC Hydralazine HCl (Apresoline) 25 mg BID PO Last administered on 11/24/16 08:39 ; Start 11/19/16 at 10:30 Morphine Sulfate (Morphine Ir) 15 mg PRN Q4HRS PRN PO PAIN Last administered on 11/24/16 07:39; Start 11/20/16 at 00:15 Morphine Sulfate 4 mg PRN Q2HR PRN IV PAIN Last administered on 11/21/16 13:36 ; Start 11/20/16 at 00:15 Rivaroxaban 15 mg 15 mg DAILYWSUP PO ; Start 11/20/16 at 17:00; Stop 11/22/16 at 12:56; Status DC Sodium Chloride 1,000 ml @ 75 mls/hr [id number] IV Last administered on 23:37; Start 11/20/16 at 10:45; Stop 11/21/16 at 14:42; Status DC Milrinone Lactate/ Dextrose 100 ml @ 0 mls/hr CONT PRN IV SEE I/O RECORD Last administered on 11/21/16 22:19; Start 11/20/16 at 11:30; Stop 11/22/16 at 14:17 ; Status DC Magnesium Sulfate/ Dextrose 50 ml @ 25 mls/hr PRN DAILY PRN IV for Mag < 1.7 on am labs; Start 11/20/16 at 11:30 Piperacillin Sod/ Tazobactam Sod/ Sodium Chloride (Zosyn/Iv Sodium Chloride 0.9 % 50ml) 50 ml @ 100 mls/hr Q6HRS IV Last administered on 11/22/16 05:41; Start 11/20/16 at 12:00; Stop 11/22/16 at 10:39; Status DC Info 1 each 1 each PRN DAILY PRN MC SEE COMMENTS Last administered on 09:52; Start 11/21/16 at 08:15; Stop 11/22/16 at 14:15; Status DC Iron Sucrose/ Sodium Chloride (Venofer/Iv Sodium Chloride 0.9% 100ml) 110 ml @ 55 mls/hr 3X/WEEK IV Last administered on 11/23/16 10:08; Start 11/21/16 at 10 :00; Stop 11/30/16 at 10:59 Darbepoetin Guillermo (Aranesp) 100 mcg WEEKLYHS SQ Last administered on 11/21/16 21:21; Start 11/21/16 at 21:00 Calcium Acetate 1334 mg 1,334 mg TIDWMEALS PO Last administered on 11/24/16 14 :19; Start 11/21/16 at 12:00 Heparin Sodium/ Sodium Chloride 500 ml @ As Directed STK-MED ONCE .ROUTE ; Start 11/21/16 at 10:13; Stop 11/21/16 at 10:14; Status DC Lidocaine HCl 20 ml STK-MED ONCE .ROUTE ; Start 11/21/16 at 10:13; Stop at 10:14; Status DC Fentanyl Citrate (Fentanyl 2ml Vial) 100 mcg STK-MED ONCE .ROUTE ; Start at 10:52; Stop 11/21/16 at 10:53; Status DC Midazolam HCl (Versed) 2 mg STK-MED ONCE .ROUTE ; Start 11/21/16 at 10:52; Stop 11/21/16 at 10:53; Status DC Midazolam HCl (Versed) 1 mg 1X ONCE IV Last administered on 11/21/16 11:04; Start 11/21/16 at 11:30; Stop 11/21/16 at 11:31; Status DC Fentanyl Citrate (Fentanyl 2ml Vial) 25 mcg 1X ONCE IV Last administered on 11:02; Start 11/21/16 at 11:30; Stop 11/21/16 at 11:31; Status DC Lidocaine/Sodium Bicarbonate (Buffered Lidocaine 1%) 20 ml STK-MED ONCE IJ ; Start 11/21/16 at 14:59; Stop 11/21/16 at 15:00; Status DC Heparin Sodium (Porcine) 21519 unit 10,000 unit STK-MED ONCE .ROUTE ; Start at 14:59; Stop 11/21/16 at 15:00; Status DC Heparin Sodium/ Sodium Chloride 500 ml @ As Directed STK-MED ONCE .ROUTE ; Start 11/21/16 at 14:59; Stop 11/21/16 at 15:00; Status DC Heparin Sodium/ Sodium Chloride 1,000 unit 1X ONCE IART Last administered on 15:18; Start 11/21/16 at 15:15; Stop 11/21/16 at 15:26; Status DC Lidocaine/Sodium Bicarbonate (Buffered Lidocaine 1%) 20 ml 1X ONCE IJ Last administered on 11/21/16 15:17; Start 11/21/16 at 15:15; Stop 11/21/16 at 15:26 ; Status DC Heparin Sodium (Porcine) 4300 unit 4,300 unit 1X ONCE IV Last administered on 11/21/16 15:17; Start 11/21/16 at 15:15; Stop 11/21/16 at 15:26; Status DC Sodium Chloride 1,000 ml @ 1,000 mls/hr Q1H PRN IV hypotension; Start 11/22/16 at 07:31; Stop 11/22/16 at 13:30; Status DC Albumin Human 200 ml @ 200 mls/hr 1X PRN PRN IV Hypotension; Start 11/22/16 at 07:45; Stop 11/22/16 at 13:44; Status DC Sodium Chloride (Iv Sodium Chloride 0.9% 1000ml Bag) 1,000 ml @ 400 mls/hr Q2H30M PRN IV PATENCY; Start 11/22/16 at 07:31; Stop 11/22/16 at 19:30; Status DC Info (PHARMACY MONITORING -- do not chart) 1 each PRN DAILY PRN MC SEE COMMENTS ; Start 11/22/16 at 07:45 Info (PHARMACY MONITORING -- do not chart) 1 each PRN DAILY PRN MC SEE COMMENTS ; Start 11/22/16 at 07:45; Status UNV Diphenhydramine HCl (Benadryl) 25 mg 1X PRN PRN IV ITCHING Last administered on 11/22/16t 08:53; Start 11/22/16 at 08:45; Stop 11/23/16 at 08:44; Status DC Diphenhydramine HCl (Benadryl) 25 mg 1X PRN PRN IV ITCHING; Start 11/22/16 at 08:45; Stop 11/23/16 at 08:44; Status DC Ergocalciferol 61688 unit 50,000 unit WEEKLY PO Last administered on 11/22/16t 12:12; Start 11/22/16 at 10:00 Piperacillin Sod/ Tazobactam Sod/ Sodium Chloride (Zosyn/Iv Sodium Chloride 0.9 % 50ml) 50 ml @ 100 mls/hr Q6HRS IV Last administered on 11/24/16t 06:06; Start 11/22/16 at 12:00; Stop 11/24/16 at 08:05; Status DC Enoxaparin Sodium (Lovenox Per Pharmacy Treatment Dosing) 1 each PRN DAILY PRN MC SEE COMMENTS; Start 11/22/16 at 13:00; Stop 11/22/16 at 14:15; Status DC Enoxaparin Sodium 150 mg 150 mg Q24H SQ ; Start 11/22/16 at 14:00; Stop at 14:15; Status DC Dextrose 1,000 ml @ 50 mls/hr Q20H IV Last administered on 11/22/16t 16:19; Start 11/22/16 at 16:15; Stop 11/23/16 at 20:48; Status DC Sodium Chloride 1,000 ml @ 1,000 mls/hr Q1H PRN IV hypotension; Start 11/23/16 at 07:58; Stop 11/23/16 at 13:57; Status DC Albumin Human (Albuminar) 200 ml @ 200 mls/hr 1X PRN PRN IV Hypotension; Start 11/23/16 at 08:00; Stop 11/23/16 at 13:59; Status DC Diphenhydramine HCl (Benadryl) 25 mg 1X PRN PRN IV ITCHING; Start 11/23/16 at 08:00; Stop 11/24/16 at 07:59; Status DC Sodium Chloride (Normal Saline Flush) 10 ml 1X PRN PRN IV AP 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; Start 11/23/16 at 08:00; Stop 11/24/16 at 07:59; Status DC Sodium Chloride 10 ml 10 ml 1X PRN PRN IV STOCK HANGER 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; Start 11/23/16 at 08:00; Stop 11/24/16 at 07:59; Status DC Sodium Chloride (Iv Sodium Chloride 0.9% 1000ml Bag) 1,000 ml @ 400 mls/hr Q2H30M PRN IV PATENCY; Start 11/23/16 at 07:58; Stop 11/23/16 at 19:57; Status DC Info 1 each 1 each PRN DAILY PRN MC SEE COMMENTS; Start 11/23/16 at 08:00; Status UNV Piperacillin Sod/ Tazobactam Sod 2.25 gm/Sodium Chloride 50 ml @ 100 mls/hr Q8HRS IV Last administered on 11/24/16t 14:19; Start 11/24/16 at 14:00 Sodium Chloride (Iv Sodium Chloride 0.9% 1000ml Bag) 1,000 ml @ 1,000 mls/hr Q1H PRN IV hypotension; Start 11/24/16 at 09:00; Stop 11/24/16 at 14:59; Status DC Sodium Chloride (Normal Saline Flush) 10 ml 1X PRN PRN IV AP 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; Start 11/24/16 at 09:00; Stop 11/24/16 at 18:00 Sodium Chloride (Normal Saline Flush) 10 ml 1X PRN PRN IV STOCK HANGER 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; Start 11/24/16 at 09:00; Stop 11/24/16 at 18:00 Info (PHARMACY MONITORING -- do not chart) 1 each PRN DAILY PRN MC SEE COMMENTS ; Start 11/24/16 at 12:45; Status UNV Info (PHARMACY MONITORING -- do not chart) 1 each PRN DAILY PRN MC SEE COMMENTS ; Start 11/24/16 at 12:45; Status UNV Active Scripts Active Reported Xarelto (Rivaroxaban) 20 Mg Tablet 20 Mg PO DAILY Carvedilol 25 Mg Tablet 1 Tab PO BID Furosemide 40 Mg Tablet 1 Tab PO DAILY Losartan Potassium 100 Mg Tablet 100 Mg PO DAILY Amlodipine Besylate 10 Mg Tablet 10 Mg PO DAILY Glimepiride 2 Mg Tablet 1 Tab PO DAILY Vitals/I & O Vital Sign - Last 24 Hours 11/23/16 11/23/16 11/23/16 11/23/16 18:25 19:15 19:17 19:26 Temp 98.2 98.2 Pulse 90 85 Resp 18 B/P 119/68 115/85 Pulse Ox 96 90 O2 Delivery Nasal Cannula Room Air Room Air O2 Flow Rate 2.0 11/23/16 11/23/16 11/24/16 11/24/16 20:45 22:43 03:06 06:53 Temp 98.2 98.9 98.2 98.9 Pulse 85 83 89 Resp 18 18 B/P 115/85 117/71 120/68 Pulse Ox 94 94 O2 Delivery Room Air Nasal Cannula Nasal Cannula O2 Flow Rate 2.0 2.0 11/24/16 11/24/16 11/24/16 11/24/16 07:00 07:39 08:00 08:38 Temp 97.6 97.6 Pulse 91 91 Resp 20 B/P 144/78 144/78 O2 Delivery Room Air Room Air Nasal Cannula O2 Flow Rate 2.0 11/24/16 11/24/16 11/24/16 11/24/16 08:39 08:40 08:50 15:00 Temp 98.3 98.3 Pulse 91 91 100 Resp 12 B/P 144/78 144/78 122/94 O2 Delivery Room Air Room Air 11/24/16 15:59 Pulse Ox 96 O2 Delivery Room Air Intake and Output 11/23/16 11/23/16 11/24/16 15:00 23:00 07:00 Intake Total 700 ml 400 ml Balance 700 ml 400 ml YANICK LAI MD Nov 24, 2016 16:50
[2016-11-24 19:00] VITALS: BP 119/74
[2016-11-24 23:00] VITALS: BP 124/70
[2016-11-25] VITALS (14 sets, daily range): BP systolic 114–177; BP diastolic 67–100
[2016-11-25 04:54] LABS: BASO # 0.1 x10^3/uL (0.0-0.2); BASO % 1 % (0-3); EOS % 6 % (0-3); HEMATOCRIT 28.3 % (39.0-53.0); HEMOGLOBIN 9.2 g/dL (13.0-17.5); LYMPH # 1.1 x10^3/uL (1.0-4.8); LYMPH % 8 % (24-48); MEAN CORPUSCULAR HEMOGLOBIN 28 pg (25-35); MEAN CORPUSCULAR HGB CONC 33 g/dL (31-37); MEAN CORPUSCULAR VOLUME 86 fL (79-100); MONO % 8 % (0-9); NEUT % 77 % (31-73); PLATELET COUNT 229 x10^3/uL (140-400); WHITE BLOOD COUNT 13.8 x10^3/uL (4.0-11.0)
[2016-11-25 05:07] LABS: ALBUMIN 2.1 g/dL (3.4-5.0); CALCIUM 8.7 mg/dL (8.5-10.1); CREATININE 5.6 mg/dL (0.7-1.3); GFR 10.4; PHOSPHORUS 4.9 mg/dL (2.6-4.7); POTASSIUM 4.8 mmol/L (3.5-5.1)
[2016-11-25] MEDS: PIPERACILLIN/TAZOBACTAM 2.25 GM in IV NORMAL SALINE 50ML 50 ML IV SCH ×3 (06:00→21:03)
[2016-11-25] MEDS: IPRATRPIUM/ALBUTEROL 0.5/2.5MG 3 ML NEBU. NEB SCH ×4 (07:32→18:10)
[2016-11-25] MEDS: IRON SUCROSE COMPLEX 200 MG in IV NORMAL SALINE 100ML 100 ML IV SCH (07:44)
[2016-11-25] MEDS: HYDRALAZINE 25 MG TABLET PO SCH ×2 (07:45→21:01)
[2016-11-25] MEDS: CARVEDILOL 12.5 MG TABLET PO SCH ×2 (07:45→16:34)
[2016-11-25] MEDS: AMLODIPINE BESYLATE 10 MG TABLET PO SCH (07:46)
[2016-11-25] MEDS: CALCIUM ACETATE 667 MG CAPSULE PO SCH ×3 (07:47→16:34)
[2016-11-25 08:47] LABS: INR 1.6 (0.8-1.1)
--- NOTE | 2016-11-25 10:58 | PDOC ---
RISHABH JACKMAN ARCHITECTURE MANAGER 11/25/16 1058: CARDIO Progress Notes Date and Time Date of Service 11/25/16 Time of Evaluation 1005 Subjective Subjective: No Chest Pain, No shortness of breath, No Palpitations, Other (no acute events overnight. Having intermittent confusion) Vitals Vitals Vital Signs Date Time Temp Pulse Resp B/P Pulse Ox O2 Delivery O2 Flow Rate FiO2 11/25/16 07:46 94 125/67 11/25/16 07:32 93 Room Air 11/25/16 07:23 97.9 22 97.9 11/24/16 21:21 2.0 Weight Weight [ ] Input and Output Intake and Output Intake and Output 11/25/16 07:00 Intake Total 1515 ml Output Total 100 ml Balance 1415 ml Intake Oral 1400 ml IV Total 115 ml Output Urine Total 100 ml # Voids 1 Laboratory Labs Laboratory Tests Test 11/24/16 11:13 11/24/16 16:50 11/24/16 21:01 11/25/16 04:17 Glucose (Fingerstick) 92mg/dL (70-99) 145mg/dL (70-99) 191mg/dL (70-99) White Blood Count 13.8x10^3/uL (4.0-11.0) Red Blood Count 3.30x10^6/uL (4.30-5.70) Hemoglobin 9.2g/dL (13.0-17.5) Hematocrit 28.3% (39.0-53.0) Mean Corpuscular Volume 86fL (79-100) Mean Corpuscular Hemoglobin 28pg (25-35) Mean Corpuscular Hemoglobin Concent 33g/dL (31-37) Red Cell Distribution Width 15.0% (11.5-14.5) Platelet Count 229x10^3/uL (140-400) Neutrophils (%) (Auto) 77% (31-73) Lymphocytes (%) (Auto) 8% (24-48) Monocytes (%) (Auto) 8% (0-9) Eosinophils (%) (Auto) 6% (0-3) Basophils (%) (Auto) 1% (0-3) Neutrophils # (Auto) 10.6x10^3uL (1.8-7.7) Lymphocytes # (Auto) 1.1x10^3/uL (1.0-4.8) Monocytes # (Auto) 1.2x10^3/uL (0.0-1.1) Eosinophils # (Auto) 0.8x10^3/uL (0.0-0.7) Basophils # (Auto) 0.1x10^3/uL (0.0-0.2) Sodium Level 137mmol/L (136-145) Potassium Level 4.8mmol/L (3.5-5.1) Chloride Level 98mmol/L (98-107) Carbon Dioxide Level 28mmol/L (21-32) Anion Gap 11 (6-14) Blood Urea Nitrogen 31mg/dL (8-26) Creatinine 5.6mg/dL (0.7-1.3) Estimated GFR (Cockcroft-Gault) 10.4 Glucose Level 133mg/dL (70-99) Calcium Level 8.7mg/dL (8.5-10.1) Phosphorus Level 4.9mg/dL (2.6-4.7) Magnesium Level 2.1mg/dL (1.8-2.4) Albumin 2.1g/dL (3.4-5.0) Test 11/25/16 07:12 11/25/16 08:22 Glucose (Fingerstick) 127mg/dL (70-99) Prothrombin Time 18.0SEC (11.7-14.0) Prothromb Time International Ratio 1.6 (0.8-1.1) Microbiology Micro Microbiology 11/20/16 Blood Culture - Preliminary, Resulted NO GROWTH AFTER 4 DAYS 11/18/16 Urine Culture - Final, Complete 11/18/16 Urine Culture Result 1 (SHILPA) - Final, Complete Physical Exam HEENT: Neck Supple W Full Motion Chest: Symmetric LUNGS: Clear to Auscultation, Other (diminished bases ) Heart: S1S2, no murmurs, irregularly irregular (tele AFIB) Abdomen: Soft N/T Extremities: Other (3+ LE edema with erythema. Chronic venous stasis changes to bi LE, bilateral LE severely dry with erythema) Neurology: alert, oriented, follow commands Assessment Assessment 1. Acute on chronic systolic and diastolic HF 2. NICM 3. chronic AFIB 4. CHAY with CKD; HD initiated 5. HTN 6. Diabetes 7. DORA? 8. Anemia Recommendations Renal Bx and tunneled catheter placement today. Resume OAC, Eliquis in 2 days for stroke prophylaxis. Continue fluid offloading in HD Plan for rehab post discharge. No ANDREA with CHAY. Okay for discharge from a cardiac standpoint. To f/u in our office in [place]. [place] in 2-4 weeks. SAMIA EVERETT MD 11/26/16 0929: CARDIO Progress Notes Plan Plan Pt. seen and examined on 11/25/2016. 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 No acute events overnight. Bx today. Doing well. Continue hD. Will follow up in 4 weeks in clinic. RISHABH JACKMNA APRN Nov 25, 2016 10:58 SAMIA EVERETT MD Nov 26, 2016 09:29
--- NOTE | 2016-11-25 12:28 | PDOC ---
SUBJECTIVE ROS CHAY/ ATN +/- CKD underlying Feeling [facility] better, appears to be more alert and awakt too CVS: no Orthopnea, no CP RESP: no SOB, no GARCIA GI: no Nausea, no Vomiting : no Dysuria, no Urgency OBJECTIVE Vital Signs Vital Signs Date Time Temp Pulse Resp B/P Pulse Ox O2 Delivery O2 Flow Rate FiO2 11/25/16 12:03 94 Room Air 11/25/16 11:30 98.2 84 22 117/70 98.2 11/24/16 21:21 2.0 I & 0 Intake and Output 11/25/16 07:00 Intake Total 1515 ml Output Total 100 ml Balance 1415 ml Intake Oral 1400 ml IV Total 115 ml Output Urine Total 100 ml # Voids 1 PHYSICAL EXAM Physical Exam General Appearance: Awake Alert Oriented x 3 In no Distress Eyes: VIsion Unchanged Conjunctiva Normal EN: No EN Drainage Mucous Memb. moist Neck: no JVD min JVP Supple no Thyromegaly; thick neck CVS: S1 S2 sys Murmur No Gallop No Rub +2-3 Edema Resp: no Rales no Rhonchi no Acc. Muscle use GI: BAS +ve NO Bruit Non Tender Non Distended; obese : no CVA tenderness; no Suprapubic Tenderness SKIN: no obvious Rashes Breast Exam deferred Mu.Sk: Adequate ROM no Muscle Atrophy Heme: Unable to palpate Obvious LAD no Splenomegaly NEURO: Good Strength and Tone Cranial Nerves II - XII grossly intact Psych: not Depressed no Active hallucination Assessment & Plan CHAY - precise etio unclear. Suspect ATn. Ac. GN is a possiblity given ^^ ESR . will proceed with Bx sicne he has been off of Xarelto for 4-5 days. NO obvious emergent need for Dialysis today after 3 previous HD. Pt denies s/s of Uremia perse. Will re-evaluate for Dialysis in am - await [facility] findings Oliguria - Suspect ATN - ? due to NSAIDs (Doubt ^ ESR would be due to thit then ) Edema - plans as above; Uf with HD as Jalen Nephritic Urine - cannot r/o ATN vs Ac. GN - serologies as ordered are all -ve. PEPs are -ve Anemia: Fe Def currently so IV Fe. ct Epogen Transfuse as needed. HTN: Current BP meds reviewed. See orders for changes. ^ Phos - better after Starting Phoslo low Alb - anticipate imrpovement in PO intake after initial HD Discussed Plan of Care and prognosis etc. at length with family (), Cardio SUPPORT SERVICE TECH and Check Examiner COMMENT/RELEVANT DATA Meds Current Medications Medications (Trade) Dose Ordered Sig/Fermin Start Time Stop Time Status Last Admin Dose Admin Acetaminophen (Tylenol) 650 mg PRN Q4HRS PRN 11/18/16 22:15 11/19/16 22:14 DC Acetaminophen/ Hydrocodone Bitart (Lortab 5/325) 2 tab 1X ONCE 11/18/16 21:00 11/18/16 21:01 DC 11/18/16 21:34 2 TAB Albumin Human (Albuminar) 200 ml @ 200 mls/hr 1X PRN PRN 11/23/16 08:00 11/23/16 13:59 DC Albuterol/ Ipratropium (Duoneb) 3 ml RTQID 11/19/16 09:30 11/25/16 12:02 3 ML Amlodipine Besylate (Norvasc) 10 mg DAILY 11/19/16 09:30 11/25/16 07:46 10 MG Calcium Acetate (Phoslo) 1,334 mg TIDWMEALS 11/21/16 12:00 11/24/16 14:19 1,334 MG Carvedilol (Coreg) 25 mg BIDWMEALS 11/19/16 09:30 11/25/16 07:45 25 MG Ceftriaxone Sodium/Sodium Chloride (Rocephin/Iv Sodium Chloride 0.9% 50ml) 50 ml @ 100 mls/hr Q24H 11/19/16 21:00 11/21/16 09:56 DC 11/20/16 20:49 100 MLS/HR Ceftriaxone Sodium (Rocephin 1gm Ivpb For Omni) 50 ml @ 100 mls/hr 1X ONCE 11/18/16 22:15 11/18/16 22:44 DC 11/18/16 22:06 100 MLS/HR Darbepoetin Guillermo (Aranesp) 100 mcg WEEKLYHS 11/21/16 21:00 11/21/16 21:21 100 MCG Dextrose 1,000 ml @ 50 mls/hr Q20H 11/22/16 16:15 11/23/16 20:48 DC 11/22/16 16:19 50 MLS/HR Diphenhydramine HCl (Benadryl) 25 mg 1X PRN PRN 11/23/16 08:00 11/24/16 07:59 DC Enoxaparin Sodium (Lovenox Per Pharmacy Prophylaxis Dosing) 1 each PRN DAILY PRN 11/19/16 09:30 11/19/16 09:30 DC Enoxaparin Sodium (Lovenox Per Pharmacy Treatment Dosing) 1 each PRN DAILY PRN 11/22/16 13:00 11/22/16 14:15 DC Enoxaparin Sodium 150 mg 150 mg Q24H 11/22/16 14:00 11/22/16 14:15 DC Ergocalciferol 39465 unit 50,000 unit WEEKLY 11/22/16 10:00 11/22/16 12:12 50,000 UNIT Fentanyl Citrate (Fentanyl 2ml Vial) 25 mcg 1X ONCE 11/21/16 11:30 11/21/16 11:31 DC 11/21/16 11:02 25 MCG Furosemide (Lasix) 40 mg 1X ONCE 11/19/16 09:00 11/19/16 09:04 DC 11/19/16 09:40 40 MG Furosemide 40 mg 40 mg 1X ONCE 11/18/16 22:00 11/18/16 22:01 DC 11/18/16 22:03 40 MG Glimepiride (Amaryl) 2 mg DAILYWBKFT 11/19/16 09:30 11/21/16 10:20 DC 11/20/16 08:08 2 MG Guaifenesin (Robitussin Dm) 10 ml PRN Q6HRS PRN 11/19/16 09:00 Heparin Sodium (Porcine) 4,300 unit 1X ONCE 11/21/16 15:15 11/21/16 15:26 DC 11/21/16 15:17 2,500 UNIT Heparin Sodium/ Sodium Chloride 1,000 unit 1X ONCE 11/21/16 15:15 11/21/16 15:26 DC 11/21/16 15:18 1,000 UNIT Hydralazine HCl (Apresoline) 25 mg BID 11/19/16 10:30 11/25/16 07:45 25 MG Influenza Virus Vaccine Quadrival (Fluarix Quad [id number] Syringe) 0.5 ml ONCE ONCE 11/19/16 09:00 1/14/17 09:01 DC Info (Do NOT chart on this placeholder) 1 each 1X ONCE 11/18/16 23:15 11/18/16 23:16 UNV Info (PHARMACY MONITORING -- do not chart) 1 each PRN DAILY PRN 11/24/16 12:45 UNV Info 1 each 1 each PRN DAILY PRN 11/23/16 08:00 UNV Insulin Aspart (Novolog) 0-7 UNITS TIDWMEALS 11/19/16 12:00 11/21/16 21:16 DC Iron Sucrose/ Sodium Chloride (Venofer/Iv Sodium Chloride 0.9% 100ml) 110 ml @ 55 mls/hr 3X/WEEK 11/21/16 10:00 11/30/16 10:59 11/25/16 07:44 55 MLS/HR Lidocaine HCl 20 ml STK-MED ONCE 11/21/16 10:13 11/21/16 10:14 DC Lidocaine/Sodium Bicarbonate (Buffered Lidocaine 1%) 20 ml 1X ONCE 11/21/16 15:15 11/21/16 15:26 DC 11/21/16 15:17 3 ML Magnesium Sulfate/ Dextrose 50 ml @ 25 mls/hr PRN DAILY PRN 11/20/16 11:30 Midazolam HCl (Versed) 1 mg 1X ONCE 11/21/16 11:30 11/21/16 11:31 DC 11/21/16 11:04 1 MG Milrinone Lactate/ Dextrose 100 ml @ 0 mls/hr CONT PRN 11/20/16 11:30 11/22/16 14:17 DC 11/21/16 22:19 5.5 MLS/HR Morphine Sulfate 4 mg PRN Q2HR PRN 11/20/16 00:15 11/21/16 13:36 4 MG Morphine Sulfate (Morphine Ir) 15 mg PRN Q4HRS PRN 11/20/16 00:15 11/24/16 20:21 15 MG Nicotine (Nicoderm Cq 14mg) 1 patch PRN DAILY PRN 11/19/16 09:15 Nicotine Polacrilex (Nicorette Gum) 1 each PRN Q1HR PRN 11/19/16 09:15 Ondansetron HCl (Zofran) 4 mg PRN Q8HRS PRN 11/18/16 22:15 11/19/16 22:14 DC Piperacillin Sod/ Tazobactam Sod 2.25 gm/Sodium Chloride 50 ml @ 100 mls/hr Q8HRS 11/24/16 14:00 11/25/16 06:00 100 MLS/HR Piperacillin Sod/ Tazobactam Sod 3.375 gm/Sodium Chloride 50 ml @ 100 mls/hr Q6HRS 11/20/16 12:00 11/22/16 10:39 DC 11/22/16 05:41 100 MLS/HR Piperacillin Sod/ Tazobactam Sod/ Sodium Chloride (Zosyn/Iv Sodium Chloride 0.9% 50ml) 50 ml @ 100 mls/hr Q6HRS 11/22/16 12:00 11/24/16 08:05 DC 11/24/16 06:06 100 MLS/HR Pneumococcal Polyvalent Vaccine 0.5 ml 0.5 ml ONCE ONCE 11/19/16 09:00 11/19/16 09:01 DC Pneumococcal Polyvalent Vaccine (Do NOT chart on this placeholder) 1 each 1X ONCE 11/18/16 23:15 11/18/16 23:16 UNV Rivaroxaban (Xarelto) 20 mg DAILYWSUP 11/19/16 17:00 11/20/16 08:53 DC 11/19/16 17:53 20 MG Rivaroxaban 15 mg 15 mg DAILYWSUP 11/20/16 17:00 11/22/16 12:56 DC Sodium Chloride (Iv Sodium Chloride 0.9% 1000ml Bag) 1,000 ml @ 1,000 mls/hr Q1H PRN 11/24/16 09:00 11/24/16 14:59 DC Sodium Chloride (Normal Saline Flush) 10 ml 1X PRN PRN 11/24/16 09:00 11/24/16 18:00 DC Lab Laboratory Tests Test 11/24/16 16:50 11/24/16 21:01 11/25/16 04:17 11/25/16 07:12 Glucose (Fingerstick) 145mg/dL (70-99) 191mg/dL (70-99) 127mg/dL (70-99) White Blood Count 13.8x10^3/uL (4.0-11.0) Red Blood Count 3.30x10^6/uL (4.30-5.70) Hemoglobin 9.2g/dL (13.0-17.5) Hematocrit 28.3% (39.0-53.0) Mean Corpuscular Volume 86fL (79-100) Mean Corpuscular Hemoglobin 28pg (25-35) Mean Corpuscular Hemoglobin Concent 33g/dL (31-37) Red Cell Distribution Width 15.0% (11.5-14.5) Platelet Count 229x10^3/uL (140-400) Neutrophils (%) (Auto) 77% (31-73) Lymphocytes (%) (Auto) 8% (24-48) Monocytes (%) (Auto) 8% (0-9) Eosinophils (%) (Auto) 6% (0-3) Basophils (%) (Auto) 1% (0-3) Neutrophils # (Auto) 10.6x10^3uL (1.8-7.7) Lymphocytes # (Auto) 1.1x10^3/uL (1.0-4.8) Monocytes # (Auto) 1.2x10^3/uL (0.0-1.1) Eosinophils # (Auto) 0.8x10^3/uL (0.0-0.7) Basophils # (Auto) 0.1x10^3/uL (0.0-0.2) Sodium Level 137mmol/L (136-145) Potassium Level 4.8mmol/L (3.5-5.1) Chloride Level 98mmol/L (98-107) Carbon Dioxide Level 28mmol/L (21-32) Anion Gap 11 (6-14) Blood Urea Nitrogen 31mg/dL (8-26) Creatinine 5.6mg/dL (0.7-1.3) Estimated GFR (Cockcroft-Gault) 10.4 Glucose Level 133mg/dL (70-99) Calcium Level 8.7mg/dL (8.5-10.1) Phosphorus Level 4.9mg/dL (2.6-4.7) Magnesium Level 2.1mg/dL (1.8-2.4) Albumin 2.1g/dL (3.4-5.0) Test 11/25/16 08:22 11/25/16 11:28 Prothrombin Time 18.0SEC (11.7-14.0) Prothromb Time International Ratio 1.6 (0.8-1.1) Glucose (Fingerstick) 135mg/dL (70-99) DONNA RICE MD Nov 25, 2016 12:28
--- NOTE | 2016-11-25 12:33 | PDOC ---
PROGRESS NOTES Chief Complaint Chief Complaint - CHF Systolic acute on chronic - Afib - CHAY - Leukocytosis - Urinary tract infection - Hyperphosphatemia - DM - HTN - Anemia - Proteinuria - Lower extremity edema with cellulitis - Fungal rash, total body - Fall History of Present Illness History of Present Illness 60 year old male examined while seated in bedside chair with present. Patient was responsive but would occasionally lose focus and drift off during today's evaluation. When questioned if he was feeling drowsy, he states he is just tired of being talked to and told the same things over and over. He and his relate they would like to consider Edyn after discharge. Lower extremity swelling and pain continue. Vitals Vitals Vital Signs Date Time Temp Pulse Resp B/P Pulse Ox O2 Delivery O2 Flow Rate FiO2 11/25/16 12:03 94 Room Air 11/25/16 11:30 98.2 84 22 117/70 98.2 11/24/16 21:21 2.0 Physical Exam General: Alert, Oriented X3, Cooperative, No acute distress, Other (Drowsy) Heart: Regular rate, Other (No rubs) Lungs: Clear, Other (No wheezes/crackles) Abdomen: Normal bowel sounds, Soft Extremities: No clubbing, No cyanosis, Other (LE edema) Skin: Other (Fungal rash over whole body; dry and flaking LE; chronic venous stasis b/l; weepy LE patches ) Labs LABS Laboratory Tests Test 11/24/16 16:50 11/24/16 21:01 11/25/16 04:17 11/25/16 07:12 Glucose (Fingerstick) 145mg/dL (70-99) 191mg/dL (70-99) 127mg/dL (70-99) White Blood Count 13.8x10^3/uL (4.0-11.0) Red Blood Count 3.30x10^6/uL (4.30-5.70) Hemoglobin 9.2g/dL (13.0-17.5) Hematocrit 28.3% (39.0-53.0) Mean Corpuscular Volume 86fL (79-100) Mean Corpuscular Hemoglobin 28pg (25-35) Mean Corpuscular Hemoglobin Concent 33g/dL (31-37) Red Cell Distribution Width 15.0% (11.5-14.5) Platelet Count 229x10^3/uL (140-400) Neutrophils (%) (Auto) 77% (31-73) Lymphocytes (%) (Auto) 8% (24-48) Monocytes (%) (Auto) 8% (0-9) Eosinophils (%) (Auto) 6% (0-3) Basophils (%) (Auto) 1% (0-3) Neutrophils # (Auto) 10.6x10^3uL (1.8-7.7) Lymphocytes # (Auto) 1.1x10^3/uL (1.0-4.8) Monocytes # (Auto) 1.2x10^3/uL (0.0-1.1) Eosinophils # (Auto) 0.8x10^3/uL (0.0-0.7) Basophils # (Auto) 0.1x10^3/uL (0.0-0.2) Sodium Level 137mmol/L (136-145) Potassium Level 4.8mmol/L (3.5-5.1) Chloride Level 98mmol/L (98-107) Carbon Dioxide Level 28mmol/L (21-32) Anion Gap 11 (6-14) Blood Urea Nitrogen 31mg/dL (8-26) Creatinine 5.6mg/dL (0.7-1.3) Estimated GFR (Cockcroft-Gault) 10.4 Glucose Level 133mg/dL (70-99) Calcium Level 8.7mg/dL (8.5-10.1) Phosphorus Level 4.9mg/dL (2.6-4.7) Magnesium Level 2.1mg/dL (1.8-2.4) Albumin 2.1g/dL (3.4-5.0) Test 11/25/16 08:22 11/25/16 11:28 Prothrombin Time 18.0SEC (11.7-14.0) Prothromb Time International Ratio 1.6 (0.8-1.1) Glucose (Fingerstick) 135mg/dL (70-99) Review of Systems Review of Systems Denies tenderness around port site Itchiness/pain in LE b/l Assessment and Plan Assessmemt and Plan Assessment: - CHF Systolic acute on chronic - CHAY - Afib - Urinary tract infection - Leukocytosis - Hyperphosphatemia - DM - HTN - Anemia - Proteinuria - Lower extremity edema with cellulitis - Fungal rash, total body - Fall Plan: - SNU eval in progress for placement at [facility]. Possible discharge on Monday if arrangements can be made. - Tunneled cath placement and renal biopsy today. Holding Xarelto for 2 days. - Dialysis initiated, patient tolerating well; outpatient arrangements have been made by SW - Defer to nephrology regarding hyperphosphatemia, edema, elevated ESR. On hemodialysis. - Continue Zosyn, await blood cultures. - Await further serologies and cultures. Cultures negative to date. - Cont IV morphine for pain. - Recheck labs in a.m. - PT/OT as tolerated - Appreciate subspecialty input Problems: Comment Review of Relevant I have reviewed the following items maynor (where applicable) has been applied. Labs Laboratory Tests Test 11/23/16 14:16 11/23/16 17:32 11/23/16 20:45 11/24/16 03:10 Glucose (Fingerstick) 80mg/dL (70-99) 95mg/dL (70-99) 104mg/dL (70-99) 84mg/dL (70-99) Test 11/24/16 06:17 11/24/16 07:16 11/24/16 11:13 11/24/16 16:50 White Blood Count 12.7x10^3/uL (4.0-11.0) Red Blood Count 3.04x10^6/uL (4.30-5.70) Hemoglobin 8.5g/dL (13.0-17.5) Hematocrit 26.2% (39.0-53.0) Mean Corpuscular Volume 86fL (79-100) Mean Corpuscular Hemoglobin 28pg (25-35) Mean Corpuscular Hemoglobin Concent 33g/dL (31-37) Red Cell Distribution Width 14.8% (11.5-14.5) Platelet Count 179x10^3/uL (140-400) Neutrophils (%) (Auto) 77% (31-73) Lymphocytes (%) (Auto) 8% (24-48) Monocytes (%) (Auto) 10% (0-9) Eosinophils (%) (Auto) 5% (0-3) Basophils (%) (Auto) 1% (0-3) Neutrophils # (Auto) 9.7x10^3uL (1.8-7.7) Lymphocytes # (Auto) 1.0x10^3/uL (1.0-4.8) Monocytes # (Auto) 1.2x10^3/uL (0.0-1.1) Eosinophils # (Auto) 0.6x10^3/uL (0.0-0.7) Basophils # (Auto) 0.1x10^3/uL (0.0-0.2) Sodium Level 133mmol/L (136-145) Potassium Level 5.0mmol/L (3.5-5.1) Chloride Level 96mmol/L (98-107) Carbon Dioxide Level 29mmol/L (21-32) Anion Gap 8 (6-14) Blood Urea Nitrogen 33mg/dL (8-26) Creatinine 5.9mg/dL (0.7-1.3) Estimated GFR (Cockcroft-Gault) 9.8 Glucose Level 95mg/dL (70-99) Calcium Level 8.2mg/dL (8.5-10.1) Phosphorus Level 6.2mg/dL (2.6-4.7) Magnesium Level 1.9mg/dL (1.8-2.4) Albumin 1.7g/dL (3.4-5.0) Glucose (Fingerstick) 83mg/dL (70-99) 92mg/dL (70-99) 145mg/dL (70-99) Test 11/24/16 21:01 11/25/16 04:17 11/25/16 07:12 11/25/16 08:22 Glucose (Fingerstick) 191mg/dL (70-99) 127mg/dL (70-99) White Blood Count 13.8x10^3/uL (4.0-11.0) Red Blood Count 3.30x10^6/uL (4.30-5.70) Hemoglobin 9.2g/dL (13.0-17.5) Hematocrit 28.3% (39.0-53.0) Mean Corpuscular Volume 86fL (79-100) Mean Corpuscular Hemoglobin 28pg (25-35) Mean Corpuscular Hemoglobin Concent 33g/dL (31-37) Red Cell Distribution Width 15.0% (11.5-14.5) Platelet Count 229x10^3/uL (140-400) Neutrophils (%) (Auto) 77% (31-73) Lymphocytes (%) (Auto) 8% (24-48) Monocytes (%) (Auto) 8% (0-9) Eosinophils (%) (Auto) 6% (0-3) Basophils (%) (Auto) 1% (0-3) Neutrophils # (Auto) 10.6x10^3uL (1.8-7.7) Lymphocytes # (Auto) 1.1x10^3/uL (1.0-4.8) Monocytes # (Auto) 1.2x10^3/uL (0.0-1.1) Eosinophils # (Auto) 0.8x10^3/uL (0.0-0.7) Basophils # (Auto) 0.1x10^3/uL (0.0-0.2) Sodium Level 137mmol/L (136-145) Potassium Level 4.8mmol/L (3.5-5.1) Chloride Level 98mmol/L (98-107) Carbon Dioxide Level 28mmol/L (21-32) Anion Gap 11 (6-14) Blood Urea Nitrogen 31mg/dL (8-26) Creatinine 5.6mg/dL (0.7-1.3) Estimated GFR (Cockcroft-Gault) 10.4 Glucose Level 133mg/dL (70-99) Calcium Level 8.7mg/dL (8.5-10.1) Phosphorus Level 4.9mg/dL (2.6-4.7) Magnesium Level 2.1mg/dL (1.8-2.4) Albumin 2.1g/dL (3.4-5.0) Prothrombin Time 18.0SEC (11.7-14.0) Prothromb Time International Ratio 1.6 (0.8-1.1) Test 11/25/16 11:28 Glucose (Fingerstick) 135mg/dL (70-99) Laboratory Tests Test 11/24/16 16:50 11/24/16 21:01 11/25/16 04:17 11/25/16 07:12 Glucose (Fingerstick) 145mg/dL (70-99) 191mg/dL (70-99) 127mg/dL (70-99) White Blood Count 13.8x10^3/uL (4.0-11.0) Red Blood Count 3.30x10^6/uL (4.30-5.70) Hemoglobin 9.2g/dL (13.0-17.5) Hematocrit 28.3% (39.0-53.0) Mean Corpuscular Volume 86fL (79-100) Mean Corpuscular Hemoglobin 28pg (25-35) Mean Corpuscular Hemoglobin Concent 33g/dL (31-37) Red Cell Distribution Width 15.0% (11.5-14.5) Platelet Count 229x10^3/uL (140-400) Neutrophils (%) (Auto) 77% (31-73) Lymphocytes (%) (Auto) 8% (24-48) Monocytes (%) (Auto) 8% (0-9) Eosinophils (%) (Auto) 6% (0-3) Basophils (%) (Auto) 1% (0-3) Neutrophils # (Auto) 10.6x10^3uL (1.8-7.7) Lymphocytes # (Auto) 1.1x10^3/uL (1.0-4.8) Monocytes # (Auto) 1.2x10^3/uL (0.0-1.1) Eosinophils # (Auto) 0.8x10^3/uL (0.0-0.7) Basophils # (Auto) 0.1x10^3/uL (0.0-0.2) Sodium Level 137mmol/L (136-145) Potassium Level 4.8mmol/L (3.5-5.1) Chloride Level 98mmol/L (98-107) Carbon Dioxide Level 28mmol/L (21-32) Anion Gap 11 (6-14) Blood Urea Nitrogen 31mg/dL (8-26) Creatinine 5.6mg/dL (0.7-1.3) Estimated GFR (Cockcroft-Gault) 10.4 Glucose Level 133mg/dL (70-99) Calcium Level 8.7mg/dL (8.5-10.1) Phosphorus Level 4.9mg/dL (2.6-4.7) Magnesium Level 2.1mg/dL (1.8-2.4) Albumin 2.1g/dL (3.4-5.0) Test 11/25/16 08:22 11/25/16 11:28 Prothrombin Time 18.0SEC (11.7-14.0) Prothromb Time International Ratio 1.6 (0.8-1.1) Glucose (Fingerstick) 135mg/dL (70-99) Microbiology 11/20/16 Blood Culture - Final, Complete NO GROWTH AFTER 5 DAYS 11/18/16 Urine Culture - Final, Complete 11/18/16 Urine Culture Result 1 (SHILPA) - Final, Complete Medications Current Medications Acetaminophen/ Hydrocodone Bitart (Lortab 5/325) 2 tab 1X ONCE PO Last administered on 11/18/16 21:34; Start 11/18/16 at 21:00; Stop 11/18/16 at 21:01 ; Status DC Furosemide 40 mg 40 mg 1X ONCE IVP Last administered on 11/18/16 22:03; Start 11/18/16 at 22:00; Stop 11/18/16 at 22:01; Status DC Ceftriaxone Sodium (Rocephin 1gm Ivpb For Omni) 50 ml @ 100 mls/hr 1X ONCE IV Last administered on 11/18/16 22:06; Start 11/18/16 at 22:15; Stop 11/18/16 at 22:44; Status DC Ondansetron HCl (Zofran) 4 mg PRN Q8HRS PRN IV NAUSEA/VOMITING; Start 11/18/16 at 22:15; Stop 11/19/16 at 22:14; Status DC Morphine Sulfate 4 mg PRN Q2HR PRN IV PAIN Last administered on 11/19/16 14:58 ; Start 11/18/16 at 22:15; Stop 11/19/16 at 22:14; Status DC Acetaminophen (Tylenol) 650 mg PRN Q4HRS PRN PO FEVER; Start 11/18/16 at 22:15 ; Stop 11/19/16 at 22:14; Status DC Insulin Aspart (Novolog) 0-7 UNITS TIDWMEALS SQ ; Start 11/19/16 at 08:00; Stop 11/19/16 at 09:04; Status DC Dextrose 12.5 gm PRN Q15MIN PRN IV SEE COMMENTS; Start 11/18/16 at 22:15; Stop 11/19/16 at 10:19; Status DC Info (Do NOT chart on this placeholder) 1 each 1X ONCE MC ; Start 11/18/16 at 23:15; Stop 11/18/16 at 23:16; Status UNV Pneumococcal Polyvalent Vaccine (Do NOT chart on this placeholder) 1 each 1X ONCE MC ; Start 11/18/16 at 23:15; Stop 11/18/16 at 23:16; Status UNV Influenza Virus Vaccine Quadrival (Fluarix Quad [id number] Syringe) 0.5 ml ONCE ONCE VAX IM ; Start 11/19/16 at 09:00; Stop 11/19/16 at 09:01; Status DC Pneumococcal Polyvalent Vaccine 0.5 ml 0.5 ml ONCE ONCE VAX IM ; Start 11/19/16 at 09:00; Stop 11/19/16 at 09:01; Status DC Ceftriaxone Sodium/Sodium Chloride (Rocephin/Iv Sodium Chloride 0.9% 50ml) 50 ml @ 100 mls/hr Q24H IV Last administered on 11/20/16 20:49; Start 11/19/16 at 21:00; Stop 11/21/16 at 09:56; Status DC Amlodipine Besylate (Norvasc) 10 mg DAILY PO Last administered on 11/25/16 07: 46; Start 11/19/16 at 09:30 Glimepiride (Amaryl) 2 mg DAILYWBKFT PO Last administered on 11/20/16 08:08; Start 11/19/16 at 09:30; Stop 11/21/16 at 10:20; Status DC Carvedilol (Coreg) 25 mg BIDWMEALS PO Last administered on 11/25/16 07:45; Start 11/19/16 at 09:30 Rivaroxaban (Xarelto) 20 mg DAILYWSUP PO Last administered on 11/19/16 17:53; Start 11/19/16 at 17:00; Stop 11/20/16 at 08:53; Status DC Furosemide (Lasix) 40 mg 1X ONCE IVP Last administered on 11/19/16 09:40; Start 11/19/16 at 09:00; Stop 11/19/16 at 09:04; Status DC Insulin Aspart (Novolog) 0-7 UNITS TIDWMEALS SQ ; Start 11/19/16 at 12:00; Stop 11/21/16 at 21:16; Status DC Dextrose 12.5 gm PRN Q15MIN PRN IV SEE COMMENTS Last administered on 11/23/16 04:10; Start 11/19/16 at 09:00 Guaifenesin (Robitussin Dm) 10 ml PRN Q6HRS PRN PO COUGH; Start 11/19/16 at 09: 00 Nicotine (Nicoderm Cq 14mg) 1 patch PRN DAILY PRN TD SMOKING CESSATION; Start 11/19/16 at 09:15 Nicotine Polacrilex (Nicorette Gum) 1 each PRN Q1HR PRN BC BREAKTHROUGH CRAVINGS; Start 11/19/16 at 09:15 Albuterol/ Ipratropium (Duoneb) 3 ml RTQID NEB Last administered on 11/25/16 12:02; Start 11/19/16 at 09:30 Enoxaparin Sodium (Lovenox Per Pharmacy Prophylaxis Dosing) 1 each PRN DAILY PRN MC SEE COMMENTS; Start 11/19/16 at 09:30; Stop 11/19/16 at 09:30; Status DC Hydralazine HCl (Apresoline) 25 mg BID PO Last administered on 11/25/16 07:45 ; Start 11/19/16 at 10:30 Morphine Sulfate (Morphine Ir) 15 mg PRN Q4HRS PRN PO PAIN Last administered on 11/24/16 20:21; Start 11/20/16 at 00:15 Morphine Sulfate 4 mg PRN Q2HR PRN IV PAIN Last administered on 11/21/16 13:36 ; Start 11/20/16 at 00:15 Rivaroxaban 15 mg 15 mg DAILYWSUP PO ; Start 11/20/16 at 17:00; Stop 11/22/16 at 12:56; Status DC Sodium Chloride 1,000 ml @ 75 mls/hr [id number] IV Last administered on 23:37; Start 11/20/16 at 10:45; Stop 11/21/16 at 14:42; Status DC Milrinone Lactate/ Dextrose 100 ml @ 0 mls/hr CONT PRN IV SEE I/O RECORD Last administered on 11/21/16 22:19; Start 11/20/16 at 11:30; Stop 11/22/16 at 14:17 ; Status DC Magnesium Sulfate/ Dextrose 50 ml @ 25 mls/hr PRN DAILY PRN IV for Mag < 1.7 on am labs; Start 11/20/16 at 11:30 Piperacillin Sod/ Tazobactam Sod/ Sodium Chloride (Zosyn/Iv Sodium Chloride 0.9 % 50ml) 50 ml @ 100 mls/hr Q6HRS IV Last administered on 11/22/16 05:41; Start 11/20/16 at 12:00; Stop 11/22/16 at 10:39; Status DC Info 1 each 1 each PRN DAILY PRN MC SEE COMMENTS Last administered on 09:52; Start 11/21/16 at 08:15; Stop 11/22/16 at 14:15; Status DC Iron Sucrose/ Sodium Chloride (Venofer/Iv Sodium Chloride 0.9% 100ml) 110 ml @ 55 mls/hr 3X/WEEK IV Last administered on 11/25/16 07:44; Start 11/21/16 at 10 :00; Stop 11/30/16 at 10:59 Darbepoetin Guillermo (Aranesp) 100 mcg WEEKLYHS SQ Last administered on 11/21/16 21:21; Start 11/21/16 at 21:00 Calcium Acetate 1334 mg 1,334 mg TIDWMEALS PO Last administered on 11/24/16 14 :19; Start 11/21/16 at 12:00 Heparin Sodium/ Sodium Chloride 500 ml @ As Directed STK-MED ONCE .ROUTE ; Start 11/21/16 at 10:13; Stop 11/21/16 at 10:14; Status DC Lidocaine HCl 20 ml STK-MED ONCE .ROUTE ; Start 11/21/16 at 10:13; Stop at 10:14; Status DC Fentanyl Citrate (Fentanyl 2ml Vial) 100 mcg STK-MED ONCE .ROUTE ; Start at 10:52; Stop 11/21/16 at 10:53; Status DC Midazolam HCl (Versed) 2 mg STK-MED ONCE .ROUTE ; Start 11/21/16 at 10:52; Stop 11/21/16 at 10:53; Status DC Midazolam HCl (Versed) 1 mg 1X ONCE IV Last administered on 11/21/16 11:04; Start 11/21/16 at 11:30; Stop 11/21/16 at 11:31; Status DC Fentanyl Citrate (Fentanyl 2ml Vial) 25 mcg 1X ONCE IV Last administered on 11:02; Start 11/21/16 at 11:30; Stop 11/21/16 at 11:31; Status DC Lidocaine/Sodium Bicarbonate (Buffered Lidocaine 1%) 20 ml STK-MED ONCE IJ ; Start 11/21/16 at 14:59; Stop 11/21/16 at 15:00; Status DC Heparin Sodium (Porcine) 91448 unit 10,000 unit STK-MED ONCE .ROUTE ; Start at 14:59; Stop 11/21/16 at 15:00; Status DC Heparin Sodium/ Sodium Chloride 500 ml @ As Directed STK-MED ONCE .ROUTE ; Start 11/21/16 at 14:59; Stop 11/21/16 at 15:00; Status DC Heparin Sodium/ Sodium Chloride 1,000 unit 1X ONCE IART Last administered on 15:18; Start 11/21/16 at 15:15; Stop 11/21/16 at 15:26; Status DC Lidocaine/Sodium Bicarbonate (Buffered Lidocaine 1%) 20 ml 1X ONCE IJ Last administered on 11/21/16 15:17; Start 11/21/16 at 15:15; Stop 11/21/16 at 15:26 ; Status DC Heparin Sodium (Porcine) 4300 unit 4,300 unit 1X ONCE IV Last administered on 11/21/16 15:17; Start 11/21/16 at 15:15; Stop 11/21/16 at 15:26; Status DC Sodium Chloride 1,000 ml @ 1,000 mls/hr Q1H PRN IV hypotension; Start 11/22/16 at 07:31; Stop 11/22/16 at 13:30; Status DC Albumin Human 200 ml @ 200 mls/hr 1X PRN PRN IV Hypotension; Start 11/22/16 at 07:45; Stop 11/22/16 at 13:44; Status DC Sodium Chloride (Iv Sodium Chloride 0.9% 1000ml Bag) 1,000 ml @ 400 mls/hr Q2H30M PRN IV PATENCY; Start 11/22/16 at 07:31; Stop 11/22/16 at 19:30; Status DC Info (PHARMACY MONITORING -- do not chart) 1 each PRN DAILY PRN MC SEE COMMENTS ; Start 11/22/16 at 07:45 Info (PHARMACY MONITORING -- do not chart) 1 each PRN DAILY PRN MC SEE COMMENTS ; Start 11/22/16 at 07:45; Status UNV Diphenhydramine HCl (Benadryl) 25 mg 1X PRN PRN IV ITCHING Last administered on 11/22/16 08:53; Start 11/22/16 at 08:45; Stop 11/23/16 at 08:44; Status DC Diphenhydramine HCl (Benadryl) 25 mg 1X PRN PRN IV ITCHING; Start 11/22/16 at 08:45; Stop 11/23/16 at 08:44; Status DC Ergocalciferol 82003 unit 50,000 unit WEEKLY PO Last administered on 11/22/16 12:12; Start 11/22/16 at 10:00 Piperacillin Sod/ Tazobactam Sod/ Sodium Chloride (Zosyn/Iv Sodium Chloride 0.9 % 50ml) 50 ml @ 100 mls/hr Q6HRS IV Last administered on 11/24/16 06:06; Start 11/22/16 at 12:00; Stop 11/24/16 at 08:05; Status DC Enoxaparin Sodium (Lovenox Per Pharmacy Treatment Dosing) 1 each PRN DAILY PRN MC SEE COMMENTS; Start 11/22/16 at 13:00; Stop 11/22/16 at 14:15; Status DC Enoxaparin Sodium 150 mg 150 mg Q24H SQ ; Start 11/22/16 at 14:00; Stop at 14:15; Status DC Dextrose 1,000 ml @ 50 mls/hr Q20H IV Last administered on 11/22/16 16:19; Start 11/22/16 at 16:15; Stop 11/23/16 at 20:48; Status DC Sodium Chloride 1,000 ml @ 1,000 mls/hr Q1H PRN IV hypotension; Start 11/23/16 at 07:58; Stop 11/23/16 at 13:57; Status DC Albumin Human (Albuminar) 200 ml @ 200 mls/hr 1X PRN PRN IV Hypotension; Start 11/23/16 at 08:00; Stop 11/23/16 at 13:59; Status DC Diphenhydramine HCl (Benadryl) 25 mg 1X PRN PRN IV ITCHING; Start 11/23/16 at 08:00; Stop 11/24/16 at 07:59; Status DC Sodium Chloride (Normal Saline Flush) 10 ml 1X PRN PRN IV AP 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; Start 11/23/16 at 08:00; Stop 11/24/16 at 07:59; Status DC Sodium Chloride 10 ml 10 ml 1X PRN PRN IV [employer] 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; Start 11/23/16 at 08:00; Stop 11/24/16 at 07:59; Status DC Sodium Chloride (Iv Sodium Chloride 0.9% 1000ml Bag) 1,000 ml @ 400 mls/hr Q2H30M PRN IV PATENCY; Start 11/23/16 at 07:58; Stop 11/23/16 at 19:57; Status DC Info 1 each 1 each PRN DAILY PRN MC SEE COMMENTS; Start 11/23/16 at 08:00; Status UNV Piperacillin Sod/ Tazobactam Sod 2.25 gm/Sodium Chloride 50 ml @ 100 mls/hr Q8HRS IV Last administered on 11/25/16t 06:00; Start 11/24/16 at 14:00 Sodium Chloride (Iv Sodium Chloride 0.9% 1000ml Bag) 1,000 ml @ 1,000 mls/hr Q1H PRN IV hypotension; Start 11/24/16 at 09:00; Stop 11/24/16 at 14:59; Status DC Sodium Chloride (Normal Saline Flush) 10 ml 1X PRN PRN IV AP 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; Start 11/24/16 at 09:00; Stop 11/24/16 at 18:00; Status DC Sodium Chloride (Normal Saline Flush) 10 ml 1X PRN PRN IV [employer] 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; Start 11/24/16 at 09:00; Stop 11/24/16 at 18:00; Status DC Info (PHARMACY MONITORING -- do not chart) 1 each PRN DAILY PRN MC SEE COMMENTS ; Start 11/24/16 at 12:45; Status UNV Info (PHARMACY MONITORING -- do not chart) 1 each PRN DAILY PRN MC SEE COMMENTS ; Start 11/24/16 at 12:45; Status UNV Active Scripts Active Reported Xarelto (Rivaroxaban) 20 Mg Tablet 20 Mg PO DAILY Carvedilol 25 Mg Tablet 1 Tab PO BID Furosemide 40 Mg Tablet 1 Tab PO DAILY Losartan Potassium 100 Mg Tablet 100 Mg PO DAILY Amlodipine Besylate 10 Mg Tablet 10 Mg PO DAILY Glimepiride 2 Mg Tablet 1 Tab PO DAILY Vitals/I & O Vital Sign - Last 24 Hours 11/24/16 11/24/16 11/24/16 11/24/16 15:00 15:59 17:44 19:00 Temp 98.3 97.8 98.3 97.8 Pulse 100 100 94 Resp 12 16 B/P 122/94 122/94 119/74 Pulse Ox 96 99 O2 Delivery Room Air Room Air Room Air 11/24/16 11/24/16 11/24/16 11/24/16 19:31 20:21 20:21 20:58 Pulse 94 B/P 119/74 Pulse Ox 99 92 O2 Delivery Room Air Room Air Room Air 11/24/16 11/24/16 11/25/16 11/25/16 21:21 23:00 03:00 07:23 Temp 97.6 98.0 97.9 97.6 98.0 97.9 Pulse 96 78 77 Resp 18 22 22 B/P 124/70 122/84 125/67 Pulse Ox 92 98 96 93 O2 Delivery Room Air Room Air Room Air Room Air O2 Flow Rate 2.0 11/25/16 11/25/16 11/25/16 11/25/16 07:27 07:32 07:45 07:45 Pulse 94 94 B/P 125/67 125/67 Pulse Ox 93 O2 Delivery Room Air Room Air 11/25/16 11/25/16 11/25/16 07:46 11:30 12:03 Temp 98.2 98.2 Pulse 94 84 Resp 22 B/P 125/67 117/70 Pulse Ox 96 94 O2 Delivery Room Air Room Air Intake and Output 11/24/16 11/24/16 11/25/16 15:00 23:00 07:00 Intake Total 760 ml 555 ml 200 ml Output Total 100 ml Balance 760 ml 455 ml 200 ml ELIGIO MCKENNA III DO Nov 25, 2016 12:33
[2016-11-25] MEDS ORDERED: LIDOCAINE 1%/EPI 1:100,000 20 ML VIAL. ONE (13:25)
[2016-11-25] MEDS ORDERED: HEPARIN for IV BOLUS 10,000 UNIT/10 ML VIAL. ONE (13:25)
[2016-11-25] MEDS ORDERED: MIDAZOLAM HCL 2 MG/2 ML VIAL. ONE (14:01)
[2016-11-25] MEDS ORDERED: FENTANYL PF 100 MCG/2 ML VIAL. ONE (14:01)
[2016-11-25] MEDS ORDERED: CEFAZOLIN 1GM IVPB FOR OMNI 50 ML IV ONE ×2 (14:02→14:30)
[2016-11-25] MEDS ORDERED: HEPARIN for IV BOLUS 10,000 UNIT/10 ML VIAL. IART ONE (14:30)
[2016-11-25] MEDS ORDERED: LIDOCAINE 1%/EPI 1:100,000 20 ML VIAL. IJ ONE (14:30)
[2016-11-25] MEDS ORDERED: FENTANYL PF 100 MCG/2 ML VIAL. IV ONE (14:30)
[2016-11-25] MEDS ORDERED: MIDAZOLAM HCL 2 MG/2 ML VIAL. IV ONE (14:30)
[2016-11-25] MEDS ORDERED: GELATIN SPONGE SIZE 12-7MM SPONGE. ONE ×2 (14:32→14:56)
[2016-11-25] MEDS ORDERED: LIDOCAINE 1% / SOD BICARB 8.4% 20 ML VIAL. IJ ONE (14:32)
--- NOTE | 2016-11-25 16:15 | PDOC ---
PROGRESS NOTES Subjective Subjective He admits continued pain left foot interfering with his mobility. Objective Objective Vital Signs Date Time Temp Pulse Resp B/P Pulse Ox O2 Delivery O2 Flow Rate FiO2 11/25/16 15:22 79 15 93 Nasal Cannula 4.0 11/25/16 11:30 98.2 117/70 98.2 Intake and Output 11/25/16 07:00 Intake Total 1515 ml Output Total 100 ml Balance 1415 ml Intake Oral 1400 ml IV Total 115 ml Output Urine Total 100 ml # Voids 1 Physical Exam Physical Exam He is supine in bed and got up with physical therapy and made a few steps with roller walker and left foot pain and SOB with exertion limiting his activity. Assessment Assessment Problems Medical Problems: (1) CHF exacerbation Status: Acute (2) Fall Status: Acute (3) UTI (urinary tract infection) Status: Acute Plan Plan of Care To get him cam walker boot left for use while up. Comment Review of Relevant I have reviewed the following items maynor (where applicable) has been applied. Labs Laboratory Tests Test 11/23/16 17:32 11/23/16 20:45 11/24/16 03:10 11/24/16 06:17 Glucose (Fingerstick) 95mg/dL (70-99) 104mg/dL (70-99) 84mg/dL (70-99) White Blood Count 12.7x10^3/uL (4.0-11.0) Red Blood Count 3.04x10^6/uL (4.30-5.70) Hemoglobin 8.5g/dL (13.0-17.5) Hematocrit 26.2% (39.0-53.0) Mean Corpuscular Volume 86fL (79-100) Mean Corpuscular Hemoglobin 28pg (25-35) Mean Corpuscular Hemoglobin Concent 33g/dL (31-37) Red Cell Distribution Width 14.8% (11.5-14.5) Platelet Count 179x10^3/uL (140-400) Neutrophils (%) (Auto) 77% (31-73) Lymphocytes (%) (Auto) 8% (24-48) Monocytes (%) (Auto) 10% (0-9) Eosinophils (%) (Auto) 5% (0-3) Basophils (%) (Auto) 1% (0-3) Neutrophils # (Auto) 9.7x10^3uL (1.8-7.7) Lymphocytes # (Auto) 1.0x10^3/uL (1.0-4.8) Monocytes # (Auto) 1.2x10^3/uL (0.0-1.1) Eosinophils # (Auto) 0.6x10^3/uL (0.0-0.7) Basophils # (Auto) 0.1x10^3/uL (0.0-0.2) Sodium Level 133mmol/L (136-145) Potassium Level 5.0mmol/L (3.5-5.1) Chloride Level 96mmol/L (98-107) Carbon Dioxide Level 29mmol/L (21-32) Anion Gap 8 (6-14) Blood Urea Nitrogen 33mg/dL (8-26) Creatinine 5.9mg/dL (0.7-1.3) Estimated GFR (Cockcroft-Gault) 9.8 Glucose Level 95mg/dL (70-99) Calcium Level 8.2mg/dL (8.5-10.1) Phosphorus Level 6.2mg/dL (2.6-4.7) Magnesium Level 1.9mg/dL (1.8-2.4) Albumin 1.7g/dL (3.4-5.0) Test 11/24/16 07:16 11/24/16 11:13 11/24/16 16:50 11/24/16 21:01 Glucose (Fingerstick) 83mg/dL (70-99) 92mg/dL (70-99) 145mg/dL (70-99) 191mg/dL (70-99) Test 11/25/16 04:17 11/25/16 07:12 11/25/16 08:22 11/25/16 11:28 White Blood Count 13.8x10^3/uL (4.0-11.0) Red Blood Count 3.30x10^6/uL (4.30-5.70) Hemoglobin 9.2g/dL (13.0-17.5) Hematocrit 28.3% (39.0-53.0) Mean Corpuscular Volume 86fL (79-100) Mean Corpuscular Hemoglobin 28pg (25-35) Mean Corpuscular Hemoglobin Concent 33g/dL (31-37) Red Cell Distribution Width 15.0% (11.5-14.5) Platelet Count 229x10^3/uL (140-400) Neutrophils (%) (Auto) 77% (31-73) Lymphocytes (%) (Auto) 8% (24-48) Monocytes (%) (Auto) 8% (0-9) Eosinophils (%) (Auto) 6% (0-3) Basophils (%) (Auto) 1% (0-3) Neutrophils # (Auto) 10.6x10^3uL (1.8-7.7) Lymphocytes # (Auto) 1.1x10^3/uL (1.0-4.8) Monocytes # (Auto) 1.2x10^3/uL (0.0-1.1) Eosinophils # (Auto) 0.8x10^3/uL (0.0-0.7) Basophils # (Auto) 0.1x10^3/uL (0.0-0.2) Sodium Level 137mmol/L (136-145) Potassium Level 4.8mmol/L (3.5-5.1) Chloride Level 98mmol/L (98-107) Carbon Dioxide Level 28mmol/L (21-32) Anion Gap 11 (6-14) Blood Urea Nitrogen 31mg/dL (8-26) Creatinine 5.6mg/dL (0.7-1.3) Estimated GFR (Cockcroft-Gault) 10.4 Glucose Level 133mg/dL (70-99) Calcium Level 8.7mg/dL (8.5-10.1) Phosphorus Level 4.9mg/dL (2.6-4.7) Magnesium Level 2.1mg/dL (1.8-2.4) Albumin 2.1g/dL (3.4-5.0) Glucose (Fingerstick) 127mg/dL (70-99) 135mg/dL (70-99) Prothrombin Time 18.0SEC (11.7-14.0) Prothromb Time International Ratio 1.6 (0.8-1.1) Laboratory Tests Test 11/24/16 16:50 11/24/16 21:01 11/25/16 04:17 11/25/16 07:12 Glucose (Fingerstick) 145mg/dL (70-99) 191mg/dL (70-99) 127mg/dL (70-99) White Blood Count 13.8x10^3/uL (4.0-11.0) Red Blood Count 3.30x10^6/uL (4.30-5.70) Hemoglobin 9.2g/dL (13.0-17.5) Hematocrit 28.3% (39.0-53.0) Mean Corpuscular Volume 86fL (79-100) Mean Corpuscular Hemoglobin 28pg (25-35) Mean Corpuscular Hemoglobin Concent 33g/dL (31-37) Red Cell Distribution Width 15.0% (11.5-14.5) Platelet Count 229x10^3/uL (140-400) Neutrophils (%) (Auto) 77% (31-73) Lymphocytes (%) (Auto) 8% (24-48) Monocytes (%) (Auto) 8% (0-9) Eosinophils (%) (Auto) 6% (0-3) Basophils (%) (Auto) 1% (0-3) Neutrophils # (Auto) 10.6x10^3uL (1.8-7.7) Lymphocytes # (Auto) 1.1x10^3/uL (1.0-4.8) Monocytes # (Auto) 1.2x10^3/uL (0.0-1.1) Eosinophils # (Auto) 0.8x10^3/uL (0.0-0.7) Basophils # (Auto) 0.1x10^3/uL (0.0-0.2) Sodium Level 137mmol/L (136-145) Potassium Level 4.8mmol/L (3.5-5.1) Chloride Level 98mmol/L (98-107) Carbon Dioxide Level 28mmol/L (21-32) Anion Gap 11 (6-14) Blood Urea Nitrogen 31mg/dL (8-26) Creatinine 5.6mg/dL (0.7-1.3) Estimated GFR (Cockcroft-Gault) 10.4 Glucose Level 133mg/dL (70-99) Calcium Level 8.7mg/dL (8.5-10.1) Phosphorus Level 4.9mg/dL (2.6-4.7) Magnesium Level 2.1mg/dL (1.8-2.4) Albumin 2.1g/dL (3.4-5.0) Test 11/25/16 08:22 11/25/16 11:28 Prothrombin Time 18.0SEC (11.7-14.0) Prothromb Time International Ratio 1.6 (0.8-1.1) Glucose (Fingerstick) 135mg/dL (70-99) Microbiology 11/20/16 Blood Culture - Final, Complete NO GROWTH AFTER 5 DAYS 11/18/16 Urine Culture - Final, Complete 11/18/16 Urine Culture Result 1 (SHILPA) - Final, Complete Medications Current Medications Acetaminophen/ Hydrocodone Bitart (Lortab 5/325) 2 tab 1X ONCE PO Last administered on 11/18/16 21:34; Start 11/18/16 at 21:00; Stop 11/18/16 at 21:01 ; Status DC Furosemide 40 mg 40 mg 1X ONCE IVP Last administered on 11/18/16 22:03; Start 11/18/16 at 22:00; Stop 11/18/16 at 22:01; Status DC Ceftriaxone Sodium (Rocephin 1gm Ivpb For Omni) 50 ml @ 100 mls/hr 1X ONCE IV Last administered on 11/18/16 22:06; Start 11/18/16 at 22:15; Stop 11/18/16 at 22:44; Status DC Ondansetron HCl (Zofran) 4 mg PRN Q8HRS PRN IV NAUSEA/VOMITING; Start 11/18/16 at 22:15; Stop 11/19/16 at 22:14; Status DC Morphine Sulfate 4 mg PRN Q2HR PRN IV PAIN Last administered on 11/19/16 14:58 ; Start 11/18/16 at 22:15; Stop 11/19/16 at 22:14; Status DC Acetaminophen (Tylenol) 650 mg PRN Q4HRS PRN PO FEVER; Start 11/18/16 at 22:15 ; Stop 11/19/16 at 22:14; Status DC Insulin Aspart (Novolog) 0-7 UNITS TIDWMEALS SQ ; Start 11/19/16 at 08:00; Stop 11/19/16 at 09:04; Status DC Dextrose 12.5 gm PRN Q15MIN PRN IV SEE COMMENTS; Start 11/18/16 at 22:15; Stop 11/19/16 at 10:19; Status DC Info (Do NOT chart on this placeholder) 1 each 1X ONCE MC ; Start 11/18/16 at 23:15; Stop 11/18/16 at 23:16; Status UNV Pneumococcal Polyvalent Vaccine (Do NOT chart on this placeholder) 1 each 1X ONCE MC ; Start 11/18/16 at 23:15; Stop 11/18/16 at 23:16; Status UNV Influenza Virus Vaccine Quadrival (Fluarix Quad [id number] Syringe) 0.5 ml ONCE ONCE VAX IM ; Start 11/19/16 at 09:00; Stop 11/19/16 at 09:01; Status DC Pneumococcal Polyvalent Vaccine 0.5 ml 0.5 ml ONCE ONCE VAX IM ; Start 11/19/16 at 09:00; Stop 11/19/16 at 09:01; Status DC Ceftriaxone Sodium/Sodium Chloride (Rocephin/Iv Sodium Chloride 0.9% 50ml) 50 ml @ 100 mls/hr Q24H IV Last administered on 11/20/16 20:49; Start 11/19/16 at 21:00; Stop 11/21/16 at 09:56; Status DC Amlodipine Besylate (Norvasc) 10 mg DAILY PO Last administered on 11/25/16 07: 46; Start 11/19/16 at 09:30 Glimepiride (Amaryl) 2 mg DAILYWBKFT PO Last administered on 11/20/16 08:08; Start 11/19/16 at 09:30; Stop 11/21/16 at 10:20; Status DC Carvedilol (Coreg) 25 mg BIDWMEALS PO Last administered on 11/25/16 07:45; Start 11/19/16 at 09:30 Rivaroxaban (Xarelto) 20 mg DAILYWSUP PO Last administered on 11/19/16 17:53; Start 11/19/16 at 17:00; Stop 11/20/16 at 08:53; Status DC Furosemide (Lasix) 40 mg 1X ONCE IVP Last administered on 11/19/16 09:40; Start 11/19/16 at 09:00; Stop 11/19/16 at 09:04; Status DC Insulin Aspart (Novolog) 0-7 UNITS TIDWMEALS SQ ; Start 11/19/16 at 12:00; Stop 11/21/16 at 21:16; Status DC Dextrose 12.5 gm PRN Q15MIN PRN IV SEE COMMENTS Last administered on 11/23/16 04:10; Start 11/19/16 at 09:00 Guaifenesin (Robitussin Dm) 10 ml PRN Q6HRS PRN PO COUGH; Start 11/19/16 at 09: 00 Nicotine (Nicoderm Cq 14mg) 1 patch PRN DAILY PRN TD SMOKING CESSATION; Start 11/19/16 at 09:15 Nicotine Polacrilex (Nicorette Gum) 1 each PRN Q1HR PRN BC BREAKTHROUGH CRAVINGS; Start 11/19/16 at 09:15 Albuterol/ Ipratropium (Duoneb) 3 ml RTQID NEB Last administered on 11/25/16 12:02; Start 11/19/16 at 09:30 Enoxaparin Sodium (Lovenox Per Pharmacy Prophylaxis Dosing) 1 each PRN DAILY PRN MC SEE COMMENTS; Start 11/19/16 at 09:30; Stop 11/19/16 at 09:30; Status DC Hydralazine HCl (Apresoline) 25 mg BID PO Last administered on 11/25/16 07:45 ; Start 11/19/16 at 10:30 Morphine Sulfate (Morphine Ir) 15 mg PRN Q4HRS PRN PO PAIN Last administered on 11/24/16 20:21; Start 11/20/16 at 00:15 Morphine Sulfate 4 mg PRN Q2HR PRN IV PAIN Last administered on 11/21/16 13:36 ; Start 11/20/16 at 00:15 Rivaroxaban 15 mg 15 mg DAILYWSUP PO ; Start 11/20/16 at 17:00; Stop 11/22/16 at 12:56; Status DC Sodium Chloride 1,000 ml @ 75 mls/hr [id number] IV Last administered on 23:37; Start 11/20/16 at 10:45; Stop 11/21/16 at 14:42; Status DC Milrinone Lactate/ Dextrose 100 ml @ 0 mls/hr CONT PRN IV SEE I/O RECORD Last administered on 11/21/16 22:19; Start 11/20/16 at 11:30; Stop 11/22/16 at 14:17 ; Status DC Magnesium Sulfate/ Dextrose 50 ml @ 25 mls/hr PRN DAILY PRN IV for Mag < 1.7 on am labs; Start 11/20/16 at 11:30 Piperacillin Sod/ Tazobactam Sod/ Sodium Chloride (Zosyn/Iv Sodium Chloride 0.9 % 50ml) 50 ml @ 100 mls/hr Q6HRS IV Last administered on 11/22/16 05:41; Start 11/20/16 at 12:00; Stop 11/22/16 at 10:39; Status DC Info 1 each 1 each PRN DAILY PRN MC SEE COMMENTS Last administered on 09:52; Start 11/21/16 at 08:15; Stop 11/22/16 at 14:15; Status DC Iron Sucrose/ Sodium Chloride (Venofer/Iv Sodium Chloride 0.9% 100ml) 110 ml @ 55 mls/hr 3X/WEEK IV Last administered on 11/25/16 07:44; Start 11/21/16 at 10 :00; Stop 11/30/16 at 10:59 Darbepoetin Guillermo (Aranesp) 100 mcg WEEKLYHS SQ Last administered on 11/21/16 21:21; Start 11/21/16 at 21:00 Calcium Acetate 1334 mg 1,334 mg TIDWMEALS PO Last administered on 11/24/16 14 :19; Start 11/21/16 at 12:00 Heparin Sodium/ Sodium Chloride 500 ml @ As Directed STK-MED ONCE .ROUTE ; Start 11/21/16 at 10:13; Stop 11/21/16 at 10:14; Status DC Lidocaine HCl 20 ml STK-MED ONCE .ROUTE ; Start 11/21/16 at 10:13; Stop at 10:14; Status DC Fentanyl Citrate (Fentanyl 2ml Vial) 100 mcg STK-MED ONCE .ROUTE ; Start at 10:52; Stop 11/21/16 at 10:53; Status DC Midazolam HCl (Versed) 2 mg STK-MED ONCE .ROUTE ; Start 11/21/16 at 10:52; Stop 11/21/16 at 10:53; Status DC Midazolam HCl (Versed) 1 mg 1X ONCE IV Last administered on 11/21/16 11:04; Start 11/21/16 at 11:30; Stop 11/21/16 at 11:31; Status DC Fentanyl Citrate (Fentanyl 2ml Vial) 25 mcg 1X ONCE IV Last administered on 11:02; Start 11/21/16 at 11:30; Stop 11/21/16 at 11:31; Status DC Lidocaine/Sodium Bicarbonate (Buffered Lidocaine 1%) 20 ml STK-MED ONCE IJ ; Start 11/21/16 at 14:59; Stop 11/21/16 at 15:00; Status DC Heparin Sodium (Porcine) 58105 unit 10,000 unit STK-MED ONCE .ROUTE ; Start at 14:59; Stop 11/21/16 at 15:00; Status DC Heparin Sodium/ Sodium Chloride 500 ml @ As Directed STK-MED ONCE .ROUTE ; Start 11/21/16 at 14:59; Stop 11/21/16 at 15:00; Status DC Heparin Sodium/ Sodium Chloride 1,000 unit 1X ONCE IART Last administered on 15:18; Start 11/21/16 at 15:15; Stop 11/21/16 at 15:26; Status DC Lidocaine/Sodium Bicarbonate (Buffered Lidocaine 1%) 20 ml 1X ONCE IJ Last administered on 11/21/16 15:17; Start 11/21/16 at 15:15; Stop 11/21/16 at 15:26 ; Status DC Heparin Sodium (Porcine) 4300 unit 4,300 unit 1X ONCE IV Last administered on 11/21/16 15:17; Start 11/21/16 at 15:15; Stop 11/21/16 at 15:26; Status DC Sodium Chloride 1,000 ml @ 1,000 mls/hr Q1H PRN IV hypotension; Start 11/22/16 at 07:31; Stop 11/22/16 at 13:30; Status DC Albumin Human 200 ml @ 200 mls/hr 1X PRN PRN IV Hypotension; Start 11/22/16 at 07:45; Stop 11/22/16 at 13:44; Status DC Sodium Chloride (Iv Sodium Chloride 0.9% 1000ml Bag) 1,000 ml @ 400 mls/hr Q2H30M PRN IV PATENCY; Start 11/22/16 at 07:31; Stop 11/22/16 at 19:30; Status DC Info (PHARMACY MONITORING -- do not chart) 1 each PRN DAILY PRN MC SEE COMMENTS ; Start 11/22/16 at 07:45 Info (PHARMACY MONITORING -- do not chart) 1 each PRN DAILY PRN MC SEE COMMENTS ; Start 11/22/16 at 07:45; Status UNV Diphenhydramine HCl (Benadryl) 25 mg 1X PRN PRN IV ITCHING Last administered on 11/22/16 08:53; Start 11/22/16 at 08:45; Stop 11/23/16 at 08:44; Status DC Diphenhydramine HCl (Benadryl) 25 mg 1X PRN PRN IV ITCHING; Start 11/22/16 at 08:45; Stop 11/23/16 at 08:44; Status DC Ergocalciferol 42056 unit 50,000 unit WEEKLY PO Last administered on 11/22/16 12:12; Start 11/22/16 at 10:00 Piperacillin Sod/ Tazobactam Sod/ Sodium Chloride (Zosyn/Iv Sodium Chloride 0.9 % 50ml) 50 ml @ 100 mls/hr Q6HRS IV Last administered on 11/24/16 06:06; Start 11/22/16 at 12:00; Stop 11/24/16 at 08:05; Status DC Enoxaparin Sodium (Lovenox Per Pharmacy Treatment Dosing) 1 each PRN DAILY PRN MC SEE COMMENTS; Start 11/22/16 at 13:00; Stop 11/22/16 at 14:15; Status DC Enoxaparin Sodium 150 mg 150 mg Q24H SQ ; Start 11/22/16 at 14:00; Stop at 14:15; Status DC Dextrose 1,000 ml @ 50 mls/hr Q20H IV Last administered on 11/22/16 16:19; Start 11/22/16 at 16:15; Stop 11/23/16 at 20:48; Status DC Sodium Chloride 1,000 ml @ 1,000 mls/hr Q1H PRN IV hypotension; Start 11/23/16 at 07:58; Stop 11/23/16 at 13:57; Status DC Albumin Human (Albuminar) 200 ml @ 200 mls/hr 1X PRN PRN IV Hypotension; Start 11/23/16 at 08:00; Stop 11/23/16 at 13:59; Status DC Diphenhydramine HCl (Benadryl) 25 mg 1X PRN PRN IV ITCHING; Start 11/23/16 at 08:00; Stop 11/24/16 at 07:59; Status DC Sodium Chloride (Normal Saline Flush) 10 ml 1X PRN PRN IV AP 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; Start 11/23/16 at 08:00; Stop 11/24/16 at 07:59; Status DC Sodium Chloride 10 ml 10 ml 1X PRN PRN IV HALL TENDER 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; Start 11/23/16 at 08:00; Stop 11/24/16 at 07:59; Status DC Sodium Chloride (Iv Sodium Chloride 0.9% 1000ml Bag) 1,000 ml @ 400 mls/hr Q2H30M PRN IV PATENCY; Start 11/23/16 at 07:58; Stop 11/23/16 at 19:57; Status DC Info 1 each 1 each PRN DAILY PRN MC SEE COMMENTS; Start 11/23/16 at 08:00; Status UNV Piperacillin Sod/ Tazobactam Sod 2.25 gm/Sodium Chloride 50 ml @ 100 mls/hr Q8HRS IV Last administered on 11/25/16t 06:00; Start 11/24/16 at 14:00 Sodium Chloride (Iv Sodium Chloride 0.9% 1000ml Bag) 1,000 ml @ 1,000 mls/hr Q1H PRN IV hypotension; Start 11/24/16 at 09:00; Stop 11/24/16 at 14:59; Status DC Sodium Chloride (Normal Saline Flush) 10 ml 1X PRN PRN IV AP 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; Start 11/24/16 at 09:00; Stop 11/24/16 at 18:00; Status DC Sodium Chloride (Normal Saline Flush) 10 ml 1X PRN PRN IV HALL TENDER 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ROUTE ; Start 11/25/16 at 13:25; Stop 11/25/16 at 13:26; Status DC Midazolam HCl (Versed) 2 mg STK-MED ONCE .ROUTE ; Start 11/25/16 at 14:01; Stop 11/25/16 at 14:02; Status DC Fentanyl Citrate 100 mcg 100 mcg STK-MED ONCE .ROUTE ; Start 11/25/16 at 14:01; Stop 11/25/16 at 14:02; Status DC Cefazolin Sodium (Ancef 1gm Ivpb For Omni) 50 ml @ As Directed STK-MED ONCE IV ; Start 11/25/16 at 14:02; Stop 11/25/16 at 14:03; Status DC Lidocaine/Sodium Bicarbonate (Buffered Lidocaine 1%) 20 ml STK-MED ONCE IJ ; Start 11/25/16 at 14:32; Stop 11/25/16 at 14:33; Status DC Gelatin (Gelfoam Size 12-7mm) 1 each STK-MED ONCE .ROUTE ; Start 11/25/16 at 14 :32; Stop 11/25/16 at 14:33; Status DC Heparin Sodium (Porcine) 2,500 unit 1X ONCE IART ; Start 11/25/16 at 14:30; Stop 11/25/16 at 14:38; Status DC Midazolam HCl (Versed) 2 mg 1X ONCE IV Last administered on 11/25/16t 15:19; Start 11/25/16 at 14:30; Stop 11/25/16 at 14:38; Status DC Fentanyl Citrate 100 mcg 100 mcg 1X ONCE IV Last administered on 11/25/16t 15: 19; Start 11/25/16 at 14:30; Stop 11/25/16 at 14:38; Status DC Cefazolin Sodium (Ancef 1gm Ivpb For Omni) 50 ml @ 100 mls/hr 1X ONCE IV Last administered on 11/25/16 14:44; Start 11/25/16 at 14:30; Stop 11/25/16 at 14:59; Status DC Lidocaine/ Epinephrine (Xylocaine 1%-Epi 1:100,000) 20 ml 1X ONCE IJ Last administered on 11/25/16 14:44; Start 11/25/16 at 14:30; Stop 11/25/16 at 14:38 ; Status DC Heparin Sodium (Porcine) 4,200 unit 1X ONCE INT CAT Last administered on 14:44; Start 11/25/16 at 14:30; Stop 11/25/16 at 14:38; Status DC Gelatin (Gelfoam Size 12-7mm) 1 each STK-MED ONCE .ROUTE ; Start 11/25/16 at 14 :56; Stop 11/25/16 at 14:57; Status DC Heparin Sodium/ Sodium Chloride 1,000 unit 1X ONCE IV Last administered on 14:45; Start 11/25/16 at 15:15; Stop 11/25/16 at 15:17; Status DC Active Scripts Active Reported Xarelto (Rivaroxaban) 20 Mg Tablet 20 Mg PO DAILY Carvedilol 25 Mg Tablet 1 Tab PO BID Furosemide 40 Mg Tablet 1 Tab PO DAILY Losartan Potassium 100 Mg Tablet 100 Mg PO DAILY Amlodipine Besylate 10 Mg Tablet 10 Mg PO DAILY Glimepiride 2 Mg Tablet 1 Tab PO DAILY Vitals/I & O Vital Sign - Last 24 Hours 11/24/16 11/24/16 11/24/16 11/24/16 17:44 19:00 19:31 20:21 Temp 97.8 97.8 Pulse 100 94 94 Resp 16 B/P 122/94 119/74 119/74 Pulse Ox 99 O2 Delivery Room Air Room Air 11/24/16 11/24/16 11/24/16 11/24/16 20:21 20:58 21:21 23:00 Temp 97.6 97.6 Pulse 96 Resp 18 B/P 124/70 Pulse Ox 99 92 92 98 O2 Delivery Room Air Room Air Room Air Room Air O2 Flow Rate 2.0 11/25/16 11/25/16 11/25/16 1/20/17 03:00 07:23 07:27 07:32 Temp 98.0 97.9 98.0 97.9 Pulse 78 77 Resp 22 22 B/P 122/84 125/67 Pulse Ox 96 93 93 O2 Delivery Room Air Room Air Room Air Room Air 11/25/16 11/25/16 11/25/16 11/25/16 07:45 07:45 07:46 11:30 Temp 98.2 98.2 Pulse 94 94 94 84 Resp 22 B/P 125/67 125/67 125/67 117/70 Pulse Ox 96 O2 Delivery Room Air 11/25/16 11/25/16 11/25/16 11/25/16 12:03 15:08 15:13 15:18 Pulse 88 91 82 Resp 16 12 15 Pulse Ox 94 93 93 94 O2 Delivery Room Air Nasal Cannula Nasal Cannula Nasal Cannula O2 Flow Rate 2.0 4.0 4.0 11/25/16 11/25/16 15:19 15:22 Pulse 79 Resp 14 15 Pulse Ox 93 93 O2 Delivery Nasal Cannula Nasal Cannula O2 Flow Rate 4.0 4.0 Intake and Output 11/24/16 11/24/16 11/25/16 15:00 23:00 07:00 Intake Total 760 ml 555 ml 200 ml Output Total 100 ml Balance 760 ml 455 ml 200 ml YANICK LAI MD Nov 25, 2016 16:15
--- NOTE | 2016-11-25 17:56 | RAD ---
Procedure: Exchange of a temporary for tunneled hemodialysis catheter placement through same venous access Clinical Indication: 60-year-old requiring long-term venous access for hemodialysis Sedation: Conscious sedation was administered for 60 minutes. This is a combined total for the subsequent CT-guided renal biopsy. The patient was monitored by a qualified independent observer throughout the time of sedation. Please refer to the medical record for exact doses of medications utilized to achieve moderate sedation. Antibiotics: Antibiotic was administered intravenously within 1 hour of the procedure start time. Fluoro Time: 0.9 minutes. Images: 1 Contrast: None Sterility: All elements of maximal sterile barrier technique including the use of a cap, mask, sterile gown, sterile gloves, large sterile sheet, appropriate hand hygiene, and 2% chlorhexidine for cutaneous antisepsis (or acceptable alternative antiseptic per current guidelines) were followed for this procedure. Consent: The procedure was explained in its entirety to the patient or the patients designated senior customer service representative by a member of the treatment team, including a discussion of the risks, benefits and commonly accepted alternatives to the procedure, as well as the expected consequences of no therapy whatsoever. Discussion of the risks included, but was not limited to, those that are most frequent and those that are rare but possibly severe or life-threatening, as well as the possibility of unforeseen complications. Technique and Findings: Following informed consent, the patient was prepped and draped in usual sterile fashion. 1% lidocaine was used to achieve local anesthesia over the existing temporary hemodialysis catheter and right chest wall. A small dermatotomy was made. The existing catheter was removed over an Amplatz wire and a large caliber peel-away sheath was placed into the SVC. A 28 cm palindrome hemodialysis catheter was then tunneled subcutaneously towards the right neck dermatotomy then deployed under fluoroscopic guidance through the peel-away sheath such that the distal tip resided in the mid right atrium. Manual flow rates were assessed and found to be excellent. The catheter was flushed, packed with heparin, capped, and sutured to the skin. Dermabond was used to close the right neck dermatotomy. The patient was then transferred to the CT scanner for renal biopsy, dictated under separate report. Complications: No immediate Impression: 1. Fluoroscopic guided exchange of a temporary for tunneled hemodialysis catheter through same venous access.
--- NOTE | 2016-11-25 17:58 | RAD ---
Procedure: CT-guided left renal biopsy Clinical Indication: 60-year-old with progressive renal sufficiency Sedation: Conscious sedation was administered for 60 minutes. This is the total combined time of sedation between this procedure and the exchange of a temporary for tunneled hemodialysis catheter which was dictated under separate report. The patient was monitored by a qualified independent observer throughout the time of sedation. Please refer to the medical record for exact doses of medications utilized to achieve moderate sedation. Antibiotics: None Contrast: None Sterility: The procedure was performed in its entirety using appropriate elements of sterile technique. Consent: The procedure was explained in its entirety to the patient or the patients designated claims representative by a member of the treatment team, including a discussion of the risks, benefits and commonly accepted alternatives to the procedure, as well as the expected consequences of no therapy whatsoever. Discussion of the risks included, but was not limited to, those that are most frequent and those that are rare but possibly severe or life-threatening, as well as the possibility of unforeseen complications. Technique and Findings: Following informed consent, the patient was prepped and draped in usual sterile fashion. Preliminary CT scan of the area of interest was performed. 1% lidocaine was used to achieve local anesthesia. A small dermatotomy was made. Under periodic CT surveillance, a 17-gauge needle guide was advanced into the cortex of the left kidney and 4 x Gelfoam pledgets were applied as the needle guide was removed and hemostasis was achieved with manual compression. 18-gauge core biopsy specimens were obtained and divided between formalin and Jorge's solution. Complications: No immediate Impression: 1. CT-guided left renal biopsy as described PQRS Compliance Statement: One or more of the following individualized dose reduction techniques were utilized for this examination: 1. Automated exposure control 2. Adjustment of the mA and/or kV according to patient size 3. Use of iterative reconstruction technique
[2016-11-26 03:00] VITALS: BP 148/81
[2016-11-26 03:50] LABS: BASO # 0.1 x10^3/uL (0.0-0.2); BASO % 1 % (0-3); EOS % 6 % (0-3); HEMATOCRIT 27.7 % (39.0-53.0); HEMOGLOBIN 9.1 g/dL (13.0-17.5); LYMPH # 0.9 x10^3/uL (1.0-4.8); LYMPH % 8 % (24-48); MEAN CORPUSCULAR HEMOGLOBIN 28 pg (25-35); MEAN CORPUSCULAR HGB CONC 33 g/dL (31-37); MEAN CORPUSCULAR VOLUME 85 fL (79-100); MONO % 9 % (0-9); NEUT % 76 % (31-73); PLATELET COUNT 228 x10^3/uL (140-400); RED BLOOD COUNT 3.25 x10^6/uL (4.30-5.70); RED CELL DISTRIBUTION WIDTH 15.1 % (11.5-14.5)
[2016-11-26 03:55] LABS: ALBUMIN 1.8 g/dL (3.4-5.0); CALCIUM 8.9 mg/dL (8.5-10.1); CREATININE 7.4 mg/dL (0.7-1.3); GFR 7.5; PHOSPHORUS 5.9 mg/dL (2.6-4.7)
[2016-11-26] MEDS: PIPERACILLIN/TAZOBACTAM 2.25 GM in IV NORMAL SALINE 50ML 50 ML IV SCH ×3 (06:10→22:05)
[2016-11-26 07:00] VITALS: BP 121/80
[2016-11-26] MEDS: IPRATRPIUM/ALBUTEROL 0.5/2.5MG 3 ML NEBU. NEB SCH ×4 (07:13→18:09)
[2016-11-26] MEDS: CARVEDILOL 12.5 MG TABLET PO SCH ×2 (08:58→18:34)
[2016-11-26] MEDS: HYDRALAZINE 25 MG TABLET PO SCH ×2 (09:00→21:05)
[2016-11-26] MEDS: CALCIUM ACETATE 667 MG CAPSULE PO SCH ×3 (09:01→17:00)
[2016-11-26] MEDS: AMLODIPINE BESYLATE 10 MG TABLET PO SCH (09:03)
[2016-11-26] MEDS ORDERED: IV NORMAL SALINE 1000ML BAG 1,000 ML IV PRN ×2 (10:11)
[2016-11-26] MEDS ORDERED: 0.9 % SODIUM CHLORIDE 10 ML DISP.SYRIN. IV PRN ×2 (10:15)
[2016-11-26] MEDS ORDERED: DIALYSIS PATIENT. MC PRN ×2 (10:15)
--- NOTE | 2016-11-26 11:15 | PDOC ---
PROGRESS NOTES Subjective Subjective He had no new complaints. Objective Objective Vital Signs Date Time Temp Pulse Resp B/P Pulse Ox O2 Delivery O2 Flow Rate FiO2 11/26/16 09:03 95 128/81 11/26/16 07:13 95 Room Air 11/26/16 07:00 97.7 20 97.7 11/25/16 15:49 4.0 Intake and Output 11/26/16 07:00 Intake Total 840 ml Balance 840 ml Intake Oral 790 ml Other 50 ml # Voids 1 # Bowel Movements 1 Physical Exam Physical Exam He is supine receiving hemodialysis and he continues with some edema of left foot and tenderness to palpation left foot. Assessment Assessment Problems Medical Problems: (1) CHF exacerbation Status: Acute (2) Fall Status: Acute (3) UTI (urinary tract infection) Status: Acute Plan Plan of Care Still waiting for cam walker boot to left foot to help ease his pain while up weight bearing on his foot. Comment Review of Relevant I have reviewed the following items maynor (where applicable) has been applied. Labs Laboratory Tests Test 11/24/16 16:50 11/24/16 21:01 11/25/16 04:17 11/25/16 07:12 Glucose (Fingerstick) 145mg/dL (70-99) 191mg/dL (70-99) 127mg/dL (70-99) White Blood Count 13.8x10^3/uL (4.0-11.0) Red Blood Count 3.30x10^6/uL (4.30-5.70) Hemoglobin 9.2g/dL (13.0-17.5) Hematocrit 28.3% (39.0-53.0) Mean Corpuscular Volume 86fL (79-100) Mean Corpuscular Hemoglobin 28pg (25-35) Mean Corpuscular Hemoglobin Concent 33g/dL (31-37) Red Cell Distribution Width 15.0% (11.5-14.5) Platelet Count 229x10^3/uL (140-400) Neutrophils (%) (Auto) 77% (31-73) Lymphocytes (%) (Auto) 8% (24-48) Monocytes (%) (Auto) 8% (0-9) Eosinophils (%) (Auto) 6% (0-3) Basophils (%) (Auto) 1% (0-3) Neutrophils # (Auto) 10.6x10^3uL (1.8-7.7) Lymphocytes # (Auto) 1.1x10^3/uL (1.0-4.8) Monocytes # (Auto) 1.2x10^3/uL (0.0-1.1) Eosinophils # (Auto) 0.8x10^3/uL (0.0-0.7) Basophils # (Auto) 0.1x10^3/uL (0.0-0.2) Sodium Level 137mmol/L (136-145) Potassium Level 4.8mmol/L (3.5-5.1) Chloride Level 98mmol/L (98-107) Carbon Dioxide Level 28mmol/L (21-32) Anion Gap 11 (6-14) Blood Urea Nitrogen 31mg/dL (8-26) Creatinine 5.6mg/dL (0.7-1.3) Estimated GFR (Cockcroft-Gault) 10.4 Glucose Level 133mg/dL (70-99) Calcium Level 8.7mg/dL (8.5-10.1) Phosphorus Level 4.9mg/dL (2.6-4.7) Magnesium Level 2.1mg/dL (1.8-2.4) Albumin 2.1g/dL (3.4-5.0) Test 11/25/16 08:22 11/25/16 11:28 11/25/16 16:37 11/25/16 21:02 Prothrombin Time 18.0SEC (11.7-14.0) Prothromb Time International Ratio 1.6 (0.8-1.1) Glucose (Fingerstick) 135mg/dL (70-99) 110mg/dL (70-99) 142mg/dL (70-99) Test 11/26/16 03:20 11/26/16 08:03 White Blood Count 12.0x10^3/uL (4.0-11.0) Red Blood Count 3.25x10^6/uL (4.30-5.70) Hemoglobin 9.1g/dL (13.0-17.5) Hematocrit 27.7% (39.0-53.0) Mean Corpuscular Volume 85fL (79-100) Mean Corpuscular Hemoglobin 28pg (25-35) Mean Corpuscular Hemoglobin Concent 33g/dL (31-37) Red Cell Distribution Width 15.1% (11.5-14.5) Platelet Count 228x10^3/uL (140-400) Neutrophils (%) (Auto) 76% (31-73) Lymphocytes (%) (Auto) 8% (24-48) Monocytes (%) (Auto) 9% (0-9) Eosinophils (%) (Auto) 6% (0-3) Basophils (%) (Auto) 1% (0-3) Neutrophils # (Auto) 9.2x10^3uL (1.8-7.7) Lymphocytes # (Auto) 0.9x10^3/uL (1.0-4.8) Monocytes # (Auto) 1.1x10^3/uL (0.0-1.1) Eosinophils # (Auto) 0.7x10^3/uL (0.0-0.7) Basophils # (Auto) 0.1x10^3/uL (0.0-0.2) Sodium Level 137mmol/L (136-145) Potassium Level 5.0mmol/L (3.5-5.1) Chloride Level 100mmol/L (98-107) Carbon Dioxide Level 28mmol/L (21-32) Anion Gap 9 (6-14) Blood Urea Nitrogen 44mg/dL (8-26) Creatinine 7.4mg/dL (0.7-1.3) Estimated GFR (Cockcroft-Gault) 7.5 Glucose Level 127mg/dL (70-99) Calcium Level 8.9mg/dL (8.5-10.1) Phosphorus Level 5.9mg/dL (2.6-4.7) Albumin 1.8g/dL (3.4-5.0) Glucose (Fingerstick) 104mg/dL (70-99) Laboratory Tests Test 11/25/16 11:28 11/25/16 16:37 11/25/16 21:02 11/26/16 03:20 Glucose (Fingerstick) 135mg/dL (70-99) 110mg/dL (70-99) 142mg/dL (70-99) White Blood Count 12.0x10^3/uL (4.0-11.0) Red Blood Count 3.25x10^6/uL (4.30-5.70) Hemoglobin 9.1g/dL (13.0-17.5) Hematocrit 27.7% (39.0-53.0) Mean Corpuscular Volume 85fL (79-100) Mean Corpuscular Hemoglobin 28pg (25-35) Mean Corpuscular Hemoglobin Concent 33g/dL (31-37) Red Cell Distribution Width 15.1% (11.5-14.5) Platelet Count 228x10^3/uL (140-400) Neutrophils (%) (Auto) 76% (31-73) Lymphocytes (%) (Auto) 8% (24-48) Monocytes (%) (Auto) 9% (0-9) Eosinophils (%) (Auto) 6% (0-3) Basophils (%) (Auto) 1% (0-3) Neutrophils # (Auto) 9.2x10^3uL (1.8-7.7) Lymphocytes # (Auto) 0.9x10^3/uL (1.0-4.8) Monocytes # (Auto) 1.1x10^3/uL (0.0-1.1) Eosinophils # (Auto) 0.7x10^3/uL (0.0-0.7) Basophils # (Auto) 0.1x10^3/uL (0.0-0.2) Sodium Level 137mmol/L (136-145) Potassium Level 5.0mmol/L (3.5-5.1) Chloride Level 100mmol/L (98-107) Carbon Dioxide Level 28mmol/L (21-32) Anion Gap 9 (6-14) Blood Urea Nitrogen 44mg/dL (8-26) Creatinine 7.4mg/dL (0.7-1.3) Estimated GFR (Cockcroft-Gault) 7.5 Glucose Level 127mg/dL (70-99) Calcium Level 8.9mg/dL (8.5-10.1) Phosphorus Level 5.9mg/dL (2.6-4.7) Albumin 1.8g/dL (3.4-5.0) Test 11/26/16 08:03 Glucose (Fingerstick) 104mg/dL (70-99) Microbiology 11/20/16 Blood Culture - Final, Complete NO GROWTH AFTER 5 DAYS 11/18/16 Urine Culture - Final, Complete 11/18/16 Urine Culture Result 1 (SHILPA) - Final, Complete Medications Current Medications Acetaminophen/ Hydrocodone Bitart (Lortab 5/325) 2 tab 1X ONCE PO Last administered on 11/18/16 21:34; Start 11/18/16 at 21:00; Stop 11/18/16 at 21:01 ; Status DC Furosemide 40 mg 40 mg 1X ONCE IVP Last administered on 11/18/16 22:03; Start 11/18/16 at 22:00; Stop 11/18/16 at 22:01; Status DC Ceftriaxone Sodium (Rocephin 1gm Ivpb For Omni) 50 ml @ 100 mls/hr 1X ONCE IV Last administered on 11/18/16 22:06; Start 11/18/16 at 22:15; Stop 11/18/16 at 22:44; Status DC Ondansetron HCl (Zofran) 4 mg PRN Q8HRS PRN IV NAUSEA/VOMITING; Start 11/18/16 at 22:15; Stop 11/19/16 at 22:14; Status DC Morphine Sulfate 4 mg PRN Q2HR PRN IV PAIN Last administered on 11/19/16 14:58 ; Start 11/18/16 at 22:15; Stop 11/19/16 at 22:14; Status DC Acetaminophen (Tylenol) 650 mg PRN Q4HRS PRN PO FEVER; Start 11/18/16 at 22:15 ; Stop 11/19/16 at 22:14; Status DC Insulin Aspart (Novolog) 0-7 UNITS TIDWMEALS SQ ; Start 11/19/16 at 08:00; Stop 11/19/16 at 09:04; Status DC Dextrose 12.5 gm PRN Q15MIN PRN IV SEE COMMENTS; Start 11/18/16 at 22:15; Stop 11/19/16 at 10:19; Status DC Info (Do NOT chart on this placeholder) 1 each 1X ONCE MC ; Start 11/18/16 at 23:15; Stop 11/18/16 at 23:16; Status UNV Pneumococcal Polyvalent Vaccine (Do NOT chart on this placeholder) 1 each 1X ONCE MC ; Start 11/18/16 at 23:15; Stop 11/18/16 at 23:16; Status UNV Influenza Virus Vaccine Quadrival (Fluarix Quad [id number] Syringe) 0.5 ml ONCE ONCE VAX IM ; Start 11/19/16 at 09:00; Stop 11/19/16 at 09:01; Status DC Pneumococcal Polyvalent Vaccine 0.5 ml 0.5 ml ONCE ONCE VAX IM ; Start 11/19/16 at 09:00; Stop 11/19/16 at 09:01; Status DC Ceftriaxone Sodium/Sodium Chloride (Rocephin/Iv Sodium Chloride 0.9% 50ml) 50 ml @ 100 mls/hr Q24H IV Last administered on 11/20/16 20:49; Start 11/19/16 at 21:00; Stop 11/21/16 at 09:56; Status DC Amlodipine Besylate (Norvasc) 10 mg DAILY PO Last administered on 11/26/16 09: 03; Start 11/19/16 at 09:30 Glimepiride (Amaryl) 2 mg DAILYWBKFT PO Last administered on 11/20/16 08:08; Start 11/19/16 at 09:30; Stop 11/21/16 at 10:20; Status DC Carvedilol (Coreg) 25 mg BIDWMEALS PO Last administered on 11/26/16 08:58; Start 11/19/16 at 09:30 Rivaroxaban (Xarelto) 20 mg DAILYWSUP PO Last administered on 11/19/16 17:53; Start 11/19/16 at 17:00; Stop 11/20/16 at 08:53; Status DC Furosemide (Lasix) 40 mg 1X ONCE IVP Last administered on 11/19/16 09:40; Start 11/19/16 at 09:00; Stop 11/19/16 at 09:04; Status DC Insulin Aspart (Novolog) 0-7 UNITS TIDWMEALS SQ ; Start 11/19/16 at 12:00; Stop 11/21/16 at 21:16; Status DC Dextrose 12.5 gm PRN Q15MIN PRN IV SEE COMMENTS Last administered on 11/23/16 04:10; Start 11/19/16 at 09:00 Guaifenesin (Robitussin Dm) 10 ml PRN Q6HRS PRN PO COUGH; Start 11/19/16 at 09: 00 Nicotine (Nicoderm Cq 14mg) 1 patch PRN DAILY PRN TD SMOKING CESSATION; Start 11/19/16 at 09:15 Nicotine Polacrilex (Nicorette Gum) 1 each PRN Q1HR PRN BC BREAKTHROUGH CRAVINGS; Start 11/19/16 at 09:15 Albuterol/ Ipratropium (Duoneb) 3 ml RTQID NEB Last administered on 11/26/16 07:13; Start 11/19/16 at 09:30 Enoxaparin Sodium (Lovenox Per Pharmacy Prophylaxis Dosing) 1 each PRN DAILY PRN MC SEE COMMENTS; Start 11/19/16 at 09:30; Stop 11/19/16 at 09:30; Status DC Hydralazine HCl (Apresoline) 25 mg BID PO Last administered on 11/26/16 09:00 ; Start 11/19/16 at 10:30 Morphine Sulfate (Morphine Ir) 15 mg PRN Q4HRS PRN PO PAIN Last administered on 11/24/16 20:21; Start 11/20/16 at 00:15 Morphine Sulfate 4 mg PRN Q2HR PRN IV PAIN Last administered on 11/21/16 13:36 ; Start 11/20/16 at 00:15 Rivaroxaban 15 mg 15 mg DAILYWSUP PO ; Start 11/20/16 at 17:00; Stop 11/22/16 at 12:56; Status DC Sodium Chloride 1,000 ml @ 75 mls/hr [id number] IV Last administered on 23:37; Start 11/20/16 at 10:45; Stop 11/21/16 at 14:42; Status DC Milrinone Lactate/ Dextrose 100 ml @ 0 mls/hr CONT PRN IV SEE I/O RECORD Last administered on 11/21/16 22:19; Start 11/20/16 at 11:30; Stop 11/22/16 at 14:17 ; Status DC Magnesium Sulfate/ Dextrose 50 ml @ 25 mls/hr PRN DAILY PRN IV for Mag < 1.7 on am labs; Start 11/20/16 at 11:30 Piperacillin Sod/ Tazobactam Sod/ Sodium Chloride (Zosyn/Iv Sodium Chloride 0.9 % 50ml) 50 ml @ 100 mls/hr Q6HRS IV Last administered on 11/22/16 05:41; Start 11/20/16 at 12:00; Stop 11/22/16 at 10:39; Status DC Info 1 each 1 each PRN DAILY PRN MC SEE COMMENTS Last administered on 09:52; Start 11/21/16 at 08:15; Stop 11/22/16 at 14:15; Status DC Iron Sucrose/ Sodium Chloride (Venofer/Iv Sodium Chloride 0.9% 100ml) 110 ml @ 55 mls/hr 3X/WEEK IV Last administered on 11/25/16 07:44; Start 11/21/16 at 10 :00; Stop 11/30/16 at 10:59 Darbepoetin Guillermo (Aranesp) 100 mcg WEEKLYHS SQ Last administered on 11/21/16 21:21; Start 11/21/16 at 21:00 Calcium Acetate 1334 mg 1,334 mg TIDWMEALS PO Last administered on 11/26/16 09 :01; Start 11/21/16 at 12:00 Heparin Sodium/ Sodium Chloride 500 ml @ As Directed STK-MED ONCE .ROUTE ; Start 11/21/16 at 10:13; Stop 11/21/16 at 10:14; Status DC Lidocaine HCl 20 ml STK-MED ONCE .ROUTE ; Start 11/21/16 at 10:13; Stop at 10:14; Status DC Fentanyl Citrate (Fentanyl 2ml Vial) 100 mcg STK-MED ONCE .ROUTE ; Start at 10:52; Stop 11/21/16 at 10:53; Status DC Midazolam HCl (Versed) 2 mg STK-MED ONCE .ROUTE ; Start 11/21/16 at 10:52; Stop 11/21/16 at 10:53; Status DC Midazolam HCl (Versed) 1 mg 1X ONCE IV Last administered on 11/21/16 11:04; Start 11/21/16 at 11:30; Stop 11/21/16 at 11:31; Status DC Fentanyl Citrate (Fentanyl 2ml Vial) 25 mcg 1X ONCE IV Last administered on 11:02; Start 11/21/16 at 11:30; Stop 11/21/16 at 11:31; Status DC Lidocaine/Sodium Bicarbonate (Buffered Lidocaine 1%) 20 ml STK-MED ONCE IJ ; Start 11/21/16 at 14:59; Stop 11/21/16 at 15:00; Status DC Heparin Sodium (Porcine) 27322 unit 10,000 unit STK-MED ONCE .ROUTE ; Start at 14:59; Stop 11/21/16 at 15:00; Status DC Heparin Sodium/ Sodium Chloride 500 ml @ As Directed STK-MED ONCE .ROUTE ; Start 11/21/16 at 14:59; Stop 11/21/16 at 15:00; Status DC Heparin Sodium/ Sodium Chloride 1,000 unit 1X ONCE IART Last administered on t 15:18; Start 11/21/16 at 15:15; Stop 11/21/16 at 15:26; Status DC Lidocaine/Sodium Bicarbonate (Buffered Lidocaine 1%) 20 ml 1X ONCE IJ Last administered on 11/21/16t 15:17; Start 11/21/16 at 15:15; Stop 11/21/16 at 15:26 ; Status DC Heparin Sodium (Porcine) 4300 unit 4,300 unit 1X ONCE IV Last administered on 11/21/16t 15:17; Start 11/21/16 at 15:15; Stop 11/21/16 at 15:26; Status DC Sodium Chloride 1,000 ml @ 1,000 mls/hr Q1H PRN IV hypotension; Start 11/22/16 at 07:31; Stop 11/22/16 at 13:30; Status DC Albumin Human 200 ml @ 200 mls/hr 1X PRN PRN IV Hypotension; Start 11/22/16 at 07:45; Stop 11/22/16 at 13:44; Status DC Sodium Chloride (Iv Sodium Chloride 0.9% 1000ml Bag) 1,000 ml @ 400 mls/hr Q2H30M PRN IV PATENCY; Start 11/22/16 at 07:31; Stop 11/22/16 at 19:30; Status DC Info (PHARMACY MONITORING -- do not chart) 1 each PRN DAILY PRN MC SEE COMMENTS ; Start 11/22/16 at 07:45 Info (PHARMACY MONITORING -- do not chart) 1 each PRN DAILY PRN MC SEE COMMENTS ; Start 11/22/16 at 07:45; Status UNV Diphenhydramine HCl (Benadryl) 25 mg 1X PRN PRN IV ITCHING Last administered on 11/22/16 08:53; Start 11/22/16 at 08:45; Stop 11/23/16 at 08:44; Status DC Diphenhydramine HCl (Benadryl) 25 mg 1X PRN PRN IV ITCHING; Start 11/22/16 at 08:45; Stop 11/23/16 at 08:44; Status DC Ergocalciferol 65736 unit 50,000 unit WEEKLY PO Last administered on 11/22/16 12:12; Start 11/22/16 at 10:00 Piperacillin Sod/ Tazobactam Sod/ Sodium Chloride (Zosyn/Iv Sodium Chloride 0.9 % 50ml) 50 ml @ 100 mls/hr Q6HRS IV Last administered on 11/24/16 06:06; Start 11/22/16 at 12:00; Stop 11/24/16 at 08:05; Status DC Enoxaparin Sodium (Lovenox Per Pharmacy Treatment Dosing) 1 each PRN DAILY PRN MC SEE COMMENTS; Start 11/22/16 at 13:00; Stop 11/22/16 at 14:15; Status DC Enoxaparin Sodium 150 mg 150 mg Q24H SQ ; Start 11/22/16 at 14:00; Stop at 14:15; Status DC Dextrose 1,000 ml @ 50 mls/hr Q20H IV Last administered on 11/22/16 16:19; Start 11/22/16 at 16:15; Stop 11/23/16 at 20:48; Status DC Sodium Chloride 1,000 ml @ 1,000 mls/hr Q1H PRN IV hypotension; Start 11/23/16 at 07:58; Stop 11/23/16 at 13:57; Status DC Albumin Human (Albuminar) 200 ml @ 200 mls/hr 1X PRN PRN IV Hypotension; Start 11/23/16 at 08:00; Stop 11/23/16 at 13:59; Status DC Diphenhydramine HCl (Benadryl) 25 mg 1X PRN PRN IV ITCHING; Start 11/23/16 at 08:00; Stop 11/24/16 at 07:59; Status DC Sodium Chloride (Normal Saline Flush) 10 ml 1X PRN PRN IV AP 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; Start 11/23/16 at 08:00; Stop 11/24/16 at 07:59; Status DC Sodium Chloride 10 ml 10 ml 1X PRN PRN IV CABANA ATTENDANT 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; Start 11/23/16 at 08:00; Stop 11/24/16 at 07:59; Status DC Sodium Chloride (Iv Sodium Chloride 0.9% 1000ml Bag) 1,000 ml @ 400 mls/hr Q2H30M PRN IV PATENCY; Start 11/23/16 at 07:58; Stop 11/23/16 at 19:57; Status DC Info 1 each 1 each PRN DAILY PRN MC SEE COMMENTS; Start 11/23/16 at 08:00; Status UNV Piperacillin Sod/ Tazobactam Sod 2.25 gm/Sodium Chloride 50 ml @ 100 mls/hr Q8HRS IV Last administered on 11/26/16t 06:10; Start 11/24/16 at 14:00 Sodium Chloride (Iv Sodium Chloride 0.9% 1000ml Bag) 1,000 ml @ 1,000 mls/hr Q1H PRN IV hypotension; Start 11/24/16 at 09:00; Stop 11/24/16 at 14:59; Status DC Sodium Chloride (Normal Saline Flush) 10 ml 1X PRN PRN IV AP 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; Start 11/24/16 at 09:00; Stop 11/24/16 at 18:00; Status DC Sodium Chloride (Normal Saline Flush) 10 ml 1X PRN PRN IV CABANA ATTENDANT 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ROUTE ; Start 11/25/16 at 13:25; Stop 11/25/16 at 13:26; Status DC Midazolam HCl (Versed) 2 mg STK-MED ONCE .ROUTE ; Start 11/25/16 at 14:01; Stop 11/25/16 at 14:02; Status DC Fentanyl Citrate 100 mcg 100 mcg STK-MED ONCE .ROUTE ; Start 11/25/16 at 14:01; Stop 11/25/16 at 14:02; Status DC Cefazolin Sodium (Ancef 1gm Ivpb For Omni) 50 ml @ As Directed STK-MED ONCE IV ; Start 11/25/16 at 14:02; Stop 11/25/16 at 14:03; Status DC Lidocaine/Sodium Bicarbonate (Buffered Lidocaine 1%) 20 ml STK-MED ONCE IJ ; Start 11/25/16 at 14:32; Stop 11/25/16 at 14:33; Status DC Gelatin (Gelfoam Size 12-7mm) 1 each STK-MED ONCE .ROUTE ; Start 11/25/16 at 14 :32; Stop 11/25/16 at 14:33; Status DC Heparin Sodium (Porcine) 2,500 unit 1X ONCE IART ; Start 11/25/16 at 14:30; Stop 11/25/16 at 14:38; Status DC Midazolam HCl (Versed) 2 mg 1X ONCE IV Last administered on 11/25/16 15:19; Start 11/25/16 at 14:30; Stop 11/25/16 at 14:38; Status DC Fentanyl Citrate 100 mcg 100 mcg 1X ONCE IV Last administered on 11/25/16 15: 19; Start 11/25/16 at 14:30; Stop 11/25/16 at 14:38; Status DC Cefazolin Sodium (Ancef 1gm Ivpb For Omni) 50 ml @ 100 mls/hr 1X ONCE IV Last administered on 11/25/16 14:44; Start 11/25/16 at 14:30; Stop 11/25/16 at 14:59; Status DC Lidocaine/ Epinephrine (Xylocaine 1%-Epi 1:100,000) 20 ml 1X ONCE IJ Last administered on 11/25/16 14:44; Start 11/25/16 at 14:30; Stop 11/25/16 at 14:38 ; Status DC Heparin Sodium (Porcine) 4,200 unit 1X ONCE INT CAT Last administered on t 14:44; Start 11/25/16 at 14:30; Stop 11/25/16 at 14:38; Status DC Gelatin (Gelfoam Size 12-7mm) 1 each STK-MED ONCE .ROUTE ; Start 11/25/16 at 14 :56; Stop 11/25/16 at 14:57; Status DC Heparin Sodium/ Sodium Chloride 1000 unit 1,000 unit 1X ONCE IV Last administered on 11/25/16t 14:45; Start 11/25/16 at 15:15; Stop 11/25/16 at 15:17 ; Status DC Sodium Chloride (Iv Sodium Chloride 0.9% 1000ml Bag) 1,000 ml @ 1,000 mls/hr Q1H PRN IV hypotension; Start 11/26/16 at 10:11; Stop 11/26/16 at 16:10 Sodium Chloride (Normal Saline Flush) 10 ml 1X PRN PRN IV AP 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; Start 11/26/16 at 10:15; Stop 11/27/16 at 10:14 Sodium Chloride 10 ml 10 ml 1X PRN PRN IV CABANA ATTENDANT 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; Start 11/26/16 at 10:15; Stop 11/27/16 at 10:14 Sodium Chloride (Iv Sodium Chloride 0.9% 1000ml Bag) 1,000 ml @ 400 mls/hr Q2H30M PRN IV PATENCY; Start 11/26/16 at 10:11; Stop 11/26/16 at 22:10 Info (PHARMACY MONITORING -- do not chart) 1 each PRN DAILY PRN MC SEE COMMENTS ; Start 11/26/16 at 10:15; Status UNV Info (PHARMACY MONITORING -- do not chart) 1 each PRN DAILY PRN MC SEE COMMENTS ; Start 11/26/16 at 10:15; Status UNV Active Scripts Active Reported Xarelto (Rivaroxaban) 20 Mg Tablet 20 Mg PO DAILY Carvedilol 25 Mg Tablet 1 Tab PO BID Furosemide 40 Mg Tablet 1 Tab PO DAILY Losartan Potassium 100 Mg Tablet 100 Mg PO DAILY Amlodipine Besylate 10 Mg Tablet 10 Mg PO DAILY Glimepiride 2 Mg Tablet 1 Tab PO DAILY Vitals/I & O Vital Sign - Last 24 Hours 1/20/17 1/20/17 1/20/17 1/20/17 11:30 12:03 15:08 15:13 Temp 98.2 98.2 Pulse 84 88 91 Resp 22 16 12 B/P 117/70 Pulse Ox 96 94 93 93 O2 Delivery Room Air Room Air Nasal Cannula Nasal Cannula O2 Flow Rate 2.0 4.0 11/25/16 11/25/16 11/25/16 11/25/16 15:18 15:19 15:22 15:30 Temp 98.2 98.2 Pulse 82 79 96 Resp 15 22 B/P 144/70 Pulse Ox 94 93 93 96 O2 Delivery Nasal Cannula Nasal Cannula Nasal Cannula Room Air O2 Flow Rate 4.0 4.0 4.0 11/25/16 11/25/16 11/25/16 11/25/16 15:45 15:49 16:00 16:30 Temp 97.5 97.9 97.6 97.5 97.9 97.6 Pulse 96 92 98 Resp B/P 119/80 119/79 177/100 Pulse Ox 96 93 95 93 O2 Delivery Room Air Room Air Room Air Room Air O2 Flow Rate 4.0 11/25/16 11/25/16 11/25/16 11/25/16 16:34 16:45 18:11 19:50 Temp 98.2 98.3 98.2 98.3 Pulse 94 96 90 Resp B/P 177/98 152/85 114/83 Pulse Ox 94 94 96 O2 Delivery Room Air Room Air Room Air 11/25/16 11/25/16 11/25/16 11/26/16 20:00 21:01 22:39 03:00 Temp 97.6 97.7 97.6 97.7 Pulse 90 85 94 Resp B/P 114/83 138/77 148/81 Pulse Ox 96 100 O2 Delivery Room Air Room Air Room Air 11/26/16 11/26/16 11/26/16 11/26/16 07:00 07:13 08:58 09:00 Temp 97.7 97.7 Pulse 91 94 94 Resp 20 B/P 121/80 148/81 148/81 Pulse Ox 95 95 O2 Delivery Room Air Room Air 11/26/16 09:03 Pulse 95 B/P 128/81 Intake and Output 11/25/16 11/25/16 11/26/16 15:00 23:00 07:00 Intake Total 290 ml 550 ml Balance 290 ml 550 ml YANICK LAI MD Nov 26, 2016 11:15
--- NOTE | 2016-11-26 12:37 | PDOC ---
PROGRESS NOTES Chief Complaint Chief Complaint - CHF Systolic acute on chronic - Afib - CHAY - Leukocytosis - Urinary tract infection - Hyperphosphatemia - DM - HTN - Anemia - Proteinuria - Lower extremity edema with cellulitis - Fungal rash, total body - Fall History of Present Illness History of Present Illness 60 year old male examined while seated in bedside chair with present in the room. Patient was much more alert today. He had just received bed bath and was feeling better after that. Discussed procedures yesterday, which he states he tolerated well. Also discussed plan to discharge to [facility], which he replied sarcastically that he is looking forward to. Vitals Vitals Vital Signs Date Time Temp Pulse Resp B/P Pulse Ox O2 Delivery O2 Flow Rate FiO2 11/26/16 12:17 94 Room Air 11/26/16 09:03 95 128/81 11/26/16 07:00 97.7 20 97.7 11/25/16 15:49 4.0 Physical Exam General: Alert, Oriented X3, Cooperative, No acute distress Heart: Other (Slight tachycardia; No rubs) Lungs: Clear, Other (No wheezes/crackles) Abdomen: Normal bowel sounds, Soft Extremities: No clubbing, No cyanosis, Other (LE edema) Skin: Other (Fungal rash over whole body; dry and flaking LE; chronic venous stasis b/l; weepy LE patches ) Labs LABS Laboratory Tests Test 11/25/16 16:37 11/25/16 21:02 11/26/16 03:20 11/26/16 08:03 Glucose (Fingerstick) 110mg/dL (70-99) 142mg/dL (70-99) 104mg/dL (70-99) White Blood Count 12.0x10^3/uL (4.0-11.0) Red Blood Count 3.25x10^6/uL (4.30-5.70) Hemoglobin 9.1g/dL (13.0-17.5) Hematocrit 27.7% (39.0-53.0) Mean Corpuscular Volume 85fL (79-100) Mean Corpuscular Hemoglobin 28pg (25-35) Mean Corpuscular Hemoglobin Concent 33g/dL (31-37) Red Cell Distribution Width 15.1% (11.5-14.5) Platelet Count 228x10^3/uL (140-400) Neutrophils (%) (Auto) 76% (31-73) Lymphocytes (%) (Auto) 8% (24-48) Monocytes (%) (Auto) 9% (0-9) Eosinophils (%) (Auto) 6% (0-3) Basophils (%) (Auto) 1% (0-3) Neutrophils # (Auto) 9.2x10^3uL (1.8-7.7) Lymphocytes # (Auto) 0.9x10^3/uL (1.0-4.8) Monocytes # (Auto) 1.1x10^3/uL (0.0-1.1) Eosinophils # (Auto) 0.7x10^3/uL (0.0-0.7) Basophils # (Auto) 0.1x10^3/uL (0.0-0.2) Sodium Level 137mmol/L (136-145) Potassium Level 5.0mmol/L (3.5-5.1) Chloride Level 100mmol/L (98-107) Carbon Dioxide Level 28mmol/L (21-32) Anion Gap 9 (6-14) Blood Urea Nitrogen 44mg/dL (8-26) Creatinine 7.4mg/dL (0.7-1.3) Estimated GFR (Cockcroft-Gault) 7.5 Glucose Level 127mg/dL (70-99) Calcium Level 8.9mg/dL (8.5-10.1) Phosphorus Level 5.9mg/dL (2.6-4.7) Albumin 1.8g/dL (3.4-5.0) Review of Systems Review of Systems Left foot swelling and pain Denies dizziness/lightheadedness Assessment and Plan Assessmemt and Plan Assessment: - CHF Systolic acute on chronic - CHAY - Afib - Urinary tract infection - Leukocytosis - Hyperphosphatemia - DM - HTN - Anemia - Proteinuria - Lower extremity edema with cellulitis - Fungal rash, total body - Fall Plan: - Tunneled cath placement and renal biopsy yesterday. Holding Xarelto for 1 more day - Dialysis initiated, patient tolerating well; outpatient arrangements have been made by [facility] - Defer to nephrology regarding electrolyte management - Continue Zosyn, await blood cultures. ID following. Must switch to PO on discharge. - Cont IV morphine for pain. - Recheck labs in a.m. - PT/OT as tolerated - SNU eval in progress for placement at [facility]. Possible discharge on Monday if arrangements can be made. - Appreciate subspecialty input Problems: Comment Review of Relevant I have reviewed the following items maynor (where applicable) has been applied. Labs Laboratory Tests Test 11/24/16 16:50 11/24/16 21:01 11/25/16 04:17 11/25/16 07:12 Glucose (Fingerstick) 145mg/dL (70-99) 191mg/dL (70-99) 127mg/dL (70-99) White Blood Count 13.8x10^3/uL (4.0-11.0) Red Blood Count 3.30x10^6/uL (4.30-5.70) Hemoglobin 9.2g/dL (13.0-17.5) Hematocrit 28.3% (39.0-53.0) Mean Corpuscular Volume 86fL (79-100) Mean Corpuscular Hemoglobin 28pg (25-35) Mean Corpuscular Hemoglobin Concent 33g/dL (31-37) Red Cell Distribution Width 15.0% (11.5-14.5) Platelet Count 229x10^3/uL (140-400) Neutrophils (%) (Auto) 77% (31-73) Lymphocytes (%) (Auto) 8% (24-48) Monocytes (%) (Auto) 8% (0-9) Eosinophils (%) (Auto) 6% (0-3) Basophils (%) (Auto) 1% (0-3) Neutrophils # (Auto) 10.6x10^3uL (1.8-7.7) Lymphocytes # (Auto) 1.1x10^3/uL (1.0-4.8) Monocytes # (Auto) 1.2x10^3/uL (0.0-1.1) Eosinophils # (Auto) 0.8x10^3/uL (0.0-0.7) Basophils # (Auto) 0.1x10^3/uL (0.0-0.2) Sodium Level 137mmol/L (136-145) Potassium Level 4.8mmol/L (3.5-5.1) Chloride Level 98mmol/L (98-107) Carbon Dioxide Level 28mmol/L (21-32) Anion Gap 11 (6-14) Blood Urea Nitrogen 31mg/dL (8-26) Creatinine 5.6mg/dL (0.7-1.3) Estimated GFR (Cockcroft-Gault) 10.4 Glucose Level 133mg/dL (70-99) Calcium Level 8.7mg/dL (8.5-10.1) Phosphorus Level 4.9mg/dL (2.6-4.7) Magnesium Level 2.1mg/dL (1.8-2.4) Albumin 2.1g/dL (3.4-5.0) Test 11/25/16 08:22 11/25/16 11:28 11/25/16 16:37 11/25/16 21:02 Prothrombin Time 18.0SEC (11.7-14.0) Prothromb Time International Ratio 1.6 (0.8-1.1) Glucose (Fingerstick) 135mg/dL (70-99) 110mg/dL (70-99) 142mg/dL (70-99) Test 11/26/16 03:20 11/26/16 08:03 White Blood Count 12.0x10^3/uL (4.0-11.0) Red Blood Count 3.25x10^6/uL (4.30-5.70) Hemoglobin 9.1g/dL (13.0-17.5) Hematocrit 27.7% (39.0-53.0) Mean Corpuscular Volume 85fL (79-100) Mean Corpuscular Hemoglobin 28pg (25-35) Mean Corpuscular Hemoglobin Concent 33g/dL (31-37) Red Cell Distribution Width 15.1% (11.5-14.5) Platelet Count 228x10^3/uL (140-400) Neutrophils (%) (Auto) 76% (31-73) Lymphocytes (%) (Auto) 8% (24-48) Monocytes (%) (Auto) 9% (0-9) Eosinophils (%) (Auto) 6% (0-3) Basophils (%) (Auto) 1% (0-3) Neutrophils # (Auto) 9.2x10^3uL (1.8-7.7) Lymphocytes # (Auto) 0.9x10^3/uL (1.0-4.8) Monocytes # (Auto) 1.1x10^3/uL (0.0-1.1) Eosinophils # (Auto) 0.7x10^3/uL (0.0-0.7) Basophils # (Auto) 0.1x10^3/uL (0.0-0.2) Sodium Level 137mmol/L (136-145) Potassium Level 5.0mmol/L (3.5-5.1) Chloride Level 100mmol/L (98-107) Carbon Dioxide Level 28mmol/L (21-32) Anion Gap 9 (6-14) Blood Urea Nitrogen 44mg/dL (8-26) Creatinine 7.4mg/dL (0.7-1.3) Estimated GFR (Cockcroft-Gault) 7.5 Glucose Level 127mg/dL (70-99) Calcium Level 8.9mg/dL (8.5-10.1) Phosphorus Level 5.9mg/dL (2.6-4.7) Albumin 1.8g/dL (3.4-5.0) Glucose (Fingerstick) 104mg/dL (70-99) Laboratory Tests Test 11/25/16 16:37 11/25/16 21:02 11/26/16 03:20 11/26/16 08:03 Glucose (Fingerstick) 110mg/dL (70-99) 142mg/dL (70-99) 104mg/dL (70-99) White Blood Count 12.0x10^3/uL (4.0-11.0) Red Blood Count 3.25x10^6/uL (4.30-5.70) Hemoglobin 9.1g/dL (13.0-17.5) Hematocrit 27.7% (39.0-53.0) Mean Corpuscular Volume 85fL (79-100) Mean Corpuscular Hemoglobin 28pg (25-35) Mean Corpuscular Hemoglobin Concent 33g/dL (31-37) Red Cell Distribution Width 15.1% (11.5-14.5) Platelet Count 228x10^3/uL (140-400) Neutrophils (%) (Auto) 76% (31-73) Lymphocytes (%) (Auto) 8% (24-48) Monocytes (%) (Auto) 9% (0-9) Eosinophils (%) (Auto) 6% (0-3) Basophils (%) (Auto) 1% (0-3) Neutrophils # (Auto) 9.2x10^3uL (1.8-7.7) Lymphocytes # (Auto) 0.9x10^3/uL (1.0-4.8) Monocytes # (Auto) 1.1x10^3/uL (0.0-1.1) Eosinophils # (Auto) 0.7x10^3/uL (0.0-0.7) Basophils # (Auto) 0.1x10^3/uL (0.0-0.2) Sodium Level 137mmol/L (136-145) Potassium Level 5.0mmol/L (3.5-5.1) Chloride Level 100mmol/L (98-107) Carbon Dioxide Level 28mmol/L (21-32) Anion Gap 9 (6-14) Blood Urea Nitrogen 44mg/dL (8-26) Creatinine 7.4mg/dL (0.7-1.3) Estimated GFR (Cockcroft-Gault) 7.5 Glucose Level 127mg/dL (70-99) Calcium Level 8.9mg/dL (8.5-10.1) Phosphorus Level 5.9mg/dL (2.6-4.7) Albumin 1.8g/dL (3.4-5.0) Microbiology 11/20/16 Blood Culture - Final, Complete NO GROWTH AFTER 5 DAYS 11/18/16 Urine Culture - Final, Complete 11/18/16 Urine Culture Result 1 (SHILPA) - Final, Complete Medications Current Medications Acetaminophen/ Hydrocodone Bitart (Lortab 5/325) 2 tab 1X ONCE PO Last administered on 11/18/16 21:34; Start 11/18/16 at 21:00; Stop 11/18/16 at 21:01 ; Status DC Furosemide 40 mg 40 mg 1X ONCE IVP Last administered on 11/18/16 22:03; Start 11/18/16 at 22:00; Stop 11/18/16 at 22:01; Status DC Ceftriaxone Sodium (Rocephin 1gm Ivpb For Omni) 50 ml @ 100 mls/hr 1X ONCE IV Last administered on 11/18/16 22:06; Start 11/18/16 at 22:15; Stop 11/18/16 at 22:44; Status DC Ondansetron HCl (Zofran) 4 mg PRN Q8HRS PRN IV NAUSEA/VOMITING; Start 11/18/16 at 22:15; Stop 11/19/16 at 22:14; Status DC Morphine Sulfate 4 mg PRN Q2HR PRN IV PAIN Last administered on 11/19/16 14:58 ; Start 11/18/16 at 22:15; Stop 11/19/16 at 22:14; Status DC Acetaminophen (Tylenol) 650 mg PRN Q4HRS PRN PO FEVER; Start 11/18/16 at 22:15 ; Stop 11/19/16 at 22:14; Status DC Insulin Aspart (Novolog) 0-7 UNITS TIDWMEALS SQ ; Start 11/19/16 at 08:00; Stop 11/19/16 at 09:04; Status DC Dextrose 12.5 gm PRN Q15MIN PRN IV SEE COMMENTS; Start 11/18/16 at 22:15; Stop 11/19/16 at 10:19; Status DC Info (Do NOT chart on this placeholder) 1 each 1X ONCE MC ; Start 11/18/16 at 23:15; Stop 11/18/16 at 23:16; Status UNV Pneumococcal Polyvalent Vaccine (Do NOT chart on this placeholder) 1 each 1X ONCE MC ; Start 11/18/16 at 23:15; Stop 11/18/16 at 23:16; Status UNV Influenza Virus Vaccine Quadrival (Fluarix Quad [id number] Syringe) 0.5 ml ONCE ONCE VAX IM ; Start 11/19/16 at 09:00; Stop 11/19/16 at 09:01; Status DC Pneumococcal Polyvalent Vaccine 0.5 ml 0.5 ml ONCE ONCE VAX IM ; Start 11/19/16 at 09:00; Stop 11/19/16 at 09:01; Status DC Ceftriaxone Sodium/Sodium Chloride (Rocephin/Iv Sodium Chloride 0.9% 50ml) 50 ml @ 100 mls/hr Q24H IV Last administered on 11/20/16 20:49; Start 11/19/16 at 21:00; Stop 11/21/16 at 09:56; Status DC Amlodipine Besylate (Norvasc) 10 mg DAILY PO Last administered on 11/26/16 09: 03; Start 11/19/16 at 09:30 Glimepiride (Amaryl) 2 mg DAILYWBKFT PO Last administered on 11/20/16 08:08; Start 11/19/16 at 09:30; Stop 11/21/16 at 10:20; Status DC Carvedilol (Coreg) 25 mg BIDWMEALS PO Last administered on 11/26/16 08:58; Start 11/19/16 at 09:30 Rivaroxaban (Xarelto) 20 mg DAILYWSUP PO Last administered on 11/19/16 17:53; Start 11/19/16 at 17:00; Stop 11/20/16 at 08:53; Status DC Furosemide (Lasix) 40 mg 1X ONCE IVP Last administered on 11/19/16 09:40; Start 11/19/16 at 09:00; Stop 11/19/16 at 09:04; Status DC Insulin Aspart (Novolog) 0-7 UNITS TIDWMEALS SQ ; Start 11/19/16 at 12:00; Stop 11/21/16 at 21:16; Status DC Dextrose 12.5 gm PRN Q15MIN PRN IV SEE COMMENTS Last administered on 11/23/16 04:10; Start 11/19/16 at 09:00 Guaifenesin (Robitussin Dm) 10 ml PRN Q6HRS PRN PO COUGH; Start 11/19/16 at 09: 00 Nicotine (Nicoderm Cq 14mg) 1 patch PRN DAILY PRN TD SMOKING CESSATION; Start 11/19/16 at 09:15 Nicotine Polacrilex (Nicorette Gum) 1 each PRN Q1HR PRN BC BREAKTHROUGH CRAVINGS; Start 11/19/16 at 09:15 Albuterol/ Ipratropium (Duoneb) 3 ml RTQID NEB Last administered on 11/26/16 12:16; Start 11/19/16 at 09:30 Enoxaparin Sodium (Lovenox Per Pharmacy Prophylaxis Dosing) 1 each PRN DAILY PRN MC SEE COMMENTS; Start 11/19/16 at 09:30; Stop 11/19/16 at 09:30; Status DC Hydralazine HCl (Apresoline) 25 mg BID PO Last administered on 11/26/16 09:00 ; Start 11/19/16 at 10:30 Morphine Sulfate (Morphine Ir) 15 mg PRN Q4HRS PRN PO PAIN Last administered on 11/24/16 20:21; Start 11/20/16 at 00:15 Morphine Sulfate 4 mg PRN Q2HR PRN IV PAIN Last administered on 11/21/16 13:36 ; Start 11/20/16 at 00:15 Rivaroxaban 15 mg 15 mg DAILYWSUP PO ; Start 11/20/16 at 17:00; Stop 11/22/16 at 12:56; Status DC Sodium Chloride 1,000 ml @ 75 mls/hr [id number] IV Last administered on 23:37; Start 11/20/16 at 10:45; Stop 11/21/16 at 14:42; Status DC Milrinone Lactate/ Dextrose 100 ml @ 0 mls/hr CONT PRN IV SEE I/O RECORD Last administered on 11/21/16 22:19; Start 11/20/16 at 11:30; Stop 11/22/16 at 14:17 ; Status DC Magnesium Sulfate/ Dextrose 50 ml @ 25 mls/hr PRN DAILY PRN IV for Mag < 1.7 on am labs; Start 11/20/16 at 11:30 Piperacillin Sod/ Tazobactam Sod/ Sodium Chloride (Zosyn/Iv Sodium Chloride 0.9 % 50ml) 50 ml @ 100 mls/hr Q6HRS IV Last administered on 11/22/16 05:41; Start 11/20/16 at 12:00; Stop 11/22/16 at 10:39; Status DC Info 1 each 1 each PRN DAILY PRN MC SEE COMMENTS Last administered on 09:52; Start 11/21/16 at 08:15; Stop 11/22/16 at 14:15; Status DC Iron Sucrose/ Sodium Chloride (Venofer/Iv Sodium Chloride 0.9% 100ml) 110 ml @ 55 mls/hr 3X/WEEK IV Last administered on 11/25/16 07:44; Start 11/21/16 at 10 :00; Stop 11/30/16 at 10:59 Darbepoetin Guillermo (Aranesp) 100 mcg WEEKLYHS SQ Last administered on 11/21/16 21:21; Start 11/21/16 at 21:00 Calcium Acetate 1334 mg 1,334 mg TIDWMEALS PO Last administered on 11/26/16 09 :01; Start 11/21/16 at 12:00 Heparin Sodium/ Sodium Chloride 500 ml @ As Directed STK-MED ONCE .ROUTE ; Start 11/21/16 at 10:13; Stop 11/21/16 at 10:14; Status DC Lidocaine HCl 20 ml STK-MED ONCE .ROUTE ; Start 11/21/16 at 10:13; Stop at 10:14; Status DC Fentanyl Citrate (Fentanyl 2ml Vial) 100 mcg STK-MED ONCE .ROUTE ; Start at 10:52; Stop 11/21/16 at 10:53; Status DC Midazolam HCl (Versed) 2 mg STK-MED ONCE .ROUTE ; Start 11/21/16 at 10:52; Stop 11/21/16 at 10:53; Status DC Midazolam HCl (Versed) 1 mg 1X ONCE IV Last administered on 11/21/16 11:04; Start 11/21/16 at 11:30; Stop 11/21/16 at 11:31; Status DC Fentanyl Citrate (Fentanyl 2ml Vial) 25 mcg 1X ONCE IV Last administered on 11:02; Start 11/21/16 at 11:30; Stop 11/21/16 at 11:31; Status DC Lidocaine/Sodium Bicarbonate (Buffered Lidocaine 1%) 20 ml STK-MED ONCE IJ ; Start 11/21/16 at 14:59; Stop 11/21/16 at 15:00; Status DC Heparin Sodium (Porcine) 60693 unit 10,000 unit STK-MED ONCE .ROUTE ; Start at 14:59; Stop 11/21/16 at 15:00; Status DC Heparin Sodium/ Sodium Chloride 500 ml @ As Directed STK-MED ONCE .ROUTE ; Start 11/21/16 at 14:59; Stop 11/21/16 at 15:00; Status DC Heparin Sodium/ Sodium Chloride 1,000 unit 1X ONCE IART Last administered on 15:18; Start 11/21/16 at 15:15; Stop 11/21/16 at 15:26; Status DC Lidocaine/Sodium Bicarbonate (Buffered Lidocaine 1%) 20 ml 1X ONCE IJ Last administered on 11/21/16 15:17; Start 11/21/16 at 15:15; Stop 11/21/16 at 15:26 ; Status DC Heparin Sodium (Porcine) 4300 unit 4,300 unit 1X ONCE IV Last administered on 11/21/16 15:17; Start 11/21/16 at 15:15; Stop 11/21/16 at 15:26; Status DC Sodium Chloride 1,000 ml @ 1,000 mls/hr Q1H PRN IV hypotension; Start 11/22/16 at 07:31; Stop 11/22/16 at 13:30; Status DC Albumin Human 200 ml @ 200 mls/hr 1X PRN PRN IV Hypotension; Start 11/22/16 at 07:45; Stop 11/22/16 at 13:44; Status DC Sodium Chloride (Iv Sodium Chloride 0.9% 1000ml Bag) 1,000 ml @ 400 mls/hr Q2H30M PRN IV PATENCY; Start 11/22/16 at 07:31; Stop 11/22/16 at 19:30; Status DC Info (PHARMACY MONITORING -- do not chart) 1 each PRN DAILY PRN MC SEE COMMENTS ; Start 11/22/16 at 07:45 Info (PHARMACY MONITORING -- do not chart) 1 each PRN DAILY PRN MC SEE COMMENTS ; Start 11/22/16 at 07:45; Status UNV Diphenhydramine HCl (Benadryl) 25 mg 1X PRN PRN IV ITCHING Last administered on 11/22/16 08:53; Start 11/22/16 at 08:45; Stop 11/23/16 at 08:44; Status DC Diphenhydramine HCl (Benadryl) 25 mg 1X PRN PRN IV ITCHING; Start 11/22/16 at 08:45; Stop 11/23/16 at 08:44; Status DC Ergocalciferol 79240 unit 50,000 unit WEEKLY PO Last administered on 11/22/16 12:12; Start 11/22/16 at 10:00 Piperacillin Sod/ Tazobactam Sod/ Sodium Chloride (Zosyn/Iv Sodium Chloride 0.9 % 50ml) 50 ml @ 100 mls/hr Q6HRS IV Last administered on 11/24/16t 06:06; Start 11/22/16 at 12:00; Stop 11/24/16 at 08:05; Status DC Enoxaparin Sodium (Lovenox Per Pharmacy Treatment Dosing) 1 each PRN DAILY PRN MC SEE COMMENTS; Start 11/22/16 at 13:00; Stop 11/22/16 at 14:15; Status DC Enoxaparin Sodium 150 mg 150 mg Q24H SQ ; Start 11/22/16 at 14:00; Stop at 14:15; Status DC Dextrose 1,000 ml @ 50 mls/hr Q20H IV Last administered on 11/22/16t 16:19; Start 11/22/16 at 16:15; Stop 11/23/16 at 20:48; Status DC Sodium Chloride 1,000 ml @ 1,000 mls/hr Q1H PRN IV hypotension; Start 11/23/16 at 07:58; Stop 11/23/16 at 13:57; Status DC Albumin Human (Albuminar) 200 ml @ 200 mls/hr 1X PRN PRN IV Hypotension; Start 11/23/16 at 08:00; Stop 11/23/16 at 13:59; Status DC Diphenhydramine HCl (Benadryl) 25 mg 1X PRN PRN IV ITCHING; Start 11/23/16 at 08:00; Stop 11/24/16 at 07:59; Status DC Sodium Chloride (Normal Saline Flush) 10 ml 1X PRN PRN IV AP 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; Start 11/23/16 at 08:00; Stop 11/24/16 at 07:59; Status DC Sodium Chloride 10 ml 10 ml 1X PRN PRN IV RIP 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 GROOVE MACHINE OPERATOR 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; Start 11/23/16 at 08:00; Stop 11/24/16 at 07:59; Status DC Sodium Chloride (Iv Sodium Chloride 0.9% 1000ml Bag) 1,000 ml @ 400 mls/hr Q2H30M PRN IV PATENCY; Start 11/23/16 at 07:58; Stop 11/23/16 at 19:57; Status DC Info 1 each 1 each PRN DAILY PRN MC SEE COMMENTS; Start 11/23/16 at 08:00; Status UNV Piperacillin Sod/ Tazobactam Sod 2.25 gm/Sodium Chloride 50 ml @ 100 mls/hr Q8HRS IV Last administered on 11/26/16t 06:10; Start 11/24/16 at 14:00 Sodium Chloride (Iv Sodium Chloride 0.9% 1000ml Bag) 1,000 ml @ 1,000 mls/hr Q1H PRN IV hypotension; Start 11/24/16 at 09:00; Stop 11/24/16 at 14:59; Status DC Sodium Chloride (Normal Saline Flush) 10 ml 1X PRN PRN IV AP 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; Start 11/24/16 at 09:00; Stop 11/24/16 at 18:00; Status DC Sodium Chloride (Normal Saline Flush) 10 ml 1X PRN PRN IV RIP 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 GROOVE MACHINE OPERATOR 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ROUTE ; Start 11/25/16 at 13:25; Stop 11/25/16 at 13:26; Status DC Midazolam HCl (Versed) 2 mg STK-MED ONCE .ROUTE ; Start 11/25/16 at 14:01; Stop 11/25/16 at 14:02; Status DC Fentanyl Citrate 100 mcg 100 mcg STK-MED ONCE .ROUTE ; Start 11/25/16 at 14:01; Stop 11/25/16 at 14:02; Status DC Cefazolin Sodium (Ancef 1gm Ivpb For Omni) 50 ml @ As Directed STK-MED ONCE IV ; Start 11/25/16 at 14:02; Stop 11/25/16 at 14:03; Status DC Lidocaine/Sodium Bicarbonate (Buffered Lidocaine 1%) 20 ml STK-MED ONCE IJ ; Start 11/25/16 at 14:32; Stop 11/25/16 at 14:33; Status DC Gelatin (Gelfoam Size 12-7mm) 1 each STK-MED ONCE .ROUTE ; Start 11/25/16 at 14 :32; Stop 11/25/16 at 14:33; Status DC Heparin Sodium (Porcine) 2,500 unit 1X ONCE IART ; Start 11/25/16 at 14:30; Stop 11/25/16 at 14:38; Status DC Midazolam HCl (Versed) 2 mg 1X ONCE IV Last administered on 11/25/16 15:19; Start 11/25/16 at 14:30; Stop 11/25/16 at 14:38; Status DC Fentanyl Citrate 100 mcg 100 mcg 1X ONCE IV Last administered on 11/25/16 15: 19; Start 11/25/16 at 14:30; Stop 11/25/16 at 14:38; Status DC Cefazolin Sodium (Ancef 1gm Ivpb For Omni) 50 ml @ 100 mls/hr 1X ONCE IV Last administered on 11/25/16 14:44; Start 11/25/16 at 14:30; Stop 11/25/16 at 14:59; Status DC Lidocaine/ Epinephrine (Xylocaine 1%-Epi 1:100,000) 20 ml 1X ONCE IJ Last administered on 11/25/16 14:44; Start 11/25/16 at 14:30; Stop 11/25/16 at 14:38 ; Status DC Heparin Sodium (Porcine) 4,200 unit 1X ONCE INT CAT Last administered on 14:44; Start 11/25/16 at 14:30; Stop 11/25/16 at 14:38; Status DC Gelatin (Gelfoam Size 12-7mm) 1 each STK-MED ONCE .ROUTE ; Start 11/25/16 at 14 :56; Stop 11/25/16 at 14:57; Status DC Heparin Sodium/ Sodium Chloride 1000 unit 1,000 unit 1X ONCE IV Last administered on 11/25/16 14:45; Start 11/25/16 at 15:15; Stop 11/25/16 at 15:17 ; Status DC Sodium Chloride (Iv Sodium Chloride 0.9% 1000ml Bag) 1,000 ml @ 1,000 mls/hr Q1H PRN IV hypotension; Start 11/26/16 at 10:11; Stop 11/26/16 at 16:10 Sodium Chloride (Normal Saline Flush) 10 ml 1X PRN PRN IV AP 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; Start 11/26/16 at 10:15; Stop 11/27/16 at 10:14 Sodium Chloride 10 ml 10 ml 1X PRN PRN IV RIP AND GROOVE MACHINE OPERATOR 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; Start 11/26/16 at 10:15; Stop 11/27/16 at 10:14 Sodium Chloride (Iv Sodium Chloride 0.9% 1000ml Bag) 1,000 ml @ 400 mls/hr Q2H30M PRN IV PATENCY; Start 11/26/16 at 10:11; Stop 11/26/16 at 22:10 Info (PHARMACY MONITORING -- do not chart) 1 each PRN DAILY PRN MC SEE COMMENTS ; Start 11/26/16 at 10:15; Status UNV Info (PHARMACY MONITORING -- do not chart) 1 each PRN DAILY PRN MC SEE COMMENTS ; Start 11/26/16 at 10:15; Status UNV Active Scripts Active Reported Xarelto (Rivaroxaban) 20 Mg Tablet 20 Mg PO DAILY Carvedilol 25 Mg Tablet 1 Tab PO BID Furosemide 40 Mg Tablet 1 Tab PO DAILY Losartan Potassium 100 Mg Tablet 100 Mg PO DAILY Amlodipine Besylate 10 Mg Tablet 10 Mg PO DAILY Glimepiride 2 Mg Tablet 1 Tab PO DAILY Vitals/I & O Vital Sign - Last 24 Hours 11/25/16 11/25/16 11/25/16 11/25/16 15:08 15:13 15:18 15:19 Pulse 88 91 82 Resp 16 12 15 14 Pulse Ox 93 93 94 93 O2 Delivery Nasal Cannula Nasal Cannula Nasal Cannula Nasal Cannula O2 Flow Rate 2.0 4.0 4.0 4.0 11/25/16 11/25/16 11/25/16 11/25/16 15:22 15:30 15:45 15:49 Temp 98.2 97.5 98.2 97.5 Pulse 79 96 96 Resp 18 B/P 144/70 119/80 Pulse Ox 93 96 96 93 O2 Delivery Nasal Cannula Room Air Room Air Room Air O2 Flow Rate 4.0 4.0 11/25/16 11/25/16 11/25/16 11/25/16 16:00 16:30 16:34 16:45 Temp 97.9 97.6 98.2 97.9 97.6 98.2 Pulse 92 98 94 96 Resp B/P 119/79 177/100 177/98 152/85 Pulse Ox 95 93 94 O2 Delivery Room Air Room Air Room Air 11/25/16 11/25/16 11/25/16 11/25/16 18:11 19:50 20:00 21:01 Temp 98.3 98.3 Pulse 90 90 Resp B/P 114/83 114/83 Pulse Ox 94 96 O2 Delivery Room Air Room Air Room Air 11/25/16 11/26/16 11/26/16 11/26/16 22:39 03:00 07:00 07:13 Temp 97.6 97.7 97.7 97.6 97.7 97.7 Pulse 85 94 91 Resp B/P 138/77 148/81 121/80 Pulse Ox 96 100 95 95 O2 Delivery Room Air Room Air Room Air Room Air 11/26/16 11/26/16 11/26/16 11/26/16 08:00 08:58 09:00 09:03 Pulse 94 94 95 B/P 148/81 148/81 128/81 O2 Delivery Room Air 11/26/16 12:17 Pulse Ox 94 O2 Delivery Room Air Intake and Output 11/25/16 11/25/16 11/26/16 15:00 23:00 07:00 Intake Total 290 ml 550 ml Balance 290 ml 550 ml ELIGIO MCKENNA III DO Nov 26, 2016 12:37
[2016-11-26 15:00] VITALS: BP 143/69
[2016-11-26 17:27] LABS: CALCIUM 8.6 mg/dL (8.5-10.1); CREATININE 4.8 mg/dL (0.7-1.3); GFR 12.4; MAGNESIUM 1.8 mg/dL (1.8-2.4)
[2016-11-26 19:10] VITALS: BP 124/85
[2016-11-26] MEDS: MORPHINE IR 15 MG TABLET PO PRN (21:04)
[2016-11-26 23:18] VITALS: BP 119/72
[2016-11-26] MEDS ORDERED: MAGNESIUM SULFATE 1GM 100 ML IV ONE (23:30)
[2016-11-27 03:09] VITALS: BP 121/77
[2016-11-27 04:05] LABS: BASO # 0.1 x10^3/uL (0.0-0.2); BASO % 1 % (0-3); EOS % 5 % (0-3); HEMATOCRIT 27.4 % (39.0-53.0); HEMOGLOBIN 8.9 g/dL (13.0-17.5); LYMPH # 1.2 x10^3/uL (1.0-4.8); LYMPH % 11 % (24-48); MEAN CORPUSCULAR HEMOGLOBIN 28 pg (25-35); MEAN CORPUSCULAR HGB CONC 32 g/dL (31-37); MEAN CORPUSCULAR VOLUME 87 fL (79-100); MONO % 10 % (0-9); NEUT % 73 % (31-73); PLATELET COUNT 235 x10^3/uL (140-400); RED BLOOD COUNT 3.16 x10^6/uL (4.30-5.70); RED CELL DISTRIBUTION WIDTH 14.9 % (11.5-14.5)
[2016-11-27 04:42] LABS: ALBUMIN 1.8 g/dL (3.4-5.0); CALCIUM 8.3 mg/dL (8.5-10.1); GFR 9.6; PHOSPHORUS 4.9 mg/dL (2.6-4.7); POTASSIUM 4.2 mmol/L (3.5-5.1)
[2016-11-27] MEDS: PIPERACILLIN/TAZOBACTAM 2.25 GM in IV NORMAL SALINE 50ML 50 ML IV SCH ×3 (06:36→21:30)
[2016-11-27] MEDS: IPRATRPIUM/ALBUTEROL 0.5/2.5MG 3 ML NEBU. NEB SCH ×4 (06:55→18:14)
[2016-11-27 07:00] VITALS: BP 142/79
[2016-11-27] MEDS: CALCIUM ACETATE 667 MG CAPSULE PO SCH ×3 (10:03→18:37)
[2016-11-27] MEDS: AMLODIPINE BESYLATE 10 MG TABLET PO SCH (10:03)
[2016-11-27] MEDS: CARVEDILOL 12.5 MG TABLET PO SCH ×2 (10:04→18:37)
[2016-11-27] MEDS: HYDRALAZINE 25 MG TABLET PO SCH ×2 (10:04→21:30)
[2016-11-27 11:00] VITALS: BP 137/68
[2016-11-27] MEDS: PNEUMOC CONJ VACC 23-VALENT 0.5 ML VIAL. VAX IM ONE (13:12)
[2016-11-27 15:00] VITALS: BP 108/69
--- NOTE | 2016-11-27 15:04 | PDOC ---
PROGRESS NOTES Chief Complaint Chief Complaint - CHF Systolic acute on chronic - Afib - CHAY - Leukocytosis - Urinary tract infection - Hyperphosphatemia - DM - HTN - Anemia - Proteinuria - Lower extremity edema with cellulitis - Fungal rash, total body - Fall History of Present Illness History of Present Illness 60 year old male examined while seated in bedside chair with present in the room. Patient was very pleasant today, stating he feels "pretty good" today. Discussed plans for [place] and coordination of outpatient hemodialysis as well as potential changes in antibiotics upon discharge. Vitals Vitals Vital Signs Date Time Temp Pulse Resp B/P Pulse Ox O2 Delivery O2 Flow Rate FiO2 11/27/16 14:53 Room Air 11/27/16 11:00 98.3 80 21 137/68 95 98.3 Physical Exam General: Alert, Oriented X3, Cooperative, No acute distress Heart: Regular rate, Other (No rubs) Lungs: Clear, Other (No wheezes/crackles) Abdomen: Normal bowel sounds, Soft Extremities: No clubbing, No cyanosis, Other (LE edema) Skin: Other (Fungal rash over whole body; dry and flaking LE; chronic venous stasis b/l; weepy LE patches ) Labs LABS Laboratory Tests Test 11/26/16 16:26 11/26/16 16:48 11/26/16 20:57 11/27/16 03:44 Glucose (Fingerstick) 123mg/dL (70-99) 131mg/dL (70-99) Sodium Level 137mmol/L (136-145) 135mmol/L (136-145) Potassium Level 4.0mmol/L (3.5-5.1) 4.2mmol/L (3.5-5.1) Chloride Level 98mmol/L (98-107) 98mmol/L (98-107) Carbon Dioxide Level 29mmol/L (21-32) 29mmol/L (21-32) Anion Gap 10 (6-14) 8 (6-14) Blood Urea Nitrogen 22mg/dL (8-26) 27mg/dL (8-26) Creatinine 4.8mg/dL (0.7-1.3) 6.0mg/dL (0.7-1.3) Estimated GFR (Cockcroft-Gault) 12.4 9.6 Glucose Level 133mg/dL (70-99) 110mg/dL (70-99) Calcium Level 8.6mg/dL (8.5-10.1) 8.3mg/dL (8.5-10.1) Phosphorus Level 4.1mg/dL (2.6-4.7) 4.9mg/dL (2.6-4.7) Magnesium Level 1.8mg/dL (1.8-2.4) 2.2mg/dL (1.8-2.4) White Blood Count 11.0x10^3/uL (4.0-11.0) Red Blood Count 3.16x10^6/uL (4.30-5.70) Hemoglobin 8.9g/dL (13.0-17.5) Hematocrit 27.4% (39.0-53.0) Mean Corpuscular Volume 87fL (79-100) Mean Corpuscular Hemoglobin 28pg (25-35) Mean Corpuscular Hemoglobin Concent 32g/dL (31-37) Red Cell Distribution Width 14.9% (11.5-14.5) Platelet Count 235x10^3/uL (140-400) Neutrophils (%) (Auto) 73% (31-73) Lymphocytes (%) (Auto) 11% (24-48) Monocytes (%) (Auto) 10% (0-9) Eosinophils (%) (Auto) 5% (0-3) Basophils (%) (Auto) 1% (0-3) Neutrophils # (Auto) 8.0x10^3uL (1.8-7.7) Lymphocytes # (Auto) 1.2x10^3/uL (1.0-4.8) Monocytes # (Auto) 1.1x10^3/uL (0.0-1.1) Eosinophils # (Auto) 0.6x10^3/uL (0.0-0.7) Basophils # (Auto) 0.1x10^3/uL (0.0-0.2) Albumin 1.8g/dL (3.4-5.0) Test 11/27/16 07:46 11/27/16 12:05 Glucose (Fingerstick) 119mg/dL (70-99) 132mg/dL (70-99) Review of Systems Review of Systems Denies SOA Leg pain improved today Assessment and Plan Assessmemt and Plan Assessment: - CHF Systolic acute on chronic - CHAY - Afib - Urinary tract infection - Leukocytosis - Hyperphosphatemia - DM - HTN - Anemia - Proteinuria - Lower extremity edema with cellulitis - Fungal rash, total body - Fall Plan: - Tunneled cath placement and renal biopsy 11/25. Restart Xarelto tomorrow. - Dialysis initiated, patient tolerating well; outpatient arrangements have been made by SW - Defer to nephrology regarding electrolyte management - Continue Zosyn. Blood cultures negative X5 days. May change antibiotics on discharge. - Cont IV morphine for pain. - Recheck labs in a.m. - PT/OT as tolerated - SNU eval in progress for placement at [facility]. Possible discharge on Monday if arrangements can be made. - Appreciate subspecialty input Problems: Comment Review of Relevant I have reviewed the following items maynor (where applicable) has been applied. Labs Laboratory Tests Test 11/25/16 16:37 11/25/16 21:02 11/26/16 03:20 11/26/16 08:03 Glucose (Fingerstick) 110mg/dL (70-99) 142mg/dL (70-99) 104mg/dL (70-99) White Blood Count 12.0x10^3/uL (4.0-11.0) Red Blood Count 3.25x10^6/uL (4.30-5.70) Hemoglobin 9.1g/dL (13.0-17.5) Hematocrit 27.7% (39.0-53.0) Mean Corpuscular Volume 85fL (79-100) Mean Corpuscular Hemoglobin 28pg (25-35) Mean Corpuscular Hemoglobin Concent 33g/dL (31-37) Red Cell Distribution Width 15.1% (11.5-14.5) Platelet Count 228x10^3/uL (140-400) Neutrophils (%) (Auto) 76% (31-73) Lymphocytes (%) (Auto) 8% (24-48) Monocytes (%) (Auto) 9% (0-9) Eosinophils (%) (Auto) 6% (0-3) Basophils (%) (Auto) 1% (0-3) Neutrophils # (Auto) 9.2x10^3uL (1.8-7.7) Lymphocytes # (Auto) 0.9x10^3/uL (1.0-4.8) Monocytes # (Auto) 1.1x10^3/uL (0.0-1.1) Eosinophils # (Auto) 0.7x10^3/uL (0.0-0.7) Basophils # (Auto) 0.1x10^3/uL (0.0-0.2) Sodium Level 137mmol/L (136-145) Potassium Level 5.0mmol/L (3.5-5.1) Chloride Level 100mmol/L (98-107) Carbon Dioxide Level 28mmol/L (21-32) Anion Gap 9 (6-14) Blood Urea Nitrogen 44mg/dL (8-26) Creatinine 7.4mg/dL (0.7-1.3) Estimated GFR (Cockcroft-Gault) 7.5 Glucose Level 127mg/dL (70-99) Calcium Level 8.9mg/dL (8.5-10.1) Phosphorus Level 5.9mg/dL (2.6-4.7) Albumin 1.8g/dL (3.4-5.0) Test 11/26/16 16:26 11/26/16 16:48 11/26/16 20:57 11/27/16 03:44 Glucose (Fingerstick) 123mg/dL (70-99) 131mg/dL (70-99) Sodium Level 137mmol/L (136-145) 135mmol/L (136-145) Potassium Level 4.0mmol/L (3.5-5.1) 4.2mmol/L (3.5-5.1) Chloride Level 98mmol/L (98-107) 98mmol/L (98-107) Carbon Dioxide Level 29mmol/L (21-32) 29mmol/L (21-32) Anion Gap 10 (6-14) 8 (6-14) Blood Urea Nitrogen 22mg/dL (8-26) 27mg/dL (8-26) Creatinine 4.8mg/dL (0.7-1.3) 6.0mg/dL (0.7-1.3) Estimated GFR (Cockcroft-Gault) 12.4 9.6 Glucose Level 133mg/dL (70-99) 110mg/dL (70-99) Calcium Level 8.6mg/dL (8.5-10.1) 8.3mg/dL (8.5-10.1) Phosphorus Level 4.1mg/dL (2.6-4.7) 4.9mg/dL (2.6-4.7) Magnesium Level 1.8mg/dL (1.8-2.4) 2.2mg/dL (1.8-2.4) White Blood Count 11.0x10^3/uL (4.0-11.0) Red Blood Count 3.16x10^6/uL (4.30-5.70) Hemoglobin 8.9g/dL (13.0-17.5) Hematocrit 27.4% (39.0-53.0) Mean Corpuscular Volume 87fL (79-100) Mean Corpuscular Hemoglobin 28pg (25-35) Mean Corpuscular Hemoglobin Concent 32g/dL (31-37) Red Cell Distribution Width 14.9% (11.5-14.5) Platelet Count 235x10^3/uL (140-400) Neutrophils (%) (Auto) 73% (31-73) Lymphocytes (%) (Auto) 11% (24-48) Monocytes (%) (Auto) 10% (0-9) Eosinophils (%) (Auto) 5% (0-3) Basophils (%) (Auto) 1% (0-3) Neutrophils # (Auto) 8.0x10^3uL (1.8-7.7) Lymphocytes # (Auto) 1.2x10^3/uL (1.0-4.8) Monocytes # (Auto) 1.1x10^3/uL (0.0-1.1) Eosinophils # (Auto) 0.6x10^3/uL (0.0-0.7) Basophils # (Auto) 0.1x10^3/uL (0.0-0.2) Albumin 1.8g/dL (3.4-5.0) Test 11/27/16 07:46 11/27/16 12:05 Glucose (Fingerstick) 119mg/dL (70-99) 132mg/dL (70-99) Laboratory Tests Test 11/26/16 16:26 11/26/16 16:48 11/26/16 20:57 11/27/16 03:44 Glucose (Fingerstick) 123mg/dL (70-99) 131mg/dL (70-99) Sodium Level 137mmol/L (136-145) 135mmol/L (136-145) Potassium Level 4.0mmol/L (3.5-5.1) 4.2mmol/L (3.5-5.1) Chloride Level 98mmol/L (98-107) 98mmol/L (98-107) Carbon Dioxide Level 29mmol/L (21-32) 29mmol/L (21-32) Anion Gap 10 (6-14) 8 (6-14) Blood Urea Nitrogen 22mg/dL (8-26) 27mg/dL (8-26) Creatinine 4.8mg/dL (0.7-1.3) 6.0mg/dL (0.7-1.3) Estimated GFR (Cockcroft-Gault) 12.4 9.6 Glucose Level 133mg/dL (70-99) 110mg/dL (70-99) Calcium Level 8.6mg/dL (8.5-10.1) 8.3mg/dL (8.5-10.1) Phosphorus Level 4.1mg/dL (2.6-4.7) 4.9mg/dL (2.6-4.7) Magnesium Level 1.8mg/dL (1.8-2.4) 2.2mg/dL (1.8-2.4) White Blood Count 11.0x10^3/uL (4.0-11.0) Red Blood Count 3.16x10^6/uL (4.30-5.70) Hemoglobin 8.9g/dL (13.0-17.5) Hematocrit 27.4% (39.0-53.0) Mean Corpuscular Volume 87fL (79-100) Mean Corpuscular Hemoglobin 28pg (25-35) Mean Corpuscular Hemoglobin Concent 32g/dL (31-37) Red Cell Distribution Width 14.9% (11.5-14.5) Platelet Count 235x10^3/uL (140-400) Neutrophils (%) (Auto) 73% (31-73) Lymphocytes (%) (Auto) 11% (24-48) Monocytes (%) (Auto) 10% (0-9) Eosinophils (%) (Auto) 5% (0-3) Basophils (%) (Auto) 1% (0-3) Neutrophils # (Auto) 8.0x10^3uL (1.8-7.7) Lymphocytes # (Auto) 1.2x10^3/uL (1.0-4.8) Monocytes # (Auto) 1.1x10^3/uL (0.0-1.1) Eosinophils # (Auto) 0.6x10^3/uL (0.0-0.7) Basophils # (Auto) 0.1x10^3/uL (0.0-0.2) Albumin 1.8g/dL (3.4-5.0) Test 11/27/16 07:46 11/27/16 12:05 Glucose (Fingerstick) 119mg/dL (70-99) 132mg/dL (70-99) Microbiology 11/20/16 Blood Culture - Final, Complete NO GROWTH AFTER 5 DAYS 11/18/16 Urine Culture - Final, Complete 11/18/16 Urine Culture Result 1 (SHILPA) - Final, Complete Medications Current Medications Acetaminophen/ Hydrocodone Bitart (Lortab 5/325) 2 tab 1X ONCE PO Last administered on 11/18/16 21:34; Start 11/18/16 at 21:00; Stop 11/18/16 at 21:01 ; Status DC Furosemide 40 mg 40 mg 1X ONCE IVP Last administered on 11/18/16 22:03; Start 11/18/16 at 22:00; Stop 11/18/16 at 22:01; Status DC Ceftriaxone Sodium (Rocephin 1gm Ivpb For Omni) 50 ml @ 100 mls/hr 1X ONCE IV Last administered on 11/18/16 22:06; Start 11/18/16 at 22:15; Stop 11/18/16 at 22:44; Status DC Ondansetron HCl (Zofran) 4 mg PRN Q8HRS PRN IV NAUSEA/VOMITING; Start 11/18/16 at 22:15; Stop 11/19/16 at 22:14; Status DC Morphine Sulfate 4 mg PRN Q2HR PRN IV PAIN Last administered on 11/19/16 14:58 ; Start 11/18/16 at 22:15; Stop 11/19/16 at 22:14; Status DC Acetaminophen (Tylenol) 650 mg PRN Q4HRS PRN PO FEVER; Start 11/18/16 at 22:15 ; Stop 11/19/16 at 22:14; Status DC Insulin Aspart (Novolog) 0-7 UNITS TIDWMEALS SQ ; Start 11/19/16 at 08:00; Stop 11/19/16 at 09:04; Status DC Dextrose 12.5 gm PRN Q15MIN PRN IV SEE COMMENTS; Start 11/18/16 at 22:15; Stop 11/19/16 at 10:19; Status DC Info (Do NOT chart on this placeholder) 1 each 1X ONCE MC ; Start 11/18/16 at 23:15; Stop 11/18/16 at 23:16; Status UNV Pneumococcal Polyvalent Vaccine (Do NOT chart on this placeholder) 1 each 1X ONCE MC ; Start 11/18/16 at 23:15; Stop 11/18/16 at 23:16; Status UNV Influenza Virus Vaccine Quadrival (Fluarix Quad [id number] Syringe) 0.5 ml ONCE ONCE VAX IM Last administered on 11/27/16 13:10; Start 11/19/16 at 09:00; Stop 11/19/16 at 09:01; Status DC Pneumococcal Polyvalent Vaccine 0.5 ml 0.5 ml ONCE ONCE VAX IM Last administered on 11/27/16 13:12; Start 11/19/16 at 09:00; Stop 11/19/16 at 09:01 ; Status DC Ceftriaxone Sodium/Sodium Chloride (Rocephin/Iv Sodium Chloride 0.9% 50ml) 50 ml @ 100 mls/hr Q24H IV Last administered on 11/20/16 20:49; Start 11/19/16 at 21:00; Stop 11/21/16 at 09:56; Status DC Amlodipine Besylate (Norvasc) 10 mg DAILY PO Last administered on 11/27/16 10: 03; Start 11/19/16 at 09:30 Glimepiride (Amaryl) 2 mg DAILYWBKFT PO Last administered on 11/20/16 08:08; Start 11/19/16 at 09:30; Stop 11/21/16 at 10:20; Status DC Carvedilol (Coreg) 25 mg BIDWMEALS PO Last administered on 11/27/16 10:04; Start 11/19/16 at 09:30 Rivaroxaban (Xarelto) 20 mg DAILYWSUP PO Last administered on 11/19/16 17:53; Start 11/19/16 at 17:00; Stop 11/20/16 at 08:53; Status DC Furosemide (Lasix) 40 mg 1X ONCE IVP Last administered on 11/19/16 09:40; Start 11/19/16 at 09:00; Stop 11/19/16 at 09:04; Status DC Insulin Aspart (Novolog) 0-7 UNITS TIDWMEALS SQ ; Start 11/19/16 at 12:00; Stop 11/21/16 at 21:16; Status DC Dextrose 12.5 gm PRN Q15MIN PRN IV SEE COMMENTS Last administered on 11/23/16 04:10; Start 11/19/16 at 09:00 Guaifenesin (Robitussin Dm) 10 ml PRN Q6HRS PRN PO COUGH; Start 11/19/16 at 09: 00 Nicotine (Nicoderm Cq 14mg) 1 patch PRN DAILY PRN TD SMOKING CESSATION; Start 11/19/16 at 09:15 Nicotine Polacrilex (Nicorette Gum) 1 each PRN Q1HR PRN BC BREAKTHROUGH CRAVINGS; Start 11/19/16 at 09:15 Albuterol/ Ipratropium (Duoneb) 3 ml RTQID NEB Last administered on 11/27/16 14:53; Start 11/19/16 at 09:30 Enoxaparin Sodium (Lovenox Per Pharmacy Prophylaxis Dosing) 1 each PRN DAILY PRN MC SEE COMMENTS; Start 11/19/16 at 09:30; Stop 11/19/16 at 09:30; Status DC Hydralazine HCl (Apresoline) 25 mg BID PO Last administered on 11/27/16 10:04 ; Start 11/19/16 at 10:30 Morphine Sulfate (Morphine Ir) 15 mg PRN Q4HRS PRN PO PAIN Last administered on 11/26/16 21:04; Start 11/20/16 at 00:15 Morphine Sulfate 4 mg PRN Q2HR PRN IV PAIN Last administered on 11/21/16 13:36 ; Start 11/20/16 at 00:15 Rivaroxaban 15 mg 15 mg DAILYWSUP PO ; Start 11/20/16 at 17:00; Stop 11/22/16 at 12:56; Status DC Sodium Chloride 1,000 ml @ 75 mls/hr [id number] IV Last administered on 23:37; Start 11/20/16 at 10:45; Stop 11/21/16 at 14:42; Status DC Milrinone Lactate/ Dextrose 100 ml @ 0 mls/hr CONT PRN IV SEE I/O RECORD Last administered on 11/21/16 22:19; Start 11/20/16 at 11:30; Stop 11/22/16 at 14:17 ; Status DC Magnesium Sulfate/ Dextrose 50 ml @ 25 mls/hr PRN DAILY PRN IV for Mag < 1.7 on am labs; Start 11/20/16 at 11:30 Piperacillin Sod/ Tazobactam Sod/ Sodium Chloride (Zosyn/Iv Sodium Chloride 0.9 % 50ml) 50 ml @ 100 mls/hr Q6HRS IV Last administered on 11/22/16 05:41; Start 11/20/16 at 12:00; Stop 11/22/16 at 10:39; Status DC Info 1 each 1 each PRN DAILY PRN MC SEE COMMENTS Last administered on 09:52; Start 11/21/16 at 08:15; Stop 11/22/16 at 14:15; Status DC Iron Sucrose/ Sodium Chloride (Venofer/Iv Sodium Chloride 0.9% 100ml) 110 ml @ 55 mls/hr 3X/WEEK IV Last administered on 11/25/16 07:44; Start 11/21/16 at 10 :00; Stop 11/30/16 at 10:59 Darbepoetin Guillermo (Aranesp) 100 mcg WEEKLYHS SQ Last administered on 11/21/16 21:21; Start 11/21/16 at 21:00 Calcium Acetate 1334 mg 1,334 mg TIDWMEALS PO Last administered on 11/27/16 13 :07; Start 11/21/16 at 12:00 Heparin Sodium/ Sodium Chloride 500 ml @ As Directed STK-MED ONCE .ROUTE ; Start 11/21/16 at 10:13; Stop 11/21/16 at 10:14; Status DC Lidocaine HCl 20 ml STK-MED ONCE .ROUTE ; Start 11/21/16 at 10:13; Stop at 10:14; Status DC Fentanyl Citrate (Fentanyl 2ml Vial) 100 mcg STK-MED ONCE .ROUTE ; Start at 10:52; Stop 11/21/16 at 10:53; Status DC Midazolam HCl (Versed) 2 mg STK-MED ONCE .ROUTE ; Start 11/21/16 at 10:52; Stop 11/21/16 at 10:53; Status DC Midazolam HCl (Versed) 1 mg 1X ONCE IV Last administered on 11/21/16 11:04; Start 11/21/16 at 11:30; Stop 11/21/16 at 11:31; Status DC Fentanyl Citrate (Fentanyl 2ml Vial) 25 mcg 1X ONCE IV Last administered on 11:02; Start 11/21/16 at 11:30; Stop 11/21/16 at 11:31; Status DC Lidocaine/Sodium Bicarbonate (Buffered Lidocaine 1%) 20 ml STK-MED ONCE IJ ; Start 11/21/16 at 14:59; Stop 11/21/16 at 15:00; Status DC Heparin Sodium (Porcine) 79962 unit 10,000 unit STK-MED ONCE .ROUTE ; Start at 14:59; Stop 11/21/16 at 15:00; Status DC Heparin Sodium/ Sodium Chloride 500 ml @ As Directed STK-MED ONCE .ROUTE ; Start 11/21/16 at 14:59; Stop 11/21/16 at 15:00; Status DC Heparin Sodium/ Sodium Chloride 1,000 unit 1X ONCE IART Last administered on 15:18; Start 11/21/16 at 15:15; Stop 11/21/16 at 15:26; Status DC Lidocaine/Sodium Bicarbonate (Buffered Lidocaine 1%) 20 ml 1X ONCE IJ Last administered on 11/21/16 15:17; Start 11/21/16 at 15:15; Stop 11/21/16 at 15:26 ; Status DC Heparin Sodium (Porcine) 4300 unit 4,300 unit 1X ONCE IV Last administered on 11/21/16 15:17; Start 11/21/16 at 15:15; Stop 11/21/16 at 15:26; Status DC Sodium Chloride 1,000 ml @ 1,000 mls/hr Q1H PRN IV hypotension; Start 11/22/16 at 07:31; Stop 11/22/16 at 13:30; Status DC Albumin Human 200 ml @ 200 mls/hr 1X PRN PRN IV Hypotension; Start 11/22/16 at 07:45; Stop 11/22/16 at 13:44; Status DC Sodium Chloride (Iv Sodium Chloride 0.9% 1000ml Bag) 1,000 ml @ 400 mls/hr Q2H30M PRN IV PATENCY; Start 11/22/16 at 07:31; Stop 11/22/16 at 19:30; Status DC Info (PHARMACY MONITORING -- do not chart) 1 each PRN DAILY PRN MC SEE COMMENTS ; Start 11/22/16 at 07:45 Info (PHARMACY MONITORING -- do not chart) 1 each PRN DAILY PRN MC SEE COMMENTS ; Start 11/22/16 at 07:45; Status UNV Diphenhydramine HCl (Benadryl) 25 mg 1X PRN PRN IV ITCHING Last administered on 11/22/16 08:53; Start 11/22/16 at 08:45; Stop 11/23/16 at 08:44; Status DC Diphenhydramine HCl (Benadryl) 25 mg 1X PRN PRN IV ITCHING; Start 11/22/16 at 08:45; Stop 11/23/16 at 08:44; Status DC Ergocalciferol 79727 unit 50,000 unit WEEKLY PO Last administered on 11/22/16 12:12; Start 11/22/16 at 10:00 Piperacillin Sod/ Tazobactam Sod/ Sodium Chloride (Zosyn/Iv Sodium Chloride 0.9 % 50ml) 50 ml @ 100 mls/hr Q6HRS IV Last administered on 11/24/16 06:06; Start 11/22/16 at 12:00; Stop 11/24/16 at 08:05; Status DC Enoxaparin Sodium (Lovenox Per Pharmacy Treatment Dosing) 1 each PRN DAILY PRN MC SEE COMMENTS; Start 11/22/16 at 13:00; Stop 11/22/16 at 14:15; Status DC Enoxaparin Sodium 150 mg 150 mg Q24H SQ ; Start 11/22/16 at 14:00; Stop at 14:15; Status DC Dextrose 1,000 ml @ 50 mls/hr Q20H IV Last administered on 11/22/16 16:19; Start 11/22/16 at 16:15; Stop 11/23/16 at 20:48; Status DC Sodium Chloride 1,000 ml @ 1,000 mls/hr Q1H PRN IV hypotension; Start 11/23/16 at 07:58; Stop 11/23/16 at 13:57; Status DC Albumin Human (Albuminar) 200 ml @ 200 mls/hr 1X PRN PRN IV Hypotension; Start 11/23/16 at 08:00; Stop 11/23/16 at 13:59; Status DC Diphenhydramine HCl (Benadryl) 25 mg 1X PRN PRN IV ITCHING; Start 11/23/16 at 08:00; Stop 11/24/16 at 07:59; Status DC Sodium Chloride (Normal Saline Flush) 10 ml 1X PRN PRN IV AP 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; Start 11/23/16 at 08:00; Stop 11/24/16 at 07:59; Status DC Sodium Chloride 10 ml 10 ml 1X PRN PRN IV DUAL HOSE CEMENTER 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; Start 11/23/16 at 08:00; Stop 11/24/16 at 07:59; Status DC Sodium Chloride (Iv Sodium Chloride 0.9% 1000ml Bag) 1,000 ml @ 400 mls/hr Q2H30M PRN IV PATENCY; Start 11/23/16 at 07:58; Stop 11/23/16 at 19:57; Status DC Info 1 each 1 each PRN DAILY PRN MC SEE COMMENTS; Start 11/23/16 at 08:00; Status UNV Piperacillin Sod/ Tazobactam Sod 2.25 gm/Sodium Chloride 50 ml @ 100 mls/hr Q8HRS IV Last administered on 11/27/16 13:08; Start 11/24/16 at 14:00 Sodium Chloride (Iv Sodium Chloride 0.9% 1000ml Bag) 1,000 ml @ 1,000 mls/hr Q1H PRN IV hypotension; Start 11/24/16 at 09:00; Stop 11/24/16 at 14:59; Status DC Sodium Chloride (Normal Saline Flush) 10 ml 1X PRN PRN IV AP 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; Start 11/24/16 at 09:00; Stop 11/24/16 at 18:00; Status DC Sodium Chloride (Normal Saline Flush) 10 ml 1X PRN PRN IV DUAL HOSE CEMENTER 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ROUTE ; Start 11/25/16 at 13:25; Stop 11/25/16 at 13:26; Status DC Midazolam HCl (Versed) 2 mg STK-MED ONCE .ROUTE ; Start 11/25/16 at 14:01; Stop 11/25/16 at 14:02; Status DC Fentanyl Citrate 100 mcg 100 mcg STK-MED ONCE .ROUTE ; Start 11/25/16 at 14:01; Stop 11/25/16 at 14:02; Status DC Cefazolin Sodium (Ancef 1gm Ivpb For Omni) 50 ml @ As Directed STK-MED ONCE IV ; Start 11/25/16 at 14:02; Stop 11/25/16 at 14:03; Status DC Lidocaine/Sodium Bicarbonate (Buffered Lidocaine 1%) 20 ml STK-MED ONCE IJ ; Start 11/25/16 at 14:32; Stop 11/25/16 at 14:33; Status DC Gelatin (Gelfoam Size 12-7mm) 1 each STK-MED ONCE .ROUTE ; Start 11/25/16 at 14 :32; Stop 11/25/16 at 14:33; Status DC Heparin Sodium (Porcine) 2,500 unit 1X ONCE IART ; Start 11/25/16 at 14:30; Stop 11/25/16 at 14:38; Status DC Midazolam HCl (Versed) 2 mg 1X ONCE IV Last administered on 11/25/16 15:19; Start 11/25/16 at 14:30; Stop 11/25/16 at 14:38; Status DC Fentanyl Citrate 100 mcg 100 mcg 1X ONCE IV Last administered on 11/25/16 15: 19; Start 11/25/16 at 14:30; Stop 11/25/16 at 14:38; Status DC Cefazolin Sodium (Ancef 1gm Ivpb For Omni) 50 ml @ 100 mls/hr 1X ONCE IV Last administered on 11/25/16 14:44; Start 11/25/16 at 14:30; Stop 11/25/16 at 14:59; Status DC Lidocaine/ Epinephrine (Xylocaine 1%-Epi 1:100,000) 20 ml 1X ONCE IJ Last administered on 11/25/16 14:44; Start 11/25/16 at 14:30; Stop 11/25/16 at 14:38 ; Status DC Heparin Sodium (Porcine) 4,200 unit 1X ONCE INT CAT Last administered on 14:44; Start 11/25/16 at 14:30; Stop 11/25/16 at 14:38; Status DC Gelatin (Gelfoam Size 12-7mm) 1 each STK-MED ONCE .ROUTE ; Start 11/25/16 at 14 :56; Stop 11/25/16 at 14:57; Status DC Heparin Sodium/ Sodium Chloride 1000 unit 1,000 unit 1X ONCE IV Last administered on 11/25/16 14:45; Start 11/25/16 at 15:15; Stop 11/25/16 at 15:17 ; Status DC Sodium Chloride (Iv Sodium Chloride 0.9% 1000ml Bag) 1,000 ml @ 1,000 mls/hr Q1H PRN IV hypotension; Start 11/26/16 at 10:11; Stop 11/26/16 at 16:10; Status DC Sodium Chloride (Normal Saline Flush) 10 ml 1X PRN PRN IV AP 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; Start 11/26/16 at 10:15; Stop 11/27/16 at 10:14; Status DC Sodium Chloride 10 ml 10 ml 1X PRN PRN IV DUAL HOSE CEMENTER 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; Start 11/26/16 at 10:15; Stop 11/27/16 at 10:14; Status DC Sodium Chloride (Iv Sodium Chloride 0.9% 1000ml Bag) 1,000 ml @ 400 mls/hr Q2H30M PRN IV PATENCY; Start 11/26/16 at 10:11; Stop 11/26/16 at 22:10; Status DC Info (PHARMACY MONITORING -- do not chart) 1 each PRN DAILY PRN MC SEE COMMENTS ; Start 11/26/16 at 10:15; Status UNV Info 1 each 1 each PRN DAILY PRN MC SEE COMMENTS; Start 11/26/16 at 10:15; Status UNV Magnesium Sulfate/ Dextrose (Magnesium Sulfate PREMIX 1GM) 100 ml @ 100 mls/hr 1X ONCE IV Last administered on 11/27/16t 00:19; Start 11/26/16 at 23:30; Stop 11/27/16 at 00:29; Status DC Active Scripts Active Reported Xarelto (Rivaroxaban) 20 Mg Tablet 20 Mg PO DAILY Carvedilol 25 Mg Tablet 1 Tab PO BID Furosemide 40 Mg Tablet 1 Tab PO DAILY Losartan Potassium 100 Mg Tablet 100 Mg PO DAILY Amlodipine Besylate 10 Mg Tablet 10 Mg PO DAILY Glimepiride 2 Mg Tablet 1 Tab PO DAILY Vitals/I & O Vital Sign - Last 24 Hours 11/26/16 11/26/16 11/26/16 11/26/16 15:00 15:36 18:10 18:34 Temp 98.3 98.3 Pulse 96 96 Resp 22 B/P 143/69 143/69 Pulse Ox 97 O2 Delivery Room Air Room Air Room Air 11/26/16 11/26/16 11/26/16 11/26/16 19:10 20:00 21:04 21:05 Temp 98.2 98.2 Pulse 87 87 Resp 21 20 B/P 124/85 124/85 Pulse Ox 95 95 O2 Delivery Room Air Room Air Room Air 11/26/16 11/26/16 11/27/16 11/27/16 22:05 23:18 03:09 06:56 Temp 97.7 97.4 97.7 97.4 Pulse 89 78 Resp 20 21 20 B/P 119/72 121/77 Pulse Ox 95 94 95 98 O2 Delivery Room Air Room Air Room Air Room Air 11/27/16 11/27/16 11/27/16 11/27/16 07:00 10:03 10:04 10:04 Temp 98.4 98.4 Pulse 80 77 80 80 Resp 20 B/P 142/79 142/79 142/79 142/79 Pulse Ox 97 O2 Delivery Room Air 11/27/16 11/27/16 11/27/16 11:00 11:11 14:53 Temp 98.3 98.3 Pulse 80 Resp 21 B/P 137/68 Pulse Ox 95 O2 Delivery Room Air Room Air Room Air Intake and Output 11/26/16 11/26/16 11/27/16 15:00 23:00 07:00 Intake Total 420 ml 500 ml Output Total 150 ml 0 ml Balance 270 ml 500 ml ELIGIO MCKENNA III DO Nov 27, 2016 15:04
--- NOTE | 2016-11-27 16:43 | PDOC ---
Provider Note Provider Note RENAL F/U : RM Doing OK No new c/o VSS Afebrile Exam stable Labs reviewed. CPM MARY Oscar. JEFFREY ABDALLA MD Nov 27, 2016 16:43
--- NOTE | 2016-11-27 16:44 | PDOC4 ---
PROCEDURE Procedure RENAL DIALYSIS / RM Date of svc; 11/26/16 HD done F 180/HCO3 / 3 K Qb 450 Qd 600 UF 1-2kg No complications. Well tolerated. JEFFREY ABDALLA MD Nov 27, 2016 16:44
[2016-11-27 19:55] VITALS: BP 120/75
[2016-11-27] MEDS: MORPHINE IR 15 MG TABLET PO PRN (21:29)
[2016-11-27 23:10] VITALS: BP 130/71
[2016-11-28 03:20] VITALS: BP 129/70
[2016-11-28 04:29] LABS: BASO # 0.1 x10^3/uL (0.0-0.2); BASO % 1 % (0-3); EOS % 6 % (0-3); HEMATOCRIT 26.8 % (39.0-53.0); HEMOGLOBIN 8.8 g/dL (13.0-17.5); LYMPH # 1.3 x10^3/uL (1.0-4.8); LYMPH % 12 % (24-48); MEAN CORPUSCULAR HEMOGLOBIN 28 pg (25-35); MEAN CORPUSCULAR HGB CONC 33 g/dL (31-37); MEAN CORPUSCULAR VOLUME 87 fL (79-100); MONO % 9 % (0-9); NEUT % 72 % (31-73); PLATELET COUNT 227 x10^3/uL (140-400); RED BLOOD COUNT 3.09 x10^6/uL (4.30-5.70); RED CELL DISTRIBUTION WIDTH 15.1 % (11.5-14.5); WHITE BLOOD COUNT 10.9 x10^3/uL (4.0-11.0)
[2016-11-28 04:47] LABS: CALCIUM 8.8 mg/dL (8.5-10.1); CREATININE 8.3 mg/dL (0.7-1.3); GFR 6.6; POTASSIUM 4.7 mmol/L (3.5-5.1)
[2016-11-28] MEDS: PIPERACILLIN/TAZOBACTAM 2.25 GM in IV NORMAL SALINE 50ML 50 ML IV SCH ×2 (06:18→14:00)
[2016-11-28] MEDS: IPRATRPIUM/ALBUTEROL 0.5/2.5MG 3 ML NEBU. NEB SCH ×4 (07:19→18:43)
[2016-11-28 07:47] VITALS: BP 139/67
[2016-11-28] MEDS: CALCIUM ACETATE 667 MG CAPSULE PO SCH ×3 (10:13→18:00)
[2016-11-28] MEDS: HYDRALAZINE 25 MG TABLET PO SCH ×2 (10:13→21:31)
[2016-11-28] MEDS: IRON SUCROSE COMPLEX 200 MG in IV NORMAL SALINE 100ML 100 ML IV SCH (10:14)
[2016-11-28] MEDS: CARVEDILOL 12.5 MG TABLET PO SCH ×2 (10:14→18:05)
[2016-11-28] MEDS: AMLODIPINE BESYLATE 10 MG TABLET PO SCH (10:14)
[2016-11-28] MEDS: APIXABAN 5 MG TABLET. PO SCH ×2 (10:27→21:31)
--- NOTE | 2016-11-28 10:33 | PDOC ---
PROGRESS NOTES Chief Complaint Chief Complaint - CHF Systolic acute on chronic - Afib - CHAY - Leukocytosis - Urinary tract infection - Hyperphosphatemia - DM - HTN - Anemia - Proteinuria - Lower extremity edema with cellulitis - Fungal rash, total body - Fall History of Present Illness History of Present Illness 60 year old male examined while sitting up in bed, at bedside. Patient continues to feel relatively well. Pt ready for discharge to [facility] and has arranged for outpatient hemodialysis. Vitals Vitals Vital Signs Date Time Temp Pulse Resp B/P Pulse Ox O2 Delivery O2 Flow Rate FiO2 11/28/16 10:14 85 139/67 11/28/16 07:47 97.5 21 97 Room Air 97.5 Physical Exam General: Alert, Oriented X3, Cooperative, No acute distress Heart: Regular rate, Other (No rubs) Lungs: Clear, Other (No wheezes/crackles) Abdomen: Normal bowel sounds, Soft Extremities: No clubbing, No cyanosis, Other (LE edema) Skin: Other (Fungal rash over whole body; dry and flaking LE; chronic venous stasis b/l; weepy LE patches ) Labs LABS Laboratory Tests Test 11/27/16 12:05 11/27/16 17:25 11/27/16 20:56 11/28/16 03:53 Glucose (Fingerstick) 132mg/dL (70-99) 118mg/dL (70-99) 107mg/dL (70-99) White Blood Count 10.9x10^3/uL (4.0-11.0) Red Blood Count 3.09x10^6/uL (4.30-5.70) Hemoglobin 8.8g/dL (13.0-17.5) Hematocrit 26.8% (39.0-53.0) Mean Corpuscular Volume 87fL (79-100) Mean Corpuscular Hemoglobin 28pg (25-35) Mean Corpuscular Hemoglobin Concent 33g/dL (31-37) Red Cell Distribution Width 15.1% (11.5-14.5) Platelet Count 227x10^3/uL (140-400) Neutrophils (%) (Auto) 72% (31-73) Lymphocytes (%) (Auto) 12% (24-48) Monocytes (%) (Auto) 9% (0-9) Eosinophils (%) (Auto) 6% (0-3) Basophils (%) (Auto) 1% (0-3) Neutrophils # (Auto) 7.9x10^3uL (1.8-7.7) Lymphocytes # (Auto) 1.3x10^3/uL (1.0-4.8) Monocytes # (Auto) 1.0x10^3/uL (0.0-1.1) Eosinophils # (Auto) 0.6x10^3/uL (0.0-0.7) Basophils # (Auto) 0.1x10^3/uL (0.0-0.2) Sodium Level 137mmol/L (136-145) Potassium Level 4.7mmol/L (3.5-5.1) Chloride Level 98mmol/L (98-107) Carbon Dioxide Level 28mmol/L (21-32) Anion Gap 11 (6-14) Blood Urea Nitrogen 39mg/dL (8-26) Creatinine 8.3mg/dL (0.7-1.3) Estimated GFR (Cockcroft-Gault) 6.6 Glucose Level 98mg/dL (70-99) Calcium Level 8.8mg/dL (8.5-10.1) Test 11/28/16 07:51 Glucose (Fingerstick) 104mg/dL (70-99) Review of Systems Review of Systems denies chest pain, SOA Leg pain continuing to improve Assessment and Plan Assessmemt and Plan Assessment: - CHF Systolic acute on chronic - CHAY - Afib - Urinary tract infection - Leukocytosis - Hyperphosphatemia - DM - HTN - Anemia - Proteinuria - Lower extremity edema with cellulitis - Fungal rash, total body - Fall Plan: - dc today if arrangements confirmed for [facility] - dialysis initiated, patient tolerating well; outpatient arrangements have been made by [facility] - delma [facility]. Blood cultures negative X5 days. May change antibiotics on discharge. - cont IV morphine for pain. - recheck labs if not dc'd - PT/OT as tolerated - appreciate subspecialty input Problems: Comment Review of Relevant I have reviewed the following items maynor (where applicable) has been applied. Labs Laboratory Tests Test 11/26/16 16:26 11/26/16 16:48 11/26/16 20:57 11/27/16 03:44 Glucose (Fingerstick) 123mg/dL (70-99) 131mg/dL (70-99) Sodium Level 137mmol/L (136-145) 135mmol/L (136-145) Potassium Level 4.0mmol/L (3.5-5.1) 4.2mmol/L (3.5-5.1) Chloride Level 98mmol/L (98-107) 98mmol/L (98-107) Carbon Dioxide Level 29mmol/L (21-32) 29mmol/L (21-32) Anion Gap 10 (6-14) 8 (6-14) Blood Urea Nitrogen 22mg/dL (8-26) 27mg/dL (8-26) Creatinine 4.8mg/dL (0.7-1.3) 6.0mg/dL (0.7-1.3) Estimated GFR (Cockcroft-Gault) 12.4 9.6 Glucose Level 133mg/dL (70-99) 110mg/dL (70-99) Calcium Level 8.6mg/dL (8.5-10.1) 8.3mg/dL (8.5-10.1) Phosphorus Level 4.1mg/dL (2.6-4.7) 4.9mg/dL (2.6-4.7) Magnesium Level 1.8mg/dL (1.8-2.4) 2.2mg/dL (1.8-2.4) White Blood Count 11.0x10^3/uL (4.0-11.0) Red Blood Count 3.16x10^6/uL (4.30-5.70) Hemoglobin 8.9g/dL (13.0-17.5) Hematocrit 27.4% (39.0-53.0) Mean Corpuscular Volume 87fL (79-100) Mean Corpuscular Hemoglobin 28pg (25-35) Mean Corpuscular Hemoglobin Concent 32g/dL (31-37) Red Cell Distribution Width 14.9% (11.5-14.5) Platelet Count 235x10^3/uL (140-400) Neutrophils (%) (Auto) 73% (31-73) Lymphocytes (%) (Auto) 11% (24-48) Monocytes (%) (Auto) 10% (0-9) Eosinophils (%) (Auto) 5% (0-3) Basophils (%) (Auto) 1% (0-3) Neutrophils # (Auto) 8.0x10^3uL (1.8-7.7) Lymphocytes # (Auto) 1.2x10^3/uL (1.0-4.8) Monocytes # (Auto) 1.1x10^3/uL (0.0-1.1) Eosinophils # (Auto) 0.6x10^3/uL (0.0-0.7) Basophils # (Auto) 0.1x10^3/uL (0.0-0.2) Albumin 1.8g/dL (3.4-5.0) Test 11/27/16 07:46 11/27/16 12:05 11/27/16 17:25 11/27/16 20:56 Glucose (Fingerstick) 119mg/dL (70-99) 132mg/dL (70-99) 118mg/dL (70-99) 107mg/dL (70-99) Test 11/28/16 03:53 11/28/16 07:51 White Blood Count 10.9x10^3/uL (4.0-11.0) Red Blood Count 3.09x10^6/uL (4.30-5.70) Hemoglobin 8.8g/dL (13.0-17.5) Hematocrit 26.8% (39.0-53.0) Mean Corpuscular Volume 87fL (79-100) Mean Corpuscular Hemoglobin 28pg (25-35) Mean Corpuscular Hemoglobin Concent 33g/dL (31-37) Red Cell Distribution Width 15.1% (11.5-14.5) Platelet Count 227x10^3/uL (140-400) Neutrophils (%) (Auto) 72% (31-73) Lymphocytes (%) (Auto) 12% (24-48) Monocytes (%) (Auto) 9% (0-9) Eosinophils (%) (Auto) 6% (0-3) Basophils (%) (Auto) 1% (0-3) Neutrophils # (Auto) 7.9x10^3uL (1.8-7.7) Lymphocytes # (Auto) 1.3x10^3/uL (1.0-4.8) Monocytes # (Auto) 1.0x10^3/uL (0.0-1.1) Eosinophils # (Auto) 0.6x10^3/uL (0.0-0.7) Basophils # (Auto) 0.1x10^3/uL (0.0-0.2) Sodium Level 137mmol/L (136-145) Potassium Level 4.7mmol/L (3.5-5.1) Chloride Level 98mmol/L (98-107) Carbon Dioxide Level 28mmol/L (21-32) Anion Gap 11 (6-14) Blood Urea Nitrogen 39mg/dL (8-26) Creatinine 8.3mg/dL (0.7-1.3) Estimated GFR (Cockcroft-Gault) 6.6 Glucose Level 98mg/dL (70-99) Calcium Level 8.8mg/dL (8.5-10.1) Glucose (Fingerstick) 104mg/dL (70-99) Laboratory Tests Test 11/27/16 12:05 11/27/16 17:25 11/27/16 20:56 11/28/16 03:53 Glucose (Fingerstick) 132mg/dL (70-99) 118mg/dL (70-99) 107mg/dL (70-99) White Blood Count 10.9x10^3/uL (4.0-11.0) Red Blood Count 3.09x10^6/uL (4.30-5.70) Hemoglobin 8.8g/dL (13.0-17.5) Hematocrit 26.8% (39.0-53.0) Mean Corpuscular Volume 87fL (79-100) Mean Corpuscular Hemoglobin 28pg (25-35) Mean Corpuscular Hemoglobin Concent 33g/dL (31-37) Red Cell Distribution Width 15.1% (11.5-14.5) Platelet Count 227x10^3/uL (140-400) Neutrophils (%) (Auto) 72% (31-73) Lymphocytes (%) (Auto) 12% (24-48) Monocytes (%) (Auto) 9% (0-9) Eosinophils (%) (Auto) 6% (0-3) Basophils (%) (Auto) 1% (0-3) Neutrophils # (Auto) 7.9x10^3uL (1.8-7.7) Lymphocytes # (Auto) 1.3x10^3/uL (1.0-4.8) Monocytes # (Auto) 1.0x10^3/uL (0.0-1.1) Eosinophils # (Auto) 0.6x10^3/uL (0.0-0.7) Basophils # (Auto) 0.1x10^3/uL (0.0-0.2) Sodium Level 137mmol/L (136-145) Potassium Level 4.7mmol/L (3.5-5.1) Chloride Level 98mmol/L (98-107) Carbon Dioxide Level 28mmol/L (21-32) Anion Gap 11 (6-14) Blood Urea Nitrogen 39mg/dL (8-26) Creatinine 8.3mg/dL (0.7-1.3) Estimated GFR (Cockcroft-Gault) 6.6 Glucose Level 98mg/dL (70-99) Calcium Level 8.8mg/dL (8.5-10.1) Test 11/28/16 07:51 Glucose (Fingerstick) 104mg/dL (70-99) Microbiology 11/20/16 Blood Culture - Final, Complete NO GROWTH AFTER 5 DAYS 11/18/16 Urine Culture - Final, Complete 11/18/16 Urine Culture Result 1 (SHILPA) - Final, Complete Medications Current Medications Acetaminophen/ Hydrocodone Bitart (Lortab 5/325) 2 tab 1X ONCE PO Last administered on 11/18/16 21:34; Start 11/18/16 at 21:00; Stop 11/18/16 at 21:01 ; Status DC Furosemide 40 mg 40 mg 1X ONCE IVP Last administered on 11/18/16 22:03; Start 11/18/16 at 22:00; Stop 11/18/16 at 22:01; Status DC Ceftriaxone Sodium (Rocephin 1gm Ivpb For Omni) 50 ml @ 100 mls/hr 1X ONCE IV Last administered on 11/18/16 22:06; Start 11/18/16 at 22:15; Stop 11/18/16 at 22:44; Status DC Ondansetron HCl (Zofran) 4 mg PRN Q8HRS PRN IV NAUSEA/VOMITING; Start 11/18/16 at 22:15; Stop 11/19/16 at 22:14; Status DC Morphine Sulfate 4 mg PRN Q2HR PRN IV PAIN Last administered on 11/19/16 14:58 ; Start 11/18/16 at 22:15; Stop 11/19/16 at 22:14; Status DC Acetaminophen (Tylenol) 650 mg PRN Q4HRS PRN PO FEVER; Start 11/18/16 at 22:15 ; Stop 11/19/16 at 22:14; Status DC Insulin Aspart (Novolog) 0-7 UNITS TIDWMEALS SQ ; Start 11/19/16 at 08:00; Stop 11/19/16 at 09:04; Status DC Dextrose 12.5 gm PRN Q15MIN PRN IV SEE COMMENTS; Start 11/18/16 at 22:15; Stop 11/19/16 at 10:19; Status DC Info (Do NOT chart on this placeholder) 1 each 1X ONCE MC ; Start 11/18/16 at 23:15; Stop 11/18/16 at 23:16; Status UNV Pneumococcal Polyvalent Vaccine (Do NOT chart on this placeholder) 1 each 1X ONCE MC ; Start 11/18/16 at 23:15; Stop 11/18/16 at 23:16; Status UNV Influenza Virus Vaccine Quadrival (Fluarix Quad [id number] Syringe) 0.5 ml ONCE ONCE VAX IM Last administered on 11/27/16 13:10; Start 11/19/16 at 09:00; Stop 11/19/16 at 09:01; Status DC Pneumococcal Polyvalent Vaccine 0.5 ml 0.5 ml ONCE ONCE VAX IM Last administered on 11/27/16 13:12; Start 11/19/16 at 09:00; Stop 11/19/16 at 09:01 ; Status DC Ceftriaxone Sodium/Sodium Chloride (Rocephin/Iv Sodium Chloride 0.9% 50ml) 50 ml @ 100 mls/hr Q24H IV Last administered on 11/20/16 20:49; Start 11/19/16 at 21:00; Stop 11/21/16 at 09:56; Status DC Amlodipine Besylate (Norvasc) 10 mg DAILY PO Last administered on 11/28/16 10: 14; Start 11/19/16 at 09:30 Glimepiride (Amaryl) 2 mg DAILYWBKFT PO Last administered on 11/20/16 08:08; Start 11/19/16 at 09:30; Stop 11/21/16 at 10:20; Status DC Carvedilol (Coreg) 25 mg BIDWMEALS PO Last administered on 11/28/16 10:14; Start 11/19/16 at 09:30 Rivaroxaban (Xarelto) 20 mg DAILYWSUP PO Last administered on 11/19/16 17:53; Start 11/19/16 at 17:00; Stop 11/20/16 at 08:53; Status DC Furosemide (Lasix) 40 mg 1X ONCE IVP Last administered on 11/19/16 09:40; Start 11/19/16 at 09:00; Stop 11/19/16 at 09:04; Status DC Insulin Aspart (Novolog) 0-7 UNITS TIDWMEALS SQ ; Start 11/19/16 at 12:00; Stop 11/21/16 at 21:16; Status DC Dextrose 12.5 gm PRN Q15MIN PRN IV SEE COMMENTS Last administered on 11/23/16 04:10; Start 11/19/16 at 09:00 Guaifenesin (Robitussin Dm) 10 ml PRN Q6HRS PRN PO COUGH; Start 11/19/16 at 09: 00 Nicotine (Nicoderm Cq 14mg) 1 patch PRN DAILY PRN TD SMOKING CESSATION; Start 11/19/16 at 09:15 Nicotine Polacrilex (Nicorette Gum) 1 each PRN Q1HR PRN BC BREAKTHROUGH CRAVINGS; Start 11/19/16 at 09:15 Albuterol/ Ipratropium (Duoneb) 3 ml RTQID NEB Last administered on 11/28/16 07:19; Start 11/19/16 at 09:30 Enoxaparin Sodium (Lovenox Per Pharmacy Prophylaxis Dosing) 1 each PRN DAILY PRN MC SEE COMMENTS; Start 11/19/16 at 09:30; Stop 11/19/16 at 09:30; Status DC Hydralazine HCl (Apresoline) 25 mg BID PO Last administered on 11/28/16 10:13 ; Start 11/19/16 at 10:30 Morphine Sulfate (Morphine Ir) 15 mg PRN Q4HRS PRN PO PAIN Last administered on 11/27/16 21:29; Start 11/20/16 at 00:15 Morphine Sulfate 4 mg PRN Q2HR PRN IV PAIN Last administered on 11/21/16 13:36 ; Start 11/20/16 at 00:15 Rivaroxaban 15 mg 15 mg DAILYWSUP PO ; Start 11/20/16 at 17:00; Stop 11/22/16 at 12:56; Status DC Sodium Chloride 1,000 ml @ 75 mls/hr [id number] IV Last administered on 23:37; Start 11/20/16 at 10:45; Stop 11/21/16 at 14:42; Status DC Milrinone Lactate/ Dextrose 100 ml @ 0 mls/hr CONT PRN IV SEE I/O RECORD Last administered on 11/21/16 22:19; Start 11/20/16 at 11:30; Stop 11/22/16 at 14:17 ; Status DC Magnesium Sulfate/ Dextrose 50 ml @ 25 mls/hr PRN DAILY PRN IV for Mag < 1.7 on am labs; Start 11/20/16 at 11:30 Piperacillin Sod/ Tazobactam Sod/ Sodium Chloride (Zosyn/Iv Sodium Chloride 0.9 % 50ml) 50 ml @ 100 mls/hr Q6HRS IV Last administered on 11/22/16 05:41; Start 11/20/16 at 12:00; Stop 11/22/16 at 10:39; Status DC Info 1 each 1 each PRN DAILY PRN MC SEE COMMENTS Last administered on 09:52; Start 11/21/16 at 08:15; Stop 11/22/16 at 14:15; Status DC Iron Sucrose/ Sodium Chloride (Venofer/Iv Sodium Chloride 0.9% 100ml) 110 ml @ 55 mls/hr 3X/WEEK IV Last administered on 11/28/16 10:14; Start 11/21/16 at 10 :00; Stop 11/30/16 at 10:59 Darbepoetin Guillermo (Aranesp) 100 mcg WEEKLYHS SQ Last administered on 11/21/16 21:21; Start 11/21/16 at 21:00 Calcium Acetate 1334 mg 1,334 mg TIDWMEALS PO Last administered on 11/28/16 10 :13; Start 11/21/16 at 12:00 Heparin Sodium/ Sodium Chloride 500 ml @ As Directed STK-MED ONCE .ROUTE ; Start 11/21/16 at 10:13; Stop 11/21/16 at 10:14; Status DC Lidocaine HCl 20 ml STK-MED ONCE .ROUTE ; Start 11/21/16 at 10:13; Stop at 10:14; Status DC Fentanyl Citrate (Fentanyl 2ml Vial) 100 mcg STK-MED ONCE .ROUTE ; Start at 10:52; Stop 11/21/16 at 10:53; Status DC Midazolam HCl (Versed) 2 mg STK-MED ONCE .ROUTE ; Start 11/21/16 at 10:52; Stop 11/21/16 at 10:53; Status DC Midazolam HCl (Versed) 1 mg 1X ONCE IV Last administered on 11/21/16 11:04; Start 11/21/16 at 11:30; Stop 11/21/16 at 11:31; Status DC Fentanyl Citrate (Fentanyl 2ml Vial) 25 mcg 1X ONCE IV Last administered on 11:02; Start 11/21/16 at 11:30; Stop 11/21/16 at 11:31; Status DC Lidocaine/Sodium Bicarbonate (Buffered Lidocaine 1%) 20 ml STK-MED ONCE IJ ; Start 11/21/16 at 14:59; Stop 11/21/16 at 15:00; Status DC Heparin Sodium (Porcine) 28592 unit 10,000 unit STK-MED ONCE .ROUTE ; Start at 14:59; Stop 11/21/16 at 15:00; Status DC Heparin Sodium/ Sodium Chloride 500 ml @ As Directed STK-MED ONCE .ROUTE ; Start 11/21/16 at 14:59; Stop 11/21/16 at 15:00; Status DC Heparin Sodium/ Sodium Chloride 1,000 unit 1X ONCE IART Last administered on 15:18; Start 11/21/16 at 15:15; Stop 11/21/16 at 15:26; Status DC Lidocaine/Sodium Bicarbonate (Buffered Lidocaine 1%) 20 ml 1X ONCE IJ Last administered on 11/21/16 15:17; Start 11/21/16 at 15:15; Stop 11/21/16 at 15:26 ; Status DC Heparin Sodium (Porcine) 4300 unit 4,300 unit 1X ONCE IV Last administered on 11/21/16 15:17; Start 11/21/16 at 15:15; Stop 11/21/16 at 15:26; Status DC Sodium Chloride 1,000 ml @ 1,000 mls/hr Q1H PRN IV hypotension; Start 11/22/16 at 07:31; Stop 11/22/16 at 13:30; Status DC Albumin Human 200 ml @ 200 mls/hr 1X PRN PRN IV Hypotension; Start 11/22/16 at 07:45; Stop 11/22/16 at 13:44; Status DC Sodium Chloride (Iv Sodium Chloride 0.9% 1000ml Bag) 1,000 ml @ 400 mls/hr Q2H30M PRN IV PATENCY; Start 11/22/16 at 07:31; Stop 11/22/16 at 19:30; Status DC Info (PHARMACY MONITORING -- do not chart) 1 each PRN DAILY PRN MC SEE COMMENTS ; Start 11/22/16 at 07:45 Info (PHARMACY MONITORING -- do not chart) 1 each PRN DAILY PRN MC SEE COMMENTS ; Start 11/22/16 at 07:45; Status UNV Diphenhydramine HCl (Benadryl) 25 mg 1X PRN PRN IV ITCHING Last administered on 11/22/16 08:53; Start 11/22/16 at 08:45; Stop 11/23/16 at 08:44; Status DC Diphenhydramine HCl (Benadryl) 25 mg 1X PRN PRN IV ITCHING; Start 11/22/16 at 08:45; Stop 11/23/16 at 08:44; Status DC Ergocalciferol 86164 unit 50,000 unit WEEKLY PO Last administered on 11/22/16 12:12; Start 11/22/16 at 10:00 Piperacillin Sod/ Tazobactam Sod/ Sodium Chloride (Zosyn/Iv Sodium Chloride 0.9 % 50ml) 50 ml @ 100 mls/hr Q6HRS IV Last administered on 1/19/17at 06:06; Start 11/22/16 at 12:00; Stop 11/24/16 at 08:05; Status DC Enoxaparin Sodium (Lovenox Per Pharmacy Treatment Dosing) 1 each PRN DAILY PRN MC SEE COMMENTS; Start 11/22/16 at 13:00; Stop 11/22/16 at 14:15; Status DC Enoxaparin Sodium 150 mg 150 mg Q24H SQ ; Start 11/22/16 at 14:00; Stop at 14:15; Status DC Dextrose 1,000 ml @ 50 mls/hr Q20H IV Last administered on 11/22/16t 16:19; Start 11/22/16 at 16:15; Stop 11/23/16 at 20:48; Status DC Sodium Chloride 1,000 ml @ 1,000 mls/hr Q1H PRN IV hypotension; Start 11/23/16 at 07:58; Stop 11/23/16 at 13:57; Status DC Albumin Human (Albuminar) 200 ml @ 200 mls/hr 1X PRN PRN IV Hypotension; Start 11/23/16 at 08:00; Stop 11/23/16 at 13:59; Status DC Diphenhydramine HCl (Benadryl) 25 mg 1X PRN PRN IV ITCHING; Start 11/23/16 at 08:00; Stop 11/24/16 at 07:59; Status DC Sodium Chloride (Normal Saline Flush) 10 ml 1X PRN PRN IV AP 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; Start 11/23/16 at 08:00; Stop 11/24/16 at 07:59; Status DC Sodium Chloride 10 ml 10 ml 1X PRN PRN IV CRTTS 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; Start 11/23/16 at 08:00; Stop 11/24/16 at 07:59; Status DC Sodium Chloride (Iv Sodium Chloride 0.9% 1000ml Bag) 1,000 ml @ 400 mls/hr Q2H30M PRN IV PATENCY; Start 11/23/16 at 07:58; Stop 11/23/16 at 19:57; Status DC Info 1 each 1 each PRN DAILY PRN MC SEE COMMENTS; Start 11/23/16 at 08:00; Status UNV Piperacillin Sod/ Tazobactam Sod 2.25 gm/Sodium Chloride 50 ml @ 100 mls/hr Q8HRS IV Last administered on 11/28/16t 06:18; Start 11/24/16 at 14:00 Sodium Chloride (Iv Sodium Chloride 0.9% 1000ml Bag) 1,000 ml @ 1,000 mls/hr Q1H PRN IV hypotension; Start 11/24/16 at 09:00; Stop 11/24/16 at 14:59; Status DC Sodium Chloride (Normal Saline Flush) 10 ml 1X PRN PRN IV AP 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; Start 11/24/16 at 09:00; Stop 11/24/16 at 18:00; Status DC Sodium Chloride (Normal Saline Flush) 10 ml 1X PRN PRN IV CRTTS 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ROUTE ; Start 11/25/16 at 13:25; Stop 11/25/16 at 13:26; Status DC Midazolam HCl (Versed) 2 mg STK-MED ONCE .ROUTE ; Start 11/25/16 at 14:01; Stop 11/25/16 at 14:02; Status DC Fentanyl Citrate 100 mcg 100 mcg STK-MED ONCE .ROUTE ; Start 11/25/16 at 14:01; Stop 11/25/16 at 14:02; Status DC Cefazolin Sodium (Ancef 1gm Ivpb For Omni) 50 ml @ As Directed STK-MED ONCE IV ; Start 11/25/16 at 14:02; Stop 11/25/16 at 14:03; Status DC Lidocaine/Sodium Bicarbonate (Buffered Lidocaine 1%) 20 ml STK-MED ONCE IJ ; Start 11/25/16 at 14:32; Stop 11/25/16 at 14:33; Status DC Gelatin (Gelfoam Size 12-7mm) 1 each STK-MED ONCE .ROUTE ; Start 11/25/16 at 14 :32; Stop 11/25/16 at 14:33; Status DC Heparin Sodium (Porcine) 2,500 unit 1X ONCE IART ; Start 11/25/16 at 14:30; Stop 11/25/16 at 14:38; Status DC Midazolam HCl (Versed) 2 mg 1X ONCE IV Last administered on 11/25/16 15:19; Start 11/25/16 at 14:30; Stop 11/25/16 at 14:38; Status DC Fentanyl Citrate 100 mcg 100 mcg 1X ONCE IV Last administered on 11/25/16 15: 19; Start 11/25/16 at 14:30; Stop 11/25/16 at 14:38; Status DC Cefazolin Sodium (Ancef 1gm Ivpb For Omni) 50 ml @ 100 mls/hr 1X ONCE IV Last administered on 11/25/16 14:44; Start 11/25/16 at 14:30; Stop 11/25/16 at 14:59; Status DC Lidocaine/ Epinephrine (Xylocaine 1%-Epi 1:100,000) 20 ml 1X ONCE IJ Last administered on 11/25/16 14:44; Start 11/25/16 at 14:30; Stop 11/25/16 at 14:38 ; Status DC Heparin Sodium (Porcine) 4,200 unit 1X ONCE INT CAT Last administered on 14:44; Start 11/25/16 at 14:30; Stop 11/25/16 at 14:38; Status DC Gelatin (Gelfoam Size 12-7mm) 1 each STK-MED ONCE .ROUTE ; Start 11/25/16 at 14 :56; Stop 11/25/16 at 14:57; Status DC Heparin Sodium/ Sodium Chloride 1000 unit 1,000 unit 1X ONCE IV Last administered on 11/25/16 14:45; Start 11/25/16 at 15:15; Stop 11/25/16 at 15:17 ; Status DC Sodium Chloride (Iv Sodium Chloride 0.9% 1000ml Bag) 1,000 ml @ 1,000 mls/hr Q1H PRN IV hypotension; Start 11/26/16 at 10:11; Stop 11/26/16 at 16:10; Status DC Sodium Chloride (Normal Saline Flush) 10 ml 1X PRN PRN IV AP 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; Start 11/26/16 at 10:15; Stop 11/27/16 at 10:14; Status DC Sodium Chloride 10 ml 10 ml 1X PRN PRN IV CRTTS 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; Start 11/26/16 at 10:15; Stop 11/27/16 at 10:14; Status DC Sodium Chloride (Iv Sodium Chloride 0.9% 1000ml Bag) 1,000 ml @ 400 mls/hr Q2H30M PRN IV PATENCY; Start 11/26/16 at 10:11; Stop 11/26/16 at 22:10; Status DC Info (PHARMACY MONITORING -- do not chart) 1 each PRN DAILY PRN MC SEE COMMENTS ; Start 11/26/16 at 10:15; Status UNV Info 1 each 1 each PRN DAILY PRN MC SEE COMMENTS; Start 11/26/16 at 10:15; Status UNV Magnesium Sulfate/ Dextrose (Magnesium Sulfate PREMIX 1GM) 100 ml @ 100 mls/hr 1X ONCE IV Last administered on 11/27/16t 00:19; Start 11/26/16 at 23:30; Stop 11/27/16 at 00:29; Status DC Apixaban (Eliquis) 5 mg BID PO ; Start 11/28/16 at 09:00 Active Scripts Active Reported Xarelto (Rivaroxaban) 20 Mg Tablet 20 Mg PO DAILY Carvedilol 25 Mg Tablet 1 Tab PO BID Furosemide 40 Mg Tablet 1 Tab PO DAILY Losartan Potassium 100 Mg Tablet 100 Mg PO DAILY Amlodipine Besylate 10 Mg Tablet 10 Mg PO DAILY Glimepiride 2 Mg Tablet 1 Tab PO DAILY Vitals/I & O Vital Sign - Last 24 Hours 11/27/16 11/27/16 11/27/16 11/27/16 11:00 11:11 14:53 15:00 Temp 98.3 98.1 98.3 98.1 Pulse 80 89 Resp 21 20 B/P 137/68 108/69 Pulse Ox 95 96 O2 Delivery Room Air Room Air Room Air Room Air 11/27/16 11/27/16 11/27/16 11/27/16 18:14 18:37 19:55 20:00 Temp 98.0 98.0 Pulse 89 85 Resp 20 B/P 108/69 120/75 Pulse Ox 93 O2 Delivery Room Air Room Air Room Air 11/27/16 11/27/16 11/27/16 11/27/16 21:29 21:30 22:29 23:10 Temp 97.7 97.7 Pulse 83 89 Resp 20 18 B/P 130/71 Pulse Ox 95 O2 Delivery Room Air Room Air Room Air 11/28/16 11/28/16 11/28/16 11/28/16 03:20 07:19 07:47 10:13 Temp 97.9 97.5 97.9 97.5 Pulse 74 85 85 Resp B/P 129/70 139/67 139/67 Pulse Ox 96 97 O2 Delivery Room Air Room Air Room Air 11/28/16 11/28/16 10:14 10:14 Pulse 85 85 B/P 139/67 139/67 Intake and Output 11/27/16 11/27/16 11/28/16 15:00 23:00 07:00 Intake Total 950 ml 930 ml Output Total 280 ml 0 ml Balance 670 ml 930 ml ELIGIO MCKENNA III DO Nov 28, 2016 10:33
[2016-11-28] MEDS ORDERED: APIX5TAB PO (10:59)
[2016-11-28 11:00] VITALS: BP 119/81
--- NOTE | 2016-11-28 11:03 | PDOC ---
Renal-Progress Notes Subjective Notes Notes FEELING BETTER History of Present Illness Hx of present illness STABLE Vitals Vitals Vital Signs Date Time Temp Pulse Resp B/P Pulse Ox O2 Delivery O2 Flow Rate FiO2 11/28/16 10:14 85 139/67 11/28/16 07:47 97.5 21 97 Room Air 97.5 Weight Weight [ ] I.O. Intake and Output Intake and Output 11/28/16 07:00 Intake Total 1880 ml Output Total 280 ml Balance 1600 ml Intake Oral 1780 ml IV Total 100 ml Output Urine Total 280 ml Labs Labs Laboratory Tests Test 11/27/16 12:05 11/27/16 17:25 11/27/16 20:56 11/28/16 03:53 Glucose (Fingerstick) 132mg/dL (70-99) 118mg/dL (70-99) 107mg/dL (70-99) White Blood Count 10.9x10^3/uL (4.0-11.0) Red Blood Count 3.09x10^6/uL (4.30-5.70) Hemoglobin 8.8g/dL (13.0-17.5) Hematocrit 26.8% (39.0-53.0) Mean Corpuscular Volume 87fL (79-100) Mean Corpuscular Hemoglobin 28pg (25-35) Mean Corpuscular Hemoglobin Concent 33g/dL (31-37) Red Cell Distribution Width 15.1% (11.5-14.5) Platelet Count 227x10^3/uL (140-400) Neutrophils (%) (Auto) 72% (31-73) Lymphocytes (%) (Auto) 12% (24-48) Monocytes (%) (Auto) 9% (0-9) Eosinophils (%) (Auto) 6% (0-3) Basophils (%) (Auto) 1% (0-3) Neutrophils # (Auto) 7.9x10^3uL (1.8-7.7) Lymphocytes # (Auto) 1.3x10^3/uL (1.0-4.8) Monocytes # (Auto) 1.0x10^3/uL (0.0-1.1) Eosinophils # (Auto) 0.6x10^3/uL (0.0-0.7) Basophils # (Auto) 0.1x10^3/uL (0.0-0.2) Sodium Level 137mmol/L (136-145) Potassium Level 4.7mmol/L (3.5-5.1) Chloride Level 98mmol/L (98-107) Carbon Dioxide Level 28mmol/L (21-32) Anion Gap 11 (6-14) Blood Urea Nitrogen 39mg/dL (8-26) Creatinine 8.3mg/dL (0.7-1.3) Estimated GFR (Cockcroft-Gault) 6.6 Glucose Level 98mg/dL (70-99) Calcium Level 8.8mg/dL (8.5-10.1) Test 11/28/16 07:51 Glucose (Fingerstick) 104mg/dL (70-99) Micro Micro Microbiology 11/20/16 Blood Culture - Final, Complete NO GROWTH AFTER 5 DAYS 11/18/16 Urine Culture - Final, Complete 11/18/16 Urine Culture Result 1 (SHILPA) - Final, Complete Review of Systems Constitutional: yes: alert, oriented Ears/Nose/Throat: Yes: no symptom reported Eyes: Yes: no symptom reported Musculoskeletal: Yes: muscle stiffness, no symptom reported Skin: Yes no symptom reported Physical Exam General Appearance: no apparent distress Skin: warm Respiratory: bilateral CTA Heart: S1S2, RRR Neurology: alert, oriented, follow commands Assessment Assessment IMP CHAY ANEMIA HTN DM II PLAN HD TOMORROW OP HD BEING SET UP AT [facility] HE WILL F/U WITH DR RICE THERE ON D/C UPDATED FAMILY AND D/W CM WILL FOLLOW LUIGI SALCEDO MD Nov 28, 2016 11:03
--- NOTE | 2016-11-28 11:37 | PDOC ---
RISHABH JACKMAN L[employer]ER 11/28/16 1137: CARDIO Progress Notes Date and Time Date of Service 11/28/16 Time of Evaluation 1040 Subjective Subjective: No Chest Pain, No shortness of breath, No Palpitations, Other (no complaints ) Vitals Vitals Vital Signs Date Time Temp Pulse Resp B/P Pulse Ox O2 Delivery O2 Flow Rate FiO2 11/28/16 11:25 Room Air 11/28/16 10:14 85 139/67 11/28/16 07:47 97.5 21 97 97.5 Weight Weight [ ] Input and Output Intake and Output Intake and Output 11/28/16 07:00 Intake Total 1880 ml Output Total 280 ml Balance 1600 ml Intake Oral 1780 ml IV Total 100 ml Output Urine Total 280 ml Laboratory Labs Laboratory Tests Test 11/27/16 12:05 11/27/16 17:25 11/27/16 20:56 11/28/16 03:53 Glucose (Fingerstick) 132mg/dL (70-99) 118mg/dL (70-99) 107mg/dL (70-99) White Blood Count 10.9x10^3/uL (4.0-11.0) Red Blood Count 3.09x10^6/uL (4.30-5.70) Hemoglobin 8.8g/dL (13.0-17.5) Hematocrit 26.8% (39.0-53.0) Mean Corpuscular Volume 87fL (79-100) Mean Corpuscular Hemoglobin 28pg (25-35) Mean Corpuscular Hemoglobin Concent 33g/dL (31-37) Red Cell Distribution Width 15.1% (11.5-14.5) Platelet Count 227x10^3/uL (140-400) Neutrophils (%) (Auto) 72% (31-73) Lymphocytes (%) (Auto) 12% (24-48) Monocytes (%) (Auto) 9% (0-9) Eosinophils (%) (Auto) 6% (0-3) Basophils (%) (Auto) 1% (0-3) Neutrophils # (Auto) 7.9x10^3uL (1.8-7.7) Lymphocytes # (Auto) 1.3x10^3/uL (1.0-4.8) Monocytes # (Auto) 1.0x10^3/uL (0.0-1.1) Eosinophils # (Auto) 0.6x10^3/uL (0.0-0.7) Basophils # (Auto) 0.1x10^3/uL (0.0-0.2) Sodium Level 137mmol/L (136-145) Potassium Level 4.7mmol/L (3.5-5.1) Chloride Level 98mmol/L (98-107) Carbon Dioxide Level 28mmol/L (21-32) Anion Gap 11 (6-14) Blood Urea Nitrogen 39mg/dL (8-26) Creatinine 8.3mg/dL (0.7-1.3) Estimated GFR (Cockcroft-Gault) 6.6 Glucose Level 98mg/dL (70-99) Calcium Level 8.8mg/dL (8.5-10.1) Test 11/28/16 07:51 Glucose (Fingerstick) 104mg/dL (70-99) Microbiology Micro Microbiology 11/20/16 Blood Culture - Final, Complete NO GROWTH AFTER 5 DAYS 11/18/16 Urine Culture - Final, Complete 11/18/16 Urine Culture Result 1 (SHILPA) - Final, Complete Review of Systems Constitutional: yes: alert, oriented Ears/Nose/Throat: Yes: no symptom reported Eyes: Yes: no symptom reported Musculoskeletal: Yes: muscle stiffness, no symptom reported Skin: Yes no symptom reported Physical Exam HEENT: Neck Supple W Full Motion Chest: Symmetric LUNGS: Clear to Auscultation, Other (diminished bases ) Heart: S1S2, no murmurs, irregularly irregular (tele AFIB) Abdomen: Soft N/T Extremities: Other (2+ LE edema with LLE erythema. Chronic venous stasis changes to bi LE, ) Neurology: alert, oriented, follow commands Assessment Assessment 1. Acute on chronic systolic and diastolic HF 2. NICM 3. chronic AFIB 4. CHAY with CKD; HD initiated 5. HTN 6. Diabetes 7. DORA? 8. Anemia Recommendations Resume OAC, Eliquis. co-pay card given. Continue fluid offloading in HD No ANDREA with CHAY. Okay for discharge from a cardiac standpoint. To f/u in our office in Dr. Everett. Appointment schedule and appointment card given. SAMIA EVERETT MD 11/28/16 1740: CARDIO Progress Notes Plan Plan Patient seen and examined. Agree with above nurse practitioner note. No acute events overnight. Denies any chest pain. On examination he has persistent lower extremity edema although it is improved. Heart and lung sounds are within normal limits. Continue supportive care from a cardiovascular perspective. Medications reviewed. Follow up in the office in 6 weeks. RISHABH JACKMAN APRN Nov 28, 2016 11:37 SAMIA EVERETT MD Nov 28, 2016 17:40
[2016-11-28 15:00] VITALS: BP 110/68
--- NOTE | 2016-11-28 16:43 | PDOC ---
PROGRESS NOTES Subjective Subjective He admits continued left foot edema and some redness. Objective Objective Vital Signs Date Time Temp Pulse Resp B/P Pulse Ox O2 Delivery O2 Flow Rate FiO2 11/28/16 15:25 Room Air 11/28/16 15:00 97.4 77 23 110/68 96 97.4 11/25/16 15:49 4.0 Intake and Output 11/28/16 07:00 Intake Total 1880 ml Output Total 280 ml Balance 1600 ml Intake Oral 1780 ml IV Total 100 ml Output Urine Total 280 ml Physical Exam Physical Exam He is sitting up in bedside recliner and comfortable and he had continued left foot edema and tenderness to palpation. Assessment Assessment Problems Medical Problems: (1) CHF exacerbation Status: Acute (2) Fall Status: Acute (3) UTI (urinary tract infection) Status: Acute Plan Plan of Care Some difficulty with his health insurance,so he could not get cam walke boot to left foot. Comment Review of Relevant I have reviewed the following items maynor (where applicable) has been applied. Labs Laboratory Tests Test 11/26/16 16:48 11/26/16 20:57 11/27/16 03:44 11/27/16 07:46 Sodium Level 137mmol/L (136-145) 135mmol/L (136-145) Potassium Level 4.0mmol/L (3.5-5.1) 4.2mmol/L (3.5-5.1) Chloride Level 98mmol/L (98-107) 98mmol/L (98-107) Carbon Dioxide Level 29mmol/L (21-32) 29mmol/L (21-32) Anion Gap 10 (6-14) 8 (6-14) Blood Urea Nitrogen 22mg/dL (8-26) 27mg/dL (8-26) Creatinine 4.8mg/dL (0.7-1.3) 6.0mg/dL (0.7-1.3) Estimated GFR (Cockcroft-Gault) 12.4 9.6 Glucose Level 133mg/dL (70-99) 110mg/dL (70-99) Calcium Level 8.6mg/dL (8.5-10.1) 8.3mg/dL (8.5-10.1) Phosphorus Level 4.1mg/dL (2.6-4.7) 4.9mg/dL (2.6-4.7) Magnesium Level 1.8mg/dL (1.8-2.4) 2.2mg/dL (1.8-2.4) Glucose (Fingerstick) 131mg/dL (70-99) 119mg/dL (70-99) White Blood Count 11.0x10^3/uL (4.0-11.0) Red Blood Count 3.16x10^6/uL (4.30-5.70) Hemoglobin 8.9g/dL (13.0-17.5) Hematocrit 27.4% (39.0-53.0) Mean Corpuscular Volume 87fL (79-100) Mean Corpuscular Hemoglobin 28pg (25-35) Mean Corpuscular Hemoglobin Concent 32g/dL (31-37) Red Cell Distribution Width 14.9% (11.5-14.5) Platelet Count 235x10^3/uL (140-400) Neutrophils (%) (Auto) 73% (31-73) Lymphocytes (%) (Auto) 11% (24-48) Monocytes (%) (Auto) 10% (0-9) Eosinophils (%) (Auto) 5% (0-3) Basophils (%) (Auto) 1% (0-3) Neutrophils # (Auto) 8.0x10^3uL (1.8-7.7) Lymphocytes # (Auto) 1.2x10^3/uL (1.0-4.8) Monocytes # (Auto) 1.1x10^3/uL (0.0-1.1) Eosinophils # (Auto) 0.6x10^3/uL (0.0-0.7) Basophils # (Auto) 0.1x10^3/uL (0.0-0.2) Albumin 1.8g/dL (3.4-5.0) Test 11/27/16 12:05 11/27/16 17:25 11/27/16 20:56 11/28/16 03:53 Glucose (Fingerstick) 132mg/dL (70-99) 118mg/dL (70-99) 107mg/dL (70-99) White Blood Count 10.9x10^3/uL (4.0-11.0) Red Blood Count 3.09x10^6/uL (4.30-5.70) Hemoglobin 8.8g/dL (13.0-17.5) Hematocrit 26.8% (39.0-53.0) Mean Corpuscular Volume 87fL (79-100) Mean Corpuscular Hemoglobin 28pg (25-35) Mean Corpuscular Hemoglobin Concent 33g/dL (31-37) Red Cell Distribution Width 15.1% (11.5-14.5) Platelet Count 227x10^3/uL (140-400) Neutrophils (%) (Auto) 72% (31-73) Lymphocytes (%) (Auto) 12% (24-48) Monocytes (%) (Auto) 9% (0-9) Eosinophils (%) (Auto) 6% (0-3) Basophils (%) (Auto) 1% (0-3) Neutrophils # (Auto) 7.9x10^3uL (1.8-7.7) Lymphocytes # (Auto) 1.3x10^3/uL (1.0-4.8) Monocytes # (Auto) 1.0x10^3/uL (0.0-1.1) Eosinophils # (Auto) 0.6x10^3/uL (0.0-0.7) Basophils # (Auto) 0.1x10^3/uL (0.0-0.2) Sodium Level 137mmol/L (136-145) Potassium Level 4.7mmol/L (3.5-5.1) Chloride Level 98mmol/L (98-107) Carbon Dioxide Level 28mmol/L (21-32) Anion Gap 11 (6-14) Blood Urea Nitrogen 39mg/dL (8-26) Creatinine 8.3mg/dL (0.7-1.3) Estimated GFR (Cockcroft-Gault) 6.6 Glucose Level 98mg/dL (70-99) Calcium Level 8.8mg/dL (8.5-10.1) Test 11/28/16 07:51 11/28/16 11:56 Glucose (Fingerstick) 104mg/dL (70-99) 146mg/dL (70-99) Laboratory Tests Test 11/27/16 17:25 11/27/16 20:56 11/28/16 03:53 11/28/16 07:51 Glucose (Fingerstick) 118mg/dL (70-99) 107mg/dL (70-99) 104mg/dL (70-99) White Blood Count 10.9x10^3/uL (4.0-11.0) Red Blood Count 3.09x10^6/uL (4.30-5.70) Hemoglobin 8.8g/dL (13.0-17.5) Hematocrit 26.8% (39.0-53.0) Mean Corpuscular Volume 87fL (79-100) Mean Corpuscular Hemoglobin 28pg (25-35) Mean Corpuscular Hemoglobin Concent 33g/dL (31-37) Red Cell Distribution Width 15.1% (11.5-14.5) Platelet Count 227x10^3/uL (140-400) Neutrophils (%) (Auto) 72% (31-73) Lymphocytes (%) (Auto) 12% (24-48) Monocytes (%) (Auto) 9% (0-9) Eosinophils (%) (Auto) 6% (0-3) Basophils (%) (Auto) 1% (0-3) Neutrophils # (Auto) 7.9x10^3uL (1.8-7.7) Lymphocytes # (Auto) 1.3x10^3/uL (1.0-4.8) Monocytes # (Auto) 1.0x10^3/uL (0.0-1.1) Eosinophils # (Auto) 0.6x10^3/uL (0.0-0.7) Basophils # (Auto) 0.1x10^3/uL (0.0-0.2) Sodium Level 137mmol/L (136-145) Potassium Level 4.7mmol/L (3.5-5.1) Chloride Level 98mmol/L (98-107) Carbon Dioxide Level 28mmol/L (21-32) Anion Gap 11 (6-14) Blood Urea Nitrogen 39mg/dL (8-26) Creatinine 8.3mg/dL (0.7-1.3) Estimated GFR (Cockcroft-Gault) 6.6 Glucose Level 98mg/dL (70-99) Calcium Level 8.8mg/dL (8.5-10.1) Test 11/28/16 11:56 Glucose (Fingerstick) 146mg/dL (70-99) Microbiology 11/20/16 Blood Culture - Final, Complete NO GROWTH AFTER 5 DAYS 11/18/16 Urine Culture - Final, Complete 11/18/16 Urine Culture Result 1 (SHILPA) - Final, Complete Medications Current Medications Acetaminophen/ Hydrocodone Bitart (Lortab 5/325) 2 tab 1X ONCE PO Last administered on 11/18/16 21:34; Start 11/18/16 at 21:00; Stop 11/18/16 at 21:01 ; Status DC Furosemide 40 mg 40 mg 1X ONCE IVP Last administered on 11/18/16 22:03; Start 11/18/16 at 22:00; Stop 11/18/16 at 22:01; Status DC Ceftriaxone Sodium (Rocephin 1gm Ivpb For Omni) 50 ml @ 100 mls/hr 1X ONCE IV Last administered on 11/18/16 22:06; Start 11/18/16 at 22:15; Stop 11/18/16 at 22:44; Status DC Ondansetron HCl (Zofran) 4 mg PRN Q8HRS PRN IV NAUSEA/VOMITING; Start 11/18/16 at 22:15; Stop 11/19/16 at 22:14; Status DC Morphine Sulfate 4 mg PRN Q2HR PRN IV PAIN Last administered on 11/19/16 14:58 ; Start 11/18/16 at 22:15; Stop 11/19/16 at 22:14; Status DC Acetaminophen (Tylenol) 650 mg PRN Q4HRS PRN PO FEVER; Start 11/18/16 at 22:15 ; Stop 11/19/16 at 22:14; Status DC Insulin Aspart (Novolog) 0-7 UNITS TIDWMEALS SQ ; Start 11/19/16 at 08:00; Stop 11/19/16 at 09:04; Status DC Dextrose 12.5 gm PRN Q15MIN PRN IV SEE COMMENTS; Start 11/18/16 at 22:15; Stop 11/19/16 at 10:19; Status DC Info (Do NOT chart on this placeholder) 1 each 1X ONCE MC ; Start 11/18/16 at 23:15; Stop 11/18/16 at 23:16; Status UNV Pneumococcal Polyvalent Vaccine (Do NOT chart on this placeholder) 1 each 1X ONCE MC ; Start 11/18/16 at 23:15; Stop 11/18/16 at 23:16; Status UNV Influenza Virus Vaccine Quadrival (Fluarix Quad 1837-2917 Syringe) 0.5 ml ONCE ONCE VAX IM Last administered on 11/27/16 13:10; Start 11/19/16 at 09:00; Stop 11/19/16 at 09:01; Status DC Pneumococcal Polyvalent Vaccine 0.5 ml 0.5 ml ONCE ONCE VAX IM Last administered on 11/27/16 13:12; Start 11/19/16 at 09:00; Stop 11/19/16 at 09:01 ; Status DC Ceftriaxone Sodium/Sodium Chloride (Rocephin/Iv Sodium Chloride 0.9% 50ml) 50 ml @ 100 mls/hr Q24H IV Last administered on 11/20/16 20:49; Start 11/19/16 at 21:00; Stop 11/21/16 at 09:56; Status DC Amlodipine Besylate (Norvasc) 10 mg DAILY PO Last administered on 11/28/16 10: 14; Start 11/19/16 at 09:30 Glimepiride (Amaryl) 2 mg DAILYWBKFT PO Last administered on 11/20/16 08:08; Start 11/19/16 at 09:30; Stop 11/21/16 at 10:20; Status DC Carvedilol (Coreg) 25 mg BIDWMEALS PO Last administered on 11/28/16 10:14; Start 11/19/16 at 09:30 Rivaroxaban (Xarelto) 20 mg DAILYWSUP PO Last administered on 11/19/16 17:53; Start 11/19/16 at 17:00; Stop 11/20/16 at 08:53; Status DC Furosemide (Lasix) 40 mg 1X ONCE IVP Last administered on 11/19/16 09:40; Start 11/19/16 at 09:00; Stop 11/19/16 at 09:04; Status DC Insulin Aspart (Novolog) 0-7 UNITS TIDWMEALS SQ ; Start 11/19/16 at 12:00; Stop 11/21/16 at 21:16; Status DC Dextrose 12.5 gm PRN Q15MIN PRN IV SEE COMMENTS Last administered on 11/23/16 04:10; Start 11/19/16 at 09:00 Guaifenesin (Robitussin Dm) 10 ml PRN Q6HRS PRN PO COUGH; Start 11/19/16 at 09: 00 Nicotine (Nicoderm Cq 14mg) 1 patch PRN DAILY PRN TD SMOKING CESSATION; Start 11/19/16 at 09:15 Nicotine Polacrilex (Nicorette Gum) 1 each PRN Q1HR PRN BC BREAKTHROUGH CRAVINGS; Start 11/19/16 at 09:15 Albuterol/ Ipratropium (Duoneb) 3 ml RTQID NEB Last administered on 11/28/16 15:25; Start 11/19/16 at 09:30 Enoxaparin Sodium (Lovenox Per Pharmacy Prophylaxis Dosing) 1 each PRN DAILY PRN MC SEE COMMENTS; Start 11/19/16 at 09:30; Stop 11/19/16 at 09:30; Status DC Hydralazine HCl (Apresoline) 25 mg BID PO Last administered on 11/28/16 10:13 ; Start 11/19/16 at 10:30 Morphine Sulfate (Morphine Ir) 15 mg PRN Q4HRS PRN PO PAIN Last administered on 11/27/16 21:29; Start 11/20/16 at 00:15 Morphine Sulfate 4 mg PRN Q2HR PRN IV PAIN Last administered on 11/21/16 13:36 ; Start 11/20/16 at 00:15 Rivaroxaban 15 mg 15 mg DAILYWSUP PO ; Start 11/20/16 at 17:00; Stop 11/22/16 at 12:56; Status DC Sodium Chloride 1,000 ml @ 75 mls/hr [id number] IV Last administered on 23:37; Start 11/20/16 at 10:45; Stop 11/21/16 at 14:42; Status DC Milrinone Lactate/ Dextrose 100 ml @ 0 mls/hr CONT PRN IV SEE I/O RECORD Last administered on 11/21/16 22:19; Start 11/20/16 at 11:30; Stop 11/22/16 at 14:17 ; Status DC Magnesium Sulfate/ Dextrose 50 ml @ 25 mls/hr PRN DAILY PRN IV for Mag < 1.7 on am labs; Start 11/20/16 at 11:30 Piperacillin Sod/ Tazobactam Sod/ Sodium Chloride (Zosyn/Iv Sodium Chloride 0.9 % 50ml) 50 ml @ 100 mls/hr Q6HRS IV Last administered on 11/22/16 05:41; Start 11/20/16 at 12:00; Stop 11/22/16 at 10:39; Status DC Info 1 each 1 each PRN DAILY PRN MC SEE COMMENTS Last administered on 09:52; Start 11/21/16 at 08:15; Stop 11/22/16 at 14:15; Status DC Iron Sucrose/ Sodium Chloride (Venofer/Iv Sodium Chloride 0.9% 100ml) 110 ml @ 55 mls/hr 3X/WEEK IV Last administered on 11/28/16 10:14; Start 11/21/16 at 10 :00; Stop 11/30/16 at 10:59 Darbepoetin Guillermo (Aranesp) 100 mcg WEEKLYHS SQ Last administered on 11/21/16 21:21; Start 11/21/16 at 21:00 Calcium Acetate 1334 mg 1,334 mg TIDWMEALS PO Last administered on 11/28/16 12 :36; Start 11/21/16 at 12:00 Heparin Sodium/ Sodium Chloride 500 ml @ As Directed STK-MED ONCE .ROUTE ; Start 11/21/16 at 10:13; Stop 11/21/16 at 10:14; Status DC Lidocaine HCl 20 ml STK-MED ONCE .ROUTE ; Start 11/21/16 at 10:13; Stop at 10:14; Status DC Fentanyl Citrate (Fentanyl 2ml Vial) 100 mcg STK-MED ONCE .ROUTE ; Start at 10:52; Stop 11/21/16 at 10:53; Status DC Midazolam HCl (Versed) 2 mg STK-MED ONCE .ROUTE ; Start 11/21/16 at 10:52; Stop 11/21/16 at 10:53; Status DC Midazolam HCl (Versed) 1 mg 1X ONCE IV Last administered on 11/21/16 11:04; Start 11/21/16 at 11:30; Stop 11/21/16 at 11:31; Status DC Fentanyl Citrate (Fentanyl 2ml Vial) 25 mcg 1X ONCE IV Last administered on 11:02; Start 11/21/16 at 11:30; Stop 11/21/16 at 11:31; Status DC Lidocaine/Sodium Bicarbonate (Buffered Lidocaine 1%) 20 ml STK-MED ONCE IJ ; Start 11/21/16 at 14:59; Stop 11/21/16 at 15:00; Status DC Heparin Sodium (Porcine) 87032 unit 10,000 unit STK-MED ONCE .ROUTE ; Start at 14:59; Stop 11/21/16 at 15:00; Status DC Heparin Sodium/ Sodium Chloride 500 ml @ As Directed STK-MED ONCE .ROUTE ; Start 11/21/16 at 14:59; Stop 11/21/16 at 15:00; Status DC Heparin Sodium/ Sodium Chloride 1,000 unit 1X ONCE IART Last administered on 15:18; Start 11/21/16 at 15:15; Stop 11/21/16 at 15:26; Status DC Lidocaine/Sodium Bicarbonate (Buffered Lidocaine 1%) 20 ml 1X ONCE IJ Last administered on 11/21/16 15:17; Start 11/21/16 at 15:15; Stop 11/21/16 at 15:26 ; Status DC Heparin Sodium (Porcine) 4300 unit 4,300 unit 1X ONCE IV Last administered on 11/21/16 15:17; Start 11/21/16 at 15:15; Stop 11/21/16 at 15:26; Status DC Sodium Chloride 1,000 ml @ 1,000 mls/hr Q1H PRN IV hypotension; Start 11/22/16 at 07:31; Stop 11/22/16 at 13:30; Status DC Albumin Human 200 ml @ 200 mls/hr 1X PRN PRN IV Hypotension; Start 11/22/16 at 07:45; Stop 11/22/16 at 13:44; Status DC Sodium Chloride (Iv Sodium Chloride 0.9% 1000ml Bag) 1,000 ml @ 400 mls/hr Q2H30M PRN IV PATENCY; Start 11/22/16 at 07:31; Stop 11/22/16 at 19:30; Status DC Info (PHARMACY MONITORING -- do not chart) 1 each PRN DAILY PRN MC SEE COMMENTS ; Start 11/22/16 at 07:45 Info (PHARMACY MONITORING -- do not chart) 1 each PRN DAILY PRN MC SEE COMMENTS ; Start 11/22/16 at 07:45; Status UNV Diphenhydramine HCl (Benadryl) 25 mg 1X PRN PRN IV ITCHING Last administered on 11/22/16 08:53; Start 11/22/16 at 08:45; Stop 11/23/16 at 08:44; Status DC Diphenhydramine HCl (Benadryl) 25 mg 1X PRN PRN IV ITCHING; Start 11/22/16 at 08:45; Stop 11/23/16 at 08:44; Status DC Ergocalciferol 32551 unit 50,000 unit WEEKLY PO Last administered on 11/22/16 12:12; Start 11/22/16 at 10:00 Piperacillin Sod/ Tazobactam Sod/ Sodium Chloride (Zosyn/Iv Sodium Chloride 0.9 % 50ml) 50 ml @ 100 mls/hr Q6HRS IV Last administered on 11/24/16 06:06; Start 11/22/16 at 12:00; Stop 11/24/16 at 08:05; Status DC Enoxaparin Sodium (Lovenox Per Pharmacy Treatment Dosing) 1 each PRN DAILY PRN MC SEE COMMENTS; Start 11/22/16 at 13:00; Stop 11/22/16 at 14:15; Status DC Enoxaparin Sodium 150 mg 150 mg Q24H SQ ; Start 11/22/16 at 14:00; Stop at 14:15; Status DC Dextrose 1,000 ml @ 50 mls/hr Q20H IV Last administered on 11/22/16 16:19; Start 11/22/16 at 16:15; Stop 11/23/16 at 20:48; Status DC Sodium Chloride 1,000 ml @ 1,000 mls/hr Q1H PRN IV hypotension; Start 11/23/16 at 07:58; Stop 11/23/16 at 13:57; Status DC Albumin Human (Albuminar) 200 ml @ 200 mls/hr 1X PRN PRN IV Hypotension; Start 11/23/16 at 08:00; Stop 11/23/16 at 13:59; Status DC Diphenhydramine HCl (Benadryl) 25 mg 1X PRN PRN IV ITCHING; Start 11/23/16 at 08:00; Stop 11/24/16 at 07:59; Status DC Sodium Chloride (Normal Saline Flush) 10 ml 1X PRN PRN IV AP 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; Start 11/23/16 at 08:00; Stop 11/24/16 at 07:59; Status DC Sodium Chloride 10 ml 10 ml 1X PRN PRN IV [employer] 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; Start 11/23/16 at 08:00; Stop 11/24/16 at 07:59; Status DC Sodium Chloride (Iv Sodium Chloride 0.9% 1000ml Bag) 1,000 ml @ 400 mls/hr Q2H30M PRN IV PATENCY; Start 11/23/16 at 07:58; Stop 11/23/16 at 19:57; Status DC Info 1 each 1 each PRN DAILY PRN MC SEE COMMENTS; Start 11/23/16 at 08:00; Status UNV Piperacillin Sod/ Tazobactam Sod 2.25 gm/Sodium Chloride 50 ml @ 100 mls/hr Q8HRS IV Last administered on 11/28/16t 06:18; Start 11/24/16 at 14:00; Stop at 15:05; Status DC Sodium Chloride (Iv Sodium Chloride 0.9% 1000ml Bag) 1,000 ml @ 1,000 mls/hr Q1H PRN IV hypotension; Start 11/24/16 at 09:00; Stop 11/24/16 at 14:59; Status DC Sodium Chloride (Normal Saline Flush) 10 ml 1X PRN PRN IV AP 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; Start 11/24/16 at 09:00; Stop 11/24/16 at 18:00; Status DC Sodium Chloride (Normal Saline Flush) 10 ml 1X PRN PRN IV [employer] 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ROUTE ; Start 11/25/16 at 13:25; Stop 11/25/16 at 13:26; Status DC Midazolam HCl (Versed) 2 mg STK-MED ONCE .ROUTE ; Start 11/25/16 at 14:01; Stop 11/25/16 at 14:02; Status DC Fentanyl Citrate 100 mcg 100 mcg STK-MED ONCE .ROUTE ; Start 11/25/16 at 14:01; Stop 11/25/16 at 14:02; Status DC Cefazolin Sodium (Ancef 1gm Ivpb For Omni) 50 ml @ As Directed STK-MED ONCE IV ; Start 11/25/16 at 14:02; Stop 11/25/16 at 14:03; Status DC Lidocaine/Sodium Bicarbonate (Buffered Lidocaine 1%) 20 ml STK-MED ONCE IJ ; Start 11/25/16 at 14:32; Stop 11/25/16 at 14:33; Status DC Gelatin (Gelfoam Size 12-7mm) 1 each STK-MED ONCE .ROUTE ; Start 11/25/16 at 14 :32; Stop 11/25/16 at 14:33; Status DC Heparin Sodium (Porcine) 2,500 unit 1X ONCE IART ; Start 11/25/16 at 14:30; Stop 11/25/16 at 14:38; Status DC Midazolam HCl (Versed) 2 mg 1X ONCE IV Last administered on 11/25/16t 15:19; Start 11/25/16 at 14:30; Stop 11/25/16 at 14:38; Status DC Fentanyl Citrate 100 mcg 100 mcg 1X ONCE IV Last administered on 11/25/16t 15: 19; Start 11/25/16 at 14:30; Stop 11/25/16 at 14:38; Status DC Cefazolin Sodium (Ancef 1gm Ivpb For Omni) 50 ml @ 100 mls/hr 1X ONCE IV Last administered on 11/25/16 14:44; Start 11/25/16 at 14:30; Stop 11/25/16 at 14:59; Status DC Lidocaine/ Epinephrine (Xylocaine 1%-Epi 1:100,000) 20 ml 1X ONCE IJ Last administered on 11/25/16 14:44; Start 11/25/16 at 14:30; Stop 11/25/16 at 14:38 ; Status DC Heparin Sodium (Porcine) 4,200 unit 1X ONCE INT CAT Last administered on 14:44; Start 11/25/16 at 14:30; Stop 11/25/16 at 14:38; Status DC Gelatin (Gelfoam Size 12-7mm) 1 each STK-MED ONCE .ROUTE ; Start 11/25/16 at 14 :56; Stop 11/25/16 at 14:57; Status DC Heparin Sodium/ Sodium Chloride 1000 unit 1,000 unit 1X ONCE IV Last administered on 11/25/16 14:45; Start 11/25/16 at 15:15; Stop 11/25/16 at 15:17 ; Status DC Sodium Chloride (Iv Sodium Chloride 0.9% 1000ml Bag) 1,000 ml @ 1,000 mls/hr Q1H PRN IV hypotension; Start 11/26/16 at 10:11; Stop 11/26/16 at 16:10; Status DC Sodium Chloride (Normal Saline Flush) 10 ml 1X PRN PRN IV AP 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; Start 11/26/16 at 10:15; Stop 11/27/16 at 10:14; Status DC Sodium Chloride 10 ml 10 ml 1X PRN PRN IV [employer] 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; Start 11/26/16 at 10:15; Stop 11/27/16 at 10:14; Status DC Sodium Chloride (Iv Sodium Chloride 0.9% 1000ml Bag) 1,000 ml @ 400 mls/hr Q2H30M PRN IV PATENCY; Start 11/26/16 at 10:11; Stop 11/26/16 at 22:10; Status DC Info (PHARMACY MONITORING -- do not chart) 1 each PRN DAILY PRN MC SEE COMMENTS ; Start 11/26/16 at 10:15; Status UNV Info 1 each 1 each PRN DAILY PRN MC SEE COMMENTS; Start 11/26/16 at 10:15; Status UNV Magnesium Sulfate/ Dextrose (Magnesium Sulfate PREMIX 1GM) 100 ml @ 100 mls/hr 1X ONCE IV Last administered on 11/27/16 00:19; Start 11/26/16 at 23:30; Stop 11/27/16 at 00:29; Status DC Apixaban (Eliquis) 5 mg BID PO Last administered on 11/28/16t 10:27; Start at 09:00 Active Scripts Active Reported Eliquis (Apixaban) 5 Mg Tablet 5 Mg PO BID Carvedilol 25 Mg Tablet 1 Tab PO BID Furosemide 40 Mg Tablet 1 Tab PO DAILY Losartan Potassium 100 Mg Tablet 100 Mg PO DAILY Amlodipine Besylate 10 Mg Tablet 10 Mg PO DAILY Glimepiride 2 Mg Tablet 1 Tab PO DAILY Vitals/I & O Vital Sign - Last 24 Hours 11/27/16 11/27/16 11/27/16 11/27/16 18:14 18:37 19:55 20:00 Temp 98.0 98.0 Pulse 89 85 Resp 20 B/P 108/69 120/75 Pulse Ox 93 O2 Delivery Room Air Room Air Room Air 11/27/16 11/27/16 11/27/16 11/27/16 21:29 21:30 22:29 23:10 Temp 97.7 97.7 Pulse 83 89 Resp 20 18 B/P 130/71 Pulse Ox 95 O2 Delivery Room Air Room Air Room Air 11/28/16 11/28/16 11/28/16 11/28/16 03:20 07:19 07:47 08:00 Temp 97.9 97.5 97.9 97.5 Pulse 74 85 Resp 20 21 B/P 129/70 139/67 Pulse Ox 96 97 O2 Delivery Room Air Room Air Room Air Room Air 11/28/16 11/28/16 11/28/16 11/28/16 10:13 10:14 10:14 11:00 Pulse 85 85 85 109 Resp 18 B/P 139/67 139/67 139/67 119/81 Pulse Ox 95 O2 Delivery Room Air 11/28/16 11/28/16 11/28/16 11:25 15:00 15:25 Temp 97.4 97.4 Pulse 77 Resp 23 B/P 110/68 Pulse Ox 96 O2 Delivery Room Air Room Air Room Air Intake and Output 11/27/16 11/27/16 11/28/16 15:00 23:00 07:00 Intake Total 950 ml 930 ml Output Total 280 ml 0 ml Balance 670 ml 930 ml YANICK LAI MD Nov 28, 2016 16:43
[2016-11-28 19:45] VITALS: BP 132/76
[2016-11-28] MEDS: DARBEPOETIN ALFA 100 MCG/0.5 ML DISP.SYRIN. SQ SCH (21:31)
[2016-11-28 23:10] VITALS: BP 126/73
[2016-11-29 02:50] VITALS: BP 121/67
[2016-11-29 04:57] LABS: CALCIUM 8.6 mg/dL (8.5-10.1); GFR 5.3; POTASSIUM 5.2 mmol/L (3.5-5.1)
[2016-11-29] MEDS: IPRATRPIUM/ALBUTEROL 0.5/2.5MG 3 ML NEBU. NEB SCH ×2 (07:06→11:01)
[2016-11-29 07:56] VITALS: BP 131/60
[2016-11-29] MEDS: CALCIUM ACETATE 667 MG CAPSULE PO SCH ×2 (08:00→12:57)
[2016-11-29] MEDS ORDERED: IV NORMAL SALINE 1000ML BAG 1,000 ML IV PRN ×2 (08:04)
[2016-11-29] MEDS ORDERED: DIPHENHYDRAMINE 50 MG/ML VIAL IV PRN ×2 (08:15)
[2016-11-29] MEDS ORDERED: DIALYSIS PATIENT. MC PRN ×2 (08:15)
--- NOTE | 2016-11-29 10:13 | PDOC ---
Renal-Progress Notes Subjective Notes Notes NONE History of Present Illness Hx of present illness STABLE Vitals Vitals Vital Signs Date Time Temp Pulse Resp B/P Pulse Ox O2 Delivery O2 Flow Rate FiO2 11/29/16 07:56 98.7 94 18 131/60 97 Room Air 98.7 Weight Weight [ ] I.O. Intake and Output Intake and Output 11/29/16 07:00 Intake Total 480 ml Output Total 125 ml Balance 355 ml Intake Oral 480 ml Output Urine Total 125 ml Labs Labs Laboratory Tests Test 11/28/16 11:56 11/28/16 16:30 11/28/16 20:51 11/29/16 04:00 Glucose (Fingerstick) 146mg/dL (70-99) 107mg/dL (70-99) 114mg/dL (70-99) Sodium Level 135mmol/L (136-145) Potassium Level 5.2mmol/L (3.5-5.1) Chloride Level 96mmol/L (98-107) Carbon Dioxide Level 26mmol/L (21-32) Anion Gap 13 (6-14) Blood Urea Nitrogen 54mg/dL (8-26) Creatinine 10.0mg/dL (0.7-1.3) Estimated GFR (Cockcroft-Gault) 5.3 Glucose Level 99mg/dL (70-99) Calcium Level 8.6mg/dL (8.5-10.1) Micro Micro Microbiology 11/20/16 Blood Culture - Final, Complete NO GROWTH AFTER 5 DAYS 11/18/16 Urine Culture - Final, Complete 11/18/16 Urine Culture Result 1 (SHILPA) - Final, Complete Review of Systems Constitutional: yes: alert, oriented Ears/Nose/Throat: Yes: no symptom reported Eyes: Yes: no symptom reported Musculoskeletal: Yes: muscle stiffness, no symptom reported Skin: Yes no symptom reported Physical Exam General Appearance: no apparent distress Skin: warm Respiratory: bilateral CTA Heart: S1S2, RRR Neurology: alert, oriented, follow commands Assessment Assessment IMP CHAY ANEMIA HTN DM II PLAN HD TODAY UF TO DW OP HD SET UP AT [facility] DR RICE NOTIFIED-HE WILL FOLLOW HIM THERE WILL FOLLOW LUIGI SALCEDO MD Nov 29, 2016 10:13
--- NOTE | 2016-11-29 10:25 | PDOC ---
PROGRESS NOTES Subjective Subjective No new complaints. Objective Objective Vital Signs Date Time Temp Pulse Resp B/P Pulse Ox O2 Delivery O2 Flow Rate FiO2 11/29/16 07:56 98.7 94 18 131/60 97 Room Air 98.7 11/25/16 15:49 4.0 Intake and Output 11/29/16 07:00 Intake Total 480 ml Output Total 125 ml Balance 355 ml Intake Oral 480 ml Output Urine Total 125 ml Physical Exam Physical Exam He is supine receiving hemodialysis and he continues with left foot edema and redness and tenderness to palpation and secondary to some confusion about his health insurance he did not get his cam walker boot to his left ankle. Assessment Assessment Problems Medical Problems: (1) CHF exacerbation Status: Acute (2) Fall Status: Acute (3) UTI (urinary tract infection) Status: Acute Plan Plan of Care Agree with plans for transfer to SNF when medically stable. Comment Review of Relevant I have reviewed the following items maynor (where applicable) has been applied. Labs Laboratory Tests Test 11/27/16 12:05 11/27/16 17:25 11/27/16 20:56 11/28/16 03:53 Glucose (Fingerstick) 132mg/dL (70-99) 118mg/dL (70-99) 107mg/dL (70-99) White Blood Count 10.9x10^3/uL (4.0-11.0) Red Blood Count 3.09x10^6/uL (4.30-5.70) Hemoglobin 8.8g/dL (13.0-17.5) Hematocrit 26.8% (39.0-53.0) Mean Corpuscular Volume 87fL (79-100) Mean Corpuscular Hemoglobin 28pg (25-35) Mean Corpuscular Hemoglobin Concent 33g/dL (31-37) Red Cell Distribution Width 15.1% (11.5-14.5) Platelet Count 227x10^3/uL (140-400) Neutrophils (%) (Auto) 72% (31-73) Lymphocytes (%) (Auto) 12% (24-48) Monocytes (%) (Auto) 9% (0-9) Eosinophils (%) (Auto) 6% (0-3) Basophils (%) (Auto) 1% (0-3) Neutrophils # (Auto) 7.9x10^3uL (1.8-7.7) Lymphocytes # (Auto) 1.3x10^3/uL (1.0-4.8) Monocytes # (Auto) 1.0x10^3/uL (0.0-1.1) Eosinophils # (Auto) 0.6x10^3/uL (0.0-0.7) Basophils # (Auto) 0.1x10^3/uL (0.0-0.2) Sodium Level 137mmol/L (136-145) Potassium Level 4.7mmol/L (3.5-5.1) Chloride Level 98mmol/L (98-107) Carbon Dioxide Level 28mmol/L (21-32) Anion Gap 11 (6-14) Blood Urea Nitrogen 39mg/dL (8-26) Creatinine 8.3mg/dL (0.7-1.3) Estimated GFR (Cockcroft-Gault) 6.6 Glucose Level 98mg/dL (70-99) Calcium Level 8.8mg/dL (8.5-10.1) Test 11/28/16 07:51 11/28/16 11:56 11/28/16 16:30 11/28/16 20:51 Glucose (Fingerstick) 104mg/dL (70-99) 146mg/dL (70-99) 107mg/dL (70-99) 114mg/dL (70-99) Test 11/29/16 04:00 Sodium Level 135mmol/L (136-145) Potassium Level 5.2mmol/L (3.5-5.1) Chloride Level 96mmol/L (98-107) Carbon Dioxide Level 26mmol/L (21-32) Anion Gap 13 (6-14) Blood Urea Nitrogen 54mg/dL (8-26) Creatinine 10.0mg/dL (0.7-1.3) Estimated GFR (Cockcroft-Gault) 5.3 Glucose Level 99mg/dL (70-99) Calcium Level 8.6mg/dL (8.5-10.1) Laboratory Tests Test 11/28/16 11:56 11/28/16 16:30 11/28/16 20:51 11/29/16 04:00 Glucose (Fingerstick) 146mg/dL (70-99) 107mg/dL (70-99) 114mg/dL (70-99) Sodium Level 135mmol/L (136-145) Potassium Level 5.2mmol/L (3.5-5.1) Chloride Level 96mmol/L (98-107) Carbon Dioxide Level 26mmol/L (21-32) Anion Gap 13 (6-14) Blood Urea Nitrogen 54mg/dL (8-26) Creatinine 10.0mg/dL (0.7-1.3) Estimated GFR (Cockcroft-Gault) 5.3 Glucose Level 99mg/dL (70-99) Calcium Level 8.6mg/dL (8.5-10.1) Microbiology 11/20/16 Blood Culture - Final, Complete NO GROWTH AFTER 5 DAYS 11/18/16 Urine Culture - Final, Complete 11/18/16 Urine Culture Result 1 (SHILPA) - Final, Complete Medications Current Medications Acetaminophen/ Hydrocodone Bitart (Lortab 5/325) 2 tab 1X ONCE PO Last administered on 11/18/16 21:34; Start 11/18/16 at 21:00; Stop 11/18/16 at 21:01 ; Status DC Furosemide 40 mg 40 mg 1X ONCE IVP Last administered on 11/18/16 22:03; Start 11/18/16 at 22:00; Stop 11/18/16 at 22:01; Status DC Ceftriaxone Sodium (Rocephin 1gm Ivpb For Omni) 50 ml @ 100 mls/hr 1X ONCE IV Last administered on 11/18/16 22:06; Start 11/18/16 at 22:15; Stop 11/18/16 at 22:44; Status DC Ondansetron HCl (Zofran) 4 mg PRN Q8HRS PRN IV NAUSEA/VOMITING; Start 11/18/16 at 22:15; Stop 11/19/16 at 22:14; Status DC Morphine Sulfate 4 mg PRN Q2HR PRN IV PAIN Last administered on 11/19/16 14:58 ; Start 11/18/16 at 22:15; Stop 11/19/16 at 22:14; Status DC Acetaminophen (Tylenol) 650 mg PRN Q4HRS PRN PO FEVER; Start 11/18/16 at 22:15 ; Stop 11/19/16 at 22:14; Status DC Insulin Aspart (Novolog) 0-7 UNITS TIDWMEALS SQ ; Start 11/19/16 at 08:00; Stop 11/19/16 at 09:04; Status DC Dextrose 12.5 gm PRN Q15MIN PRN IV SEE COMMENTS; Start 11/18/16 at 22:15; Stop 11/19/16 at 10:19; Status DC Info (Do NOT chart on this placeholder) 1 each 1X ONCE MC ; Start 11/18/16 at 23:15; Stop 11/18/16 at 23:16; Status UNV Pneumococcal Polyvalent Vaccine (Do NOT chart on this placeholder) 1 each 1X ONCE MC ; Start 11/18/16 at 23:15; Stop 11/18/16 at 23:16; Status UNV Influenza Virus Vaccine Quadrival (Fluarix Quad [id number] Syringe) 0.5 ml ONCE ONCE VAX IM Last administered on 11/27/16 13:10; Start 11/19/16 at 09:00; Stop 11/19/16 at 09:01; Status DC Pneumococcal Polyvalent Vaccine 0.5 ml 0.5 ml ONCE ONCE VAX IM Last administered on 11/27/16 13:12; Start 11/19/16 at 09:00; Stop 11/19/16 at 09:01 ; Status DC Ceftriaxone Sodium/Sodium Chloride (Rocephin/Iv Sodium Chloride 0.9% 50ml) 50 ml @ 100 mls/hr Q24H IV Last administered on 11/20/16 20:49; Start 11/19/16 at 21:00; Stop 11/21/16 at 09:56; Status DC Amlodipine Besylate (Norvasc) 10 mg DAILY PO Last administered on 11/28/16 10: 14; Start 11/19/16 at 09:30 Glimepiride (Amaryl) 2 mg DAILYWBKFT PO Last administered on 11/20/16 08:08; Start 11/19/16 at 09:30; Stop 11/21/16 at 10:20; Status DC Carvedilol (Coreg) 25 mg BIDWMEALS PO Last administered on 11/28/16 18:05; Start 11/19/16 at 09:30 Rivaroxaban (Xarelto) 20 mg DAILYWSUP PO Last administered on 11/19/16 17:53; Start 11/19/16 at 17:00; Stop 11/20/16 at 08:53; Status DC Furosemide (Lasix) 40 mg 1X ONCE IVP Last administered on 11/19/16 09:40; Start 11/19/16 at 09:00; Stop 11/19/16 at 09:04; Status DC Insulin Aspart (Novolog) 0-7 UNITS TIDWMEALS SQ ; Start 11/19/16 at 12:00; Stop 11/21/16 at 21:16; Status DC Dextrose 12.5 gm PRN Q15MIN PRN IV SEE COMMENTS Last administered on 11/23/16 04:10; Start 11/19/16 at 09:00 Guaifenesin (Robitussin Dm) 10 ml PRN Q6HRS PRN PO COUGH; Start 11/19/16 at 09: 00 Nicotine (Nicoderm Cq 14mg) 1 patch PRN DAILY PRN TD SMOKING CESSATION; Start 11/19/16 at 09:15 Nicotine Polacrilex (Nicorette Gum) 1 each PRN Q1HR PRN BC BREAKTHROUGH CRAVINGS; Start 11/19/16 at 09:15 Albuterol/ Ipratropium (Duoneb) 3 ml RTQID NEB Last administered on 11/29/16 07:06; Start 11/19/16 at 09:30 Enoxaparin Sodium (Lovenox Per Pharmacy Prophylaxis Dosing) 1 each PRN DAILY PRN MC SEE COMMENTS; Start 11/19/16 at 09:30; Stop 11/19/16 at 09:30; Status DC Hydralazine HCl (Apresoline) 25 mg BID PO Last administered on 11/28/16 21:31 ; Start 11/19/16 at 10:30 Morphine Sulfate (Morphine Ir) 15 mg PRN Q4HRS PRN PO PAIN Last administered on 11/27/16 21:29; Start 11/20/16 at 00:15 Morphine Sulfate 4 mg PRN Q2HR PRN IV PAIN Last administered on 11/21/16 13:36 ; Start 11/20/16 at 00:15 Rivaroxaban 15 mg 15 mg DAILYWSUP PO ; Start 11/20/16 at 17:00; Stop 11/22/16 at 12:56; Status DC Sodium Chloride 1,000 ml @ 75 mls/hr [id number] IV Last administered on 23:37; Start 11/20/16 at 10:45; Stop 11/21/16 at 14:42; Status DC Milrinone Lactate/ Dextrose 100 ml @ 0 mls/hr CONT PRN IV SEE I/O RECORD Last administered on 11/21/16 22:19; Start 11/20/16 at 11:30; Stop 11/22/16 at 14:17 ; Status DC Magnesium Sulfate/ Dextrose 50 ml @ 25 mls/hr PRN DAILY PRN IV for Mag < 1.7 on am labs; Start 11/20/16 at 11:30 Piperacillin Sod/ Tazobactam Sod/ Sodium Chloride (Zosyn/Iv Sodium Chloride 0.9 % 50ml) 50 ml @ 100 mls/hr Q6HRS IV Last administered on 11/22/16 05:41; Start 11/20/16 at 12:00; Stop 11/22/16 at 10:39; Status DC Info 1 each 1 each PRN DAILY PRN MC SEE COMMENTS Last administered on 09:52; Start 11/21/16 at 08:15; Stop 11/22/16 at 14:15; Status DC Iron Sucrose/ Sodium Chloride (Venofer/Iv Sodium Chloride 0.9% 100ml) 110 ml @ 55 mls/hr 3X/WEEK IV Last administered on 11/28/16 10:14; Start 11/21/16 at 10 :00; Stop 11/30/16 at 10:59 Darbepoetin Guillermo (Aranesp) 100 mcg WEEKLYHS SQ Last administered on 11/28/16 21:31; Start 11/21/16 at 21:00 Calcium Acetate 1334 mg 1,334 mg TIDWMEALS PO Last administered on 11/28/16 18 :00; Start 11/21/16 at 12:00 Heparin Sodium/ Sodium Chloride 500 ml @ As Directed STK-MED ONCE .ROUTE ; Start 11/21/16 at 10:13; Stop 11/21/16 at 10:14; Status DC Lidocaine HCl 20 ml STK-MED ONCE .ROUTE ; Start 11/21/16 at 10:13; Stop at 10:14; Status DC Fentanyl Citrate (Fentanyl 2ml Vial) 100 mcg STK-MED ONCE .ROUTE ; Start at 10:52; Stop 11/21/16 at 10:53; Status DC Midazolam HCl (Versed) 2 mg STK-MED ONCE .ROUTE ; Start 11/21/16 at 10:52; Stop 11/21/16 at 10:53; Status DC Midazolam HCl (Versed) 1 mg 1X ONCE IV Last administered on 11/21/16 11:04; Start 11/21/16 at 11:30; Stop 11/21/16 at 11:31; Status DC Fentanyl Citrate (Fentanyl 2ml Vial) 25 mcg 1X ONCE IV Last administered on 11:02; Start 11/21/16 at 11:30; Stop 11/21/16 at 11:31; Status DC Lidocaine/Sodium Bicarbonate (Buffered Lidocaine 1%) 20 ml STK-MED ONCE IJ ; Start 11/21/16 at 14:59; Stop 11/21/16 at 15:00; Status DC Heparin Sodium (Porcine) 90987 unit 10,000 unit STK-MED ONCE .ROUTE ; Start at 14:59; Stop 11/21/16 at 15:00; Status DC Heparin Sodium/ Sodium Chloride 500 ml @ As Directed STK-MED ONCE .ROUTE ; Start 11/21/16 at 14:59; Stop 11/21/16 at 15:00; Status DC Heparin Sodium/ Sodium Chloride 1,000 unit 1X ONCE IART Last administered on 15:18; Start 11/21/16 at 15:15; Stop 11/21/16 at 15:26; Status DC Lidocaine/Sodium Bicarbonate (Buffered Lidocaine 1%) 20 ml 1X ONCE IJ Last administered on 11/21/16 15:17; Start 11/21/16 at 15:15; Stop 11/21/16 at 15:26 ; Status DC Heparin Sodium (Porcine) 4300 unit 4,300 unit 1X ONCE IV Last administered on 11/21/16 15:17; Start 11/21/16 at 15:15; Stop 11/21/16 at 15:26; Status DC Sodium Chloride 1,000 ml @ 1,000 mls/hr Q1H PRN IV hypotension; Start 11/22/16 at 07:31; Stop 11/22/16 at 13:30; Status DC Albumin Human 200 ml @ 200 mls/hr 1X PRN PRN IV Hypotension; Start 11/22/16 at 07:45; Stop 11/22/16 at 13:44; Status DC Sodium Chloride (Iv Sodium Chloride 0.9% 1000ml Bag) 1,000 ml @ 400 mls/hr Q2H30M PRN IV PATENCY; Start 11/22/16 at 07:31; Stop 11/22/16 at 19:30; Status DC Info (PHARMACY MONITORING -- do not chart) 1 each PRN DAILY PRN MC SEE COMMENTS ; Start 11/22/16 at 07:45 Info (PHARMACY MONITORING -- do not chart) 1 each PRN DAILY PRN MC SEE COMMENTS ; Start 11/22/16 at 07:45; Status UNV Diphenhydramine HCl (Benadryl) 25 mg 1X PRN PRN IV ITCHING Last administered on 11/22/16 08:53; Start 11/22/16 at 08:45; Stop 11/23/16 at 08:44; Status DC Diphenhydramine HCl (Benadryl) 25 mg 1X PRN PRN IV ITCHING; Start 11/22/16 at 08:45; Stop 11/23/16 at 08:44; Status DC Ergocalciferol 11994 unit 50,000 unit WEEKLY PO Last administered on 11/22/16 12:12; Start 11/22/16 at 10:00 Piperacillin Sod/ Tazobactam Sod/ Sodium Chloride (Zosyn/Iv Sodium Chloride 0.9 % 50ml) 50 ml @ 100 mls/hr Q6HRS IV Last administered on 11/24/16 06:06; Start 11/22/16 at 12:00; Stop 11/24/16 at 08:05; Status DC Enoxaparin Sodium (Lovenox Per Pharmacy Treatment Dosing) 1 each PRN DAILY PRN MC SEE COMMENTS; Start 11/22/16 at 13:00; Stop 11/22/16 at 14:15; Status DC Enoxaparin Sodium 150 mg 150 mg Q24H SQ ; Start 11/22/16 at 14:00; Stop at 14:15; Status DC Dextrose 1,000 ml @ 50 mls/hr Q20H IV Last administered on 11/22/16t 16:19; Start 11/22/16 at 16:15; Stop 11/23/16 at 20:48; Status DC Sodium Chloride 1,000 ml @ 1,000 mls/hr Q1H PRN IV hypotension; Start 11/23/16 at 07:58; Stop 11/23/16 at 13:57; Status DC Albumin Human (Albuminar) 200 ml @ 200 mls/hr 1X PRN PRN IV Hypotension; Start 11/23/16 at 08:00; Stop 11/23/16 at 13:59; Status DC Diphenhydramine HCl (Benadryl) 25 mg 1X PRN PRN IV ITCHING; Start 11/23/16 at 08:00; Stop 11/24/16 at 07:59; Status DC Sodium Chloride (Normal Saline Flush) 10 ml 1X PRN PRN IV AP 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; Start 11/23/16 at 08:00; Stop 11/24/16 at 07:59; Status DC Sodium Chloride 10 ml 10 ml 1X PRN PRN IV [employer] 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; Start 11/23/16 at 08:00; Stop 11/24/16 at 07:59; Status DC Sodium Chloride (Iv Sodium Chloride 0.9% 1000ml Bag) 1,000 ml @ 400 mls/hr Q2H30M PRN IV PATENCY; Start 11/23/16 at 07:58; Stop 11/23/16 at 19:57; Status DC Info 1 each 1 each PRN DAILY PRN MC SEE COMMENTS; Start 11/23/16 at 08:00; Status UNV Piperacillin Sod/ Tazobactam Sod 2.25 gm/Sodium Chloride 50 ml @ 100 mls/hr Q8HRS IV Last administered on 11/28/16t 06:18; Start 11/24/16 at 14:00; Stop at 15:05; Status DC Sodium Chloride (Iv Sodium Chloride 0.9% 1000ml Bag) 1,000 ml @ 1,000 mls/hr Q1H PRN IV hypotension; Start 11/24/16 at 09:00; Stop 11/24/16 at 14:59; Status DC Sodium Chloride (Normal Saline Flush) 10 ml 1X PRN PRN IV AP 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; Start 11/24/16 at 09:00; Stop 11/24/16 at 18:00; Status DC Sodium Chloride (Normal Saline Flush) 10 ml 1X PRN PRN IV [employer]GER 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ROUTE ; Start 11/25/16 at 13:25; Stop 11/25/16 at 13:26; Status DC Midazolam HCl (Versed) 2 mg STK-MED ONCE .ROUTE ; Start 11/25/16 at 14:01; Stop 11/25/16 at 14:02; Status DC Fentanyl Citrate 100 mcg 100 mcg STK-MED ONCE .ROUTE ; Start 11/25/16 at 14:01; Stop 11/25/16 at 14:02; Status DC Cefazolin Sodium (Ancef 1gm Ivpb For Omni) 50 ml @ As Directed STK-MED ONCE IV ; Start 11/25/16 at 14:02; Stop 11/25/16 at 14:03; Status DC Lidocaine/Sodium Bicarbonate (Buffered Lidocaine 1%) 20 ml STK-MED ONCE IJ ; Start 11/25/16 at 14:32; Stop 11/25/16 at 14:33; Status DC Gelatin (Gelfoam Size 12-7mm) 1 each STK-MED ONCE .ROUTE ; Start 11/25/16 at 14 :32; Stop 11/25/16 at 14:33; Status DC Heparin Sodium (Porcine) 2,500 unit 1X ONCE IART ; Start 11/25/16 at 14:30; Stop 11/25/16 at 14:38; Status DC Midazolam HCl (Versed) 2 mg 1X ONCE IV Last administered on 1/20/17at 15:19; Start 11/25/16 at 14:30; Stop 11/25/16 at 14:38; Status DC Fentanyl Citrate 100 mcg 100 mcg 1X ONCE IV Last administered on 11/25/16 15: 19; Start 11/25/16 at 14:30; Stop 11/25/16 at 14:38; Status DC Cefazolin Sodium (Ancef 1gm Ivpb For Omni) 50 ml @ 100 mls/hr 1X ONCE IV Last administered on 11/25/16 14:44; Start 11/25/16 at 14:30; Stop 11/25/16 at 14:59; Status DC Lidocaine/ Epinephrine (Xylocaine 1%-Epi 1:100,000) 20 ml 1X ONCE IJ Last administered on 11/25/16 14:44; Start 11/25/16 at 14:30; Stop 11/25/16 at 14:38 ; Status DC Heparin Sodium (Porcine) 4,200 unit 1X ONCE INT CAT Last administered on 14:44; Start 11/25/16 at 14:30; Stop 11/25/16 at 14:38; Status DC Gelatin (Gelfoam Size 12-7mm) 1 each STK-MED ONCE .ROUTE ; Start 11/25/16 at 14 :56; Stop 11/25/16 at 14:57; Status DC Heparin Sodium/ Sodium Chloride 1000 unit 1,000 unit 1X ONCE IV Last administered on 11/25/16 14:45; Start 11/25/16 at 15:15; Stop 11/25/16 at 15:17 ; Status DC Sodium Chloride (Iv Sodium Chloride 0.9% 1000ml Bag) 1,000 ml @ 1,000 mls/hr Q1H PRN IV hypotension; Start 11/26/16 at 10:11; Stop 11/26/16 at 16:10; Status DC Sodium Chloride (Normal Saline Flush) 10 ml 1X PRN PRN IV AP 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; Start 11/26/16 at 10:15; Stop 11/27/16 at 10:14; Status DC Sodium Chloride 10 ml 10 ml 1X PRN PRN IV [employer]GER 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; Start 11/26/16 at 10:15; Stop 11/27/16 at 10:14; Status DC Sodium Chloride (Iv Sodium Chloride 0.9% 1000ml Bag) 1,000 ml @ 400 mls/hr Q2H30M PRN IV PATENCY; Start 11/26/16 at 10:11; Stop 11/26/16 at 22:10; Status DC Info (PHARMACY MONITORING -- do not chart) 1 each PRN DAILY PRN MC SEE COMMENTS ; Start 11/26/16 at 10:15; Status UNV Info 1 each 1 each PRN DAILY PRN MC SEE COMMENTS; Start 11/26/16 at 10:15; Status UNV Magnesium Sulfate/ Dextrose (Magnesium Sulfate PREMIX 1GM) 100 ml @ 100 mls/hr 1X ONCE IV Last administered on 11/27/16t 00:19; Start 11/26/16 at 23:30; Stop 11/27/16 at 00:29; Status DC Apixaban 5 mg 5 mg BID PO Last administered on 11/28/16t 21:31; Start 11/28/16 at 09:00 Sodium Chloride (Iv Sodium Chloride 0.9% 1000ml Bag) 1,000 ml @ 1,000 mls/hr Q1H PRN IV hypotension; Start 11/29/16 at 08:04; Stop 11/29/16 at 14:03 Diphenhydramine HCl (Benadryl) 25 mg 1X PRN PRN IV ITCHING; Start 11/29/16 at 08:15; Stop 11/30/16 at 08:14 Diphenhydramine HCl 25 mg 25 mg 1X PRN PRN IV ITCHING; Start 11/29/16 at 08:15 ; Stop 11/30/16 at 08:14 Sodium Chloride (Iv Sodium Chloride 0.9% 1000ml Bag) 1,000 ml @ 400 mls/hr Q2H30M PRN IV PATENCY; Start 11/29/16 at 08:04; Stop 11/29/16 at 20:03 Info (PHARMACY MONITORING -- do not chart) 1 each PRN DAILY PRN MC SEE COMMENTS ; Start 11/29/16 at 08:15; Status UNV Info (PHARMACY MONITORING -- do not chart) 1 each PRN DAILY PRN MC SEE COMMENTS ; Start 11/29/16 at 08:15; Status UNV Active Scripts Active Reported Eliquis (Apixaban) 5 Mg Tablet 5 Mg PO BID Carvedilol 25 Mg Tablet 1 Tab PO BID Furosemide 40 Mg Tablet 1 Tab PO DAILY Losartan Potassium 100 Mg Tablet 100 Mg PO DAILY Amlodipine Besylate 10 Mg Tablet 10 Mg PO DAILY Glimepiride 2 Mg Tablet 1 Tab PO DAILY Vitals/I & O Vital Sign - Last 24 Hours 11/28/16 11/28/16 11/28/16 11/28/16 11:00 11:25 15:00 15:25 Temp 97.4 97.4 Pulse 109 77 Resp 18 23 B/P 119/81 110/68 Pulse Ox 95 96 O2 Delivery Room Air Room Air Room Air Room Air 11/28/16 11/28/16 11/28/16 11/28/16 18:05 18:43 19:45 20:00 Temp 97.9 97.9 Pulse 77 80 Resp 20 B/P 110/68 132/76 Pulse Ox 96 O2 Delivery Room Air Room Air Room Air 11/28/16 11/28/16 11/29/16 11/29/16 21:31 23:10 02:50 07:06 Temp 98.4 98.2 98.4 98.2 Pulse 89 82 87 Resp 18 20 B/P 126/73 121/67 Pulse Ox 98 96 O2 Delivery Room Air Room Air Room Air 11/29/16 11/29/16 07:31 07:56 Temp 98.7 98.7 Pulse 94 Resp 18 B/P 131/60 Pulse Ox 97 O2 Delivery Room Air Room Air Intake and Output 11/28/16 11/28/16 11/29/16 15:00 23:00 07:00 Intake Total 480 ml Output Total 75 ml 50 ml Balance -75 ml 430 ml YANICK LAI MD Nov 29, 2016 10:25
--- NOTE | 2016-11-29 11:25 | PDOC ---
PROGRESS NOTES Chief Complaint Chief Complaint - CHF Systolic acute on chronic - Afib - CHAY - Leukocytosis - Urinary tract infection - Hyperphosphatemia - DM - HTN - Anemia - Proteinuria - Lower extremity edema with cellulitis - Fungal rash, total body - Fall History of Present Illness History of Present Illness Mr. Greco was receiving dialysis this AM upon exam. He is feeling relatively well and wants to be discharged. Discussed probable discharge today to [facility]. Outpatient hemodialysis has been arranged. . Vitals Vitals Vital Signs Date Time Temp Pulse Resp B/P Pulse Ox O2 Delivery O2 Flow Rate FiO2 11/29/16 07:56 98.7 94 18 131/60 97 Room Air 98.7 Physical Exam General: Alert, Oriented X3, Cooperative, No acute distress Heart: Regular rate, Other (No rubs) Lungs: Clear, Other (No wheezes/crackles) Abdomen: Normal bowel sounds, Soft Extremities: No clubbing, No cyanosis, Other (LE edema) Skin: Other (Fungal rash over whole body; dry and flaking LE; chronic venous stasis b/l; weepy LE patches ) Labs LABS Laboratory Tests Test 11/28/16 11:56 11/28/16 16:30 11/28/16 20:51 11/29/16 04:00 Glucose (Fingerstick) 146mg/dL (70-99) 107mg/dL (70-99) 114mg/dL (70-99) Sodium Level 135mmol/L (136-145) Potassium Level 5.2mmol/L (3.5-5.1) Chloride Level 96mmol/L (98-107) Carbon Dioxide Level 26mmol/L (21-32) Anion Gap 13 (6-14) Blood Urea Nitrogen 54mg/dL (8-26) Creatinine 10.0mg/dL (0.7-1.3) Estimated GFR (Cockcroft-Gault) 5.3 Glucose Level 99mg/dL (70-99) Calcium Level 8.6mg/dL (8.5-10.1) Review of Systems Review of Systems Denies chest pain or SOA Leg pain continuing to improve Assessment and Plan Assessmemt and Plan Assessment: - CHF Systolic acute on chronic - CHAY - Afib - Urinary tract infection - Leukocytosis - Hyperphosphatemia - DM - HTN - Anemia - Proteinuria - Lower extremity edema with cellulitis - Fungal rash, total body - Fall Plan: - Discharge today to [facility] - Patient receiving dialysis on exam this AM, tolerating well; outpatient arrangements have been made by [facility] - Continue home meds - Recheck labs if not dc'd - PT/OT as tolerated - Appreciate subspecialty input - Follow up with subspecialists and PCP as directed Problems: Comment Review of Relevant I have reviewed the following items maynor (where applicable) has been applied. Labs Laboratory Tests Test 11/27/16 12:05 11/27/16 17:25 11/27/16 20:56 11/28/16 03:53 Glucose (Fingerstick) 132mg/dL (70-99) 118mg/dL (70-99) 107mg/dL (70-99) White Blood Count 10.9x10^3/uL (4.0-11.0) Red Blood Count 3.09x10^6/uL (4.30-5.70) Hemoglobin 8.8g/dL (13.0-17.5) Hematocrit 26.8% (39.0-53.0) Mean Corpuscular Volume 87fL (79-100) Mean Corpuscular Hemoglobin 28pg (25-35) Mean Corpuscular Hemoglobin Concent 33g/dL (31-37) Red Cell Distribution Width 15.1% (11.5-14.5) Platelet Count 227x10^3/uL (140-400) Neutrophils (%) (Auto) 72% (31-73) Lymphocytes (%) (Auto) 12% (24-48) Monocytes (%) (Auto) 9% (0-9) Eosinophils (%) (Auto) 6% (0-3) Basophils (%) (Auto) 1% (0-3) Neutrophils # (Auto) 7.9x10^3uL (1.8-7.7) Lymphocytes # (Auto) 1.3x10^3/uL (1.0-4.8) Monocytes # (Auto) 1.0x10^3/uL (0.0-1.1) Eosinophils # (Auto) 0.6x10^3/uL (0.0-0.7) Basophils # (Auto) 0.1x10^3/uL (0.0-0.2) Sodium Level 137mmol/L (136-145) Potassium Level 4.7mmol/L (3.5-5.1) Chloride Level 98mmol/L (98-107) Carbon Dioxide Level 28mmol/L (21-32) Anion Gap 11 (6-14) Blood Urea Nitrogen 39mg/dL (8-26) Creatinine 8.3mg/dL (0.7-1.3) Estimated GFR (Cockcroft-Gault) 6.6 Glucose Level 98mg/dL (70-99) Calcium Level 8.8mg/dL (8.5-10.1) Test 11/28/16 07:51 11/28/16 11:56 11/28/16 16:30 11/28/16 20:51 Glucose (Fingerstick) 104mg/dL (70-99) 146mg/dL (70-99) 107mg/dL (70-99) 114mg/dL (70-99) Test 11/29/16 04:00 Sodium Level 135mmol/L (136-145) Potassium Level 5.2mmol/L (3.5-5.1) Chloride Level 96mmol/L (98-107) Carbon Dioxide Level 26mmol/L (21-32) Anion Gap 13 (6-14) Blood Urea Nitrogen 54mg/dL (8-26) Creatinine 10.0mg/dL (0.7-1.3) Estimated GFR (Cockcroft-Gault) 5.3 Glucose Level 99mg/dL (70-99) Calcium Level 8.6mg/dL (8.5-10.1) Laboratory Tests Test 11/28/16 11:56 11/28/16 16:30 11/28/16 20:51 11/29/16 04:00 Glucose (Fingerstick) 146mg/dL (70-99) 107mg/dL (70-99) 114mg/dL (70-99) Sodium Level 135mmol/L (136-145) Potassium Level 5.2mmol/L (3.5-5.1) Chloride Level 96mmol/L (98-107) Carbon Dioxide Level 26mmol/L (21-32) Anion Gap 13 (6-14) Blood Urea Nitrogen 54mg/dL (8-26) Creatinine 10.0mg/dL (0.7-1.3) Estimated GFR (Cockcroft-Gault) 5.3 Glucose Level 99mg/dL (70-99) Calcium Level 8.6mg/dL (8.5-10.1) Microbiology 11/20/16 Blood Culture - Final, Complete NO GROWTH AFTER 5 DAYS 11/18/16 Urine Culture - Final, Complete 11/18/16 Urine Culture Result 1 (SHILPA) - Final, Complete Medications Current Medications Acetaminophen/ Hydrocodone Bitart (Lortab 5/325) 2 tab 1X ONCE PO Last administered on 11/18/16 21:34; Start 11/18/16 at 21:00; Stop 11/18/16 at 21:01 ; Status DC Furosemide 40 mg 40 mg 1X ONCE IVP Last administered on 11/18/16 22:03; Start 11/18/16 at 22:00; Stop 11/18/16 at 22:01; Status DC Ceftriaxone Sodium (Rocephin 1gm Ivpb For Omni) 50 ml @ 100 mls/hr 1X ONCE IV Last administered on 11/18/16 22:06; Start 11/18/16 at 22:15; Stop 11/18/16 at 22:44; Status DC Ondansetron HCl (Zofran) 4 mg PRN Q8HRS PRN IV NAUSEA/VOMITING; Start 11/18/16 at 22:15; Stop 11/19/16 at 22:14; Status DC Morphine Sulfate 4 mg PRN Q2HR PRN IV PAIN Last administered on 11/19/16 14:58 ; Start 11/18/16 at 22:15; Stop 11/19/16 at 22:14; Status DC Acetaminophen (Tylenol) 650 mg PRN Q4HRS PRN PO FEVER; Start 11/18/16 at 22:15 ; Stop 11/19/16 at 22:14; Status DC Insulin Aspart (Novolog) 0-7 UNITS TIDWMEALS SQ ; Start 11/19/16 at 08:00; Stop 11/19/16 at 09:04; Status DC Dextrose 12.5 gm PRN Q15MIN PRN IV SEE COMMENTS; Start 11/18/16 at 22:15; Stop 11/19/16 at 10:19; Status DC Info (Do NOT chart on this placeholder) 1 each 1X ONCE MC ; Start 11/18/16 at 23:15; Stop 11/18/16 at 23:16; Status UNV Pneumococcal Polyvalent Vaccine (Do NOT chart on this placeholder) 1 each 1X ONCE MC ; Start 11/18/16 at 23:15; Stop 11/18/16 at 23:16; Status UNV Influenza Virus Vaccine Quadrival (Fluarix Quad 0799-4912 Syringe) 0.5 ml ONCE ONCE VAX IM Last administered on 11/27/16 13:10; Start 11/19/16 at 09:00; Stop 11/19/16 at 09:01; Status DC Pneumococcal Polyvalent Vaccine 0.5 ml 0.5 ml ONCE ONCE VAX IM Last administered on 11/27/16 13:12; Start 11/19/16 at 09:00; Stop 11/19/16 at 09:01 ; Status DC Ceftriaxone Sodium/Sodium Chloride (Rocephin/Iv Sodium Chloride 0.9% 50ml) 50 ml @ 100 mls/hr Q24H IV Last administered on 11/20/16 20:49; Start 11/19/16 at 21:00; Stop 11/21/16 at 09:56; Status DC Amlodipine Besylate (Norvasc) 10 mg DAILY PO Last administered on 11/28/16 10: 14; Start 11/19/16 at 09:30 Glimepiride (Amaryl) 2 mg DAILYWBKFT PO Last administered on 11/20/16 08:08; Start 11/19/16 at 09:30; Stop 11/21/16 at 10:20; Status DC Carvedilol (Coreg) 25 mg BIDWMEALS PO Last administered on 11/28/16 18:05; Start 11/19/16 at 09:30 Rivaroxaban (Xarelto) 20 mg DAILYWSUP PO Last administered on 11/19/16 17:53; Start 11/19/16 at 17:00; Stop 11/20/16 at 08:53; Status DC Furosemide (Lasix) 40 mg 1X ONCE IVP Last administered on 11/19/16 09:40; Start 11/19/16 at 09:00; Stop 11/19/16 at 09:04; Status DC Insulin Aspart (Novolog) 0-7 UNITS TIDWMEALS SQ ; Start 11/19/16 at 12:00; Stop 11/21/16 at 21:16; Status DC Dextrose 12.5 gm PRN Q15MIN PRN IV SEE COMMENTS Last administered on 11/23/16 04:10; Start 11/19/16 at 09:00 Guaifenesin (Robitussin Dm) 10 ml PRN Q6HRS PRN PO COUGH; Start 11/19/16 at 09: 00 Nicotine (Nicoderm Cq 14mg) 1 patch PRN DAILY PRN TD SMOKING CESSATION; Start 11/19/16 at 09:15 Nicotine Polacrilex (Nicorette Gum) 1 each PRN Q1HR PRN BC BREAKTHROUGH CRAVINGS; Start 11/19/16 at 09:15 Albuterol/ Ipratropium (Duoneb) 3 ml RTQID NEB Last administered on 11/29/16 07:06; Start 11/19/16 at 09:30 Enoxaparin Sodium (Lovenox Per Pharmacy Prophylaxis Dosing) 1 each PRN DAILY PRN MC SEE COMMENTS; Start 11/19/16 at 09:30; Stop 11/19/16 at 09:30; Status DC Hydralazine HCl (Apresoline) 25 mg BID PO Last administered on 11/28/16 21:31 ; Start 11/19/16 at 10:30 Morphine Sulfate (Morphine Ir) 15 mg PRN Q4HRS PRN PO PAIN Last administered on 11/27/16 21:29; Start 11/20/16 at 00:15 Morphine Sulfate 4 mg PRN Q2HR PRN IV PAIN Last administered on 11/21/16 13:36 ; Start 11/20/16 at 00:15 Rivaroxaban 15 mg 15 mg DAILYWSUP PO ; Start 11/20/16 at 17:00; Stop 11/22/16 at 12:56; Status DC Sodium Chloride 1,000 ml @ 75 mls/hr [id number] IV Last administered on 23:37; Start 11/20/16 at 10:45; Stop 11/21/16 at 14:42; Status DC Milrinone Lactate/ Dextrose 100 ml @ 0 mls/hr CONT PRN IV SEE I/O RECORD Last administered on 11/21/16 22:19; Start 11/20/16 at 11:30; Stop 11/22/16 at 14:17 ; Status DC Magnesium Sulfate/ Dextrose 50 ml @ 25 mls/hr PRN DAILY PRN IV for Mag < 1.7 on am labs; Start 11/20/16 at 11:30 Piperacillin Sod/ Tazobactam Sod/ Sodium Chloride (Zosyn/Iv Sodium Chloride 0.9 % 50ml) 50 ml @ 100 mls/hr Q6HRS IV Last administered on 11/22/16 05:41; Start 11/20/16 at 12:00; Stop 11/22/16 at 10:39; Status DC Info 1 each 1 each PRN DAILY PRN MC SEE COMMENTS Last administered on 09:52; Start 11/21/16 at 08:15; Stop 11/22/16 at 14:15; Status DC Iron Sucrose/ Sodium Chloride (Venofer/Iv Sodium Chloride 0.9% 100ml) 110 ml @ 55 mls/hr 3X/WEEK IV Last administered on 11/28/16 10:14; Start 11/21/16 at 10 :00; Stop 11/30/16 at 10:59 Darbepoetin Guillermo (Aranesp) 100 mcg WEEKLYHS SQ Last administered on 11/28/16 21:31; Start 11/21/16 at 21:00 Calcium Acetate 1334 mg 1,334 mg TIDWMEALS PO Last administered on 11/28/16 18 :00; Start 11/21/16 at 12:00 Heparin Sodium/ Sodium Chloride 500 ml @ As Directed STK-MED ONCE .ROUTE ; Start 11/21/16 at 10:13; Stop 11/21/16 at 10:14; Status DC Lidocaine HCl 20 ml STK-MED ONCE .ROUTE ; Start 11/21/16 at 10:13; Stop at 10:14; Status DC Fentanyl Citrate (Fentanyl 2ml Vial) 100 mcg STK-MED ONCE .ROUTE ; Start at 10:52; Stop 11/21/16 at 10:53; Status DC Midazolam HCl (Versed) 2 mg STK-MED ONCE .ROUTE ; Start 11/21/16 at 10:52; Stop 11/21/16 at 10:53; Status DC Midazolam HCl (Versed) 1 mg 1X ONCE IV Last administered on 11/21/16 11:04; Start 11/21/16 at 11:30; Stop 11/21/16 at 11:31; Status DC Fentanyl Citrate (Fentanyl 2ml Vial) 25 mcg 1X ONCE IV Last administered on t 11:02; Start 11/21/16 at 11:30; Stop 11/21/16 at 11:31; Status DC Lidocaine/Sodium Bicarbonate (Buffered Lidocaine 1%) 20 ml STK-MED ONCE IJ ; Start 11/21/16 at 14:59; Stop 11/21/16 at 15:00; Status DC Heparin Sodium (Porcine) 27174 unit 10,000 unit STK-MED ONCE .ROUTE ; Start at 14:59; Stop 11/21/16 at 15:00; Status DC Heparin Sodium/ Sodium Chloride 500 ml @ As Directed STK-MED ONCE .ROUTE ; Start 11/21/16 at 14:59; Stop 11/21/16 at 15:00; Status DC Heparin Sodium/ Sodium Chloride 1,000 unit 1X ONCE IART Last administered on 15:18; Start 11/21/16 at 15:15; Stop 11/21/16 at 15:26; Status DC Lidocaine/Sodium Bicarbonate (Buffered Lidocaine 1%) 20 ml 1X ONCE IJ Last administered on 11/21/16 15:17; Start 11/21/16 at 15:15; Stop 11/21/16 at 15:26 ; Status DC Heparin Sodium (Porcine) 4300 unit 4,300 unit 1X ONCE IV Last administered on 11/21/16 15:17; Start 11/21/16 at 15:15; Stop 11/21/16 at 15:26; Status DC Sodium Chloride 1,000 ml @ 1,000 mls/hr Q1H PRN IV hypotension; Start 11/22/16 at 07:31; Stop 11/22/16 at 13:30; Status DC Albumin Human 200 ml @ 200 mls/hr 1X PRN PRN IV Hypotension; Start 11/22/16 at 07:45; Stop 11/22/16 at 13:44; Status DC Sodium Chloride (Iv Sodium Chloride 0.9% 1000ml Bag) 1,000 ml @ 400 mls/hr Q2H30M PRN IV PATENCY; Start 11/22/16 at 07:31; Stop 11/22/16 at 19:30; Status DC Info (PHARMACY MONITORING -- do not chart) 1 each PRN DAILY PRN MC SEE COMMENTS ; Start 11/22/16 at 07:45 Info (PHARMACY MONITORING -- do not chart) 1 each PRN DAILY PRN MC SEE COMMENTS ; Start 11/22/16 at 07:45; Status UNV Diphenhydramine HCl (Benadryl) 25 mg 1X PRN PRN IV ITCHING Last administered on 11/22/16 08:53; Start 11/22/16 at 08:45; Stop 11/23/16 at 08:44; Status DC Diphenhydramine HCl (Benadryl) 25 mg 1X PRN PRN IV ITCHING; Start 11/22/16 at 08:45; Stop 11/23/16 at 08:44; Status DC Ergocalciferol 83936 unit 50,000 unit WEEKLY PO Last administered on 11/22/16 12:12; Start 11/22/16 at 10:00 Piperacillin Sod/ Tazobactam Sod/ Sodium Chloride (Zosyn/Iv Sodium Chloride 0.9 % 50ml) 50 ml @ 100 mls/hr Q6HRS IV Last administered on 11/24/16 06:06; Start 11/22/16 at 12:00; Stop 11/24/16 at 08:05; Status DC Enoxaparin Sodium (Lovenox Per Pharmacy Treatment Dosing) 1 each PRN DAILY PRN MC SEE COMMENTS; Start 11/22/16 at 13:00; Stop 11/22/16 at 14:15; Status DC Enoxaparin Sodium 150 mg 150 mg Q24H SQ ; Start 11/22/16 at 14:00; Stop at 14:15; Status DC Dextrose 1,000 ml @ 50 mls/hr Q20H IV Last administered on 11/22/16t 16:19; Start 11/22/16 at 16:15; Stop 11/23/16 at 20:48; Status DC Sodium Chloride 1,000 ml @ 1,000 mls/hr Q1H PRN IV hypotension; Start 11/23/16 at 07:58; Stop 11/23/16 at 13:57; Status DC Albumin Human (Albuminar) 200 ml @ 200 mls/hr 1X PRN PRN IV Hypotension; Start 11/23/16 at 08:00; Stop 11/23/16 at 13:59; Status DC Diphenhydramine HCl (Benadryl) 25 mg 1X PRN PRN IV ITCHING; Start 11/23/16 at 08:00; Stop 11/24/16 at 07:59; Status DC Sodium Chloride (Normal Saline Flush) 10 ml 1X PRN PRN IV AP 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; Start 11/23/16 at 08:00; Stop 11/24/16 at 07:59; Status DC Sodium Chloride 10 ml 10 ml 1X PRN PRN IV MANAGER TELECOM 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; Start 11/23/16 at 08:00; Stop 11/24/16 at 07:59; Status DC Sodium Chloride (Iv Sodium Chloride 0.9% 1000ml Bag) 1,000 ml @ 400 mls/hr Q2H30M PRN IV PATENCY; Start 11/23/16 at 07:58; Stop 11/23/16 at 19:57; Status DC Info 1 each 1 each PRN DAILY PRN MC SEE COMMENTS; Start 11/23/16 at 08:00; Status UNV Piperacillin Sod/ Tazobactam Sod 2.25 gm/Sodium Chloride 50 ml @ 100 mls/hr Q8HRS IV Last administered on 11/28/16t 06:18; Start 11/24/16 at 14:00; Stop at 15:05; Status DC Sodium Chloride (Iv Sodium Chloride 0.9% 1000ml Bag) 1,000 ml @ 1,000 mls/hr Q1H PRN IV hypotension; Start 11/24/16 at 09:00; Stop 11/24/16 at 14:59; Status DC Sodium Chloride (Normal Saline Flush) 10 ml 1X PRN PRN IV AP 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; Start 11/24/16 at 09:00; Stop 11/24/16 at 18:00; Status DC Sodium Chloride (Normal Saline Flush) 10 ml 1X PRN PRN IV MANAGER TELECOM 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ROUTE ; Start 11/25/16 at 13:25; Stop 11/25/16 at 13:26; Status DC Midazolam HCl (Versed) 2 mg STK-MED ONCE .ROUTE ; Start 11/25/16 at 14:01; Stop 11/25/16 at 14:02; Status DC Fentanyl Citrate 100 mcg 100 mcg STK-MED ONCE .ROUTE ; Start 11/25/16 at 14:01; Stop 11/25/16 at 14:02; Status DC Cefazolin Sodium (Ancef 1gm Ivpb For Omni) 50 ml @ As Directed STK-MED ONCE IV ; Start 11/25/16 at 14:02; Stop 11/25/16 at 14:03; Status DC Lidocaine/Sodium Bicarbonate (Buffered Lidocaine 1%) 20 ml STK-MED ONCE IJ ; Start 11/25/16 at 14:32; Stop 11/25/16 at 14:33; Status DC Gelatin (Gelfoam Size 12-7mm) 1 each STK-MED ONCE .ROUTE ; Start 11/25/16 at 14 :32; Stop 11/25/16 at 14:33; Status DC Heparin Sodium (Porcine) 2,500 unit 1X ONCE IART ; Start 11/25/16 at 14:30; Stop 11/25/16 at 14:38; Status DC Midazolam HCl (Versed) 2 mg 1X ONCE IV Last administered on 11/25/16t 15:19; Start 11/25/16 at 14:30; Stop 11/25/16 at 14:38; Status DC Fentanyl Citrate 100 mcg 100 mcg 1X ONCE IV Last administered on 11/25/16t 15: 19; Start 11/25/16 at 14:30; Stop 11/25/16 at 14:38; Status DC Cefazolin Sodium (Ancef 1gm Ivpb For Omni) 50 ml @ 100 mls/hr 1X ONCE IV Last administered on 11/25/16 14:44; Start 11/25/16 at 14:30; Stop 11/25/16 at 14:59; Status DC Lidocaine/ Epinephrine (Xylocaine 1%-Epi 1:100,000) 20 ml 1X ONCE IJ Last administered on 11/25/16 14:44; Start 11/25/16 at 14:30; Stop 11/25/16 at 14:38 ; Status DC Heparin Sodium (Porcine) 4,200 unit 1X ONCE INT CAT Last administered on 14:44; Start 11/25/16 at 14:30; Stop 11/25/16 at 14:38; Status DC Gelatin (Gelfoam Size 12-7mm) 1 each STK-MED ONCE .ROUTE ; Start 11/25/16 at 14 :56; Stop 11/25/16 at 14:57; Status DC Heparin Sodium/ Sodium Chloride 1000 unit 1,000 unit 1X ONCE IV Last administered on 11/25/16 14:45; Start 11/25/16 at 15:15; Stop 11/25/16 at 15:17 ; Status DC Sodium Chloride (Iv Sodium Chloride 0.9% 1000ml Bag) 1,000 ml @ 1,000 mls/hr Q1H PRN IV hypotension; Start 11/26/16 at 10:11; Stop 11/26/16 at 16:10; Status DC Sodium Chloride (Normal Saline Flush) 10 ml 1X PRN PRN IV AP 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; Start 11/26/16 at 10:15; Stop 11/27/16 at 10:14; Status DC Sodium Chloride 10 ml 10 ml 1X PRN PRN IV MANAGER TELECOM 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; Start 11/26/16 at 10:15; Stop 11/27/16 at 10:14; Status DC Sodium Chloride (Iv Sodium Chloride 0.9% 1000ml Bag) 1,000 ml @ 400 mls/hr Q2H30M PRN IV PATENCY; Start 11/26/16 at 10:11; Stop 11/26/16 at 22:10; Status DC Info (PHARMACY MONITORING -- do not chart) 1 each PRN DAILY PRN MC SEE COMMENTS ; Start 11/26/16 at 10:15; Status UNV Info 1 each 1 each PRN DAILY PRN MC SEE COMMENTS; Start 11/26/16 at 10:15; Status UNV Magnesium Sulfate/ Dextrose (Magnesium Sulfate PREMIX 1GM) 100 ml @ 100 mls/hr 1X ONCE IV Last administered on 11/27/16 00:19; Start 11/26/16 at 23:30; Stop 11/27/16 at 00:29; Status DC Apixaban 5 mg 5 mg BID PO Last administered on 11/28/16t 21:31; Start 11/28/16 at 09:00 Sodium Chloride (Iv Sodium Chloride 0.9% 1000ml Bag) 1,000 ml @ 1,000 mls/hr Q1H PRN IV hypotension; Start 11/29/16 at 08:04; Stop 11/29/16 at 14:03 Diphenhydramine HCl (Benadryl) 25 mg 1X PRN PRN IV ITCHING; Start 11/29/16 at 08:15; Stop 11/30/16 at 08:14 Diphenhydramine HCl 25 mg 25 mg 1X PRN PRN IV ITCHING; Start 11/29/16 at 08:15 ; Stop 11/30/16 at 08:14 Sodium Chloride (Iv Sodium Chloride 0.9% 1000ml Bag) 1,000 ml @ 400 mls/hr Q2H30M PRN IV PATENCY; Start 11/29/16 at 08:04; Stop 11/29/16 at 20:03 Info (PHARMACY MONITORING -- do not chart) 1 each PRN DAILY PRN MC SEE COMMENTS ; Start 11/29/16 at 08:15; Status UNV Info (PHARMACY MONITORING -- do not chart) 1 each PRN DAILY PRN MC SEE COMMENTS ; Start 11/29/16 at 08:15; Status UNV Active Scripts Active Reported Eliquis (Apixaban) 5 Mg Tablet 5 Mg PO BID Carvedilol 25 Mg Tablet 1 Tab PO BID Furosemide 40 Mg Tablet 1 Tab PO DAILY Losartan Potassium 100 Mg Tablet 100 Mg PO DAILY Amlodipine Besylate 10 Mg Tablet 10 Mg PO DAILY Glimepiride 2 Mg Tablet 1 Tab PO DAILY Vitals/I & O Vital Sign - Last 24 Hours 11/28/16 11/28/16 11/28/16 11/28/16 11:25 15:00 15:25 18:05 Temp 97.4 97.4 Pulse 77 77 Resp 23 B/P 110/68 110/68 Pulse Ox 96 O2 Delivery Room Air Room Air Room Air 11/28/16 11/28/16 11/28/16 11/28/16 18:43 19:45 20:00 21:31 Temp 97.9 97.9 Pulse 80 89 Resp 20 B/P 132/76 Pulse Ox 96 O2 Delivery Room Air Room Air Room Air 11/28/16 11/29/16 11/29/16 11/29/16 23:10 02:50 07:06 07:31 Temp 98.4 98.2 98.4 98.2 Pulse 82 87 Resp 18 20 B/P 126/73 121/67 Pulse Ox 98 96 O2 Delivery Room Air Room Air Room Air Room Air 11/29/16 07:56 Temp 98.7 98.7 Pulse 94 Resp 18 B/P 131/60 Pulse Ox 97 O2 Delivery Room Air Intake and Output 11/28/16 11/28/16 11/29/16 15:00 23:00 07:00 Intake Total 480 ml Output Total 75 ml 50 ml Balance -75 ml 430 ml ELIGIO MCKENNA III DO Nov 29, 2016 11:25
[2016-11-29] MEDS: ERGOCALCIFEROL (VITAMIN D2) 50,000 UNIT CAPSULE PO SCH (12:57)
[2016-11-29] MEDS: APIXABAN 5 MG TABLET. PO SCH (12:57)
[2016-11-29] MEDS: HYDRALAZINE 25 MG TABLET PO SCH (12:58)
[2016-11-29] MEDS: CARVEDILOL 12.5 MG TABLET PO SCH (12:59)
[2016-11-29] MEDS: AMLODIPINE BESYLATE 10 MG TABLET PO SCH (12:59)
[2016-11-29 14:14] VITALS: BP 124/73
== END 2016-11-29 14:40 | DRG 286 ==
LOC: ER 19:59 → 6 SOUTH 22:06 → 2 NORTH 11-19 14:30
PROVIDERS: ADMIT Internal Medicine; ATTEND Internal Medicine
PROC: 4A023N6 Measurement of Cardiac Sampling and Pressure, Right Heart, Percutaneous Approach (ICD-10-PCS; 2016-11-21)
PROC: 02H633Z Insertion of Infusion Device into Right Atrium, Percutaneous Approach (ICD-10-PCS; 2016-11-23)
PROC: B2141ZZ Fluoroscopy of Right Heart using Low Osmolar Contrast (ICD-10-PCS; 2016-11-23)
PROC: 02PAX3Z Removal of Infusion Device from Heart, External Approach (ICD-10-PCS; 2016-11-25)
PROC: 02H633Z Insertion of Infusion Device into Right Atrium, Percutaneous Approach (ICD-10-PCS; 2016-11-25)
PROC: B2141ZZ Fluoroscopy of Right Heart using Low Osmolar Contrast (ICD-10-PCS; 2016-11-25)
PROC: 0TB13ZX Excision of Left Kidney, Percutaneous Approach, Diagnostic (ICD-10-PCS; 2016-11-25)
PROC: 5A1D60Z (ICD-10-PCS; principal; 2016-11-26)
DX: I50.43 Acute on chronic combined systolic (congestive) and diastolic (congestive) heart failure (principal); N17.0 Acute kidney failure with tubular necrosis; I13.0 Hypertensive heart and chronic kidney disease with heart failure and stage 1 through stage 4 chronic kidney disease, or unspecified chronic kidney disease; I42.9 Cardiomyopathy, unspecified; L03.90 Cellulitis, unspecified; N39.0 Urinary tract infection, site not specified; N18.4 Chronic kidney disease, stage 4 (severe); B36.9 Superficial mycosis, unspecified; D64.9 Anemia, unspecified; E11.22 Type 2 diabetes mellitus with diabetic chronic kidney disease; E11.42 Type 2 diabetes mellitus with diabetic polyneuropathy; E11.649 Type 2 diabetes mellitus with hypoglycemia without coma; E66.9 Obesity, unspecified; E83.39 Other disorders of phosphorus metabolism; I48.2 Chronic atrial fibrillation; I87.8 Other specified disorders of veins; M16.11 Unilateral primary osteoarthritis, right hip; N28.1 Cyst of kidney, acquired; W01.0XXA Fall on same level from slipping, tripping and stumbling without subsequent striking against object, initial encounter; Y93.89 Activity, other specified; Z83.3 Family history of diabetes mellitus; Y92.098 Other place in other non-institutional residence as the place of occurrence of the external cause; Y99.8 Other external cause status
CPT/HCPCS: 36415; 36556; 36581; 50200; 71010; 73502; 73630; 76770; 76937; 77001; 77012; 80048; 80053; 80069; 80074; 81001; 82306; 82550; 82570; 82575; 82607; 82728; 82947; 83520; 83540; 83550; 83735; 83880; 83970; 84100; 84156; 84165; 85007; 85018; 85027; 85610; 85651; 86021; 86160; 86334; 86704; 86706; 87040; 87086; 87801; 90686; 90732; 93005; 93306; 93451; 93970; 94250; 94640; 94760; 96365; 96375; C1750; C1769; C1773; C1892; J0690; J0696; J0881; J1200; J1756; J1815; J1940; J2250; J2260; J2270; J2543; J3010; J3475; J3490; J7030; J7042; J7620; 97110; 97116; 97530; 97535; 99285-25

== ENCOUNTER → 2017-03-15 | Outpatient (CLI) | payer OTHER ==
[~2017-03-15] MED LIST: AMLO10TA2 PO; APIX5TAB PO; CARV25TA2 PO; FURO40TA4 PO; GLIM2TAB2 PO; LOSA100T6 PO; RIVA20TA2 PO
--- NOTE | 2017-03-15 10:08 | CARD ---
APPROVED REPORT EXAM: Two-dimensional and M-mode echocardiogram with Doppler and color Doppler. Other Information Quality : GoodHR: 82bpm Rhythm : Atrial Fibrillation INDICATION Congestive Heart Failure Cardiomyopathy RISK FACTORS Hypertension Obesity Family History Diabetes 2D DIMENSIONS RVDd2.7 (2.9-3.5cm)Left Atrium(2D)6.0 (1.6-4.0cm) IVSd1.3 (0.7-1.1cm)Aortic Root(2D)3.3 (2.0-3.7cm) LVDd6.9 (3.9-5.9cm)LVOT Diameter2.5 (1.8-2.4cm) PWd1.2 (0.7-1.1cm)LVDs5.5 (2.5-4.0cm) FS (%) 20.1 %SV97.7 ml LVEF(%)40.0 (>50%) Aortic Valve AoV Peak Ramirez.106.8cm/sAoV VTI22.6cm AO Peak GR.4.6mmHgLVOT Peak Ramirez.94.5cm/s AO Mean GR.3mmHgAVA (VMAX)4.41cm2 Pulmonary Valve PV Peak Qwdyxcyw28.8cm/s Tricuspid Valve TR P. Eldqlqbp190id/sTR Peak Gr.32mmHg Pulmonary Vein S1 Yvwqyjiu46.7cm/s LEFT VENTRICLE The Left Ventricle is mildly dilated. There is mild concentric left ventricular hypertrophy. Left angela tricle systolic function is mildly impaired. The Ejection Fraction is 40-45%. There is mild global hy pokinesis of the left ventricle. Tissue Doppler imaging reveals moderate left ventricular diastolic d ysfunction. No left ventricle thrombus noted on this study. RIGHT VENTRICLE The right ventricle is normal size. There is normal right ventricular wall thickness. The right ventr icular systolic function is normal. ATRIA The left atrium is severely dilated. The right atrium size is normal. The interatrial septum is intac t with no evidence for an atrial septal defect or patent foramen ovale as noted on 2-D or Doppler twan ging. AORTIC VALVE The aortic valve is mildly sclerotic. The aortic valve is trileaflet. Doppler and Color Flow revealed no significant aortic regurgitation. There is no significant aortic valvular stenosis. MITRAL VALVE Mitral annular calcification is mild. The mitral valve leaflets are thickened. There is no evidence o f mitral valve prolapse. There is no mitral valve stenosis. Doppler and Color Flow revealed mild mitr al regurgitation. TRICUSPID VALVE Doppler and Color Flow revealed mild tricuspid regurgitation. The pulmonary artery systolic pressure is estimated at 35 mmHg. There is mild pulmonary hypertension. PULMONIC VALVE Doppler and Color Flow revealed mild pulmonic valvular regurgitation. There is no pulmonic valvular s tenosis. GREAT VESSELS The aortic root is normal in size. The ascending aorta is normal in size. The IVC is normal in size a nd collapses >50% with inspiration. PERICARDIAL EFFUSION There is no evidence of significant pericardial effusion. Critical Notification Critical Value: No <Conclusion> Left ventricle systolic function is mildly impaired. The Ejection Fraction is 40-45%. There is mild global hypokinesis of the left ventricle.
== END | disposition home or self-care (01) ==
LOC: ECHO 07:40
PROVIDERS: ATTEND Internal Medicine Cardiovascular Disease
DX: I08.1 Rheumatic disorders of both mitral and tricuspid valves (principal); I50.9 Heart failure, unspecified
CPT/HCPCS: 93306

== ENCOUNTER → 2017-03-23 | Outpatient (CLI) | payer OTHER ==
--- NOTE | 2017-03-28 10:04 | SLEEP ---
DATE OF STUDY: 03/23/2017 ATTENDING PHYSICIAN: Dr. Everett. The patient is a 61-year-old who weighs 290 pounds and is 75 inches tall with a BMI of 36. The patient underwent home sleep study performed by [facility]. The patient's Upton score was 8. Total recording time was 244 minutes. During the night study, the patient had no central apneas, but 46 obstructive apneas and no mixed apneas. There were 64 hypopneas. The patient's apnea hypopnea index was 27 per hour with a supine index of 30 per hour. Review of nocturnal oximetry study revealed that the patient's average oxygen saturation was 90% with the lowest of 73%. A 70 minutes were spent in oxygen saturation less than 90%. Mean heart rate was 67 beats per minute. IMPRESSION: 1. Moderate sleep apnea-hypopnea syndrome with worsening during supine sleep. Total apnea-hypopnea index 27 per hour with a supine apnea-hypopnea index of 30 per hour. 2. Nocturnal hypoxia secondary to obstructive sleep apnea. RECOMMENDATIONS: 1. The patient should return for in-lab CPAP titration study to treat the patient's sleep apnea. 2. Once optimum CPAP pressure is achieved, then follow up in 4-6 weeks to assess compliance with CPAP and to document clinical improvement. 3. Weight loss is strongly advised. 4. Avoid LAB AIDE depressants. 5. Caution regarding driving until symptoms of sleep apnea resolve with the above recommendations. JESSICA SHERIFF MD DR: FINA/irasema JOB#: [id number] / [id number] SAMIA Kapoor MD
== END | disposition home or self-care (01) ==
LOC: RT 07:15
PROVIDERS: ATTEND Internal Medicine Cardiovascular Disease
DX: G47.33 Obstructive sleep apnea (adult) (pediatric) (principal); I42.9 Cardiomyopathy, unspecified
CPT/HCPCS: G0399

== ENCOUNTER → 2018-01-18 | Outpatient (CLI) | payer OTHER | END | disposition home or self-care (01) | LOC: ECHO 08:35 | DX: I48.2 Chronic atrial fibrillation (principal); I07.1 Rheumatic tricuspid insufficiency | CPT/HCPCS: 93306 ==